=== PATIENT | female | born 1960 | race Caucasian/White ===

== ENCOUNTER 2020-05-01 20:26 | Observation (INO) | payer OTHER ==
[~2020-05-01] VITALS: Ht 142.2 cm; Wt 52.2 kg
[2020-05-01 20:52] VITALS: BP 120/55
--- OUTSIDE RECORDS SUMMARY | 2020-05-01 20:53 | XMS REPORT | Clinical Summary ---
Author Author [facility] ict Organization [facility] ict Address Unknown Phone Unavailable Care Team Providers Care Strategy Intern Name Role Phone PCP Unavailable Allergies No Known Allergies Medications End Date Status Medication Sig Dispensed Refills Start Date Active PRECISION XTRA TEST Check 3x 2 Box 12 STRIPS stripsIndications: daily: before 4 Diabetes mellitus breakfast and at bedtime, and once more before lunch or dinner. Check as needed for signs of low blood sugar. Active blood glucose meter Use as 1 Kit 0 (GLUCOMETER)Indications: directed.. 4 Diabetes mellitus Active aspirin (ASPIRIN) 81 mg Chew and 90 tablet 3 chewable swallow 1 4 tabletIndications: S/P tablet by CABG (coronary artery mouth daily. bypass graft), Diabetes mellitus, Hyperlipidemia, Hypertension Active OMEGA 3 1,000 mg cap Take 1,000 mg 0 by mouth daily . Active metoprolol succinate Take 1 tablet 90 tablet 3 (TOPROL XL) 50 mg by mouth 5 extended release daily For tabletIndications: blood Essential hypertension, pressure. Coronary artery disease due to lipid rich plaque Active famotidine (PEPCID) 20 mg Take 1 tablet 90 tablet 2 tabletIndications: by mouth 6 Epigastric pain, Nausea nightly at and vomiting, unspecified bedtime as intactability, vomiting needed for of unspecified type, Heartburn. Regurgitation of food Active isosorbide mononitrate Take 1 tablet 30 tablet 3 0 (IMDUR) 30 mg extended by mouth 6 release every tabletIndications: morning. Coronary artery vasospasm Active nicotine (NICODERM CQ) 21 Apply 1 Patch 28 Patch 0 mg/24 hr to skin as 6 patchIndications: Tobacco directed abuse daily. Active budesonide-formoterol Inhale 2 10.2 g 1 07/1 3/201 (SYMBICORT) 80-4.5 Puffs by 6 mcg/actuation mouth 2 times inhalerIndications: daily. Chronic obstructive pulmonary disease, unspecified COPD type, Cough Active ferrous sulfate 325 mg Take 1 tablet 90 tablet 1 0 (65 mg iron) by mouth 6 tabletIndications: daily (with Anemia, unspecified breakfast). Active NITROSTAT 0.[address] 1 100 tablet 1 sublingual tablet under 6 tabletIndications: NSTEMI tongue every (non-ST elevated 5 minutes myocardial infarction), With a Coronary artery disease maximum of 3 involving [place] coronary doses within artery of [place] heart 15 minutes. without angina pectoris, If chest pain S/P cardiac persists, she catheterization, ST is to go to elevation myocardial ER. Use new infarction (STEMI), bottle every unspecified artery, 6 months.. Coronary artery vasospasm Active atorvastatin (LIPITOR) 80 Take 1 tablet 90 tablet 1 mg tabletIndications: by mouth at 6 NSTEMI (non-ST elevated bedtime myocardial infarction) nightly For cholesterol. Active methocarbamol Take 1 tablet 60 tablet 2 (ROBAXIN-750) 750 mg by mouth 3 6 tabletIndications: times daily Midline low back pain as needed for without sciatica Pain. Active blood glucose (PRECISION use 2 times 50 Each 0 0 XTRA TEST STRIPS) test weekly. 7 stripsIndications: Type 2 diabetes mellitus without complication Active lancets 28 check blood 50 Each 0 gaugeIndications: Type 2 sugar level 2 7 diabetes mellitus without times a week complication contacted for qtt 06/18/18 Active albuterol (PROVENTIL HFA) Inhale 2 6.7 g 1 90 mcg/actuation Puffs by 7 inhalerIndications: mouth 4 times Chronic obstructive daily as pulmonary disease, needed for unspecified COPD type, Wheezing. Cough Active lancets 28 Check blood 100 Each 1 gaugeIndications: Type 2 glucose 2 7 diabetes mellitus without times weekly. complication, without long-term current use of insulin Active lisinopril (PRINIVIL, TAKE 1 TABLET 30 tablet 0 ZESTRIL) 10 mg BY MOUTH 7 tabletIndications: EVERY DAY Essential hypertension Active metFORMIN (GLUCOPHAGE) Take 1 tablet 60 tablet 0 1 850 mg tabletIndications: by mouth 2 7 Type 2 diabetes mellitus times daily without complication (with meals) Needs appointment before next refill. Active DULoxetine (CYMBALTA) 60 TAKE 2 60 capsule 0 1 mg delayed release CAPSULE BY 7 capsuleIndications: MOUTH EVERY Severe episode of MORNING recurrent major depressive disorder, without psychotic features Active gabapentin (NEURONTIN) TAKE 1 120 capsule 3 300 mg CAPSULE BY 8 capsuleIndications: Pain MOUTH THREE of left lower extremity TIMES DAILY Active traZODone (DESYREL) 50 mg Take 1-2 90 tablet 2 tabletIndications: MDD tablets at 8 (major depressive night for disorder), recurrent, insomnia. Can severe, with psychosis take up to 3 pills at night as needed for insomnia.. Active DULoxetine (CYMBALTA) 60 Take 2 60 capsule 2 0 mg delayed release capsules by 8 capsuleIndications: MDD mouth daily. 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 Active QUEtiapine (SEROQUEL) 300 TAKE 1 TABLET 30 tablet 2 mg tabletIndications: MDD BY MOUTH 8 (major depressive EVERY NIGHT disorder), recurrent, AT BEDTIME severe, with psychosis Active clopidogrel (PLAVIX) 75 TAKE 1 TABLET 30 tablet 0 mg tabletIndications: S/P BY MOUTH 8 coronary artery stent DAILY placement Active Problems Problem Noted Date Tobacco abuse 05/31/2016 Anxiety 05/30/2016 S/P cardiac catheterization 05/30/2016 Coronary artery vasospasm 05/30/2016 Panic disorder 03/20/2016 Chest pain 11/01/2015 Epigastric pain 10/24/2015 Major depressive disorder, recurrent, severe without psychotic features 07/22/2015 Anxiety state, unspecified 07/22/2015 Insomnia, unspecified 07/22/2015 MDD (major depressive disorder) 02/27/2014 Cough 01/25/2014 S/P CABG (coronary artery bypass graft) 12/29/2013 PMB (postmenopausal bleeding) 08/10/2012 Hypertension Hyperlipidemia Hx of colonic polyps Diabetes mellitus Coronary artery disease Stented coronary artery Low back pain Hx of CABG Hx of coronary angiogram SOB (shortness of breath) ST elevation myocardial infarction ([place]) Immunizations Name Administration Dates Next Due Clonidine 0.1mg Tab 11/10/2013 Influenza Vac (Fluarix) 01/05/2014 Influenza Vaccine 08/29/2015, 12/06/2014, , 09/10/2011 Pneumoccoccal 02/02/2014 Tdap Tetanus, diphtheria, 09/10/2011 acellular pertussis Vaccine Family History Medical History Relation Name Comments Cancer Father gastric Cancer Mother Lung cancer Diabetes Mother Hypertension Mother Stroke Mother Relation Name Status Comments Father Mother Social History Date Tobacco Use Types Packs/Day Years Used Current Some Day Smoker Cigarettes 0.5 22 Smokeless Tobacco: Never Used Tobacco Cessation: Ready to Quit: No; Co unseling Given: Yes Comments: e vapor cig Drinks/Week oz/Week Comments Alcohol Use 6 Standard drinks or equivalent 6.0 quit 09/23/2010 No Sex Assigned at Date Recorded Not on file Industry Job Start Date Occupation Not on file Not on file Not on file Travel End Travel History Travel Start No recent travel history available. Last Filed Vital Signs Not on file Plan of Treatment Health Maintenance Due Date Last Done Comments Colorectal Cancer Scrn 11/04/2012 11/04/2011, , 09/25/2010 Annual (FIT/FOBT) Age 50 to 75 DM Retinal Exam (Yearly) 12/12/2016 12/12/2015, 0 04/14/2014, 06/03/2012, Additional history exists Breast Cancer Scrn 02/10/2017 02/11/2016, 016, 04/25/2014, (Yearly) Additional history exists DM Foot Exam (Yearly) 02/10/2017 02/11/2016, 04/11/2014, 05/03/2013 (Previously completed - External), Additional history exists CORONARY ARTERY DISEASE 07/18/2017 07/18/2016, , 02/02/2015, AGE 18 AND UP Additional history exists DM HGBA1C (Yearly) 10/20/2017 10/20/2016, 016, 04/30/2016, Additional history exists Cervical Cancer Scrn (3 01/27/2019 01/28/2016, Yrs) Results Not on fileafter 05/01/2019 Insurance Type Payer Benefit Subscriber ID Effective Phone Address Plan / Dates Group [employer] HMO [employer] xxxxxxxxx 2016- [address] [id number] [place] [address] [employer] H[employer] xxxxxxxxx 2016- [address] Present [id number] [place] [address] (Work) Advance Directives Date Inactivated Comments Code Status Date Activated 05/31/2016 4:04 PM Full Code 05/30/2016 1:17 PM 05/30/2016 1:17 PM Full Code 05/30/2016 12:56 PM 11/02/2015 3:23 PM Full Code 11/01/2015 12:27 PM 01/19/2014 1:07 PM Full Code 01/18/2014 10:17 AM 01/18/2014 10:17 AM Full Code 01/17/2014 2:47 PM
--- OUTSIDE RECORDS SUMMARY | 2020-05-01 20:54 | XMS REPORT | Summary of Care ---
Author Author [facility] Organization [facility] Address Unknown Phone Unavailable Encounter PING Alvarado(CARINA) [phone] Date(s): 02/10/18 - 02/10/18 [facility] [address] [place] [address]- [phone] Encounter Diagnosis Hypoxemia (Final) - 02/17/18 Chronic obstructive pulmonary disease, unspecified (Final) - Underdosing of therapeutic gases, initial encounter (Final) - Patient's intentional underdosing of medication regimen for other reason (Final) - Dependence on supplemental oxygen (Final) - Hypertensive heart disease with heart failure (Final) - Heart failure, unspecified (Final) - Atherosclerotic heart disease of [place] coronary artery without angina pectoris (Final) - Presence of aortocoronary bypass graft (Final) - Type 2 diabetes mellitus without complications (Final) - Nicotine dependence, cigarettes, uncomplicated (Final) - 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 (Final) - 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 (Final) - Discharge Disposition: Left Against Medical Advise Attending Physician: Cory Thornton MD Admitting Physician: Cory Thornton MD Vital Signs 1 2 3 Most recent to oldest [Reference Range]: 160.02 cm (02/10/18 8:21 AM) Height 97.6 DegF (02/10/18 11:48 AM) 98.0 DegF (02/10/18 10:57 AM) 99.3 DegF *HI* (02/10/18 8:21 AM) Temperature Oral [96.4-99.1 DegF] 124/59 mmHg (02/10/18 11:48 AM) 119/55 mmHg (02/10/18 10:57 AM) 109/71 mmHg (02/10/18 8:47 AM) Blood Pressure [90-140/60-90 mmHg] 17 BRMIN (02/10/18 11:48 AM) 18 BRMIN (02/10/18 10:57 AM) 18 BRMIN (02/10/18 9:48 AM) Respiratory Rate [14-20 BRMIN] 79 bpm (02/10/18 11:48 AM) 80 bpm (02/10/18 10:57 AM) 74 bpm (02/10/18 8:21 AM) Peripheral Pulse Rate [60-100 bpm] 54.545 kg (02/10/18 8:21 AM) Weight 21.3 m2 (02/10/18 8:21 AM) Body Mass Index Problem List No data available for this section Allergies, Adverse Reactions, Alerts Substance Reaction Severity Status NKDA Active Medications albuterol-ipratropium 2.5-0.5 mg inhalation solution 3 mL, Route: NEB, Drug Form: SOLN, Dosing Weight 54.545, kg, ONCE, STAT, Start d ate: 02/10/18 9:57:00 CDT, Stop date: 02/10/18 9:57:00 CDT Notes: (Same as: Duoneb) Start Date: 02/10/18 Stop Date: 02/10/18 Status: Completed amitriptyline 25 mg, 1 tab, Route: PO, Drug form: TAB, Bedtime, Dosing Weight 54.545, kg, Star t date: 02/10/18 21:00:00 CDT, Duration: 30 day, Stop date: 03/11/18 21:00:00 CD T Notes: (Same as: Elavil) Start Date: 02/10/18 Stop Date: 02/10/18 Status: Canceled aspirin 81 mg tablet, enteric coated 81 mg, 1 tab, Route: PO, Drug form: ECTAB, Daily, Dosing Weight 54.545, kg, Star t date: 02/10/18 15:00:00 CDT, Duration: 30 day, Stop date: 03/12/18 9:00:00 CDT Notes: Do not crush or chew.(Same As: Ecotrin) Start Date: 02/10/18 Stop Date: 02/10/18 Status: Canceled atorvastatin 80 mg, 2 tab, Route: PO, Drug form: TAB, Bedtime, Dosing Weight 54.545, kg, Star t date: 02/10/18 21:00:00 CDT, Duration: 30 day, Stop date: 03/11/18 21:00:00 CD T Notes: (Same as: Lipitor) Start Date: 02/10/18 Stop Date: 02/10/18 Status: Canceled azithromycin 500 mg oral tablet 500 mg, 2 tab, Route: PO, Drug form: TAB, Daily, Dosing Weight 54.545, kg, Start date: 02/11/18 9:00:00 CDT, Duration: 3 day, Stop date: 02/13/18 9:00:00 CDT, A BX Indication: Non-PNA Respiratory Tract Infection Notes: Take 1 hour before or 2 hours after meals.(Same As: Zithromax) Start Date: 02/11/18 Stop Date: 02/10/18 Status: Canceled Cartia XT 240 mg, 1 cap, Route: PO, Drug form: ERCAP, Daily, Dosing Weight 54.545, kg, Sta rt date: 02/11/18 9:00:00 CDT, Duration: 30 day, Stop date: 03/12/18 9:00:00 CDT Notes: (Same as: Cardizem CD) Before meals. DO NOT CRUSH. Start Date: 02/11/18 Stop Date: 02/10/18 Status: Canceled Dextrose 50% Syringe 12.5 gm, 25 mL, Route: IVP, Drug Form: INJ, Dosing Weight 54.545, kg, PRN, PRN B lood Glucose Results, Start date: 02/10/18 13:16:00 CDT, Duration: 30 day, Stop date: 03/12/18 13:15:00 CDT Start Date: 02/10/18 Stop Date: 02/10/18 Status: Discontinued Dextrose 50% Syringe 25 gm, 50 mL, Route: IVP, Drug Form: INJ, Dosing Weight 54.545, kg, PRN, PRN Blo od Glucose Results, Start date: 02/10/18 13:16:00 CDT, Duration: 30 day, Stop da te: 03/12/18 13:15:00 CDT Start Date: 02/10/18 Stop Date: 02/10/18 Status: Discontinued dicyclomine 10 mg, 1 cap, Route: PO, Drug form: CAP, QID, Dosing Weight 54.545, kg, Start da te: 02/10/18 13:00:00 CDT, Duration: 30 day, Stop date: 03/12/18 9:00:00 CDT Notes: (Same as: Bentyl) Start Date: 02/10/18 Stop Date: 02/10/18 Status: Discontinued DULoxetine 120 mg, 4 cap, Route: PO, Drug form: DRC, QAM, Dosing Weight 54.545, kg, Start d ate: 02/11/18 9:00:00 CDT, Duration: 30 day, Stop date: 03/12/18 9:00:00 CDT Notes: (Same as: Cymbalta) (Do Not Crush) Start Date: 02/11/18 Stop Date: 02/10/18 Status: Canceled DuoNeb inhalation solution 3 ml, Route: NEB, Drug Form: SOLN, Dosing Weight 54.545, kg, PRN, PRN Respirator y Protocol, Start date: 02/10/18 13:14:00 CDT, Duration: 30 day, Stop date: 02/22 13:13:00 CDT Notes: (Same as: Duoneb) Start Date: 02/10/18 Stop Date: 02/10/18 Status: Discontinued glucagon 1 mg, Route: IM, Drug form: PDR/INJ, PRN, Dosing Weight 54.545, kg, PRN Blood Gl ucose Results, Start date: 02/10/18 13:16:00 CDT, Duration: 30 day, Stop date: 0 03/12/18 13:15:00 CDT Start Date: 02/10/18 Stop Date: 02/10/18 Status: Discontinued insulin lispro 4 unit, 0.04 mL, Route: SUB-Q, Drug form: SOLN, TID-Before Meals, Dosing Weight 54.545, kg, PRN Blood Glucose Results, Start date: 02/10/18 13:16:00 CDT, Durati on: 30 day, Stop date: 03/12/18 13:15:00 CDT Notes: (Same as: Humalog ) Roll in palms of hands gently; Do not shake `vigorou sly. "Single Patient Use Only " WASTE: F/P - Black; E - [address]ash [address] able for 28 days at room temperature.Expires in days from Da te Start Date: 02/10/18 Stop Date: 02/10/18 Status: Discontinued insulin lispro 8 unit, 0.08 mL, Route: SUB-Q, Drug form: SOLN, TID-Before Meals, Dosing Weight 54.545, kg, PRN Blood Glucose Results, Start date: 02/10/18 13:16:00 CDT, Durati on: 30 day, Stop date: 03/12/18 13:15:00 CDT Notes: (Same as: Humalog ) Roll in palms of hands gently; Do not shake `vigorou sly. "Single Patient Use Only " WASTE: F/P - Black; E - [address] able for 28 days at room temperature.Expires in days from Da te Start Date: 02/10/18 Stop Date: 02/10/18 Status: Discontinued insulin lispro 6 unit, 0.06 mL, Route: SUB-Q, Drug form: SOLN, TID-Before Meals, Dosing Weight 54.545, kg, PRN Blood Glucose Results, Start date: 02/10/18 13:16:00 CDT, Durati on: 30 day, Stop date: 03/12/18 13:15:00 CDT Notes: (Same as: Humalog ) Roll in palms of hands gently; Do not shake `vigorou sly. "Single Patient Use Only " WASTE: F/P - Black; E - [address] able for 28 days at room temperature.Expires in days from Da te Start Date: 02/10/18 Stop Date: 02/10/18 Status: Discontinued insulin lispro 10 unit, 0.1 mL, Route: SUB-Q, Drug form: SOLN, TID-Before Meals, Dosing Weight 54.545, kg, PRN Blood Glucose Results, Start date: 02/10/18 13:16:00 CDT, Durati on: 30 day, Stop date: 03/12/18 13:15:00 CDT Notes: (Same as: Humalog ) Roll in palms of hands gently; Do not shake `vigorou sly. "Single Patient Use Only " WASTE: F/P - Black; E - [address] able for 28 days at room temperature.Expires in days from Da te Start Date: 02/10/18 Stop Date: 02/10/18 Status: Discontinued insulin lispro 2 unit, 0.02 mL, Route: SUB-Q, Drug form: SOLN, TID-Before Meals, Dosing Weight 54.545, kg, PRN Blood Glucose Results, Start date: 02/10/18 13:16:00 CDT, Durati on: 30 day, Stop date: 03/12/18 13:15:00 CDT Notes: (Same as: Humalog ) Roll in palms of hands gently; Do not shake `vigorou sly. "Single Patient Use Only " WASTE: F/P - Black; E - [address] able for 28 days at room temperature.Expires in days from Da te Start Date: 02/10/18 Stop Date: 02/10/18 Status: Discontinued isosorbide mononitrate 60 mg, 2 tab, Route: PO, Drug form: ERTAB, QAM, Dosing Weight 54.545, kg, Start date: 02/11/18 9:00:00 CDT, Duration: 30 day, Stop date: 03/12/18 9:00:00 CDT Notes: (Same as:Imdur)"Do Not Crush" Take on empty stomach/ full glass of water . Do not crush Start Date: 02/11/18 Stop Date: 02/10/18 Status: Canceled lisinopril 10 mg, 2 tab, Route: PO, Drug form: TAB, Daily, Dosing Weight 54.545, kg, Start date: 02/11/18 9:00:00 CDT, Duration: 30 day, Stop date: 03/12/18 9:00:00 CDT Notes: (Same as: Prinivil Zestril) Start Date: 02/11/18 Stop Date: 02/10/18 Status: Canceled methocarbamol 1,500 mg, 2 tab, Route: PO, Drug form: TAB, BID, Dosing Weight 54.545, kg, Start date: 02/10/18 17:00:00 CDT, Duration: 30 day, Stop date: 03/12/18 9:00:00 CDT Notes: (Same as:Robaxin) Start Date: 02/10/18 Stop Date: 02/10/18 Status: Canceled Neurontin 600 mg, 2 cap, Route: PO, Drug form: CAP, Q8H, Dosing Weight 54.545, kg, Start d ate: 02/10/18 16:00:00 CDT, Duration: 30 day, Stop date: 03/12/18 8:00:00 CDT Notes: (Same as: Neurontin) Start Date: 02/10/18 Stop Date: 02/10/18 Status: Canceled omeprazole 20 mg, Route: PO, Drug form: DRC, Daily, Dosing Weight 54.545, kg, Start date: 0 02/11/18 9:00:00 CDT, Duration: 30 day, Stop date: 03/12/18 9:00:00 CDT Start Date: 02/11/18 Stop Date: 02/10/18 Status: Deleted Plavix 75 mg, 1 tab, Route: PO, Drug form: TAB, Daily, Dosing Weight 54.545, kg, Start date: 02/11/18 9:00:00 CDT, Duration: 30 day, Stop date: 03/12/18 9:00:00 CDT Notes: (Same As: Plavix) Start Date: 02/11/18 Stop Date: 02/10/18 Status: Canceled Protonix 40 mg, 1 tab, Route: PO, Drug form: ECTAB, Daily, Start date: 02/11/18 9:00:00 C DT, Duration: 30 day, Stop date: 03/12/18 9:00:00 CDT Notes: Tablet should not be chewed or crushed.(Same as: Protonix) Start Date: 02/11/18 Stop Date: 02/10/18 Status: Canceled QUEtiapine 300 mg, 3 tab, Route: PO, Drug form: TAB, Bedtime, Dosing Weight 54.545, kg, Sta rt date: 02/10/18 21:00:00 CDT, Duration: 30 day, Stop date: 03/11/18 21:00:00 C DT Notes: (Same as: SEROquel) Start Date: 02/10/18 Stop Date: 02/10/18 Status: Canceled Solu-MEDROL 60 mg, 1.5 mL, Route: IVP, Drug form: INJ, ONCE, Dosing Weight 54.545, kg, Prior ity: STAT, Start date: 02/10/18 9:57:00 CDT, Stop date: 02/10/18 9:57:00 CDT Notes: (Same as:Solu-MEDROL, A-Methapred) Start Date: 02/10/18 Stop Date: 02/10/18 Status: Completed Symbicort 160/4.5 inhalation aerosol with adapter 2 puff, INHALER, BID, # 1 ea, 3 Refill(s) Start Date: 02/10/18 Status: Suspended Symbicort 160/4.5 inhalation aerosol with adapter 2 inhalation, Route: INHALER, Drug Form: AERO/A, Dosing Weight 54.545, kg, BID, Start date: 02/10/18 17:00:00 CDT, Duration: 30 day, Stop date: 03/12/18 9:00:00 CDT Notes: (Same as: Symbicort)WASTE: Aerosol - Return to Pharmacy Start Date: 02/10/18 Stop Date: 02/10/18 Status: Canceled Results ELECTROLYTES Most recent to 1 oldest [Reference Range]: Sodium Lvl [135-145 137 mEq/L mEq/L] (02/10/18 8:33 AM) Potassium Lvl 4.7 mEq/L [3.5-5.1 mEq/L] (02/10/18 8:33 AM) Chloride Lvl [95-109 102 mEq/L mEq/L] (02/10/18 8:33 AM) CO2 [24-32 mEq/L] 27 mEq/L (02/10/18 8:33 AM) AGAP [10.0-20.0 12.7 mEq/L mEq/L] (02/10/18 8:33 AM) CHEM PANEL Most recent to 1 oldest [Reference Range]: Creatinine Lvl 0.62 mg/dL [0.50-1.40 mg/dL] (02/10/18 8:33 AM) eGFR 100 mL/min/1.73m2 1 *NA* (02/10/18 8:33 AM) BUN [7-22 mg/dL] 22 mg/dL (02/10/18 8:33 AM) B/C Ratio [6-25] 35 *HI* (02/10/18 8:33 AM) Glucose Lvl [70-99 367 mg/dL mg/dL] *HI* (02/10/18 8:33 AM) Total Protein 6.5 g/dL [6.4-8.4 g/dL] (02/10/18 8:33 AM) Albumin Lvl [3.5-5.0 2.8 g/dL g/dL] *LOW* (02/10/18 8:33 AM) Globulin [2.7-4.2 3.7 g/dL g/dL] (02/10/18 8:33 AM) A/G Ratio [0.7-1.6] 0.8 (02/10/18 8:33 AM) Calcium Lvl 8.2 mg/dL [8.5-10.5 mg/dL] *LOW* (02/10/18 8:33 AM) ALT [0-65 unit/L] 24 unit/L (02/10/18 8:33 AM) AST [0-37 unit/L] 7 unit/L (02/10/18 8:33 AM) Alk Phos [39-136 131 unit/L unit/L] (02/10/18 8:33 AM) Bili Total [0.2-1.3 0.4 mg/dL mg/dL] (02/10/18 8:33 AM) 1Result Comment: The eGFR is calculated using the CKD-EPI formula. In most young, healthy individuals the eGFR will be >90 mL/min/1.73m2. The eGFR declines with age. An eGFR of 60-89 may be normal in some populations, particularly the elderly, for whom the CKD-EPI formula has not been extensively validated. Use of the eGFR is not recommended in the following populations: Individuals with unstable creatinine concentrations, including patients and those with serious co-morbid conditions. Patients with extremes in muscle mass or diet. The data above are obtained from the National Kidney Disease Education Program ( NKDEP) which additionally recommends that when the eGFR is used in patients with extremes of body mass index for purposes of drug dosing, the eGFR should be mul tiplied by the estimated BMI. CARDIAC ENZYMES Most recent to 1 oldest [Reference Range]: Troponin-I <0.02 ng/mL [0.00-0.40 ng/mL] (02/10/18 8:33 AM) BNP [<=100 pg/mL] 249 pg/mL *HI* (02/10/18 8:33 AM) URINE AND STOOL Most recent to 1 oldest [Reference Range]: UA Turbidity [Clear] Clear (02/10/18 8:33 AM) UA Color [Yellow] Yellow *NA* (02/10/18 8:33 AM) UA pH [5.0-8.0] 6.0 (02/10/18 8:33 AM) UA Spec Grav 1.027 [<=1.030] (02/10/18 8:33 AM) UA Glucose [Negative 500 mg/dL mg/dL] *ABN* (02/10/18 8:33 AM) UA Blood [Negative] Small *ABN* (02/10/18 8:33 AM) UA Ketones [Negative Negative mg/dL mg/dL] *NA* (02/10/18 8:33 AM) UA Protein [Negative Negative mg/dL mg/dL] (02/10/18 8:33 AM) UA Urobilinogen <=1.0 mg/dL [0.1-1.0 mg/dL] *NA* (02/10/18 8:33 AM) UA Bili [Negative] Negative *NA* (02/10/18 8:33 AM) UA Leuk Est Negative [Negative] (02/10/18 8:33 AM) UA Nitrite Negative [Negative] (02/10/18 8:33 AM) UA WBC [0-5 /HPF] 2 /HPF (02/10/18 8:33 AM) UA RBC [0-2 /HPF] 1 /HPF (02/10/18 8:33 AM) UA Sq Epi [Few /LPF] Occasional /LPF *NA* (02/10/18 8:33 AM) HEMATOLOGY Most recent to 1 oldest [Reference Range]: WBC [3.7-10.4 K/CMM] 12.1 K/CMM *HI* (02/10/18 8 AM) RBC [4.20-5.40 3.57 M/CMM M/CMM] *LOW* (02/10/18 8:33 AM) Hgb [12.0-16.0 g/dL] 11.7 g/dL *LOW* (02/10/18 8:33 AM) Hct [36.0-48.0 %] 34.5 % *LOW* (02/10/18 AM) MCV [80.0-98.0 fL] 96.6 fL (02/10/18 AM) MCH [27.0-31.0 pg] 32.8 pg *HI* (02/10/18 8:33 AM) MCHC [32.0-36.0 33.9 g/dL g/dL] (02/10/18 8:33 AM) RDW [11.5-14.5 %] 14.0 % (02/10/18 8:33 AM) MPV [7.4-10.4 fL] 8.2 fL (02/10/18 8 AM) Platelet [133-450 274 K/CMM K/CMM] (02/10/18 8:33 AM) Segs [45.0-75.0 %] 81.9 % *HI* (02/10/18 8:33 AM) Lymphocytes 13.4 % [20.0-40.0 %] *LOW* (02/10/18 833 AM) Monocytes [2.0-12.0 4.3 % %] (02/10/18 8:33 AM) Basophils [0.0-1.0 0.4 % %] (02/10/18 8:33 AM) Segs-Bands # 9.9 K/CMM [1.5-8.1 K/CMM] *HI* (02/10/18 8:33 AM) Lymphocytes # 1.6 K/CMM [1.0-5.5 K/CMM] (02/10/18 8:33 AM) Monocytes # [0.0-0.8 0.5 K/CMM K/CMM] (02/10/18 8:33 AM) Immunizations No data available for this section Procedures No data available for this section Social History Social History Type Response Alcohol Current, Type Beer. Freque ncy: 1-2 times per week. 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 ing No entered on: 02/10/18 Assessment and Plan Extracted from: Title: History and Physical Author: Cory Thornton MD Date : 02/10/18 Hypoxia causing lethargy COPD Mild CHF exacerbation-unknown EF Hypertension Diabetes Mellitus H/O CAD s.p CABG Plan: Will start IV solumedrol, azithromycin and duoneb prn Not in any acute exacerbation, O2 supplementation to keep O2 > 89% ELevated BNP with mild pulmonary edema, will get ECHO given history of CAD and diurese as needed Mild leukocytosis likely in the setting of steroid use, monitor ISS for DM Resume home pain medications Diabetic diet DVT PPX: Per protocol Dispo: Anticipate 1 midnight stay Addendum by Hillary, No evidence of stroke on CT and patient did not have any neurologic deficits, lethargy Cory ARRINGTON likely in the setting of hy poxia. on 02/10/2018 23:36 CDT
--- OUTSIDE RECORDS SUMMARY | 2020-05-01 20:54 | XMS REPORT | Summary of Care ---
Author Author [facility] Organization [facility] Address Unknown Phone Unavailable Encounter HQ Najmantr_tiffanie(FIN) [id number] Date(s): 01/20/18 - 01/21/18 [facility] [address] [facility], [address] [phone] Vital Signs No data available for this section Problem List No data available for this section Allergies, Adverse Reactions, Alerts Substance Reaction Severity Status NKDA Active Medications No data available for this section Results No data available for this section Immunizations No data available for this section Procedures No data available for this section Social History Social History Type Response Alcohol Current, Type Beer. Freque ncy: 1-2 times per week. 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
--- OUTSIDE RECORDS SUMMARY | 2020-05-01 20:54 | XMS REPORT | Summary of Care ---
Author Author [facility] Organization [facility] Address Unknown Phone Unavailable Encounter HQ Najmantr_tiffanie(FIN) [id number] Date(s): 01/29/18 - 01/30/18 [facility] [address] [address] [facility] [phone] Vital Signs No data available for this [...] Last 365 Days Yes; Reg Smoking Cessation Sagger Filler ing No entered on: 02/10/18 Assessment and Plan No data available for this section
--- OUTSIDE RECORDS SUMMARY | 2020-05-01 20:54 | XMS REPORT | Summary of Care ---
Author Author [facility] Organization [facility] Address Unknown Phone Unavailable Encounter HQ Encntr_aliguy(FIN) [id number] Date(s): 03/17/18 - 03/18/18 [facility] [address] [place], [place] [address] [phone] Vital Signs No data available for this [...] Last 365 Days Yes; Reg Smoking Cessation Car Blocker ing No entered on: 02/10/18 Assessment and Plan No data available for this section
--- OUTSIDE RECORDS SUMMARY | 2020-05-01 20:54 | XMS REPORT | Summary of Care ---
Author Author [facility] Organization [facility] Address Unknown Phone Unavailable Encounter HQ Encntr_aliguy(FIN) [id number] Date(s): 10/05/17 - 10/05/17 [facility] [address] [facility], [address] [place] [phone] Attending Physician: Denise Sow MD Referring Physician: Evangelist Purvis III, MD Vital Signs No data available for this section Problem List No data available for this section Allergies, Adverse Reactions, Alerts No data available for this section Medications No data available for this section Results No data available for this section Immunizations No data available for this section Procedures No data available for this section Social History No data available for this section Assessment and Plan No data available for this section
--- OUTSIDE RECORDS SUMMARY | 2020-05-01 20:54 | XMS REPORT | Summary of Care ---
Author Author [facility] Organization [facility] Address Unknown Phone Unavailable Encounter HQ Encntr_tiffanie(FIN) [id number] Date(s): 03/31/18 - 04/01/18 [facility] [address] [facility] [phone] Vital Signs No data available for this [...] Last 365 Days Yes; Reg Smoking Cessation Heating Systems Installer ing No entered on: 02/10/18 Assessment and Plan No data available for this section
--- OUTSIDE RECORDS SUMMARY | 2020-05-01 20:54 | XMS REPORT | Summary of Care ---
Author Author [facility] Organization [facility] Address Unknown Phone Unavailable Encounter HQ Encntr_aliguy(FIN) [id number] Date(s): 11/25/17 - 11/25/17 [facility] [address] [facility], [address] [place], [place] [address] [phone] Attending Physician: Denise Sow MD Referring Physician: [...]
--- OUTSIDE RECORDS SUMMARY | 2020-05-01 20:54 | XMS REPORT | Summary of Care ---
Author Author [facility] Organization [facility] Address Unknown Phone Unavailable Encounter HQ Encntr_tiffanie(FIN) [id number] Date(s): 03/31/18 - 04/01/18 [facility] [address] [facility] [phone] Vital Signs No data available for this [...] Last 365 Days Yes; Reg Smoking Cessation Milk Pickup Driver ing No entered on: 02/10/18 Assessment and Plan No data available for this section
--- OUTSIDE RECORDS SUMMARY | 2020-05-01 20:54 | XMS REPORT | Summary of Care ---
Author Author [facility] Organization [facility] Address Unknown Phone Unavailable Encounter HQ Encntr_tiffanie(FIN) [id number] Date(s): 02/04/18 - 02/05/18 [facility] [address] [facility] [phone] Vital Signs No data available for this [...] Last 365 Days Yes; Reg Smoking Cessation Barrel Inspector Tight ing No entered on: 02/10/18 Assessment and Plan No data available for this section
--- OUTSIDE RECORDS SUMMARY | 2020-05-01 20:54 | XMS REPORT | Summary of Care ---
Author Author [facility] Organization [facility] Address Unknown Phone Unavailable Encounter HQ Najmantr_tiffanie(FIN) [id number] Date(s): 03/03/19 - 03/03/19 [facility] [place] [address] [place] [address] [phone] Discharge Disposition: Home or Self Care Attending Physician: Robert Cormier MD Referring Physician: Robert Cormier MD Vital Signs No data available for this section Problem List No data available for this section Allergies, Adverse Reactions, Alerts Substance Reaction Severity Status NKDA Active Medications No data available for this section Results No data available for this section Immunizations No data available for this section Procedures Procedure Date Related Diagnosis Body Site Status Stent placement Completed Social History Social History Type Response Alcohol Current, Type Beer. Freque ncy: 1-2 times per week. Smoking Status Current every day smoker; T ype: Cigarettes; Previous treatment: None; Ready to change: Yes; Lives with someone who smokes; Cigarette Smoking Last 365 Days Yes; Reg Smoking Cessation Criminal Investigator Customs ing No entered on: 10/22/18 Assessment and Plan No data available for this section
--- OUTSIDE RECORDS SUMMARY | 2020-05-01 20:54 | XMS REPORT | Summary of Care ---
Author Author [facility] Organization [facility] Address Unknown Phone Unavailable Encounter HQ Madyr_tiffanie(FIN) [phone] Date(s): 12/30/17 - 12/31/17 [facility] [address] [facility], [address] [phone] Vital Signs No data available for this [...] Last 365 Days Yes; Reg Smoking Cessation Hide Examiner ing No entered on: 02/10/18 Assessment and Plan No data available for this section
--- OUTSIDE RECORDS SUMMARY | 2020-05-01 20:54 | XMS REPORT | Summary of Care ---
Author Author [facility] Organization [facility] Address Unknown Phone Unavailable Encounter HQ Jenny(FIN) [phone] Date(s): 10/22/18 - 10/22/18 [facility] [address] [place] [address]- Encounter Diagnosis Chest pain (Discharge Diagnosis) - 10/22/18 Epigastric pain (Discharge Diagnosis) - 10/22/18 Chest pain, unspecified (Final) - 10/28/18 Epigastric pain (Final) - Essential (primary) hypertension (Final) - Type 2 diabetes mellitus without complications (Final) - Nicotine dependence, cigarettes, uncomplicated (Final) - Old myocardial infarction (Final) - terminal carman (current) use of 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/antiplatelets (Final) - alf (current) use of aspirin (Final) - Presence of aortocoronary bypass graft (Final) - 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 (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) - Discharge Disposition: Home or Self Care Attending Physician: Malena Kiser MD Vital Signs 1 2 3 Most recent to oldest [Reference Range]: 142.24 cm (10/22/18 9:02 AM) Height 98.4 DegF (10/22/18 11:33 AM) 98.2 DegF (10/22/18 9:02 AM) Temperature Oral [96.4-99.1 DegF] 159/77 mmHg *HI* (10/22/18 11:33 AM) 126/58 mmHg (10/22/18 10:30 AM) 129/70 mmHg (10/22/18 9:24 AM) Blood Pressure [90-140/60-90 mmHg] 18 BRMIN (10/22/18 11:33 AM) 15 BRMIN (10/22/18 10:30 AM) 12 BRMIN *LOW* (10/22/18 9:24 AM) Respiratory Rate [14-20 BRMIN] 87 bpm (10/22/18 9:02 AM) Peripheral Pulse Rate [60-100 bpm] 55.455 kg (10/22/18 9:02 AM) Weight 27.41 m2 (10/22/18 9:02 AM) Body Mass Index Problem List No data available for this section Allergies, Adverse Reactions, Alerts No Known Medication Allergies Medications famotidine 20 mg, Route: PO, ONCE, Dosing Weight 55.455, kg, Start date: 10/22/18 9:27:[address], Stop date: 10/22/18 9:27:00 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 FIELD 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 Start Date: 10/22/18 Stop Date: 10/22/18 Status: Completed GI cocktail (aluminum hydroxide/magnesium hydroxide/lidocaine/simethicone) 30 mL, Route: PO, Dosing Weight 55.455, kg, ONCE, STAT, Start date: 10/22/18 9:2 7:00 RISK CONTROL FIELD 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, Stop date: 10/22/18 9:27:00 RISK CONTROL FIELD 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 Start Date: 10/22/18 Stop Date: 10/22/18 Status: Completed Tylenol 1,000 mg, Route: PO, Drug form: TAB, ONCE, Dosing Weight 55.455, kg, Priority: S TAT, Start date: 10/22/18 10:52:00 RISK CONTROL FIELD 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, Stop date: 10/22/18 10:52:00 RISK CONTROL FIELD 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 Start Date: 10/22/18 Stop Date: 10/22/18 Status: Completed Tylenol Extra Strength 500 mg oral tablet 1,000 mg = 2 tab, PO, Q6H, PRN Pain, X 10 day, # 80 tab, 0 Refill(s) Start Date: 10/22/18 Stop Date: 11/01/18 Status: Completed Results Most recent to 1 oldest [Reference Range]: Neutrophils # 8.4 K/CMM [1.5-8.1 K/CMM] *HI* (10/22/18 9:21 AM) Lymphocytes # 2.1 K/CMM [1.0-5.5 K/CMM] (10/22/18 9:21 AM) Monocytes # [0.0-0.8 0.6 K/CMM K/CMM] (10/22/18 9:21 AM) Eosinophils # 0.3 K/CMM [0.0-0.5 K/CMM] (10/22/18 9:21 AM) BNP [<=100 pg/mL] 167 pg/mL *HI* (10/22/18 AM) Bili Indirect >0.3 mg/dL [0.0-1.0 mg/dL] (10/22/18:52 AM) eGFR 99 mL/min/1.73m2 1 *NA* (10/22/18 AM) A/G Ratio [0.7-1.6] 1.1 (10/22/18:52 AM) Albumin Lvl [3.5-5.0 3.2 g/dL g/dL] *LOW* (10/22/18 AM) Alk Phos [39-136 154 unit/L unit/L] *HI* (10/22/18: AM) ALT [0-65 unit/L] 22 unit/L (10/22/18:52 AM) AGAP [10.0-20.0 11.6 mEq/L mEq/L] (10/22/18: AM) AST [0-37 unit/L] 10 unit/L (10/22/18:52 AM) Basophils [0.0-1.0 0.4 % %] (10/22/18: AM) BUN [7-22 mg/dL] 9 mg/dL (10/22/18: AM) Calcium Lvl 8.3 mg/dL [8.5-10.5 mg/dL] *LOW* (10/22/18: AM) Chloride Lvl [95-109 109 mEq/L mEq/L] (10/22/18: AM) CO2 [24-32 mEq/L] 26 mEq/L (10/22/18: AM) Creatinine Lvl 0.63 mg/dL [0.50-1.40 mg/dL] (10/22/18: AM) Bili Direct [0.0-0.3 <0.1 mg/dL mg/dL] (10/22/18:52 AM) Eosinophils [0.0-4.0 2.5 % %] (10/22/18 AM) Globulin [2.7-4.2 3.0 g/dL g/dL] (10/22/18:52 AM) Glucose Lvl [70-99 147 mg/dL mg/dL] *HI* (10/22/18 AM) Hct [36.0-48.0 %] 37.2 % (10/22/18 AM) Hgb [12.0-16.0 g/dL] 12.5 g/dL (10/22/18 AM) Potassium Lvl 3.6 mEq/L [3.5-5.1 mEq/L] (10/22/18 AM) Lactic Acid Lvl 0.9 mMol/L [0.5-2.2 mMol/L] (10/22/18 AM) Lipase Lvl [73-393 176 unit/L unit/L] (10/22/18 AM) Lymphocytes 18.6 % [20.0-40.0 %] *LOW* (10/22/18 AM) Macrocyte [None 1+ Seen] *ABN* (10/22/18 AM) MCH [27.0-31.0 pg] 33.5 pg *HI* (10/22/18 AM) MCHC [32.0-36.0 33.5 g/dL g/dL] (10/22/18: AM) MCV [80.0-98.0 fL] 99.9 fL *HI* (10/22/18 AM) Monocytes [2.0-12.0 5.2 % %] (10/22/18 AM) MPV [7.4-10.4 fL] 8.0 fL (10/22/18 AM) Sodium Lvl [135-145 143 mEq/L mEq/L] (10/22/18 AM) Platelet [133-450 230 K/CMM K/CMM] (10/22/18 AM) Segs [45.0-75.0 %] 73.3 % (10/22/18 AM) Total Protein 6.2 g/dL [6.4-8.4 g/dL] *LOW* (10/22/18 9:52 AM) RBC [4.20-5.40 3.73 M/CMM M/CMM] *LOW* (10/22/18 9:21 AM) RDW [11.5-14.5 %] 15.1 % *HI* (10/22/18 9:21 AM) Bili Total [0.2-1.3 0.4 mg/dL mg/dL] (10/22/18 9:52 AM) Troponin-I <0.02 ng/mL [0.00-0.40 ng/mL] (10/22/18 9:21 AM) WBC [3.7-10.4 K/CMM] 11.5 K/CMM *HI* (10/22/18 9:21 AM) 1Result Comment: The eGFR is calculated [...] be mul tiplied by the estimated BMI. Immunizations No data available for this section [...] Last 365 Days Yes; Reg Smoking Cessation Protohistorian ing No entered on: 10/22/18 Assessment and Plan No data available for this section
--- OUTSIDE RECORDS SUMMARY | 2020-05-01 20:54 | XMS REPORT | Summary of Care ---
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
--- OUTSIDE RECORDS SUMMARY | 2020-05-01 20:54 | XMS REPORT | Summary of Care ---
Author Author [facility] Organization [facility] Address Unknown Phone Unavailable Encounter HQ Encntr_aliguy(FIN) [phone] Date(s): 10/29/17 - 10/30/17 [facility] [address] [facility], [address] [place], [place] [address] [phone] Vital Signs No data available for this [...]
--- OUTSIDE RECORDS SUMMARY | 2020-05-01 20:54 | XMS REPORT | Summary of Care ---
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
--- OUTSIDE RECORDS SUMMARY | 2020-05-01 20:54 | XMS REPORT | Summary of Care ---
Author Author [facility] Organization [facility] Address Unknown Phone Unavailable Encounter HQ Madyr_tiffanie(FIN) [phone] Date(s): 10/21/17 - 10/21/17 [facility] [address] [facility], [address] [place] [phone] Discharge Disposition: Home or Self Care Attending Physician: Denise Sow MD Referring Physician: Evangelist Purvis III, MD Vital Signs No data available for this section Problem List No data available for this section Allergies, Adverse Reactions, Alerts No data available for this section Medications gabapentin 600 mg oral tablet 600 mg = 1 tab, PO, TID, # 90 tab, 1 Refill(s), Pharmacy: [facility] [id number] Start Date: 10/21/17 Status: Ordered Results No data available for this section Immunizations No data available for this section Procedures No data available for this section Social History No data available for this section Assessment and Plan No data available for this section
--- OUTSIDE RECORDS SUMMARY | 2020-05-01 20:54 | XMS REPORT | Summary of Care ---
Author Author [facility] Organization [facility] Address Unknown Phone Unavailable Encounter HQ Najmantr_tiffanie(FIN) [phone] Date(s): 05/19/19 - 05/19/19 [facility] [place] [address] [place] [phone] Discharge Disposition: Home or Self Care Attending Physician: Elaine Guerrero MD Referring Physician: Elaine Guerrero MD Vital Signs No data available for this section Problem List No data available for this section Allergies, Adverse Reactions, Alerts No Known Medication Allergies Medications No data available for this section [...] Last 365 Days Yes; Reg Smoking 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
--- OUTSIDE RECORDS SUMMARY | 2020-05-01 20:54 | XMS REPORT | Summary of Care ---
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
--- OUTSIDE RECORDS SUMMARY | 2020-05-01 20:54 | XMS REPORT | Continuity of Care Document ---
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 Phone [employer] Information [employer] Unavailable Un available Problems Problem Status Onset Date Classification Date Reported Comments Source Chest pain, unspecified 10/22/2018 05/11/2019 [facility] Epigastric pain 10/22/2018 05/11/2019 [facility] CHEST PAIN Active 10/22/2018 [facility] Hypoxemia 0 02/18/2018 05/19/2018 [facility] HYPOXEMIA/LETHARGY Active 02/10/2018 [facility] LETHARGY Active 02/10/2018 [facility] UNK Active 0 02/08/2018 [facility] Unspecified convulsions 12/25/2017 03/30/2018 [facility] R56.9 - UNSPECIFIED CONVULSIONS Active 12/22/2017 [facility] [place] M48.02 - "SPINAL STENOSIS, CERVICAL GABRIELLA Active 08/27/2017 [facility] [place] M54.5 - LOW BACK PAIN Active 04/23/2017 [facility] [place] [id number] Active 11/23/2000 [facility] Old myocardial infarction 05/11/2019 [facility] Essential (primary) hypertension 05/11/2019 [facility] Type 2 diabetes mellitus without complications 05/11/2019 [facility] Nicotine dependence, cigarettes, uncomplicated 05/11/2019 [facility] 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 05/11/2019 [facility] shelter (current) use of antithromboti cs/antiplatelets 05/11/2019 [facility] Chronic obstructive pulmonary disease, unspecified 05/19/2018 [facility] Underdosing of therapeutic gases, initial encounter 05/19/2018 [facility] Patient's intentional underdosing of med ication regimen for other reason 05/19/2018 [facility] Dependence on supplemental oxygen 05/19/2018 [facility] Hypertensive heart disease with heart failure 05/19/2018 [facility] Heart failure, unspecified 05/19/2018 [facility] Atherosclerotic heart disease of [place] coronary artery without angina pectoris 05/19/2018 [facility] Presence of aortocoronary bypass graft 05/11/2019 [facility] shelter (current) use of systemic steroids 05/19/2018 [facility] Other longterm (current) drug therapy 05/11/2019 [facility] Medications Medication Details Route Status Patient Instructions Ordering Provider Order Date Source Acetaminophen 500 MG Oral Tablet [Tylenol] 1,000 mg = 2 tab, PO, Q6H, PRN Pain, X 10 day, # 80 tab, 0 Refill(s) No Longer Active 10/22/2018 [facility] Tylenol 1,000 mg, Route: PO, D rug form: TAB, ONCE, Dosing Weight 55.455, kg, Priority: STAT, Start date: 10/22/18 10:52:00 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, Stop date: 10/22/18 10:52:00 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 Inactive 10/22/2018 [facility] GI cocktail (aluminum hydroxide/magnesiu m hydroxide/lidocaine/simethicone) 30 mL, Route: PO, Dosing Weight 55.455, kg, ONCE, STAT, Start date: 10/22/18 9:27:00 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 (Same as: Protonix) No Longer Active 02/11/2018 [facility] azithromycin 500 mg oral tablet Notes: Take 1 hour before or 2 hours after meals. (Same As: Zithromax) No Longer Active 02/11/2018 [facility] Omeprazole 20 mg, Route: PO, D rug form: DRC, Daily, Dosing Weight 54.545, kg, Start date: 02/11/18 9:00:00 CDT, Duration: 30 day, Stop date: 03/12/18 9:00:00 CDT No Longer Active 02/11/2018 [facility] Lisinopril Notes: (Same as: Pr inivil, Zestril) No Longer Active 02/11/2018 [facility] Isosorbide Notes: (Same as:Imd ur) "Do Not Crush" Take on empty stomach/ full glass of water. Do not crush No Longer Active 02/11/2018 [facility] duloxetine Notes: (Same as: Cy mbalta) (Do Not Crush) No Longer Active 02/11/2018 [facility] Cartia XT Notes: (Same as: Car dizem CD) Before meals. DO NOT CRUSH. No Longer Active 02/11/2018 [facility] Plavix Notes: (Same As: Plavix) No Longer Active 02/11/2018 [facility] atorvastatin Notes: (Same as: Lipitor) Inactive 02/11/2018 [facility] Amitriptyline Notes: (Same as: Elavil) Inactive 02/11/2018 [facility] quetiapine Notes: (Same as: SE ROquel) Inactive 02/11/2018 [facility] Methocarbamol Notes: (Same as: Robaxin) Inactive 02/10/2018 [facility] Symbicort 160/4.5 inhalation aerosol with adapter Notes: (Same as: Symbicort) WASTE: Aerosol - Return to Pharmacy Inactive 02/10/2018 [facility] gabapentin 600 MG Oral Tablet Notes: (Same as: Neurontin) Inactive 02/10/2018 [facility] Aspirin 81 MG Enteric Coated Tablet Notes: Do not crush or chew. (Same As: Ecotrin) Inactive 02/10/2018 [facility] Dextrose 50% Syringe 12.5 gm, 25 mL, Route: IVP, Drug Form: INJ, Dosing Weight 54.545, kg, PRN, PRN Blood Glucose Results, Start date: 02/10/18 13:16:00 CDT, Duration: 30 day, Stop date: 03/12/18 13:15:00 CDT Inactive 02/10/2018 [facility] Glucagon 1 mg, Route: IM, Drug form: PDR/INJ, PRN, Dosing Weight 54.545, kg, PRN Blood Glucose Results, Start date: 02/10/18 13:16:00 CDT, Duration: 30 day, Stop date: 03/12/18 13:15:00 CDT Inactive 02/10/2018 [facility] Insulin Lispro Notes: (Same as : Humalog ) Roll in palms of hands gently; Do not shake `vigorously. "Single Patient Use Only " WASTE: F/P - Black; E - Municipal Trash Bin Stable for 28 days at room temp erature. Expires in days from Date Inactive 02/10/2018 [facility] Albuterol 0.833 MG/ML / Ipratropium Brom allison 0.167 MG/ML Inhalant Solution [DuoNeb] Notes: (Same as: Duoneb) Inactive 02/10/2018 [facility] Dicyclomine Notes: (Same as: B entyl) Inactive 02/10/2018 [facility] Symbicort 160/4.5 inhalation aerosol with adapter 2 puff, INHALER, BID, # 1 ea, 3 Refill(s) On Hold 02/10/2018 [facility] Solu-Medrol Notes: (Same as:So sharyn-MEDROL, A-Methapred) Inactive 02/10/2018 [facility] Albuterol 0.833 MG/ML / Ipratropium Brom allison 0.167 MG/ML Inhalant Solution Notes: (Same as: Duoneb) Inactive 02/10/2018 [facility] gabapentin 600 MG Oral Tablet 600 mg = 1 tab, PO, TID, # 90 tab, 1 Refill(s), Pharmacy: [email or web address] [id number] Active 10/21/2017 [facility] Allergies, Adverse Reactions, Alerts Substance Category Reaction Severity Reaction type Status Date Reported Comments Source No Known Medication Allergies Assertion Drug aller gy [facility] [place] Immunizations No Data Provided for This Section Results Order Name Results Value Reference Range Date Interpretation Comments Source CHEM PANEL Lactic Acid Lvl 0.9 0.5 - 2.2 10/22/2018 [facility] CHEM PANEL Lipase Lvl 176 73 - 393 10/22/2018 [facility] CHEM PANEL Albumin Lvl 3.2 3.5 - 5.0 10/22/2018 [facility] CHEM PANEL Globulin 3.0 2.7 - 4.2 10/22/2018 [facility] CHEM PANEL Total Protein 6.2 6.4 - 8.4 10/22/2018 [facility] CHEM PANEL A/G Ratio 1.1 0.7 - 1.6 10/22/2018 [facility] CHEM PANEL ALT 22 0 - 65 10/22/2018 [facility] CHEM PANEL AST 10 0 - 37 10/22/2018 [facility] CHEM PANEL Alk Phos 154 39 - 136 10/22/2018 [facility] CHEM PANEL Bili Direct <0.1 0.0 - 0.3 10/22/2018 [facility] CHEM PANEL Bili Total 0.4 0.2 - 1.3 10/22/2018 [facility] CHEM PANEL Bili Indirect >0.3 0.0 - 1.0 10/22/2018 [facility] CARDIAC ENZYMES BNP 167 <=100 pg/mL 10/22/2018 [facility] CARDIAC ENZYMES Troponin-I <0.02 0.00 - 0.40 10/22/2018 [facility] ELECTROLYTES AGAP 11.6 10.0 - 20.0 10/22/2018 [facility] ELECTROLYTES eGFR 99 10/22/2018 Result Comment: The eGFR is calculated using the [...] from the National Kidney Disease Education Program (NKDEP) which additionally recommends that when the eGFR is used in patients with extremes of body mass index for purposes of drug dosing, the eGFR should be multiplied by the estimated BMI. [facility] ELECTROLYTES CO2 26 24 - 32 10/22/2018 [facility] ELECTROLYTES Calcium Lvl 8.3 8.5 - 10.5 10/22/2018 [facility] ELECTROLYTES Potassium Lvl 3.6 3.5 - 5.1 10/22/2018 [facility] ELECTROLYTES Chloride Lvl 109 95 - 109 10/22/2018 [facility] Creatinine Lvl 0.6 3 0.50 - 1.40 10/22/2018 [facility] ELECTROLYTES Sodium Lvl 143 135 - 145 10/22/2018 [facility] ELECTROLYTES BUN 9 7 - 22 10/22/2018 [facility] Glucose Lvl 147 70 - 99 10/22/2018 [facility] HEMATOLOGY WBC 11.5 3.7 - 10.4 10/22/2018 [facility] HEMATOLOGY MPV 8.0 7.4 - 10.4 10/22/2018 [facility] HEMATOLOGY Hct 37.2 36.0 - 48.0 10/22/2018 [facility] Hgb 12.5 12.0 - 16.0 10/22/2018 [facility] RBC 3.73 4.20 - 5.40 10/22/2018 [facility] Platelet 230 133 - 450 10/22/2018 [facility] RDW 15.1 11.5 - 14.5 10/22/2018 [facility] MCHC 33.5 32.0 - 36.0 10/22/2018 [facility] MCH 33.5 27.0 - 31.0 10/22/2018 [facility] MCV 99.9 80.0 - 98.0 10/22/2018 [facility] Neutrophils # 8.4 1.5 - 8.1 10/22/2018 [facility] Basophils 0.4 0.0 - 1.0 10/22/2018 [facility] Eosinophils 2.5 0.0 - 4.0 10/22/2018 [facility] Monocytes 5.2 2.0 - 12.0 10/22/2018 [facility] Eosinophils # 0.3 0.0 - 0.5 10/22/2018 [facility] Monocytes # 0.6 0.0 - 0.8 10/22/2018 [facility] Lymphocytes # 2.1 1.0 - 5.5 10/22/2018 [facility] Macrocyte 1+ *ABN* (10/22/18 9:21 AM) None Seen 10/22/2018 [facility] Segs 73.3 45.0 - 75.0 10/22/2018 [facility] Lymphocytes 18.6 20.0 - 40.0 10/22/2018 [facility] URINE AND STOOL UA Bacteria Occasional /HPF None Seen /HPF 10/21/2018 [facility] URINE AND STOOL UA Sq Epi Occasional /LPF Few /LPF 10/21/2018 [facility] URINE AND STOOL UA Leuk Est Negative (10/21/18 5:26 PM) Negative 10/21/2018 [facility] URINE AND STOOL UA Nitrite Negative (10/21/18 5:26 PM) Negative 10/21/2018 [facility] URINE AND STOOL UA Urobilinogen <=1.0 mg/dL 0.1 - 1.0 10/21/2018 [facility] URINE AND STOOL UA Blood Negative (10/21/18 5:26 PM) Negative 10/21/2018 [facility] URINE AND STOOL UA Bili Negative *NA* (10/21/18 5:26 PM) Negative 10/21/2018 [facility] URINE AND STOOL UA Ketones Negative *NA* (10/21/18 5:26 PM) Negative 10/21/2018 [facility] URINE AND STOOL UA Glucose 50 mg/dL Negative mg/dL 10/21/2018 [facility] URINE AND STOOL UA Spec Grav 1.004 <=1.030 10/21/2018 [facility] URINE AND STOOL UA Protein Negative (10/21/18 5:26 PM) Negative 10/21/2018 [facility] URINE AND STOOL UA pH 7.0 5.0 - 8.0 10/21/2018 [facility] URINE AND STOOL UA Turbidity Clear (10/21/18 5:26 PM) Clear 10/21/2018 [facility] URINE AND STOOL UA Color Ltyellow 10/21/2018 [facility] CARDIAC ENZYMES Troponin-I <0.02 0.00 - 0.40 10/21/2018 [facility] CHEM PANEL Lipase Lvl 150 73 - 393 10/21/2018 [facility] ELECTROLYTES Sodium Lvl 144 135 - 145 10/21/2018 [facility] ELECTROLYTES ALT 30 0 - 65 10/21/2018 [facility] ELECTROLYTES Total Protein 6.8 6.4 - 8.4 10/21/2018 [facility] ELECTROLYTES Albumin Lvl 3.4 3.5 - 5.0 10/21/2018 [facility] ELECTROLYTES Calcium Lvl 8.5 8.5 - 10.5 10/21/2018 [facility] ELECTROLYTES CO2 32 24 - 32 10/21/2018 [facility] ELECTROLYTES Glucose Lvl 192 70 - 99 10/21/2018 [facility] ELECTROLYTES Potassium Lvl 3.9 3.5 - 5.1 10/21/2018 [facility] ELECTROLYTES Chloride Lvl 107 95 - 109 10/21/2018 [facility] ELECTROLYTES Creatinine Lvl 0.7 3 0.50 - 1.40 10/21/2018 [facility] ELECTROLYTES BUN 11 7 - 22 10/21/2018 [facility] ELECTROLYTES eGFR 90 10/21/2018 Result Comment: The eGFR is calculated using the [...] from the National Kidney Disease Education Program (NKDEP) which additionally recommends that when the eGFR is used in patients with extremes of body mass index for purposes of drug dosing, the eGFR should be multiplied by the estimated BMI. [facility] ELECTROLYTES Bili Total 0.2 0.2 - 1.3 10/21/2018 [facility] ELECTROLYTES Alk Phos 156 39 - 136 10/21/2018 [facility] ELECTROLYTES AST 10 0 - 37 10/21/2018 [facility] ELECTROLYTES AGAP 8.9 10.0 - 20.0 10/21/2018 [facility] ELECTROLYTES A/G Ratio 1.0 0.7 - 1.6 10/21/2018 [facility] ELECTROLYTES Globulin 3.4 2.7 - 4.2 10/21/2018 [facility] ELECTROLYTES B/C Ratio 15 6 - 25 10/21/2018 [facility] HEMATOLOGY INR 1.02 0.85 - 1.17 10/21/2018 [facility] HEMATOLOGY PT 13.2 12.0 - 14.7 10/21/2018 [facility] PTT 27.2 22.9 - 35.8 10/21/2018 [facility] MPV 7.8 7.4 - 10.4 10/21/2018 [facility] MCH 33.1 27.0 - 31.0 10/21/2018 [facility] MCV 98.2 80.0 - 98.0 10/21/2018 [facility] RBC 3.85 4.20 - 5.40 10/21/2018 [facility] Hct 37.8 36.0 - 48.0 10/21/2018 [facility] Hgb 12.7 12.0 - 16.0 10/21/2018 [facility] Platelet 248 133 - 450 10/21/2018 [facility] RDW 15.1 11.5 - 14.5 10/21/2018 [facility] MCHC 33.7 32.0 - 36.0 10/21/2018 [facility] WBC 9.5 3.7 - 10.4 10/21/2018 [facility] HEMATOLOGY Eosinophils # 0.3 0.0 - 0.5 10/21/2018 [facility] HEMATOLOGY Monocytes 5.9 2.0 - 12.0 10/21/2018 [facility] HEMATOLOGY Eosinophils 3.2 0.0 - 4.0 10/21/2018 [facility] HEMATOLOGY Basophils 0.4 0.0 - 1.0 10/21/2018 [facility] HEMATOLOGY Neutrophils # 5.6 1.5 - 8.1 10/21/2018 [facility] HEMATOLOGY Lymphocytes # 3.0 1.0 - 5.5 10/21/2018 [facility] HEMATOLOGY Monocytes # 0.6 0.0 - 0.8 10/21/2018 [facility] HEMATOLOGY Lymphocytes 31.8 20.0 - 40.0 10/21/2018 [facility] HEMATOLOGY Segs 58.7 45.0 - 75.0 10/21/2018 [facility] CARDIAC ENZYMES BNP 249 <=100 pg/mL 02/10/2018 [facility] CARDIAC ENZYMES Troponin-I <0.02 0.00 - 0.40 02/10/2018 [facility] CHEM PANEL eGFR 100 02/10/2018 Result Comment: The eGFR is calculated using the [...] from the National Kidney Disease Education Program (NKDEP) which additionally recommends that when the eGFR is used in patients with extremes of body mass index for purposes of drug dosing, the eGFR should be multiplied by the estimated BMI. [facility] CHEM PANEL A/G Ratio 0.8 0.7 - 1.6 02/10/2018 [facility] CHEM PANEL Globulin 3.7 2.7 - 4.2 02/10/2018 [facility] CHEM PANEL B/C Ratio 35 6 - 25 02/10/2018 [facility] CHEM PANEL AGAP 12.7 10.0 - 20.0 02/10/2018 [facility] CHEM PANEL Bili Total 0.4 0.2 - 1.3 02/10/2018 [facility] CHEM PANEL Alk Phos 131 39 - 136 02/10/2018 [facility] CHEM PANEL Total Protein 6.5 6.4 - 8.4 02/10/2018 [facility] CHEM PANEL AST 7 0 - 37 02/10/2018 [facility] CHEM PANEL ALT 24 0 - 65 02/10/2018 [facility] CHEM PANEL Albumin Lvl 2.8 3.5 - 5.0 02/10/2018 [facility] CHEM PANEL Potassium Lvl 4.7 3.5 - 5.1 02/10/2018 [facility] CHEM PANEL Sodium Lvl 137 135 - 145 02/10/2018 [facility] CHEM PANEL Glucose Lvl 367 70 - 99 02/10/2018 [facility] CHEM PANEL Creatinine Lvl 0.62 0.50 - 1.40 02/10/2018 [facility] CHEM PANEL BUN 22 7 - 22 02/10/2018 [facility] CHEM PANEL Calcium Lvl 8.2 8.5 - 10.5 02/10/2018 [facility] CHEM PANEL CO2 27 24 - 32 02/10/2018 [facility] CHEM PANEL Chloride Lvl 102 95 - 109 02/10/2018 [facility] HEMATOLOGY MPV 8.2 7.4 - 10.4 02/10/2018 [facility] HEMATOLOGY Platelet 274 133 - 450 02/10/2018 [facility] HEMATOLOGY WBC 12.1 3.7 - 10.4 02/10/2018 [facility] HEMATOLOGY Hct 34.5 36.0 - 48.0 02/10/2018 [facility] HEMATOLOGY RBC 3.57 4.20 - 5.40 02/10/2018 [facility] HEMATOLOGY Hgb 11.7 12.0 - 16.0 02/10/2018 [facility] HEMATOLOGY RDW 14.0 11.5 - 14.5 02/10/2018 [facility] HEMATOLOGY MCH 32.8 27.0 - 31.0 02/10/2018 [facility] HEMATOLOGY MCHC 33.9 32.0 - 36.0 02/10/2018 [facility] HEMATOLOGY MCV 96.6 80.0 - 98.0 02/10/2018 [facility] HEMATOLOGY Segs-Bands # 9.9 1.5 - 8.1 02/10/2018 [facility] HEMATOLOGY Monocytes # 0.5 0.0 - 0.8 02/10/2018 [facility] HEMATOLOGY Lymphocytes # 1.6 1.0 - 5.5 02/10/2018 [facility] HEMATOLOGY Monocytes 4.3 2.0 - 12.0 02/10/2018 [facility] HEMATOLOGY Basophils 0.4 0.0 - 1.0 02/10/2018 [facility] HEMATOLOGY Segs 81.9 45.0 - 75.0 02/10/2018 [facility] HEMATOLOGY Lymphocytes 13.4 20.0 - 40.0 02/10/2018 [facility] URINE AND STOOL UA Urobilinogen <=1.0 mg/dL 0.1 - 1.0 02/10/2018 [facility] URINE AND STOOL UA Sq Epi Occasional /LPF Few /LPF 02/10/2018 [facility] URINE AND STOOL UA WBC 2 0 - 5 02/10/2018 [facility] URINE AND STOOL UA RBC 1 0 - 2 02/10/2018 [facility] URINE AND STOOL UA Leuk Est Negative (02/10/18 8:33 AM) Negative 02/10/2018 [facility] URINE AND STOOL UA Glucose 500 mg/dL Negative mg/dL 02/10/2018 [facility] URINE AND STOOL UA Protein Negative mg/dL Negative mg/dL 02/10/2018 [facility] URINE AND STOOL UA Ketones Negative mg/dL Negative mg/dL 02/10/2018 [facility] URINE AND STOOL UA Blood Small *ABN* (02/10/18 8:33 AM) Negative 02/10/2018 [facility] URINE AND STOOL UA Nitrite Negative (02/10/18 8:33 AM) Negative 02/10/2018 [facility] URINE AND STOOL UA Bili Negative *NA* (02/10/18 8:33 AM) Negative 02/10/2018 [facility] URINE AND STOOL UA Color Yellow *NA* (02/10/18 8:33 AM) Yellow 02/10/2018 [facility] URINE AND STOOL UA pH 6.0 5.0 - 8.0 02/10/2018 [facility] URINE AND STOOL UA Turbidity Clear (02/10/18 8:33 AM) Clear 02/10/2018 [facility] URINE AND STOOL UA Spec Grav 1.027 <=1.030 02/10/2018 [facility] Pathology Reports No Data Provided for This Section Diagnostic Reports Report Value Date Source Spine cervical w/wo contrast MRI Spine cervical w/wo contrast MRI 04/13/2020 14:06 CDT HISTORY/INDICATIONS:59 years Female - M48.02 Spinal stenosis, cervical region neck pain, bilateral shoulder pain, multiple falls, memory loss TECHNIQUE: Sagittal and axial T1 and T2 weighted, and optional gradient echo, and fat suppressed sequences were obtained postcontrast sagittal and axial T1 with fat suppression. CONTRAST: 12 mL Dotarem given IV COMPARISON: None FINDINGS: Alignment: Normal. Skull base/base of brain: Negative. Fractures: Negative. C1-2: Osteoarthritic changes at the anterior C1-C2 joint. C2-3: Desiccated disc signal, normal disc space height. Minimal posterior central disc bulge. C3-4: Mild desiccated disc signal, normal disc space height. Mild focal posterior central disc bulge, slightly indents the spinal cord due to a congenitally shallow spinal canal. C4-5: Mild desiccated disc signal, normal disc space height. No disc bulge C5-6: Mild desiccated disc signal, normal disc space height. No disc bulge C6-7: Mild desiccated disc signal, normal disc space height. No disc bulge C7-T1: Mild desiccated disc signal, normal disc space height. No disc bulge Large anterior osteophytes are present from C3 through C6 with smaller osteophytes at C2 and C7. These anterior osteophytes abut one another from C3 through C7, limiting the amount of flexion-extension possible Articular processes: Negative. Spinal cord: Negative. Spinal stenosis: Negative. Prevertebral/Posterior soft tissues: Negative. IMPRESSION: 1. Mild focal posterior central disc bu lge at C3-C4, slightly indents the spinal cord as there is a congenitally shallow spinal canal at this level. 2. Large anterior osteophytes from C3 t hrough C7 which abut each other, limiting flexion and extension in the cervical spine. [id number] 04/13/2020 [facility] Brain w/wo contrast MRI Patien t Name: ZACH RADER : 1960; Age: 59 years y/o Female MR: [id number] Study: Brain w/wo contrast MRI 04/13/2020 14:06 CDT Ordering Physician: Robert Cormier MD Clinical Indication: - R41.3 Other amnesia; Comparison: Yesterday's head CT TECHNIQUE : Multiplanar imaging of the brain was obtained both prior to and after uncomplicated IV administration of 12 cc Dotarem FINDINGS: BRAIN PARENCHYMA: There is mild diffuse cerebral atrophy, including hippocampal and midbrain volumes. There are mild punctate T2 hyperintensities involving the cerebral white matter , with more moderate involvement of the kimmie without enhancement, blooming artifact nor diffusion restriction. These are nonspecific but likely represent small vessel ischemic change. No restricted diffusion is identified. There is no mass effect or midline shift. There is no extra-axial fluid collection or intraparenchymal hemorrhage. There is no abnormal enhancement. CEREBELLOPONTINE REGIONS AND SKULL BASE: The cerebellopontine angles appear unremarkable. No skull base abnormality is seen. VENTRICLES/SULCI/CISTERNS: The ventricles are normal in size and configuration. The basal cisterns are patent. VISUALIZED VESSELS: Major intracranial flow voids are preserved. ORBITS, VISUALIZED PARANASAL SINUSES AND MASTOIDS: Paranasal sinuses are clear. There is a small bilateral mastoid fluid without evidence of coalescence, middle ear fluid, or obstructive nasopharyngeal mass. No orbital pathology is seen. Moderate rightward nasal septal bowing contacts and remodels the right middle turbinate, with a potential source of headaches in some patients. IMPRESSION: 1. Mild diffuse atrophy. 2. Probable small vessel ischemic change s involving the kimmie greater than cerebral white matter, also that osmotic demyelination cannot be excluded. 3. Small bilateral mastoid fluid may be incidental, though correlate for mastoiditis. 04/13/2020 [facility] Spine lumbar wo contrast MRI [facility] [place] lumbar wo contrast MRI 05/19/2019 9:01 CDT CLINICAL: M54.16 Radiculopathy, lumbar region - M54.16 Radiculopathy, lumbar region COMPARISON: 03/03/2019 MRI exam. TECHNIQUE: Sagittal T1, sagittal T2 with fat saturation, axial T1 and axial T2 images were obtained. No intravenous gadolinium was given. FINDINGS: Lumbosacral junction transitional vertebra is identified, and is labeled as 'S1'. Please see the sagittal images for the numbering system used. The conus medullaris terminates at the L2-L3 level. T12-L1: Disc desiccation is present. No central canal or foraminal stenosis. L1-L2: There is preservation of the disc signal intensity, height, with no bulging, herniation, spinal stenosis, or neural foraminal stenosis. L2-L3: There is preservation of the disc signal intensity, height, with no bulging, herniation, spinal stenosis, or neural foraminal stenosis. L3-L4: No central canal stenosis. Mild bilateral foraminal stenosis due to bilateral foraminal and extraforaminal disc osteophyte complexes. L4-L5: Mild disc desiccation No central canal or foraminal stenosis. L5-S1: Disc desiccation is present. Stable 3.3 mm broad-based central disc protrusion is present with mild central canal stenosis. Mild bilateral foraminal stenosis due to disc bulge encroachment. IMPRESSION: 1. Lumbosacral junction transitional julissa tebra is identified, and is labeled as 'S1'. Please see the sagittal images for the numbering system used. 2. L3-L4, L5-S1 mild bilateral foraminal stenosis. 3. Stable L5-S1 central disc protrusion with mild central canal stenosis. 05/19/2019 [facility] lumbar w/wo contrast MRI LUMBAR SPINE MRI WITH AND WITHOUT CONTRAST. Indication:58 years Female Z72.0 Tobacco use - Z72.0 Tobacco use. pain in neck, bilateral shoulders, lower back, bilateral hips x2 years. Multiple falls while walking. TECHNIQUE: Sagittal T1, sagittal T2, sagittal STIR and axial T1/T2 images without contrast were obtained. Postcontrast sagittal T1 and axial T1 images were obtained after the administration of 12 cc of Dotarem. Comparison: 04/30/2017 FINDINGS: There is a transitional lumbosacral junction with hypoplastic but fully formed S1-S2 disc. The vertebrae are otherwise normal in shape, signal intensity and alignment. The paravertebral soft tissues are normal. The conus medullaris terminates low normal at the L2-L3 level. There is no intradural mass lesion. No abnormal epidural or nerve root enhancement seen. T12-L1: There is preservation of the disc signal intensity, height, with no bulging, herniation, spinal stenosis, or neural foraminal stenosis. L1-L2: There is preservation of the disc signal intensity, height, with no bulging, herniation, spinal stenosis, or neural foraminal stenosis. L2-L3: There is preservation of the disc signal intensity, height, with no bulging, herniation, spinal stenosis, or neural foraminal stenosis. L3-L4: Disc is desiccated with maintained disc height. Minimal disc bulge and mild facet hypertrophy resulting in mild bilateral neural foraminal narrowing. No disc herniation or significant canal stenosis. L4-L5: Disc is desiccated with maintained disc height. Minimal disc bulge with mild facet hypertrophy and ligamentum flavum thickening. This results in mild bilateral neural foraminal narrowing. No significant canal stenosis or focal disc herniation. L5-S1: Disc is desiccated with maintained disc height. 4 mm disc bulge with mild facet hypertrophy and ligamentum flavum thickening. This results in slight worsening, moderate bilateral neural foraminal narrowing with deformity of bilateral L5 nerve roots. No focal disc herniation or significant canal stenosis. IMPRESSION: Multilevel neural foraminal narrowing including deformity of bilateral L5 nerve roots as detailed above. 03/03/2019 [facility] cervical w/wo contrast MRI Additional clinical history which is not changing pressure findings: pain in neck, bilateral shoulders, lower back, bilateral hips x2 years. Multiple falls while walking. CERVICAL SPINE MRI WITH AND WITHOUT CONTRAST. Indication:58 years Female Z72.0 Tobacco use - Z72.0 Tobacco use TECHNIQUE: Sagittal T1, sagittal T2, and axial T2 precontrast images were obtained. Post-contrast sagittal T1 and axial T1 images were obtained after uncomplicated IV administration of 12 cc Dotarem . Comparison: 09/01/2017 FINDINGS: The cervical cord is normal in size and signal intensity. There is no syrinx. The cerebellar tonsils are normal in position above the level of the foramen magnum. There is congenital narrowing of the canal due to short pedicles, which exaggerates the effects of degenerative change. There are prominent anterior osteophytes C3-C4 through C5-C6 measuring up to 6 mm with encroachment hypopharynx. The vertebrae are otherwise normal in shape, signal intensity and alignment. The intervertebral disks are diffusely desiccated. No abnormal enhancement. C2-C3: Disc height is preserved. Mild facet hypertrophy resulting in mild bilateral neural foraminal narrowing. No significant disc bulge/herniation or canal stenosis. C3-C4: Disc height preserved. 2 mm disc bulge/disc osteophyte complexes and uncovertebral hypertrophy with mild facet hypertrophy and ligamentum flavum thickening. This results in mild to moderate canal stenosis (AP diameter 8 mm) with slight contact to the anterior cord. Mild bilateral neural foraminal narrowing. No focal disc herniation. C4-C5: Disc height maintained. 2 mm disc bulge/disc osteophyte complexes and uncovertebral hypertrophy with mild facet hypertrophy and ligamentum flavum thickening. This results in mild canal stenosis with contact to the anterior cord. [id number] bilateral neural foraminal narrowing slight deformity C5 nerve roots. No focal disc herniation. C5-C6: Disc height maintained. 2 mm disc bulge/disc osteophyte complexes and uncovertebral hypertrophy with mild facet hypertrophy and ligamentum flavum thickening. This results in mild canal and bilateral neural foraminal narrowing. No focal disc herniation. C6-C7: Disc height maintained. 2 mm disc bulge/disc osteophyte complexes and uncovertebral hypertrophy with mild facet hypertrophy. This results in minimal bilateral neural foraminal narrowing. No focal disc herniation or significant canal stenosis. C7-T1: Disc height maintained. 2 mm disc bulge/disc osteophyte complexes and uncovertebral hypertrophy with mild facet hypertrophy. This results in minimal bilateral neural foraminal narrowing. No focal disc herniation or significant canal stenosis. IMPRESSION: 1. Combined congenital and acquired, mul tilevel canal stenosis is up to [id number] at C3-C4 with contact to the anterior cord. 2. Multilevel neural foraminal narrowing as detailed above, including slight deformity of bilateral C5 nerve roots. 03/03/2019 [facility] Chest 2 views DX Study: Chest 2 views DX 10/22/2018 9:06 AM 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 Patient Name: ZACH RADER MR: [id number] : 1960; Age: 58 years y/o Female Ordering Physician: Malena Kiser MD Clinical Indication: Abnormal chest sounds - chest pain Comparison: October 21, 2010 x-ray FINDINGS LUNGS: The lungs are clear of consolidation, pleural effusion, and pneumothorax. HEART AND MEDIASTINUM: Heart size at the upper limits of normal. . Attention CABG. LINES: None. OSSEOUS STRUCTURES: Mild spinal degenerative change without fracture, dislocation, or focal osseous lesion. OTHER: None. IMPRESSION: 1. No acute abnormality as above discus sed. SL: [id number] 10/22/2018 [facility] Chest 1view DX EXAM: XR CHEST 1 VIEW DATE: 10/21/2018 5:08 PM 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 INDICATION: Chest pain. COMPARISON: 02/10/2018. TECHNIQUE: Frontal radiograph of the chest was obtained. FINDINGS: Median sternotomy wires are identified from prior coronary artery bypass grafting. No focal consolidation or pneumothorax is identified. The cardiac silhouette is enlarged. The costophrenic recesses are sharp and without effusion. No acute osseous abnormality is noted. IMPRESSION: No acute cardiopulmonary abnormality. SL: [id number] 10/21/2018 [facility] Brain Stroke wo contrast CT EX AM: CT BRAIN WITHOUT CONTRAST DATE: 02/10/2018 8:35 AM CDT INDICATION: - r/o stroke. Acute CVA. Slurred speech. COMPARISON: None. TECHNIQUE: Routine axial CT images of the brain were obtained. IV contrast: None. DLP: 859.11 mGy-cm FINDINGS: Non-contrast images of the head demonstrate no edema, hemorrhage, mass lesion or other acute intracranial abnormality. The carl-white matter distinction is preserved. The ventricles are normal. The basal cisterns and sulci are normal in size. Mild chronic inflammatory change of the paranasal sinus. Partial opacification of the mastoid air cells. IMPRESSION: 1. No definite acute infarct or intracra nial hemorrhage detected. Critical findings were called to Narciso Bledsoe DO on 02/10/2018 9:08 AM CDT. SL: [id number] 02/10/2018 [facility] Chest 1view DX Clinical Indica tion: - lethargy. Comparison: None. FINDINGS: AP chest radiograph was obtained. MEDIASTINUM: The cardiac silhouette is mildly enlarged. The aorta is unremarkable. Prior coronary artery bypass graft. LUNGS: Central pulmonary vascular prominence and increased interstitial opacity bilaterally. No pleural effusion or pneumothorax. OTHER: No acute osseous abnormalities. IMPRESSION: Cardiomegaly and mild interstitial pulmonary edema. SL: [id number] 02/10/2018 [facility] Brain w/wo contrast MRI PATIEN T NAME: ZACH RADER : 1960; Age: 57 years y/o Female MR: [id number] STUDY: Brain w/wo contrast MRI 12/22/2017 10:19 AM 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 ORDERING PHYSICIAN: Robert Cormier MD CLINICAL INDICATION: R56.9 Unspecified convulsions - R56.9 Unspecified convulsions; COMPARISON: None TECHNIQUE : Multiplanar imaging of the brain was obtained both prior to and after uncomplicated IV administration of 10 cc Dotarem. FINDINGS: BRAIN PARENCHYMA: There is no hemorrhage, mass lesion, extra axial collection, cerebral edema, or mass effect. Diffusion sequences are normal. Brain volume is age-appropriate. There is a single left frontal subcortical white matter T2/Flair signal abnormality. There are nonexpansile, nonenhancing signal abnormality in the kimmie bilaterally. The hippocampal measures are normal and symmetric in size and signal. There are no foci of cortical thickening. Tonsils are above foramen magnum. The pituitary gland is age-appropriate. There is no abnormal enhancement. CEREBELLOPONTINE REGIONS AND SKULL BASE: The cerebellopontine angles appear unremarkable. No skull base abnormality is seen. VENTRICLES/SULCI/CISTERNS: The ventricles are normal in size and configuration. The basal cisterns are patent. VISUALIZED VESSELS: Major intracranial flow voids are preserved. ORBITS, VISUALIZED PARANASAL SINUSES AND MASTOIDS: Paranasal sinuses are clear. The mastoid air cells are clear. No orbital pathology is seen. IMPRESSION: 1. Nonspecific T2/FLAIR signal abnormali ties in the left frontal subcortical white matter and the bilateral kimmie likely reflect chronic small vessel ischemia 2. The brain is otherwise normal. No dis crete seizure focus clearly identified 3. No acute findings. No abnormal enhanc ement. 12/22/2017 [facility] [place] Spine cervical wo contrast MRI EXAM: Spine cervical wo contrast MRI DATE: 09/01/2017 8:54 AM CDT . ORDERING PHYSICIAN: Robert Cormier MD CLINICAL INDICATION: - M48.02 Spinal stenosis, cervical region; TECHNIQUE: Multiplanar, multisequence MRI cervical spine without IV contrast COMPARISON: Unavailable FINDINGS: VISUALIZED INTRACRANIAL CONTENTS: There is increased signal in the kimmie without pontine expansion. CRANIOCERVICAL JUNCTION: Tonsils normal in position CORD: No definite cord signal abnormality. No definite dural based lesion. VERTEBRAE: The vertebrae are normal in height. The lordosis is straightened. No focal suspicious bone marrow signal abnormality. PARASPINAL SOFT TISSUES: No edema or masses DISC LEVELS, SPINAL CANAL, NEURAL FORAMINA: The cervical pedicles are short Craniocervical junction: No stenosis C1-C2: No subluxation, ligamentous pannus formation, or stenosis C2-C3: Intervertebral disc height and signal are maintained. Posterior elements are normal.There is no stenosis. C3-C4: Loss of intervertebral disc height with small disc bulge/osteophyte complex. Facets are unremarkable. Since canal measures 9 mm with no substantial cord mass effect. Neural foramina are patent. C4-C5: Disc height is maintained. There is an anterior osteophyte complex. There is no posterior osteophyte complex or disc bulge/protrusion. Facets are unremarkable. Central canal measures 9 mm. Neural foramina are patent. C5-C6: The disc is dehydrated without height loss. There is an anterior disc osteophyte complex. There is no posterior disc osteophyte complex, protrusion, or bulge. There is mild left facet hypertrophy. Central canal measures 9 mm with no mass effect on spinal cord. Neural foramina are patent. C6-C7: Intervertebral disc height and signal are maintained. Posterior elements are normal. There is no stenosis. C7-T1: Intervertebral disc height and signal are maintained. Posterior elements are normal. There is no stenosis. IMPRESSION: 1. Mild, degenerative C3-C4 spinal steno sis without cord compression or myelopathy 2. Short cervical pedicles with baseline narrowing of the central canal 3. No foraminal nerve root compression 4. Partially visualized, increased ponti ne signal likely reflecting small vessel ischemia 09/01/2017 [facility] lumbar wo contrast MRI E XAM: MRI LUMBAR SPINE WITHOUT CONTRAST DATE: 04/30/2017 3:20 PM CDT . CLINICAL INDICATION: Low back pain and intermittent bilateral leg pain TECHNIQUE: Multiplanar, multisequence MRI lumbar spine without IV contrast COMPARISON: Unavailable FINDINGS: For the purposes of enumeration, the lowest well formed intervertebral disc was counted as L5-S1 on this exam. INTRASPINAL CONTENTS/CONUS: The conus terminates at L1-L2. No definite dural based lesion. VERTEBRAE: The vertebrae are normal in height and alignment. No focal suspicious bone marrow signal abnormality. PARASPINAL SOFT TISSUES: No edema or definite masses. No aortic aneurysm. DISC SPACES, SPINAL CANAL, AND NEURAL FORAMINA: The lumbar pedicles are short. T12-L1. Intervertebral disc height and signal are maintained. Posterior elements are normal. There is no stenosis. L1-L2. Intervertebral disc height and signal are maintained. Posterior elements are normal. There is no stenosis. L2-L3. Intervertebral disc height and signal are maintained. Posterior elements are normal. There is no stenosis. L3-L4. Intervertebral disc height and signal are maintained. Posterior elements are normal. There is no stenosis. L4-L5. Intervertebral disc height and signal are maintained. Posterior elements are normal. There is no stenosis. L5-S1. Intervertebral disc height and signal are maintained. There is a small, physiologic diffuse bulge. There is a central zone annular fissure. Facets are unremarkable. Central canal measures 9 mm. Facets are mildly enlarged. There is moderate narrowing of the right neural foramen with disc and facets minimally contacting the exiting nerve root. There is mild narrowing of the left. IMPRESSION: 1. No lumbar central canal stenosis 2. Moderate right L5-S1 neural foramen n arrowing with disc and facets minimally contacting the exiting L5 nerve root 04/30/2017 [facility] Consultation Notes No Data Provided for This Section Discharge Summaries No Data Provided for This Section History and Physicals No Data Provided for This Section Vital Signs Vital Sign Value Date Comments Source Systolic (mm Hg) 159 10/22/2018 [facility] Diastolic (mm Hg) 77 10/22/2018 [facility] Temperature Oral (F) 98.4 F 10/22/2018 [facility] Respitory Rate 18 10/22/2018 [facility] Systolic (mm Hg) 126 10/22/2018 [facility] Diastolic (mm Hg) 58 10/22/2018 [facility] Respitory Rate 15 10/22/2018 [facility] Systolic (mm Hg) 129 10/22/2018 [facility] Diastolic (mm Hg) 70 10/22/2018 [facility] Respitory Rate 12 10/22/2018 [facility] Height 142.24 cm 10/22/2018 [facility] BMI Calculated 27.41 10/22/2018 [facility] Weight 55.455 10/22/2018 [facility] Temperature Oral (F) 98.2 F 10/22/2018 [facility] Heart Rate 87 10/22/2018 [facility] Height 142.24 cm 10/21/2018 [facility] BMI Calculated 27.41 10/21/2018 [facility] Weight 55.455 10/21/2018 [facility] Systolic (mm Hg) 118 10/21/2018 [facility] Diastolic (mm Hg) 61 10/21/2018 [facility] Temperature Oral (F) 98.1 F 10/21/2018 [facility] Heart Rate 71 10/21/2018 [facility] Respitory Rate 16 10/21/2018 [facility] Respitory Rate 17 02/10/2018 [facility] Temperature Oral (F) 97.6 F 02/10/2018 [facility] Heart Rate 79 02/10/2018 [facility] Systolic (mm Hg) 124 02/10/2018 [facility] Diastolic (mm Hg) 59 02/10/2018 [facility] Heart Rate 80 02/10/2018 [facility] Respitory Rate 18 02/10/2018 [facility] Systolic (mm Hg) 119 02/10/2018 [facility] Diastolic (mm Hg) 55 02/10/2018 [facility] Temperature Oral (F) 98.0 F 02/10/2018 [facility] Respitory Rate 18 02/10/2018 [facility] Systolic (mm Hg) 109 02/10/2018 [facility] Diastolic (mm Hg) 71 02/10/2018 [facility] Weight 54.545 02/10/2018 [facility] BMI Calculated 21.3 02/10/2018 [facility] Height 160.02 cm 02/10/2018 [facility] Temperature Oral (F) 99.3 F 02/10/2018 [facility] Heart Rate 74 02/10/2018 [facility] Encounters Location Location Details Encounter Type Encounter Number Reason For Visit Attending Provider ADM Date DC Date Status Source [facility] [place] [facility] [id number] 00 Arnold Anderson 04/30/2017 05/01/2017 [facility] [place] [facility] [id number] Robert Cormier 09/01/2017 09/02/2017 [facility] [place] [facility] [id number] DENISE SOW 09/28/2017 [facility] [id number] DENISE SOW 10/05/2017 [facility] Phone Message [id number] 10/05/2017 10/07/2017 [facility] Pre-Reg [id number] Evangelist Purvis III 10/05/2017 10/05/2017 [facility] [id number] DENISE SOW 10/21/2017 [facility] Outpatient [id number] Evangelist Purvis III 10/21/2017 10/22/2017 [facility] Phone Message [id number] 10/29/2017 10/31/2017 [facility] Phone Message [id number] 11/10/2017 11/12/2017 [facility] Phone Message [id number] 11/24/2017 11/26/2017 [facility] [id number] DENISE SOW 11/25/2017 [facility] Pre-Reg [id number] Evangelist Purvis III 11/25/2017 11/25/2017 [facility] [id number] DENISE SOW 11/30/2017 [facility] Pre-Reg [id number] Evangelist Purvis III 11/30/2017 11/30/2017 [facility] [id number] DENISE SOW 12/07/2017 [facility] Pre-Reg [id number] Evangelist Purvis III 12/07/2017 12/07/2017 [facility] [place] [facility] [id number] 00 Robert Cormier 12/22/2017 12/23/2017 [facility] [place] Phone Message [id number] 12/30/2017 01/01/2018 [facility] Phone Message [id number] 01/13/2018 01/15/2018 [facility] [id number] DENISE SOW 01/18/2018 [facility] [id number] Evangelist Purvis III 01/18/2018 01/19/2018 [facility] Phone Message [id number] 01/20/2018 01/22/2018 [facility] Phone Message [id number] 01/29/2018 01/31/2018 [facility] Phone Message [id number] 02/02/2018 02/04/2018 [facility] Phone Message [id number] 02/04/2018 02/06/2018 [facility] [place] [id number] [place] Thornton 02/10/2018 02/10/2018 [facility] Phone Message [id number] 03/16/2018 03/18/2018 [facility] Phone Message [id number] 03/17/2018 03/19/2018 [facility] [id number] DENISE SOW 03/22/2018 [facility] Phone Message [id number] 03/31/2018 04/02/2018 [facility] [id number] DENISE SOW 04/01/2018 [facility] Pre-Reg [id number] Denise Sow 04/01/2018 04/01/2018 [facility] [id number] DENISE SOW 04/15/2018 [facility] Ambulatory Pre-Reg [id number] Denise Sow 04/15/2018 04/15/2018 [facility] [id number] DENISE SOW 04/21/2018 Active [facility] Ambulatory Pre-Reg [id number] Denise Sow 04/21/2018 04/21/2018 [facility] Emergency [id number] Melecio Mendoza 10/21/2018 10/22/2018 [facility] Emergency [id number] Malena Beltranu 10/22/2018 10/22/2018 [facility] [place] [facility] [id number] Robert Guillengeorig 03/03/2019 03/04/2019 [facility] [place] [facility] [id number] Elaine Guerrero 05/19/2019 05/20/2019 [facility] [place] [facility] [id number] Robert Guillengeorgi 04/13/2020 04/14/2020 [facility] Procedures Procedure Code Date Perfomer Comments Source Stent placement [id number] [facility] Assessment and Plan Assessment and Plan Date Source Extracted from:Title: History and Physic al Author: Cory Thornton MD Date: 02/10/18 Hypoxia causing lethargy COPD Mild CHF [...] Dispo: Anticipate 1 midnight stay Addendum by Cory Thornton MD on 02/10/2018 23:36 CDT No evidence of stroke on CT and patient did not have any neurologic deficits, lethargy likely in the setting of hypoxia. 02/10/2018 [facility] Plan of Care No Data Provided for This Section Social History Social History Date Source Social History TypeResponse Alcohol Current, Type Beer. Frequency: 1-2 times per week. Smoking Status Current every day smoker; Type: Cigarettes; Previous treatment: None; Ready to change: Yes; Lives with someone who smokes; Cigarette Smoking Last 365 Days Yes; Reg Smoking Cessation Counseling No entered on: 10/22/18 02/10/2018 [facility] Social History TypeResponse Alcohol Current, Type Beer. Frequency: 1-2 times per week. Smoking Status Current every day smoker; Type: Cigarettes; Previous treatment: None; Ready to change: Yes; Lives with someone who smokes; Cigarette Smoking Last 365 Days Yes; Reg Smoking Cessation Counseling No entered on: 02/10/18 02/10/2018 [facility] Social History TypeResponse Alcohol Current, Type Beer. Frequency: 1-2 times per week. Smoking Status Current every day smoker; Type: Cigarettes; Previous treatment: None; Ready to change: Yes; Lives with someone who smokes; Cigarette Smoking Last 365 Days Yes; Reg Smoking Cessation Counseling No entered on: 10/22/18 02/10/2018 [facility] Family History No Data Provided for This Section Advance Directives No Data Provided for This Section Functional Status No Data Provided for This Section
--- OUTSIDE RECORDS SUMMARY | 2020-05-01 20:54 | XMS REPORT | Summary of Care ---
Author Author [facility] Organization [facility] Address Unknown Phone Unavailable Encounter HQ Encntr_aliguy(FIN) [id number] Date(s): 10/05/17 - 10/06/17 [facility] [address] [address], [address] [place] [phone] Vital Signs No data available for this [...]
--- OUTSIDE RECORDS SUMMARY | 2020-05-01 20:54 | XMS REPORT | Summary of Care ---
Author Author [facility] Organization [facility] Address Unknown Phone Unavailable Encounter HQ Dontae_tiffanie(CARINA) [id number] Date(s): 01/18/18 - 01/18/18 [facility] Neurosurgery [facility] [address] [address] [phone] Discharge Disposition: Home or Self Care Attending Physician: Denise Sow MD Referring Physician: Evangelist Purvis III, MD Vital Signs No data available for this section Problem List No data available for this section Allergies, Adverse Reactions, Alerts Substance Reaction Severity Status NKDA Active Medications No Known Medications Results No data available for this section [...] Last 365 Days Yes; Reg Smoking Cessation 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
--- OUTSIDE RECORDS SUMMARY | 2020-05-01 20:54 | XMS REPORT | Summary of Care ---
Author Author [facility] Neurosurgery [facility] Organization [facility] Neurosurgery [facility] Address Unknown Phone Unavailable Encounter HQ Najmantr_tiffanie(FIN) [id number] Date(s): 11/24/17 - 11/25/17 [facility] Neurosurgery [facility] [address] [address], [address] [place], [place] [address] [phone] Vital Signs No data available for this [...]
--- OUTSIDE RECORDS SUMMARY | 2020-05-01 20:54 | XMS REPORT | Summary of Care ---
Author Author [facility] Organization [facility] Address Unknown Phone Unavailable Encounter HQ Dontae_tiffanie(CARINA) [id number] Date(s): 12/07/17 - 12/07/17 [facility] Neurosurgery [facility] [address] [address] [phone] Discharge Disposition: Home or Self Care Attending [...] Last 365 Days Yes; Reg Smoking Cessation Patient Biller ing No entered on: 02/10/18 Assessment and Plan No data available for this section
--- OUTSIDE RECORDS SUMMARY | 2020-05-01 20:54 | XMS REPORT | Summary of Care ---
Author Author [facility] Organization [facility] Neurosurgery [facility] Address Unknown Phone Unavailable Encounter HQ Encntr_aliguy(FIN) [id number] Date(s): 11/30/17 - 11/30/17 [facility] Neurosurgery [facility] [address] [address], [address] [place], [place] [address] [phone] Attending Physician: Denise Sow MD Referring Physician: [...]
--- OUTSIDE RECORDS SUMMARY | 2020-05-01 20:54 | XMS REPORT | Summary of Care ---
Author Author [facility] Organization [facility] Address Unknown Phone Unavailable Encounter HQ Dontae_tiffanie(CARINA) [id number] Date(s): 04/01/18 - 04/01/18 [facility] Neurosurgery 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
--- OUTSIDE RECORDS SUMMARY | 2020-05-01 20:54 | XMS REPORT | Summary of Care ---
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
--- OUTSIDE RECORDS SUMMARY | 2020-05-01 20:54 | XMS REPORT | Summary of Care ---
Author Author [facility] Neurosurgery [facility] Organization [facility] Neurosurgery [facility] Address Unknown Phone Unavailable Encounter HQ Encntr_tiffanie(FIN) [id number] Date(s): 11/10/17 - 11/11/17 [facility] Neurosurgery [facility] [address] [address], [address] [place] [address] [phone] Vital Signs No data available for this [...]
--- OUTSIDE RECORDS SUMMARY | 2020-05-01 20:54 | XMS REPORT | Summary of Care ---
Author Author [facility] Outpatient Imaging - [facility] Organization [facility] Outpatient Imaging - [facility] Address Unknown Phone Unavailable Encounter HQ Encntr_alias(FIN) [id number] Date(s): 04/30/17 - 04/30/17 [facility] Outpatient Imaging - [place] [address] [place] [address] [phone] Discharge Disposition: Home or Self Care Attending Physician: Arnold Anderson MD Vital Signs No data available for [...]
--- OUTSIDE RECORDS SUMMARY | 2020-05-01 20:54 | XMS REPORT | Summary of Care ---
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/antiplatelets (Final) - Discharge Disposition: [facility] Left B4 Treatment Cmplt-MSE Cmplt Attending Physician: Melecio Mendoza MD Vital Signs Most recent to 1 oldest [Reference Range]: Height 142.24 cm (10/21/18 5:05 PM) Temperature Oral 98.1 DegF [96.4-99.1 DegF] (10/21/18 5:05 PM) Blood Pressure 118/61 mmHg [90-140/60-90 mmHg] (10/21/18 5:05 PM) Respiratory Rate 16 BRMIN [14-20 BRMIN] (10/21/18 5:05 PM) Peripheral Pulse 71 bpm Rate [60-100 bpm] (10/21/18 5:05 PM) Weight 55.455 kg (10/21/18 5:05 PM) Body Mass Index 27.41 m2 (10/21/18 5:05 PM) Problem List No data available for this section Allergies, Adverse Reactions, Alerts No Known Medication Allergies Medications No data available for this section Results Most recent to 1 oldest [Reference Range]: Neutrophils # 5.6 K/CMM [1.5-8.1 K/CMM] (10/21/18 5:15 PM) Lymphocytes # 3.0 K/CMM [1.0-5.5 K/CMM] (10/21/18 5:15 PM) Monocytes # [0.0-0.8 0.6 K/CMM K/CMM] (10/21/18 5:15 PM) Eosinophils # 0.3 K/CMM [0.0-0.5 K/CMM] (10/21/18 5:15 PM) eGFR 90 mL/min/1.73m2 1 *NA* (10/21/18 5:15 PM) A/G Ratio [0.7-1.6] 1.0 (10/21/18 5:15 PM) Albumin Lvl [3.5-5.0 3.4 g/dL g/dL] *LOW* (10/21/18 5:15 PM) Alk Phos [39-136 156 unit/L unit/L] *HI* (10/21/18 5:15 PM) ALT [0-65 unit/L] 30 unit/L (10/21/18 5:15 PM) AGAP [10.0-20.0 8.9 mEq/L mEq/L] *LOW* (10/21/18 5:15 PM) AST [0-37 unit/L] 10 unit/L (10/21/18 5:15 PM) B/C Ratio [6-25] 15 (10/21/18 5:15 PM) Basophils [0.0-1.0 0.4 % %] (10/21/18 5:15 PM) BUN [7-22 mg/dL] 11 mg/dL (10/21/18 5:15 PM) Calcium Lvl 8.5 mg/dL [8.5-10.5 mg/dL] (10/21/18 5:15 PM) Chloride Lvl [95-109 107 mEq/L mEq/L] (10/21/18 5:15 PM) CO2 [24-32 mEq/L] 32 mEq/L (10/21/18 5:15 PM) Creatinine Lvl 0.73 mg/dL [0.50-1.40 mg/dL] (10/21/18 5:15 PM) Eosinophils [0.0-4.0 3.2 % %] (10/21/18 5:15 PM) Globulin [2.7-4.2 3.4 g/dL g/dL] (10/21/18 5:15 PM) Glucose Lvl [70-99 192 mg/dL mg/dL] *HI* (10/21/18 5:15 PM) Hct [36.0-48.0 %] 37.8 % (10/21/18 5:15 PM) Hgb [12.0-16.0 g/dL] 12.7 g/dL (10/21/18 5:15 PM) INR [0.85-1.17] 1.02 (10/21/18 5:15 PM) Potassium Lvl 3.9 mEq/L [3.5-5.1 mEq/L] (10/21/18 5:15 PM) Lipase Lvl [73-393 150 unit/L unit/L] (10/21/18:15 PM) Lymphocytes 31.8 % [20.0-40.0 %] (10/21/18 5:15 PM) MCH [27.0-31.0 pg] 33.1 pg *HI* (10/21/18 5:15 PM) MCHC [32.0-36.0 33.7 g/dL g/dL] (10/21/18 5:15 PM) MCV [80.0-98.0 fL] 98.2 fL *HI* (10/21/18 5:15 PM) Monocytes [2.0-12.0 5.9 % %] (10/21/18 5:15 PM) MPV [7.4-10.4 fL] 7.8 fL (10/21/18 5:15 PM) Sodium Lvl [135-145 144 mEq/L mEq/L] (10/21/18 5:15 PM) Platelet [133-450 248 K/CMM K/CMM] (10/21/18 5:15 PM) Segs [45.0-75.0 %] 58.7 % (10/21/18 5:15 PM) Total Protein 6.8 g/dL [6.4-8.4 g/dL] (10/21/18 5:15 PM) PT [12.0-14.7 13.2 seconds seconds] (10/21/18 5:15 PM) PTT [22.9-35.8 27.2 seconds seconds] (10/21/18 5:15 PM) RBC [4.20-5.40 3.85 M/CMM M/CMM] *LOW* (10/21/18 5:15 PM) RDW [11.5-14.5 %] 15.1 % *HI* (10/21/18 5:15 PM) Bili Total [0.2-1.3 0.2 mg/dL mg/dL] (10/21/18 5:15 PM) Troponin-I <0.02 ng/mL [0.00-0.40 ng/mL] (10/21/18 5:15 PM) UA Bacteria [None Occasional /HPF Seen /HPF] *NA* (10/21/18 5:26 PM) UA Bili [Negative] Negative *NA* (10/21/18 5:26 PM) UA Blood [Negative] Negative (10/21/18 5:26 PM) UA Color Ltyellow *NA* (10/21/18 5:26 PM) UA Glucose [Negative 50 mg/dL mg/dL] *ABN* (10/21/18 5:26 PM) UA Ketones Negative [Negative] *NA* (10/21/18 5:26 PM) UA Leuk Est Negative [Negative] (10/21/18 5:26 PM) UA Nitrite Negative [Negative] (10/21/18 5:26 PM) UA pH [5.0-8.0] 7.0 (10/21/18 5:26 PM) UA Protein Negative [Negative] (10/21/18 5:26 PM) UA Spec Grav 1.004 [<=1.030] (10/21/18 5:26 PM) UA Sq Epi [Few /LPF] Occasional /LPF *NA* (10/21/18 5:26 PM) UA Turbidity [Clear] Clear (10/21/18 5:26 PM) UA Urobilinogen <=1.0 mg/dL [0.1-1.0 mg/dL] *NA* (10/21/18 5:26 PM) WBC [3.7-10.4 K/CMM] 9.5 K/CMM (10/21/18 5:15 PM) 1Result Comment: The eGFR is calculated using [...] Last 365 Days Yes; Reg 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
--- OUTSIDE RECORDS SUMMARY | 2020-05-01 20:54 | XMS REPORT | Summary of Care ---
Author Author [facility] Outpatient Imaging - [facility] Organization [facility] Outpatient Imaging - [facility] Address Unknown Phone Unavailable Encounter HQ Dontae_tiffanie(FIN) [id number] Date(s): 12/22/17 - 12/22/17 [facility] Outpatient Imaging - [place] [address] [address] [phone] Encounter Diagnosis Unspecified convulsions (Final) - 12/25/17 Discharge Disposition: Home or Self Care Attending Physician: Robert Cormier MD Vital Signs No [...] Last 365 Days Yes; Reg Smoking Cessation Manager Database ing No entered on: 02/10/18 Assessment and Plan No data available for this section
--- OUTSIDE RECORDS SUMMARY | 2020-05-01 20:54 | XMS REPORT | Summary of Care ---
Author Author [facility] Organization [facility] Address Unknown Phone Unavailable Encounter HQ Dontae_tiffanie(CARINA) [id number] Date(s): 04/01/18 - 04/01/18 [facility] Neurosurgery [facility] [address] [address] [phone] Attending Physician: Denise Sow MD Referring Physician: [...] Last 365 Days Yes; Reg Smoking Cessation Court Advocate ing No entered on: 02/10/18 Assessment and Plan No data available for this section
--- OUTSIDE RECORDS SUMMARY | 2020-05-01 20:54 | XMS REPORT | Summary of Care ---
Author Author [place] [facility] Organization [facility] Address Unknown Phone Unavailable Encounter HQ Dontae_tiffanie(CARINA) [id number] Date(s): 04/15/18 - 04/15/[address] [facility] [address] [address] [phone] Attending Physician: Denise Sow MD Referring Physician: [...] Last 365 Days Yes; Reg Smoking Cessation Clinical Trials Manager ing No entered on: 02/10/18 Assessment and Plan No data available for this section
--- OUTSIDE RECORDS SUMMARY | 2020-05-01 20:54 | XMS REPORT | Summary of Care ---
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
--- OUTSIDE RECORDS SUMMARY | 2020-05-01 20:54 | XMS REPORT | Summary of Care ---
Author Author [facility] Organization [facility] Address Unknown Phone Unavailable Encounter HQ Encntr_tiffanie(FIN) [id number] Date(s): 03/16/18 - 03/17/18 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
--- OUTSIDE RECORDS SUMMARY | 2020-05-01 20:55 | XMS REPORT | Continuity of Care Document ---
Author Author [facility] t Organization [facility] Address [address] [place] [address] Phone Unavailable Care Team Providers Care Rehabilitation Aide/Scheduler Name Role Phone Rubén Cormier Attphys LAVERNE GARCIA M.D. Attphys Unavailable JAQUI CARLIN M.D. Attphys Unavailable Naomi Guerrero Attphys MATTHEW GUERRERO M.D. Attphys Unavailable JODI OLIVEIRA M.D. Attphys Unavailable Brie Kiser Attphys Nba Mendoza Attphys SowViancaCurtislynne Walker Attphys Cory Thornton Attphys Arnol Cormier Attphys ANISHA CHAVEZ M.D. Attphys Unavailable Araceli Chavez Attphys Cory Thornton Admphys Payers Payer Name Policy Type Policy Number Effective Date Expiration Date S ource Problems Condition Name Condition Details Condition Category Status Onset Date Resolution Date Last Treatment Date Treating Clinician Comments Source CHEST PAIN CHES T PAIN Active 10/22/2018 [facility] Active 2018-10-22 00:00:00 2019-02-19 14:18:00 Luis Armstrong HYPOXEMIA/LETHARGY HYPO XEMIA/LETHARGY Active 02/10/2018 [facility] Active 2018-02-10 00:00:00 2018-02-12 14:45:00 [facility] LETHARGY LETH ARGY Active 02/10/2018 [facility] Active 2018-02-10 00:00:00 2018-02-10 10:03:00 [facility] UNK UNK Active 02/08/2018 [facility] Active 2018-02-08 00:00:00 2018-02-11 07:47:00 [facility] R56.9 - UNSPECIFIED CONVULSIONS R56.9 - UNSPECIFIED CONVULSIONS Active 12/22/2017 [facility] [place] [facility] Active 2017-12-22 00:01:00 2017-12-22 09:41:00 [facility] Nathaniel M48.02 - "SPINAL STENOSIS, CERVICAL GABRIELLA M48.02 - "SPINAL STENOSIS, CERVICAL GABRIELLA Active 08/27/2017 [facility] [place] [facility] Active 2017-08-27 00:01:00 2017-09-01 08:22:00 Luis Armstrong M54.5 - LOW BACK PAIN M54. 5 - LOW BACK PAIN Active 04/23/2017 [facility] [place] [facility] Active 2017-04-23 00:01:00 2017-04-30 14:02:00 [facility] Tobacco abuse Tobacco abuse Disease Active 2016-05-31 00:00:00 [facility] Anxiety Anxiety Disease Active 2016-05-30 00:00:00 [facility] S/P cardiac catheterization S/P cardiac catheterization Disease Active 2016-05-30 00:00:00 [facility] Coronary artery vasospasm Coronary artery vasospasm Disease Ac tive 2016-05-30 00:00:00 [facility] Panic disorder Panic disorder Disease Active 2016-03-20 00:00:00 [facility] Chest pain Chest pain Disease Active 2015-11-01 00:00:00 [facility] Epigastric pain Epigastric pain Disease Active 2015-10-24 00:00:00 [facility] Major depressive disorder, recurrent, severe without p sychotic features Major depressive disorder, recurrent, severe without psychotic features Disease Active 2015-07-22 00:00:00 [facility] Anxiety state, unspecified Anxiety state, unspecified Disease Active 2015-07-22 00:00:00 [facility] Insomnia, unspecified Insomnia, unspecified Disease Active 201 03-30-30 00:00:00 [facility] MDD (major depressive disorder) MDD (major depressive disorder) Dis ease Active 2014-02-27 00:00:00 [facility] Cough Cough Disease Active 2014-01-25 00:00:00 [facility] PMB (postmenopausal bleeding) PMB (postmenopausal bleeding) Disease Active 2012-08-10 00:00:00 [facility] [id number] Active 11/23/2000 [facility] Diagnosis Active 2000-11-23 23:59:00 2018-05-16 11:10:00 [facility] Limb pain Limb pain Problem Active [facility] Acute bilateral low back pain, with sciatica presence unspecified Acute bilateral low back pain, with sciatica presence unspecified Problem Active [facility] Heart disease Heart disease Problem Active [facility] Depression Depression [facility] Emphysema, unspecified Emphysema, unspecified Problem Active [facility] Lumbar herniated disc Lumbar herniated disc Problem Active [facility] Lumbar spondylosis Lumbar spondylosis Problem Active [facility] Annular tear of lumbar disc Annular tear of lumbar disc Problem Active [facility] Lumbar radicular pain Lumbar radicular pain Problem Active [facility] Facet arthritis of lumbosacral region Facet arthritis of lum bosacral region Problem Active [facility] Controlled substance agreement signed Controlled substance a greement signed Problem Active [facility] History of coronary atherosclerosis History of coronary atherosc lerosis Problem Resolved [facility] History of renal calculi History of renal calculi Problem Resolved [facility] Myofascial pain syndrome Myofascial pain syndrome Problem Active [facility] Lumbosacral stenosis with neurogenic claudication Lumb osacral stenosis with neurogenic claudication Problem Active [facility] Myofascial pain syndrome, cervical Myofascial pain syndrome, cer vical Problem Active [facility] Sacroiliac joint dysfunction of both sides Sacroiliac joint dysfunction of both sides Problem Active [facility] [place] Problem Active [facility] Incontinence Incontinence Problem Active [facility] Hypertension Hypertension Disease Active [facility] Hyperlipidemia Hyperlipidemia Disease Active [facility] Hx of colonic polyps Hx of colonic polyps Disease Active [facility] Diabetes mellitus Diabetes mellitus Disease Active [facility] Coronary artery disease Coronary artery disease Disease Active [facility] Stented coronary artery Stented coronary artery Disease Active [facility] Low back pain Low back pain Disease Active [facility] Hx of CABG Hx of CABG Disease Active [facility] Hx of coronary angiogram Hx of coronary angiogram Disease Active [facility] SOB (shortness of breath) SOB (shortness of breath) Disease Active [facility] ST elevation myocardial infarction (STEMI) ST elevatio n myocardial infarction (STEMI) Disease Active [facility] Old myocardial infarction Old myocardial infarction 05/11/2019 [facility] Problem 2019-05-11 14:11:59 [facility] Essential (primary) hypertension Essential (primary) hypertension 05/11/2019 [facility] Problem 2019-05-11 14:11:59 [facility] Type 2 diabetes mellitus without complications Type 2 diabetes mellitus without complications 05/11/2019 [facility] Problem 2019-05-11 14:11:59 [facility] Nicotine dependence, cigarettes, uncomplicated Nicotine dependence, cigarettes, uncomplicated 05/11/2019 [facility] Problem 2019-05-11 14:11:59 [facility] intermediate designer (current) use of aspirin intermediate designer (current) use of aspirin 05/11/2019 [facility] Problem 2019-04-23 9 14:11:59 [facility] intermediate designer (current) use of 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/antiplatele ts retirement (current) use of 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/antiplatelets 05/11/2019 [facility] Problem 2019-05-11 14:11:59 Pr micki Armstrong Chronic obstructive pulmonary disease, unspecified Chronic obstructive pulmonary disease, unspecified 05/19/2018 [facility] 2018-05-19 15:40:07 [facility] Underdosing of therapeutic gases, initial encounter Underdosing of therapeutic gases, initial encounter 05/19/2018 [facility] 2018-05-19 15:40:07 Luis Armstrong Patient's intentional underdosing of medication regime n for other reason Patient's intentional underdosing of medication regimen for other reason 05/19/2018 [facility] 2018-05-19 15:40:07 [facility] Dependence on supplemental oxygen Dependence on supplemental oxygen 05/19/2018 [facility] 2018-05-19 15:40:07 [facility] Hypertensive heart disease with heart failure Hypertensive heart disease with heart failure 05/19/2018 [facility] 2018-05-19 15:40:07 [facility] Heart failure, unspecified Hea rt failure, unspecified 05/19/2018 [facility] 2018-05-19 15:40:0 7 [facility] Atherosclerotic heart disease of [place] coronary arter y without angina pectoris Atherosclerotic heart disease of [place] coronary artery without angina pectoris 05/19/2018 [facility] 2018-05-19 15:40:07 [facility] Presence of aortocoronary bypass graft Presence of aortocoronary bypass graft 05/11/2019 [facility] 2019-05-11 14:11:59 [facility] intermediate designer (current) use of systemic steroids intermediate designer (current) use of systemic steroids 05/19/2018 [facility] 2018-05-19 15:40:07 [facility] Other mcc (current) drug therapy Other terminal supervisor (current) drug therapy 05/11/2019 [facility] 2019-05-11 14:11:59 [facility] Chest pain, unspecified [place] t pain, unspecified 10/22/2018 05/11/2019 [facility] 2018-10-22 06:00:00 2018 14:11:59 2019-05-11 14:11:59 [facility] Epigastric pain Epig astric pain 10/22/2018 05/11/2019 [facility] 2018-10-22 06:00:00 2019-05-11 14:11:59 2019-04 14:11:59 [facility] Hypoxemia Hypo xemia 02/18/2018 05/19/2018 [facility] 2018-02-18 03:20:39 2018-05-19 15:40:07 2018-05-19 15:40:07 Luis Armstrong Unspecified convulsions Unsp ecified convulsions 12/25/2017 03/30/2018 [facility] Problem 2017-12-25 06:46:05 03-30 16:41:47 2018-03-30 16:41:47 Luis Armstrong Allergies, Adverse Reactions, Alerts Allergy Name Allergy Type Status Severity Reaction(s) Onset Date Inacti ve Date Treating Clinician Comments Source ibuprofen DA Active MO 2020-01-18 00:00:00 [facility] No Known Allergies DA Active U 2019-11-26 00:00:00 [facility] No Known Allergies DA Active U 2019-11-17 00:00:00 [facility] No Known Allergies DA Active U 2019-11-08 00:00:00 [facility] No Known Allergies DA Active U 2019-03-20 00:00:00 [facility] No Known Allergies DA Active U 2018-12-03 00:00:00 [facility] No Known Allergies DA Active U 2018-10-25 00:00:00 [facility] No Known Allergies DA Active U 2018-08-21 00:00:00 [facility] No Known Allergies DA Active U 2018-04-28 00:00:00 [facility] No Known Medication Allergies No Known Medication Allergies Active Luis Armstrong Family History Family Member Diagnosis Comments Start Date Stop Date Source Natural father Cancer [facility] Natural mother Cancer [facility] Natural mother Diabetes [facility] Natural mother Hypertension [facility] Natural mother Stroke [facility] Social History Social Habit Start Date Stop Date Quantity Comments Source History of tobacco use Cigarette Smoker [facility] Sex [facility] Social History 2018-02-10 16:56:06 2018-02-10 16:56:06 Luis Armstrong Cigarettes smoked current (pack per day) - Reported 00:00:00 2017-12-17 00:00:00 [facility] Cigarette pack-years 2017-12-17 00:00:00 2017-12-17 00:00:00 [facility] Alcohol intake 2017-12-17 00:00:00 2017-12-17 00:00:00 [facility] Tobacco Comment 2015-09-06 00:00:00 2015-09-06 00:00:00 e vapor cig [facility] Alcohol Comment 2010-09-25 00:00:00 2010-09-25 00:00:00 quit 09/23/20 10 [facility] Smoking Status Start Date Stop Date Source Current some day smoker 2017-12-17 00:00:00 [facility] Medications Ordered Medication Name Filled Medication Name Start Date Stop Da te Current Medication? Ordering Clinician Indication Dosage Frequency Signature (SIG) Comments Components Source Diclofenac Sodium 1 % Transdermal Gel Diclofenac Sodium 1 % Transdermal Gel 2019-12-28 00:00:00 Yes LAVERNE GARCIA M.D. APPLY TO LOWER EXTREMITIES, 2 GM OF GEL TO AFFECTED AREA 3 TIMES DAILY. DO NOT APPLY MORE THAN 6 GM DAILY TO ANY ONE AFFECTED JOINT. [facility] Furosemide 20 MG Oral Tablet Furosemide 20 MG Oral Tablet 2019-05-24 3 00:00:00 Yes 1 QD TAKE 1 TABLET DAILY. [facility] clopidogrel (PLAVIX) 75 mg tablet 2018-11-10 00:00:00 Yes S/P coronary artery stent placement TAKE 1 TABLET BY MOUTH DAILY [facility] Acetaminophen 500 MG Oral Tablet [Tylenol] 2018-10-22 17:20:00 No 1,000 mg = 2 tab, PO, Q6H, PRN Pain, X 10 day, # 80 tab, 0 Refill(s) Luis Armstrong Tylenol 2018-10-22 16:52:00 No 1,000 mg, Route: PO, Drug form: TAB, ONCE, Dosing Weight 55.455, kg, Priority: STAT, Start date: 10/22/18 10:52:00 [employer], Stop date: 10/22/18 10:52:00 [employer] Pr micki Armstrong GI cocktail (aluminum hydroxide/magnesium hydroxide/lidocain e/simethicone) 2018-10-22 15:27:00 No 30 mL, Route: PO, Dosing Weight 55.455, kg, ONCE, STAT, Start date: 10/22/18 9:27:00 [employer], Stop date: 10/22/18 9:27:00 [employer] Luis Armstrong Famotidine 2018-10-22 15:27:00 No 20 mg, Route: PO, ONCE, Dosing Weight 55.455, kg, Start date: 10/22/18 9:27:00 [employer], Stop date: 10/22/18 9:27:00 [employer]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 1 Q0.3333D TAKE [address] [facility] DULoxetine HCl - 60 MG Oral Capsule Delayed Release Pa rticles DULoxetine HCl - 60 MG Oral Capsule Delayed Release Particles 2018-09-07 00:00:00 Yes LAVERNE GARCIA M.D. 1 QD TAKE 1 CAPSULE BY MOUTH EVERY DAY [facility] QUEtiapine (SEROQUEL) 300 mg tablet 2018-04-15 00:00:00 Yes MDD (major depressive disorder), recurrent, severe, with psychosis TAKE 1 TABLET BY MOUTH EVERY NIGHT AT BEDTIME [facility] ONETOUCH ULTRA TEST test strips 2018-02-12 00:00:00 Yes Type 2 diabetes mellitus without complication, unspecified mcc insulin use status TEST 2 TIMES WEEKLY [facility] Protonix 2018-02-11 14:00:00 No Notes: Tablet should not be chewed or crushed. (Same as: Protonix) [facility] azithromycin 500 mg oral tablet 2018-02-11 14:00:00 No Notes: Take 1 hour before or 2 hours after meals. (Same As: Zithromax) [facility] Omeprazole 2018-02-11 14:00:00 No 20 mg, Route: PO, Drug form: DRC, Daily, Dosing Weight 54.545, kg, Start date: 02/11/18 9:00:00 CDT, Duration: 30 day, Stop date: 03/12/18 9:00:00 CDT [facility] 2018-02-11 14:00:00 No Notes: (Same as: Prinivil, Zestril) [facility] Isosorbide 2018-02-11 14:00:00 No Notes: (Same as:Imdur) "Do Not Crush" Take on empty stomach/ full glass of water. Do not crush [facility] duloxetine 2018-02-11 14:00:00 No Notes: (Same as: Cymbalta) (Do Not Crush) [facility] Cartia XT 2018-02-11 14:00:00 No Notes: (Same as: Cardizem CD) Before meals. DO NOT CRUSH. [facility] Plavix 2018-02-11 14:00:00 No Notes: (Same As: Plavix) [facility] atorvastatin 2018-02-11 02:00:00 No Notes: (Same as: Lipitor) [facility] Amitriptyline 2018-02-11 02:00:00 No Notes: (Same as: Elavil) [facility] quetiapine 2018-02-11 02:00:00 No Notes: (S jeevan as: SEROquel) [facility] Methocarbamol 2018-02-10 22:00:00 No Notes: (Same as:Robaxin) [facility] Symbicort 160/4.5 inhalation aerosol with adapter 2018-02-10 22:00:00 No Notes: (Same as: Symbicort) WASTE: Aerosol - R eturn to Pharmacy [facility] gabapentin 600 MG Oral Tablet 2018-02-10 21:00:00 No Notes: (Same as: Neurontin) [facility] Aspirin 81 MG Enteric Coated Tablet 2018-02-10 20:00:00 No Notes: Do not crush or chew. (Same As: Ecotrin) [facility] Dextrose 50% Syringe 2018-02-10 18:16:00 No 12.5 gm, 25 mL, Route: IVP, Drug Form: INJ, Dosing Weight 54.545, kg, PRN, PRN Blood Glucose Results, Start date: 02/10/18 13:16:00 CDT, Duration: 30 day, Stop date: 03/12/18 13:15:00 CDT [facility] Glucagon 2018-02-10 18:16:00 No 1 mg, Route: IM, Drug form: PDR/INJ, PRN, Dosing Weight 54.545, kg, PRN Blood Glucose Results, Start date: 02/10/18 13:16:00 CDT, Duration: 30 day, Stop date: 03/12/18 13:15:00 CDT [facility] Insulin Lispro 2018-02-10 18:16:00 No Notes: (Same as: Humalog ) Roll in palms of hands gently; Do not shake `vigorously. "Single Patient Use Only " WASTE: F/P - Black; E - Municipal Trash Bin Stable for 28 days at room temperature. Expires in days from Date [facility] Albuterol 0.833 MG/ML / Ipratropium Brom allison 0.167 MG/ML Inhalant Solution [DuoNeb] 2018-02-10 18:14:00 No Notes: (S jeevan as: Jameel) [facility] Dicyclomine 2018-02-10 18:00:00 No Notes: ( Same as: Karen) [facility] Symbicort 160/4.5 inhalation aerosol with adapter 2018-02-10 16:44:00 Yes 2 puff, INHALER, BID, # 1 ea, 3 Refill(s) [facility] Solu-Medrol 2018-02-10 14:57:00 No Notes: (Same as:Solu-MEDROL, A-Methapred) [facility] Albuterol 0.833 MG/ML / Ipratropium [place] 0.167 MG/ML Inha lant Solution 2018-02-10 14:57:00 No Notes: (Same as: Lidya tapia) [facility] ONETOUCH DELICA LANCETS 30 gauge Misc 2018-01-14 00:00:00 Yes Type 2 diabetes mellitus without complication, unspecified terminal supervisor insulin use status TEST 2 TIMES A WEEK [facility] traZODone (DESYREL) 50 mg tablet 2017-12-17 00:00:00 Yes MDD (major depressive disorder), recurrent, severe, with psychosis Take 1-2 tablets at night for insomnia. Can take up to 3 pills at night as needed for insomnia.. [facility] DULoxetine (CYMBALTA) 60 mg delayed release capsule 12-17 00:00:00 Yes MDD (major depressive disorder), recurrent, severe, with psychos is 120mg QD Take 2 capsules by mouth daily. [facility]alt gabapentin (NEURONTIN) 300 mg capsule 2017-11-27 00:00:00 Yes Pain of left lower extremity TAKE 1 CAPSULE BY MOUTH THREE TIMES DAILY [facility] DULoxetine (CYMBALTA) 60 mg delayed release capsule 2016-11 00:00:00 Yes Severe episode of recurrent major depres sive disorder, without psychotic features TAKE 2 CAPSULE BY MOUTH EVERY MORNING [facility] metFORMIN (GLUCOPHAGE) 850 mg tablet 2017-10-26 00:00:00 Yes Type 2 diabetes mellitus without complication 850mg T berto 1 tablet by mouth 2 times daily (with meals) Needs appointment before next refill. [facility] gabapentin 600 MG Oral Tablet 2017-10-21 17:24:00 Yes 600 mg = 1 tab, PO, TID, # 90 tab, 1 Refill(s), Pharmacy: [facility] [address] [place] [address] lisinopril (PRINIVIL, ZESTRIL) 10 mg tablet 2017-09-28 00:00 :00 Yes Essential hypertension TAKE 1 TABLET BY MOUTH EVERY DAY [facility] blood glucose (PRECISION XTRA TEST STRIPS) test strips 2017-06-18 00:00:00 Yes Type 2 diabetes mellitus without complication us e 2 times weekly. [facility] lancets 28 gauge 2017-06-18 00:00:00 Yes Type 2 diabetes mellitus without complication check blood sugar le yulisa 2 times a week contacted for qtt 06/18/18 [facility] albuterol (PROVENTIL HFA) 90 mcg/actuation inhaler 2017-05 00:00:00 Yes Cough 2{puff} Inhale 2 Puffs by mouth 4 ti mes daily as needed for Wheezing. [facility] lancets 28 gauge 2017-06-18 00:00:00 Yes Type 2 diabetes mellitus without complication, without long-term current use of insulin Check blood glucose 2 times weekly. [facility] atorvastatin (LIPITOR) 80 mg tablet 2016-06-07 00:00:00 Yes NSTEMI (non-ST elevated myocardial infarction) 80mg Take 1 tablet by mouth at bedtime nightly For cholesterol. [facility] methocarbamol (ROBAXIN-750) 750 mg tablet 2016-06-07 00:00:0 0 Yes Midline low back pain without sciatica 750mg Take 1 ta blet by mouth 3 times daily as needed for Pain. [facility] OMEGA 3 1,000 mg cap 2016-06-04 13:41:12 Yes 1000mg QD Take 1,000 mg by mouth daily . [facility] budesonide-formoterol (SYMBICORT) 80-4.5 mcg/actuation inhal er 2016-06-04 00:00:00 Yes Cough 2{puff} Q.5D Inhale 2 Puffs by mouth 2 ti mes daily. [facility] ferrous sulfate 325 mg (65 mg iron) tablet 2016-06-04 00:00: 00 Yes Anemia, unspecified 325mg QD Take 1 tablet by mouth daily (with breakfast) . [facility] NITROSTAT 0.4 mg sublingual tablet 2016-06-04 00:00:00 Yes Coronary artery vasospasm .4mg Place 1 tablet under tongue every 5 minutes With a maximum of 3 doses within 15 minutes. If chest pain persists, she is to go to ER. Use new bottle every 6 months.. [facility] isosorbide mononitrate (IMDUR) 30 mg extended release tablet 2016-05-31 00:00:00 Yes Coronary artery vasospasm 30mg Take 1 tablet by mouth every morning. [facility] nicotine (NICODERM CQ) 21 mg/24 hr patch 2016-05-31 00:00:00 Yes Tobacco abuse 1{patch} QD Apply 1 Patch to skin as directed daily. [facility] famotidine (PEPCID) 20 mg tablet 2016-01-31 00:00:00 Yes Regurgitation of food 20mg Take 1 tablet by mouth nightly a t bedtime as needed for Heartburn. [facility] metoprolol succinate (TOPROL XL) 50 mg extended release tabl et 2015-11-22 00:00:00 Yes Coronary artery disease due to lipid carla h plaque 50mg QD Take 1 tablet by mouth daily For blood pressure. [facility] aspirin (ASPIRIN) 81 mg chewable tablet 2014-01-19 00:00:00 Yes Hypertension 81mg QD Chew and swallow 1 tablet by mouth daily. [facility] PRECISION XTRA TEST STRIPS strips 2014-01-04 00:00:00 Yes Diabetes mellitus Check 3x daily: befo re breakfast and at bedtime, and once more before lunch or dinner. Check as needed for signs of low blood sugar. [facility] blood glucose meter (GLUCOMETER) 2014-01-04 00:00:00 Yes Diabetes mellitus Use as directed.. [facility] Isosorbide Mononitrate ER 60 MG Oral Tablet Extended R elease 24 Hour Isosorbide Mononitrate ER 60 MG Oral Tablet Extended Release 24 Hour Yes [facility] Amitriptyline HCl - 25 MG Oral Tablet Amitriptyline HCl - 25 MG Ora l Tablet Yes 1 TAKE 1 TABLET AT BEDTIME. [facility] Proventil HFA 108 (90 Base) MCG/ACT Inhalation Aerosol Solution Proventil HFA 108 (90 Base) MCG/ACT Inhalation Aerosol Solution Yes [facility] Atorvastatin Calcium 80 MG Oral Tablet Atorvastatin Calcium 80 M G Oral Tablet Yes 1 QD TAKE [address] [facility] Nitroglycerin 0.4 MG Sublingual Tablet Sublingual Nitr oglycerin 0.4 MG Sublingual Tablet Sublingual Yes [facility] Carvedilol 6.25 MG Oral Tablet Carvedilol 6.25 MG Oral Tablet Yes Q0.5D TAKE 1 TABLET TWICE DAILY WITH MEALS. [facility] Immunizations Ordered Immunization Name Filled Immunization Name Date Status Comments Source Influenza Vaccine 2015-08-29 00:00:00 Completed [facility] Influenza Vaccine 2014-12-06 00:00:00 Completed [facility] Pneumoccoccal 2014-02-02 00:00:[address] [facility] Influenza Vac (Fluarix) 2014-01-05 00:00:00 Completed [facility] Clonidine 0.1mg Tab 2013-11-10 00:00:00 Completed [facility] Influenza Vaccine 2012-09-14 00:00:00 Completed [facility] Influenza Vaccine 2011-09-10 00:00:00 Completed [facility] Tdap Tetanus, diphtheria, acellular pertussis Vaccine 2011-09-10 00:00:00 Completed [facility] Vital Signs Vital Name Observation Time Observation Value Comments Source Systolic blood pressure 2019-12-28 14:12:00 118 mm[Hg] Loca tion: [place]; Position: Sitting [facility] Diastolic blood pressure 2019-12-28 14:12:00 67 mm[Hg] Loc ation: [place]; Position: Sitting [facility] Body height 2019-12-28 14:12:00 56 [in_us] [facility] Weight 2019-12-28 14:12:00 123 [lb_av] [facility] Body mass index (BMI) [Ratio] 2019-12-28 14:12:00 27.58 kg/m2 [facility] Heart Rate 2019-12-28 14:12:00 73 /min [facility] BP Systolic 2019-09-01 08:53:00 102 mm[Hg] Location: MART[place] on: Sitting [facility] BP Diastolic 2019-09-01 08:53:00 69 mm[Hg] Location: [place] on: Sitting [facility] Height 2019-09-01 08:53:00 56 [in_us] [facility] Weight 2019-09-01 08:53:00 127 [lb_av] [facility] Body Mass Index Calculated 2019-09-01 08:53:00 28.47 kg/m2 [facility] Heart Rate 2019-09-01 08:53:00 72 /min [facility] BP Systolic 2019-08-04 14:06:00 94 mm[Hg] Location: LUE; Pos[place] on: Sitting [facility] BP Diastolic 2019-08-04 14:06:00 57 mm[Hg] Location: LUE; Positi on: Sitting [facility] Height 2019-08-04 14:06:00 56 [in_us] [facility] Weight 2019-08-04 14:06:00 123 [lb_av] [facility] Body Mass Index Calculated 2019-08-04 14:06:00 27.58 kg/m2 [facility] Heart Rate 2019-08-04 14:06:00 70 /min [facility] BP Systolic 2019-07-13 13:37:00 114 mm[Hg] Location: LUE; Positi on: Sitting [facility] BP Diastolic 2019-07-13 13:37:00 66 mm[Hg] Location: LUE; Pos[place] on: Sitting [facility] Height 2019-07-13 13:37:00 56 [in_us] [facility] Weight 2019-07-13 13:37:00 126 [lb_av] [facility] Body Mass Index Calculated 2019-07-13 13:37:00 28.25 kg/m2 [facility] Heart Rate 2019-07-13 13:37:00 75 /min [facility] BP Systolic 2019-06-14 09:52:00 118 mm[Hg] Location: LUE; Positi on: Sitting [facility] BP Diastolic 2019-06-14 09:52:00 74 mm[Hg] Location: SHARYNE; Positi on: Sitting [facility] Height 2019-06-14 09:52:00 56 [in_us] [facility] Weight 2019-06-14 09:52:00 129.375 [lb_av] [facility] Body Mass Index Calculated 2019-06-14 09:52:00 29.01 kg/m2 [facility] Temperature 2019-06-14 09:52:00 97.6 [degF] Method: Oral [facility] Heart Rate 2019-06-14 09:52:00 75 /min [facility] Respiration Rate 2019-06-14 09:52:00 14 /min [facility] BP Systolic 2019-05-09 15:47:00 116 mm[Hg] Location: LUE; Positi on: Sitting [facility] BP Diastolic 2019-05-09 15:47:00 71 mm[Hg] Location: LUE; Pos[place] on: Sitting [facility] Height 2019-05-09 15:47:00 57 [in_us] [facility] Weight 2019-05-09 15:47:00 124 [lb_av] [facility] Body Mass Index Calculated 2019-05-09 15:47:00 26.83 kg/m2 [facility] Heart Rate 2019-05-09 15:47:00 87 /min [facility] BP Systolic 2019-03-09 15:19:00 108 mm[Hg] Location: LUE; Positi on: Sitting [facility] BP Diastolic 2019-03-09 15:19:00 64 mm[Hg] Location: LUE; Pos[place] on: Sitting [facility] Height 2019-03-09 15:19:00 57 [in_us] [facility] Weight 2019-03-09 15:19:00 123 [lb_av] [facility] Body Mass Index Calculated 2019-03-09 15:19:00 26.62 kg/m2 [facility] Heart Rate 2019-03-09 15:19:00 91 /min [facility] BP Systolic 2019-01-24 15:04:00 121 mm[Hg] Location: LUE; Positi on: Sitting [facility] BP Diastolic 2019-01-24 15:04:00 58 mm[Hg] Location: LUE; [place] on: Sitting [facility] Weight 2019-01-24 15:04:00 128.9 [lb_av] [facility] Body Mass Index Calculated 2019-01-24 15:04:00 27.89 kg/m2 [facility] Heart Rate 2019-01-24 15:04:00 64 /min [facility] O2 SAT 2019-01-24 15:04:00 94 % Source: RA [facility] BP Systolic 2018-12-20 11:05:00 106 mm[Hg] Location: [place]; Positi on: Sitting [facility] BP Diastolic 2018-12-20 11:05:00 69 mm[Hg] Location: [place]; Pos[place] on: Sitting [facility] Height 2018-12-20 11:05:00 57 [in_us] [facility] Weight 2018-12-20 11:05:00 123 [lb_av] [facility] Body Mass Index Calculated 2018-12-20 11:05:00 26.62 kg/m2 [facility] Heart Rate 2018-12-20 11:05:00 74 /min [facility] BP Systolic 2018-12-01 09:02:00 136 mm[Hg] Location: [place]; [place] on: Sitting [facility] BP Diastolic 2018-12-01 09:02:00 50 mm[Hg] Location: [place]; [place] on: Sitting [facility] Height 2018-12-01 09:02:00 57 [in_us] [facility] Weight 2018-12-01 09:02:00 126 [lb_av] [facility] Body Mass Index Calculated 2018-12-01 09:02:00 27.27 kg/m2 [facility] Heart Rate 2018-12-01 09:02:00 79 /min [facility] BP Systolic 2018-11-04 14:19:00 134 mm[Hg] Location: [place]; [place] on: Sitting [facility] BP Diastolic 2018-11-04 14:19:00 71 mm[Hg] Location: [place]; Pos[place] on: Sitting [facility] Height 2018-11-04 14:19:00 57 [in_us] [facility] Weight 2018-11-04 14:19:00 126 [lb_av] [facility] Body Mass Index Calculated 2018-11-04 14:19:00 27.27 kg/m2 [facility] Heart Rate 2018-11-04 14:19:00 67 /min [facility] Systolic (mm Hg) 2018-10-22 17:33:00 Sonido rial [facility] Diastolic (mm Hg) 2018-10-22 17:33:00 [facility] Temperature Oral (F) 2018-10-22 17:33:00 98.4 F [facility] Respitory Rate 2018-10-22 17:33:00 [facility] Systolic (mm Hg) 2018-10-22 16:30:00 Sonido [facility] Diastolic (mm Hg) 2018-10-22 16:30:00 [facility] Respitory Rate 2018-10-22 16:30:00 [facility] Systolic (mm Hg) 2018-10-22 15:24:00 Sonido rial Nathaniel Diastolic (mm Hg) 2018-10-22 15:24:00 [facility] Respitory Rate 2018-10-22 15:24:00 [facility] Height 2018-10-22 15:02:00 142.24 cm [facility] BMI Calculated 2018-10-22 15:02:00 [facility] Weight 2018-10-22 15:02:00 [facility] Temperature Oral (F) 2018-10-22 15:02:00 98.2 F [facility] Heart Rate 2018-10-22 15:02:00 [facility] Height 2018-10-21 23:05:00 142.24 cm [facility] BMI Calculated 2018-10-21 23:05:00 [facility] Weight 2018-10-21 23:05:00 [facility] Systolic (mm Hg) 2018-10-21 23:05:00 Sonido rial [facility]y Diastolic (mm Hg) 2018-10-21 23:05:00 [facility] Temperature Oral (F) 2018-10-21 23:05:00 98.1 F [facility] Heart Rate 2018-10-21 23:05:00 [facility] Respitory Rate 2018-10-21 23:05:00 [facility] BP Systolic 2018-10-19 14:57:00 127 mm[Hg] Location: [place]; Positi on: Sitting [facility] BP Diastolic 2018-10-19 14:57:00 78 mm[Hg] Location: [place]; Pos[place] on: Sitting [facility] Heart Rate 2018-10-19 14:57:00 73 /min [facility] Height 2018-10-19 14:57:00 57 [in_us] [facility] Weight 2018-10-19 14:57:00 122 [lb_av] [facility] Body Mass Index Calculated 2018-10-19 14:57:00 26.4 kg/m2 [facility] BP Systolic 2018-09-30 09:07:00 129 mm[Hg] Location: [place]; [place] on: Sitting [facility] BP Diastolic 2018-09-30 09:07:00 58 mm[Hg] Location: [place]; [place] on: Sitting [facility] Height 2018-09-30 09:07:00 57 [in_us] [facility] Weight 2018-09-30 09:07:00 123 [lb_av] [facility] Body Mass Index Calculated 2018-09-30 09:07:00 26.62 kg/m2 [facility] Heart Rate 2018-09-30 09:07:00 76 /min [facility] BP Systolic 2018-09-07 09:48:00 128 mm[Hg] Location: [place]; [place] on: Sitting [facility] BP Diastolic 2018-09-07 09:48:00 78 mm[Hg] Location: [place]; [place] on: Sitting [facility] Height 2018-09-07 09:48:00 57 [in_us] [facility] Weight 2018-09-07 09:48:00 122 [lb_av] [facility] Body Mass Index Calculated 2018-09-07 09:48:00 26.4 kg/m2 [facility] Heart Rate 2018-09-07 09:48:00 78 /min [facility] Respitory Rate 2018-02-10 16:48:00 Markori al [facility] Temperature Oral (F) 2018-02-10 16:48:00 97.6 F [facility] Heart Rate 2018-02-10 16:48:00 [facility] Systolic (mm Hg) 2018-02-10 16:48:00 Sonido [facility]aylor [facility] Diastolic (mm Hg) 2018-02-10 16:48:00 Mem o[facility] Heart Rate 2018-02-10 15:57:00 [facility] Respitory Rate 2018-02-10 15:57:00 [facility] Systolic (mm Hg) 2018-02-10 15:57:00 Sonido rial [facility]y Diastolic (mm Hg) 2018-02-10 15:57:00 [facility] Temperature Oral (F) 2018-02-10 15:57:00 98.0 F [facility] Respitory Rate 2018-02-10 14:48:00 [facility] Systolic (mm Hg) 2018-02-10 13:47:00 Sonido rial [facility]iel Diastolic (mm Hg) 2018-02-10 13:47:00 [facility] Weight 2018-02-10 13:21:00 [facility] BMI Calculated 2018-02-10 13:21:00 [facility] Height 2018-02-10 13:21:00 160.02 cm [facility] Temperature Oral (F) 2018-02-10 13:21:00 99.3 F [facility] Heart Rate 2018-02-10 13:21:00 [facility] Procedures Procedure Date / Time Performed Performing Clinician Sour e [Q] [facility] PANEL [facility] 2019-06-14 00:00[facility]00 [facility] contrast [id number] 2019-05-09 00:00:00 [facility] [Q] DRUG ABUSE PANEL - 2019-03-09 00:00:00 [facility] [H] Drug Screen Urine (9 Drugs) 2019-01-24 00:00:00 [facility] [Q] DRUG ABUSE PANEL - 2018-12-20 00:00:00 [facility] [Q] DRUG ABUSE PANEL [facility] 2018-11-04 00:00:00 [facility] of CABG [facility] Stent placement [facility] Plan of Care Planned Activity Planned Date Details Comments Source Diagnostic Test Pending 2019-05-09 00:00:00 MRI Spine lumbar wo contrast 57049 [code = 68034-5] [facility] Future Scheduled Test 2019-01-27 00:00:00 Cervical Cancer Sc rn (3 Yrs) [code = Cervical Cancer Scrn (3 Yrs)] [facility] Future Scheduled Test 2017-10-20 00:00:00 DM HGBA1C (Yearly) [code = DM HGBA1C (Yearly)] [facility] Scheduled Test 2017-07-18 00:00:00 CORONARY ARTERY DI SEASE AGE 18 AND UP [code = CORONARY ARTERY DISEASE AGE 18 AND UP] [facility] Scheduled Test 2017-02-10 00:00:00 Breast Cancer Scrn (Yearly) [code = Breast Cancer Scrn (Yearly)] [facility] Scheduled Test 2017-02-10 00:00:00 DM Foot Exam (Year ly) [code = DM Foot Exam (Yearly)] [facility] Scheduled Test 2016-12-12 00:00:00 DM Retinal Exam (Y early) [code = DM Retinal Exam (Yearly)] [facility] Scheduled Test 2012-11-04 00:00:00 Colorectal Cancer Scrn Annual (FIT/FOBT) Age 50 to 75 [code = Colorectal Cancer Scrn Annual (FIT/FOBT) Age 50 to 75] [facility] Appointment 2020-05-07 13:00:[address] [facility] Encounters Start Date/Time End Date/Time Encounter Type Admission Type Attendi [facility] Care Department Encounter ID Source 2020-04-13 14:03:00 2020-04-13 23:59:00 [facility] [id number] 2020-03-12 13:00:00 2020-03-12 13:00:00 Appointment; LAVERNE GARCIA M .D. JAVED, SABA, M.D. [facility] [id number] [facility] 2019-12-28 14:00:00 2019-12-28 14:00:00 Appointment; LAVERNE GARCIA M .D. JAVED, SABA, M.D. [facility] [id number] [facility] 2019-10-26 14:30:00 2019-10-26 14:30:00 Appointment; LAVERNE GARCIA M .D. JAVED, SABA, M.D. [facility] [id number] [facility] 2019-09-01 09:00:00 2019-09-01 09:00:00 Appointment; LAVERNE GARCIA M .D. JAVED, SABA, M.D. [facility] [id number] [facility] 2019-08-04 13:45:00 2019-08-04 13:45:00 Appointment; LAVERNE GARCIA M .D. JAVED, SABA, M.D. [facility] [id number] [facility] 2019-07-13 14:00:00 2019-07-13 14:00:00 Appointment; MONIKA CARLIN M.D. AHMED, MOUSTAFA, M.D. [facility] [id number] [facility] 2019-06-14 09:30:00 2019-06-14 09:30:00 Appointment; MONIKA CARLIN M.D. AHMED, MOUSTAFA, M.D. [facility] [id number] [facility] 2019-05-19 08:36:00 2019-05-19 23:59:00 Out[id number] 2019-05-09 15:30:00 2019-05-09 15:30:00 Appointment; MATTHEW GUERRERO M.D. GE, MICHELLE, M.D. [facility] [id number] [facility] 2019-03-31 14:15:00 2019-03-31 14:15:00 Appointment; MONIKA CARLIN M.D. AHMED, MOUSTAFA, M.D. [facility] [id number] [facility] 2019-03-09 15:00:00 2019-03-09 15:00:00 Appointment; MONIKA CARLIN M.D. AHMED, MOUSTAFA, M.D. [facility] [id number] [facility] 2019-03-03 12:50:00 2019-03-03 23:59:00 Outpatient Robert Cormier HOIP [facility]IP [id number] 2019-01-24 14:45:00 2019-01-24 14:45:00 Appointment; MONIKA CARLIN M.D. AHMED, MOUSTAFA, M.D. [facility] [id number] [facility] 2019-01-10 13:30:00 2019-01-10 13:30:00 Appointment; JODI OLIVEIRA M .D. CHIU, ALICE, M.D. [facility] [id number] [facility] 2018-12-20 10:30:00 2018-12-20 10:30:00 Appointment; MONIKA CARLIN M.D. AHMED, MOUSTAFA, M.D. [facility] [id number] [facility] 2018-12-01 09:00:00 2018-12-01 09:00:00 Appointment; MONIKA CARLIN M.D. AHMED, MOUSTAFA, M.D. [facility] [id number] n[facility] 2018-11-04 14:30:00 2018-11-04 14:30:00 Appointment; MONIKA CARLIN M.D. AHMED, MOUSTAFA, M.D. [facility] [id number] [facility] 2018-10-22 08:51:00 2018-10-22 11:39:00 [facility] [id number] 2018-10-21 17:02:00 2018-10-21 19:56:00 Outpatient Melecio Lara [facility] MH[facility] [id number] 2018-10-19 14:15:00 2018-10-19 14:15:00 Appointment; MONIKA CARLIN M.D. AHMED, MOUSTAFA, M.D. [facility] [id number] [facility] 2018-10-11 09:30:00 2018-10-11 09:30:00 Appointment; MATTHEW GUERRERO M.D. GE, MICHELLE, M.D. [facility] [id number] [facility] 2018-09-30 09:30:00 2018-09-30 09:30:00 Appointment; MONIKA CARLIN M.D. AHMED, MOUSTAFA, M.D. [facility] [id number] [facility] 2018-09-07 09:00:00 2018-09-07 09:00:00 Appointment; MONIKA CARLIN M.D. AHMED, MOUSTAFA, M.D. [facility] [id number] [facility] 2018-04-21 14:30:00 2018-04-21 14:30:00 Outpatient Denise Sow [facility] [id number] 2018-04-15 09:00:00 2018-04-15 09:00:00 Outpatient Denise Sowesh [facility] [id number] 2018-03-31 12:30:00 2018-04-01 23:59:59 Outpatient MHMIS ZHEN [facility] [id number] 2018-03-31 12:30:00 2018-04-01 23:59:59 Outpatient MHMIS ZHEN [facility] [id number] 2018-04-01 09:00:00 2018-04-01 09:00:00 Outpatient Denise Sow [facility] M[facility] [id number] 2018-04-01 09:00:00 2018-04-01 09:00:00 Outpatient Denise Sowesh [facility] [id number] 2018-03-17 10:42:00 2018-03-18 23:59:59 Outpatient MHMIS ZHEN [facility] [id number] 2018-03-16 13:26:00 2018-03-17 23:59:59 Outpatient MHMIS ZHEN [facility] [id number] 2018-03-11 00:00:00 2018-03-11 00:00:00 Outpatient [facility] [id number] [facility] 2018-02-10 08:14:00 2018-02-10 13:18:00 Outpatient Cory Thornton MHSE MHSE [id number] 2018-02-04 14:07:00 2018-02-05 23:59:59 Outpatient MHMIS ZHEN [facility] [id number] 2018-02-02 11:23:00 2018-02-03 23:59:59 Outpatient [facility]EN [facility] [id number] 2018-01-29 11:20:00 2018-01-30 23:59:59 Outpatient MHMIS ZHEN [facility] [id number] 2018-01-20 10:00:00 2018-01-21 23:59:59 Outpatient MHMIS ZHEN [facility] [id number] 2018-01-18 15:00:00 2018-01-18 23:59:59 Outpatient Denise Sowesh [facility] [id number] 2018-01-13 11:30:00 2018-01-14 23:59:59 Outpatient [facility] Z[facility]EN [facility] [id number] 2017-12-30 11:07:00 2017-12-31 23:59:59 Outpatient [facility] [id number] 2017-12-22 09:26:00 2017-12-22 23:59:00 Outpatient Mary Jo Cormier [facility]IP M[facility] [id number] 2017-12-17 11:06:40 2017-12-17 11:06:40 Outpatient [facility] [id number] [facility] 2017-12-07 13:00:00 2017-12-07 13:00:00 Outpatient Denise Sowesh [facility] M[facility] [id number] 2017-11-30 11:30:00 2017-11-30 11:30:00 Outpatient Denise Sow [facility] [id number] 2017-11-30 11:30:00 2017-11-30 11:30:00 Outpatient Denise Sowesh [facility] [id number] 2017-11-24 11:56:00 2017-11-25 23:59:59 Outpatient MHMIS ZHEN [facility] [id number] 2017-11-25 10:00:00 2017-11-25 10:00:00 Outpatient Denise Sowesh [facility] M[facility] [id number] 2017-11-10 14:45:00 2017-11-11 23:59:59 Outpatient MHMIS ZHEN [facility] [id number] 2017-10-29 14:22:00 2017-10-30 23:59:59 Outpatient MHMIS ZHEN [facility] [id number] 2017-10-21 11:00:00 2017-10-21 23:59:59 Outpatient Denise Sow [facility] M[facility] [id number] 2017-10-05 09:16:00 2017-10-06 23:59:59 Outpatient MHMIS ZHEN [facility] [id number] 2017-10-05 10:00:00 2017-10-05 10:00:00 Outpatient Denise Sow [facility] [id number] 2017-09-24 15:36:43 2017-09-24 15:36:43 Outpatient [facility] [id number] [facility] 2017-09-01 08:12:00 2017-09-01 23:59:00 Outpatient GeniaMary Jo Arnol M[facility]OIP M[facility]OIP [id number] 2017-05-20 09:30:00 2017-05-20 09:30:00 Appointment; ANISHA CHAVEZ M.D. HUANG, EDDIE, M.D. [facility] [id number] [facility] 2017-04-30 13:37:00 2017-04-30 23:59:00 Outpatient Haris Chavezu [facility] M[facility] [id number] 2017-04-23 09:32:16 2017-04-23 09:32:16 Outpatient [facility] [id number] [facility] 2017-04-22 09:30:00 2017-04-22 09:30:00 Appointment; ANISHA CHAVEZ M.D. HUANG, EDDIE, M.D. [facility] Orthopedics at [facility] [id number] [facility] Results Test Description Test Time Test Comments Results Result Comments Source - XR CHEST 1 V 2020-05-01 16:54:00 Name: [facility] : 1960 Age/S:59 /F [address] [facility] Unit#:[id number] Loc: [place] x [id number] Phys: Tolu Sparrow MD Dis Date: PHONE #: [phone] Status: REG ER FAX #: [phone] Exam Date: 05/01/2020 Reason: chest pain EXAMS: CPT CODE: [id number] XR CHEST 1 V [id number] REASON FOR EXAM: chest pain EXAM ORDER DATE: 05/01/2020 4:12 PM Ordering: Tolu Sparrow MD Attending:Tolu Sparrow MD Location:[facility] PROCEDURE: - XR CHEST 1 V COMPARISON: 01/18/2020 FINDINGS: Portable AP frontal view of the chest obtained at 4:13 PM shows clear lungs without evidence of consolidation. There is no evidence of effusion. The heart size is minimally enlarged. Pulmonary vasculatures are unremarka ble. IMPRESSION: Minimal cardiomegaly at 9441 Reported and signed by: Benjie Kirby M.D. CC: Tolu Sparrow MD; Evangelist Purvis III, MD Technologist: TAYLOR KELSEY, RT(R),CT Trnscrpt Data: 05/01/2020 (2953) t.INGRIDR.VTL Orig Print D/T: S: 05/01/2020 (2861) PAGE 1 Signed Report BASIC METABOLIC PANEL 2020-05-01 16:49:00 Test Item SODIUM (test code = NA) 139 mmol/L 136-145 N POTASSIUM (test code = K) 3.9 mmol/L 3.5-5.1 N CHLORIDE (test code = CL) 102 mmol/L 101-109 N CARBON DIOXIDE (test code = CO2) 30.7 mmol/L 21-32 N ANION GAP (test code = GAP) 10 mmol/L 10-20 N GLUCOSE (test code = GLU) 169 mg/dL 74-106 H BLOOD UREA NITROGEN (test code = BUN) 16 mg/dL 3-21 N GLOMERULAR FILTRATION RATE (test code = GFR) 51 mL/min >=60 Estimated GFR by using Modified MDRD formula.Chronic kidney disease is defined as either kidney damageor GFR <60 mL/min/1.73 m2 for >3 months. CREATININE (test code = CREAT) 1.09 mg/dL 0.55-1.3 N BUN/CREATININE RATIO (test code = BUN/CREA) 14.7 10-20 N CALCIUM (test code = CA) 8.4 mg/dL 8.4-10.2 N [id number] 16:49:00* Test Item Value Reference Range Interpretation Comments TROPONIN-I (test code = TROPI) <0.015 ng/mL 0.00-0.056 N BASIC METABOLIC [id number] 16:46:00* Test Item Value Reference Range Interpretation Comments SODIUM (test code = NA) 139 mmol/L 136-145 N POTASSIUM (test code = K) 3.9 mmol/L 3.5-5.1 N CHLORIDE (test code = CL) 102 mmol/L 101-109 N CARBON DIOXIDE (test code = CO2) 30.7 mmol/L 21-32 N ANION GAP (test code = GAP) 10 mmol/L 10-20 N GLUCOSE (test code = GLU) 169 mg/dL 74-106 H BLOOD UREA NITROGEN (test code = BUN) 16 mg/dL 3-21 N GLOMERULAR FILTRATION RATE (test code = GFR) 51 mL/min >=60 Estimated GFR by using Modified MDRD formula.Chronic kidney disease is defined as either kidney damageor GFR <60 mL/min/1.73 m2 for >3 months. CREATININE (test code = CREAT) 1.09 mg/dL 0.55-1.3 N BUN/CREATININE RATIO (test code = BUN/CREA) 14.7 10-20 N CALCIUM (test code = CA) 8.4 mg/dL 8.4-10.2 N [id number] 16:46:00* Test Item Value Reference Range Interpretation Comments TROPONIN-I (test code = TROPI) ng/mL 0-0.045 PROTHROMBIN [id number] 16:46:00* Test Item Value Reference Range Interpretation Comments PROTHROMBIN TIME PATIENT (test code = PTP) 10.1 seconds 9.0-13.0 N INTERNATIONAL NORMAL RATIO (test code = INR) 1.0 0.8-1.2 N The therapeutic range for oral anticoagulant therapy formost indications is an international normalized ratio (INR)of between 2.0 and 3.0. The recommended therapeutic INRrange for various clinical situations is listed below: Clinical Situation INR range Pulmonary e mbolism treatment (2.0-3.0)Venous thrombosis treatmentVenous thrombosis prophylaxis (high risk surgery)Prevention of systemic embolism from: Acute myocardial infarction Valvular heart disease Atrial fibrillation Mechanical prosthetic heart valves (2.5-3.5) IS PATIENT ON ANTICOAGULANTS? NTHROMBOPLASTIN TIME [id number] 16:46:00* Test Item Value Reference Range Interpretation Comments THROMBOPLASTIN TIME PARTIAL (test code = PTT) 21.9 seconds 25.5-34. 3 L Therapeutic Range for patients on Heparin Therapy is 2 to2.5 times their baseline PTT level. IS PATIENT ON ANTICOAGULANTS? [id number] 16:41:00* Test Item Value Reference Range Interpretation Comments GLUBED (test code = GLUBED) 159 mg/dL 74-106 H Performed by certified coke crane operator at [facility] CBC W/AUTO [id number] 16:33:00* Test Item Value Reference Range Interpretation Comments WHITE BLOOD CELL (test code = WBC) 8.2 K/mm3 4.5-12.5 N RED BLOOD CELL (test code = RBC) 3.81 mill/mm3 3.7-5.2 N HEMOGLOBIN (test code = HGB) 12.3 gram/dL 11.5-15.5 N HEMATOCRIT (test code = HCT) 36.5 % 36.0-46.0 N MEAN CELL VOLUME (test code = MCV) 95.8 fL 80-98 N MEAN CELL HGB (test code = MCH) 32.3 picogram 27.0-33.0 N MEAN CELL HGB CONCETRATION (test code = MCHC) 33.7 gram/dL 33.0-36. 0 N RED CELL DISTRIBUTION WIDTH (test code = RDW) 13.2 % 11.6-16. 2 N RED CELL DISTRIBUTION WIDTH SD (test code = RDW-SD) 47.5 fL 37 .0-51.0 N PLATELET COUNT (test code = PLT) 195 K/mm3 150-450 N MEAN PLATELET VOLUME (test code = MPV) 8.7 fL 6.7-11.0 N NEUTROPHIL % (test code = NT%) 56.3 % 39.0-69.0 N LYMPHOCYTE % (test code = LY%) 33.0 % 25.0-55.0 N MONOCYTE % (test code = MO%) 6.4 % 0.0-10.0 N EOSINOPHIL % (test code = EO%) 4.0 % 0.0-5.0 N BASOPHIL % (test code = BA%) 0.2 % 0.0-1.0 N NEUTROPHIL # (test code = NT#) 4.60 K/mm3 1.8-7.7 N LYMPHOCYTE # (test code = LY#) 2.70 K/mm3 1.0-5.0 N MONOCYTE # (test code = MO#) 0.52 K/mm3 0-0.8 N EOSINOPHIL # (test code = EO#) 0.33 K/mm3 0.0-0.5 N BASOPHIL # (test code = BA#) 0.02 K/mm3 0.0-0.2 N MANUAL DIFF REQUIRED (test code = MDIFF) NO - CT HEAD/BRAIN W/O [id number] 16:31:00 Name: ZACH RADER [facility] : 1960 Age/S: 59 / F [address] [facility] Unit #: [id number] Loc: [place] [address] Phys: Tolu Sparrow MD Acct: [id number] Dis Date: Status: REG ER PHONE #: [phone] Exam Date: 05/01/2020 6209 FAX #: [phone] Reason: left side weakness EXAMS: CPT CODE: [id number] CT HEAD/BRAIN W/O CONT [id number] REASON FOR EXAM: left side weakness EXAM ORDER DATE: 05/01/2020 4:10 PM Ordering: Tolu Sparrow MD Attending:Tolu Sparrow MD Location:[facility] PROCEDURE: - CT HEAD/BRAIN W/O CONT COMPARISON: 03/22/2020 FINDINGS: CT images of the brain were obtained without IV contrast. Dose modulation, iterative reconstruction, and/or weight based adjustment of the MA/KV was utilized to reduce the radiation dose to as low as reasonably achievable. The brain parenchyma is within normal limits. The pina-white matter delineation is unremarkable. The ventricles, cisterns, and sulci are unremarkable. There is no evidence of hemorrhage, mass, mass effect. There is no evidence of acute or old infarct. The calvarium is intact. IMPRESSION: Unremarkable brain. at 1631 Reported and signed by: Benjie Kirby M.D. CC: Tolu Sparrow MD; Evangelist Purvis III, MD Technologist: TAYLOR KELSEY, RT(R),CT CTDI: DLP: Trnscb Date/Time: 05/01 (1631) t.SDR.VTL Orig Print D/T: S: 05/01/2020 (163 5) PAGE 1 Signed Report - XR TIBIA/FIBULA 2 V [id number] 15:39:00 Name: ZACH RADER [facility] : 1960 Age/S:59 /F [address] [facility] Unit#:[id number] Loc: [place] [address] Phys: Mamie Cedillo MD Dis Date: PHONE #: [phone] Status: REG ER FAX #: [phone] Exam Date: 03/22/2020 Reason: LEG PAIN EXAMS: CPT CODE: [id number] XR TIBIA/FIBUL[place] [id number] REASON FOR EXAM: LEG PAIN EXAM ORDER DATE: 03/22/2020 2:35 PM Ordering: Mamie Cedillo MD Attending:Mamie Cedillo MD Location:[facility] PROCEDURE: - XR TIBIA/FIBULA 2 V RT FINDINGS: 2 views of the right lower extremity were obtained. The osseous structures are unremarkable in size and shape. The joint spaces are maintained. No evidence of fracture. The right knee joint and ankle joint are grossly intact IMPRESSION: Unremarkable right tibia and fibula at 1537 Reported and signed by: Benjie Kirby M.D. CC: Evangelist Purvis III, MD; Mamie Cedillo MD Technologist: Taylor Sow RT(R)(CT) Trnscrpt Data: 03/22/2020 (1539) AdamsVTL Orig Print D/T: S: 03/22/2020 (1542) PAGE 1 Signed Report - XR FEMUR MIN 2 VWS RT 2020-03-22 15:38:00 Name: ZACH RADER [facility] : 1960 Age/S:59 /F [address] [facility] Unit#:[id number] Loc: [place] [address] Phys: Mamie Cedillo MD Dis Date: PHONE #: [phone] Status: REG ER FAX #: [phone] Exam Date: 03/22/2020 Reason: THIGH PAIN EXAMS: CPT CODE: [id number] XR FEMUR MIN [address] [place] [id number] REASON FOR EXAM: THIGH PAIN EXAM ORDER DATE: 03/22/2020 2:35 PM Ordering: Mamie Cedillo MD Attending:Mamie Cedillo MD Location:[facility] PROCEDURE: - XR FEMUR MIN 2 VWS RT FINDINGS: 4 views of the right femur were obtained. The osseous structures are unremarkable in size and shape. The joint spaces are maintained. No evidence of fracture. There is normal alignment of the right hip joint IMPRESSION: Unremarkable right femur at 1538 Reported and signed by: Benjie Kirby M.D. CC: Evangelist Purvis III, MD; Mamie Cedillo MD Technologist: Taylor Sow RT(R)(CT) Trnscrpt Data: 03/22/2020 (1538) AdamsVTL Orig Print D/T: S: 03/22/2020 (9641) PAGE 1 Signed Report - XR T-SPINE 3 [id number] 15:38:00 Name: ZACH RADER [facility] : 1960 Age/S:59 /F [address] [facility] Unit#:[id number] Loc: [place] [address] Phys: Mamie Cedillo MD Dis Date: PHONE #: [phone] Status: REG ER FAX #: [phone] Exam Date: 03/22/2020 Reason: BACK PAIN EXAMS: CPT CODE: [id number] XR T-SPINE 3 VIEWS [id number] REASON FOR EXAM: BACK PAIN EXAM ORDER DATE: 03/22/2020 2:35 PM Ordering: Mamie Cedillo MD Attending:Mamie Cedillo MD Location:[facility] PROCEDURE: - XR T-SPINE 3 VIEWS FINDINGS: 3 views of the thoracic spine were obtained. There is normal alignment of the thoracic spine. The vertebral bodies are unremarkable in size and shape. The disc spaces are maintained. No evidence of fracture. IMPRESSION: Unremarkable thoracic spine at 1538 Reported and signed by: Benjie Kirby M.D. CC: Evangelist Purvis III, MD; Mamie Cedillo MD Technologist: Taylor Sow RT(R)(CT) [facility] Data: 03/22/2020 (1538) t.SDR.VTL Orig Print D/T: S: 03/22/2020 (1331) PAGE 1 Signed Report - CT MAXIFAC W/O [id number] 15:37:00 Name: ZACH RADER [facility] : 1960 Age/S: 59 / F [address] [facility] Unit #: [id number] Loc: [place] [address] Phys: Jose Cedillo MD Acct: [id number] Di s Date: Status: REG ER PHONE #: Exam Date: 03/22/2020 1505 FAX #: Reason: left temporal pain and eye pain EXAMS: CPT CODE: [id number] [place]IF[place] [address] REASON FOR EXAM: left tem poral pain and eye pain EXAM ORDER DATE: 03/22/2020 2:35 PM Ordering: Mamie Cedillo MD Attending:Mamie Cedillo MD L ocation:[facility] PROCEDURE: - CT MAXIFAC W/O CNT FINDING S: CT images of the face were obtained without IV contrast at 2.5 mm thick ness. Dose modulation, iterative reconstruction, and/or weight based adju stment of the MA/KV was utilized to reduce the radiation dose to as low as reasonably achievable. The globes are intact. The orbital tanner are unremarkable without evidence of orbital blowout fracture. The nasal bone is unremarkable. The mandibles are within normal limits. No evidence of facial fracture IMPRESSION: Unremarkable orb it. Minimal chronic sinusitis of the right maxillary sinus E lectronically Signed by Gonsalo Kirby on 03/22/2020 at 1537 Reported and signed by: Benjie Kirby M.D. CC: Evangelist Purvis III, ph, MD; Mamie Cedillo MD Technologist:Taylor Sow RT(R)(CT) CTDI: DLP: Trnscb Date/Time: 03/22/2020 (1537) t.SDR.VTL Orig Print D/T: S: 03/22/2020 (9921) PAGE 1 Signed Report - CT HEAD/BRAIN W/O CONT 2020-03-22 15:36:00 Name: ZACH RADER [facility] : 1960 Age/S: 59 / F [address] [facility] Unit #: [id number] Loc: [place] [address] Phys: Mamie Cedillo MD Acct: [id number] Dis Date: Status: REG ER PHONE #: [phone] Exam Date: 03/22/2020 1505 FAX #: [phone] Reason: HEADACHE EXAMS: CPT CODE: [id number] CT HEAD/BRAIN W/O CONT [id number] REASON FOR EXAM: HEADACHE EXAM ORDER DATE: 03/22/2020 2:35 PM Ordering: Mamie Cedillo MD Attending:Mamie Cedillo MD Location:[facility] PROCEDURE: - CT HEAD/BRAIN W/O CONT COMPARISON: FINDINGS: CT images of the brain were obtained without IV contrast. Dose modulation, iterative reconstruction, and/or weight based adjustment of the MA/KV was utilized to reduce the radiation dose to as low as reasonably achievable. The brain parenchyma is within normal limits. The pina-white matter delineation is unremarkable. The ventricles, cisterns, and sulci are unremarkable. There is no evidence of hemorrhage, mass, mass effect. There is no evidence of acute or old infarct. The calvarium is intact. IMPRESSION: Unremarkable brain. at 1536 Reported and signed by: Benjie Kirby M.D. CC: Evangelist Purvis III, MD; Mamie Cedillo MD Technologist:Taylro Sow RT(R)(CT) CTDI: DLP: Trnscb Date/Time: 03/22/2020 (1536) t.SDR.VTL Orig Print D/T: S: 03/22/2020 (8585) PAGE 1 Signed Report [id number] 08:26:00* Test Item Value Reference Range Interpretation Comments GLUBED (test code = GLUBED) 160 MG/DL 70-110 H Performed by certified coke crane operator at [facility] [id number] 05:57:00* Test Item Value Reference Range Interpretation Comments GLUBED (test code = GLUBED) 236 MG/DL 70-110 H Performed by certified coke crane operator at [facility] [id number] 16:48:00* Test Item Value Reference Range Interpretation Comments GLUBED (test code = GLUBED) 175 MG/DL 70-110 H Performed by certified coke crane operator at [facility] [id number] 12:51:00* Test Item Value Reference Range Interpretation Comments GLUBED (test code = GLUBED) 201 MG/DL 70-110 H Performed by certified coke crane operator at [facility] [id number] 08:54:00* Test Item Value Reference Range Interpretation Comments GLUBED (test code = GLUBED) 216 MG/DL 70-110 H Performed by certified coke crane operator at [facility] - CTA CHEST FOR [id number] 08:49:00 Name: ZACH RADER [facility] : 1960 Age/S: 59 / F [address] [place] [address] Unit #: [id number] Loc: [place] [address] Phys: Puma Min DIRECTOR OF SPEECH PATHOLOGY Acct: [id number] Dis Date: Status: ADM IN PHONE #: [phone] Exam Date: 01/19/2020807 FAX #: [phone] Reason: r/o pe. EXAMS: CPT CODE: [id number] [place] [address] STUDY: - CTA CHEST FOR PE 01/19/2020 11:27 PM Ordering Physician: Puma Min NP Patient Name: ZACH RADER MR: [id number] : 1960; Age: 59 years y/o Female Clinical Indication: Acute coronary syndrome r/o pe. Comparison: None TECHNIQUE: Sequential trans-axial images were obtained with a multi-detector helical CT after iodinated contrast administration. Coronal, sagittal, and 3-D MIP reconstructions were performed. IV CONTRAST: 100cc Omnipaque 300 DOSE: CT imaging performed at this location utilizes radiation dose optimization technique which includes one or more of the followin) Automated exp osure control; 2) Adjustment of the mA and/or kV according to patient's si ze; 3) Use of iterative reconstruction techniques. DLP (mGy-cm): 171 FINDINGS: VASCULAR EVALUATION THORACIC AORTA: Normal caliber without aneurysm or dissection. Com mon origin of the innominate and left common carotid arteries. Mild to moderate narrowing of the proximal brachiocephalic artery and proximal left common carotid artery secondary to noncalcified and calcified plaque. PULMONARY ARTERIES: No evidence of central pulmonary embolus. NONVASCULAR EVALUATION LUNGS: Well inflated lungs without consolidation, pleural effusion, or pneumothorax. Mild bilateral basilar subsegmental atelectasis. Linear atelectasis in the left upper lobe AIRWAY: Clear central tracheobronchial tree. PAGE 1 Signed Report (CONTINUED) Name: RANJAN RADER [facility] : 1960 Age/ S: 59 / F [address] [place] [address] Blvd Unit #: [id number] Loc: [place] [address] Phys: Puma Min NP Acct: [id number] Dis Date: Status: ADM IN PHONE #: [phone] Exam Date: 01/19/2020807 FAX #: [phone] Reason: r/o pe. EXAMS: CPT CODE: [id number] CTA CHEST FOR PE <Continued> HEART: Normal size heart. Median sternotomy wires are noted. MEDIASTINUM AND ROCHELLE: No hilar or mediastinal lymphadenopathy. VISUALIZED UPPER ABDOMEN: No significant abnormality. SOFT TISSUES: No suspicious soft tissue lesion or abnormality. OSSEOUS STRUCTURES: No fracture, dislocation, or suspicious focal osseous lesion. IMPRESSION: 1. No pulmonary embolus. 2. Mild to moderate narrowing of the proximal brachiocephalic artery and proximal left common carotid artery secondary to mostly noncalcified plaque. SL: [id number] at 0849 Reported and signed by: Leo Roque M.D. CC: Puma Min NP; Grzegorz Sarabia MD; Evangelist Purvis III, MD Technologist:Jaja Zacarias RT(R)(CT) CTDI: DLP: Trnscb Date/Time: 01/19/2020 (848) t.INGRIDR.AP24 Orig Print D/T: S: 01/19/2020 (0899) PAGE 2 Signed Report TROPONIN-I 2020-01-19 03:09:00* Test Item Value Reference Range Interpretation Comments TROPONIN-I (test code = TROPI) < 0.015 ng/mL 0.000-0.045 N Negative: <= 0.045 Positive: >= 0.046 Correlation with serial results, other cardiac markers andclinical findings is necessary to determine the clinicalsignificance of this result. Results using different methodologies should not be comparedto one another as quantitative results may vary by method. COMMENTS: 3 troponins total (including troponin done in ED)[id number] 23:17:00* Test Item Value Reference Range Interpretation Comments TROPONIN-I (test code = TROPI) < 0.015 ng/mL 0.000-0.045 N Negative: <= 0.045 Positive: >= 0.046 Correlation with serial results, other cardiac markers andclinical findings is necessary to determine the clinicalsignificance of this result. Results using different methodologies should not be comparedto one another as quantitative results may vary by method. COMMENTS: 3 troponins total (including troponin done in ED)COMPREHENSIVE METABOLIC [id number] 20:21:00* Test Item Value Reference Range Interpretation Comments SODIUM (test code = NA) mEq/L 134-147 POTASSIUM (test code = K) mEq/L 3.4-5.0 CHLORIDE (test code = CL) mEq/L 100-108 CARBON DIOXIDE (test code = CO2) mEq/L 21-33 ANION GAP (test code = GAP) 0-20 GLUCOSE (test code = GLU) mg/dL 70-110 BLOOD UREA NITROGEN (test code = BUN) mg/dL 7-18 GLOMERULAR FILTRATION RATE (test code = GFR) 90-95 CREATININE (test code = CREAT) mg/dL 0.6-1.3 TOTAL PROTEIN (test code = PROT) g/dL 6.4-8.2 ALBUMIN (test code = ALB) g/dL 3.4-5.0 CALCIUM (test code = CA) mg/dL 8.0-10.5 BILIRUBIN TOTAL (test code = BILT) MG/DL <1.5 SGOT/AST (test code = AST) IUnit/L 15-37 SGPT/ALT (test code = ALT) IUnit/L 15-65 ALKALINE PHOSPHATASE TOTAL (test code = ALKP) IUnit/L 20-125 [id number] 20:21:00* Test Item Value Reference Range Interpretation Comments LIPASE (test code = LIP) IUnit/L 73-393 [id number] 20:21:00* Test Item Value Reference Range Interpretation Comments TROPONIN-I (test code = TROPI) < 0.015 ng/mL 0.000-0.045 N Negative: <= 0.045 Positive: >= 0.046 Correlation with serial results, other cardiac markers andclinical findings is necessary to determine the clinicalsignificance of this result. Results using different methodologies should not be comparedto one another as quantitative results may vary by method. COMPREHENSIVE METABOLIC [id number] 20:21:00* Test Item Value Reference Range Interpretation Comments SODIUM (test code = NA) 138 mEq/L 134-147 N POTASSIUM (test code = K) 3.8 mEq/L 3.4-5.0 N CHLORIDE (test code = CL) 103 mEq/L 100-108 N CARBON DIOXIDE (test code = CO2) 31 mEq/L 21-33 N ANION GAP (test code = GAP) 8 0-20 N GLUCOSE (test code = GLU) 171 mg/dL 70-110 H BLOOD UREA NITROGEN (test code = BUN) 12 mg/dL 7-18 N GLOMERULAR FILTRATION RATE (test code = GFR) 85.6 90-95 L Units of measure = ml/min/1.73 m2 CREATININE (test code = CREAT) 0.7 mg/dL 0.6-1.3 N TOTAL PROTEIN (test code = PROT) 7.3 g/dL 6.4-8.2 N ALBUMIN (test code = ALB) 3.60 g/dL 3.4-5.0 N CALCIUM (test code = CA) 9.3 mg/dL 8.0-10.5 N BILIRUBIN TOTAL (test code = BILT) 0.2 MG/DL <1.5 N SGOT/AST (test code = AST) 8 IUnit/L 15-37 L SGPT/ALT (test code = ALT) 24 IUnit/L 15-65 N ALKALINE PHOSPHATASE TOTAL (test code = ALKP) 157 IUnit/L 20-125 H [id number] 20:21:00* Test Item Value Reference Range Interpretation Comments LIPASE (test code = LIP) 77 IUnit/L 73-393 N [id number] 20:21:00* Test Item Value Reference Range Interpretation Comments TROPONIN-I (test code = TROPI) < 0.015 ng/mL 0.000-0.045 N Negative: <= 0.045 Positive: >= 0.046 Correlation with serial results, other cardiac markers andclinical findings is necessary to determine the clinicalsignificance of this result. Results using different methodologies should not be comparedto one another as quantitative results may vary by method. [id number] 20:18:00* Test Item Value Reference Range Interpretation Comments D-DIMER (test code = DDIMER) 754 ng/mlFEU <=500 HH THROMBOSIS AND/OR PULMONARY EMBOLISM AND THE CLINICAL CUT- OFF VALUE FOR EXCLUSION (500 ng/mL FEU) OF THESE CONDITIONSIS VALIDATED BY THE SELF RISING FLOUR MIXER OF THE METHOD. A NEGATIVE D-DIMER RESULT WHEN COMBINED WITH A CLINICALASSESSMENT OF LOW PRETEST PROBABILITY HAS BEEN SHOWN TO HAVEA HIGH NEGATIVE PREDICTIVE VALUE OF DVT OR PE. D-DIMER VALUES >500 ng/mL FEU ARE NOT DIAGNOSTIC FOR DVT, PEor DIC WITHOUT OTHER CONFIRMATORY TESTS AND APPROPRIATECLINICAL EUALUATIONS. CBC W/AUTO [id number] 20:11:00* Test Item Value Reference Range Interpretation Comments WHITE BLOOD CELL (test code = WBC) 7.30 x10 3/uL 4.5-11.0 RED BLOOD CELL (test code = RBC) 3.77 x10 6/uL 3.54-5.02 N HEMOGLOBIN (test code = HGB) 12.1 g/dL 11.0-15.0 N HEMATOCRIT (test code = HCT) 36.6 % 33.0-45.0 N MEAN CELL VOLUME (test code = MCV) 97.1 fL 81.0-99.0 N MEAN CELL HGB (test code = MCH) 32.1 pg 27.0-33.0 N MEAN CELL HGB CONCETRATION (test code = MCHC) 33.1 g/dL 33.0-37. 0 N RED CELL DISTRIBUTION WIDTH CV (test code = RDW) 14.6 % 11.5- 14.5 H RED CELL DISTRIBUTION WIDTH SD (test code = RDW-SD) 51.8 fL 37 .0-54.0 N PLATELET COUNT (test code = PLT) 217 x10 3/uL 150-400 N MEAN PLATELET VOLUME (test code = MPV) 9.9 fL 7.0-9.0 H NEUTROPHIL % (test code = NT%) 46.4 % 56.0-77.0 L IMMATURE GRANULOCYTE % (test code = IG%) 0.4 % 0.0-2.0 N LYMPHOCYTE % (test code = LY%) 42.9 % 14.0-32.0 H MONOCYTE % (test code = MO%) 7.4 % 4.8-9.0 N EOSINOPHIL % (test code = EO%) 2.6 % 0.3-3.7 N BASOPHIL % (test code = BA%) 0.3 % 0.0-2.0 N NUCLEATED RBC % (test code = NRBC%) 0.0 % 0-0 N NEUTROPHIL # (test code = NT#) 3.39 x10 3/uL 2.0-7.6 N IMMATURE GRANULOCYTE # (test code = IG#) 0.03 x10 3/uL 0.00-0.03 N LYMPHOCYTE # (test code = LY#) 3.13 x10 3/uL 1.0-3.8 N MONOCYTE # (test code = MO#) 0.54 x10 3/uL 0.1-0.8 N EOSINOPHIL # (test code = EO#) 0.19 x10 3/uL 0.0-0.2 N BASOPHIL # (test code = BA#) 0.02 x10 3/uL 0.0-0.2 N NUCLEATED RBC # (test code = NRBC#) 0.00 x10 3/uL 0.0-0.1 N MANUAL DIFF REQUIRED (test code = MDIFF) NO URINALYSIS [id number] 17:53:00* Test Item Value Reference Range Interpretation Comments UA COLOR (test code = COLU) LIGHT YELLOW YELLOW UA APPEARANCE (test code = APPU) HAZY CLEAR A UA GLUCOSE DIPSTICK (test code = DGLUU) norm mg/dL NEGATIVE UA BILIRUBIN DIPSTICK (test code = BILU) NEGATIVE mg/dL NEGATIVE UA KETONE DIPSTICK (test code = KETU) neg mg/dL NEGATIVE UA SPECIFIC GRAVITY (test code = SGU) 1.005 1.001-1.035 UA BLOOD DIPSTICK (test code = MANDA) neg Tavon/uL NEGATIVE UA PH DIPSTICK (test code = MARGE) 7.0 5.0-8.0 UA PROTEIN DIPSTICK (test code = PROU) neg mg/dL Neg-15 UA UROBILINIOGEN DIPSTICK (test code = URO) norm mg/dL 0.0-0.2 UA NITRITE DIPSTICK (test code = CLARENCE) NEGATIVE NEGATIVE UA LEUKOCYTE ESTERASE DIPSTICK (test code = LEUU) 25 Otoniel/uL (Tra ce) uL NEGATIVE A UA WBC (test code = WBCU) 0-5 per HPF 0-5 UA RBC (test code = RBCU) NONE SEEN per HPF 0-5 UA EPITHELIAL CELLS (test code = EPIU) Few (2-5/hpf) per HPF Few UA BACTERIA (test code = BACU) TRACE per HPF NONE Urine Source? Clean CatchDRUGS OF ABUSE SCREEN [id number] 17:53:00* Test Item Value Reference Range Interpretation Comments URN COCAINE (test code = COCAURN) NEGATIVE URN CANNABINOIDS (test code = CANNABURN) NEGATIVE URN AMPHETAMINE (test code = AMPHETURN) NEGATIVE URN BARBITURATE (test code = BARBITURN) NEGATIVE URN BENZODIAZEPINE (test code = BENZOURN) NEGATIVE URN OPIATES (test code = OPIATURN) NEGATIVE URN PHENCYCLIDINE (PCP) (test code = PHENCURN) NEGATIV E Urine Source? Clean CatchURINALYSIS [id number] 17:53:00* Test Item Value Reference Range Interpretation Comments UA COLOR (test code = COLU) LIGHT YELLOW YELLOW UA APPEARANCE (test code = APPU) HAZY CLEAR A UA GLUCOSE DIPSTICK (test code = DGLUU) norm mg/dL NEGATIVE UA BILIRUBIN DIPSTICK (test code = BILU) NEGATIVE mg/dL NEGATIVE UA KETONE DIPSTICK (test code = KETU) neg mg/dL NEGATIVE UA SPECIFIC GRAVITY (test code = SGU) 1.005 1.001-1.035 UA BLOOD DIPSTICK (test code = MANDA) neg Tavon/uL NEGATIVE UA PH DIPSTICK (test code = MARGE) 7.0 5.0-8.0 UA PROTEIN DIPSTICK (test code = PROU) neg mg/dL Neg-15 UA UROBILINIOGEN DIPSTICK (test code = URO) norm mg/dL 0.0-0.2 UA NITRITE DIPSTICK (test code = CLARENCE) NEGATIVE NEGATIVE UA LEUKOCYTE ESTERASE DIPSTICK (test code = LEUU) 25 Otoniel/uL (Tra ce) uL NEGATIVE A UA WBC (test code = WBCU) 0-5 per HPF 0-5 UA RBC (test code = RBCU) NONE SEEN per HPF 0-5 UA EPITHELIAL CELLS (test code = EPIU) Few (2-5/hpf) per HPF Few UA BACTERIA (test code = BACU) TRACE per HPF NONE Urine Source? Clean CatchDRUGS OF ABUSE SCREEN [id number] 17:53:00* Test Item Value Reference Range Interpretation Comments URN COCAINE (test code = COCAURN) NEGATIVE NEGATIVE URN CANNABINOIDS (test code = CANNABURN) NEGATIVE NEGATIVE URN AMPHETAMINE (test code = AMPHETURN) NEGATIVE NEGATIVE URN BARBITURATE (test code = BARBITURN) NEGATIVE NEGATIVE URN BENZODIAZEPINE (test code = BENZOURN) NEGATIVE NEGATIVE URN OPIATES (test code = OPIATURN) NEGATIVE NEGATIVE URN PHENCYCLIDINE (PCP) (test code = PHENCURN) NEGATIVE NEGATIV E Urine Source? Clean CatchURINALYSIS [id number] 17:43:00* Test Item Value Reference Range Interpretation Comments UA COLOR (test code = COLU) LIGHT YELLOW YELLOW UA APPEARANCE (test code = APPU) HAZY CLEAR A UA GLUCOSE DIPSTICK (test code = DGLUU) norm mg/dL NEGATIVE UA BILIRUBIN DIPSTICK (test code = BILU) NEGATIVE mg/dL NEGATIVE UA KETONE DIPSTICK (test code = KETU) neg mg/dL NEGATIVE UA SPECIFIC GRAVITY (test code = SGU) 1.005 1.001-1.035 UA BLOOD DIPSTICK (test code = MANDA) neg Tavon/uL NEGATIVE UA PH DIPSTICK (test code = MARGE) 7.0 5.0-8.0 UA PROTEIN DIPSTICK (test code = PROU) neg mg/dL Neg-15 UA UROBILINIOGEN DIPSTICK (test code = URO) norm mg/dL 0.0-0.2 UA NITRITE DIPSTICK (test code = CLARENCE) NEGATIVE NEGATIVE UA LEUKOCYTE ESTERASE DIPSTICK (test code = LEUU) 25 Otoniel/uL (Tra ce) uL NEGATIVE A UA WBC (test code = WBCU) per HPF 0-5 UA RBC (test code = RBCU) per HPF 0-5 UA EPITHELIAL CELLS (test code = EPIU) per HPF Few UA BACTERIA (test code = BACU) per HPF NONE Urine Source? Clean CatchDRUGS OF ABUSE SCREEN [id number] 17:43:00* Test Item Value Reference Range Interpretation Comments URN COCAINE (test code = COCAURN) NEGATIVE URN CANNABINOIDS (test code = CANNABURN) NEGATIVE URN AMPHETAMINE (test code = AMPHETURN) NEGATIVE URN BARBITURATE (test code = BARBITURN) NEGATIVE URN BENZODIAZEPINE (test code = BENZOURN) NEGATIVE URN OPIATES (test code = OPIATURN) NEGATIVE URN PHENCYCLIDINE (PCP) (test code = PHENCURN) NEGATIV E Urine Source? Clean CatchPROTHROMBIN [id number] 17:37:00* Test Item Value Reference Range Interpretation Comments PROTHROMBIN TIME PATIENT (test code = PTP) 9.9 seconds 9.0-13.0 N INTERNATIONAL NORMAL RATIO (test code = INR) 1.0 0.8-1.2 N The therapeutic range for oral anticoagulant therapy formost indications is an international normalized ratio (INR)of between 2.0 and 3.0. The recommended therapeutic INRrange for various clinical situations is listed below: Clinical Situation INR range Pulmonary e mbolism treatment (2.0-3.0)Venous thrombosis treatmentVenous thrombosis prophylaxis (high risk surgery)Prevention of systemic embolism from: Acute myocardial infarction Valvular heart disease Atrial fibrillation Mechanical prosthetic heart valves (2.5-3.5) IS PATIENT ON ANTICOAGULANTS? NTHROMBOPLASTIN TIME [id number] 17:37:00* Test Item Value Reference Range Interpretation Comments THROMBOPLASTIN TIME PARTIAL (test code = PTT) 21.1 seconds 25.5-34. 3 L Therapeutic Range for patients on Heparin Therapy is 2 to2.5 times their baseline PTT level. IS PATIENT ON ANTICOAGULANTS? NBASIC METABOLIC [id number] 17:26:00* Test Item Value Reference Range Interpretation Comments SODIUM (test code = NA) 138 mmol/L 135-148 N POTASSIUM (test code = K) 3.9 mmol/L 3.5-5.1 N CHLORIDE (test code = CL) 99 mmol/L 101-109 L CARBON DIOXIDE (test code = CO2) 29.9 mmol/L 21-32 N ANION GAP (test code = GAP) 13 mmol/L 10-20 N GLUCOSE (test code = GLU) 210 mg/dL 74-106 H BLOOD UREA NITROGEN (test code = BUN) 13 mg/dL 3-21 N GLOMERULAR FILTRATION RATE (test code = GFR) > 60 mL/min >=60 Estimated GFR by using Modified MDRD formula.Chronic kidney disease is defined as either kidney damageor GFR <60 mL/min/1.73 m2 for >3 months. CREATININE (test code = CREAT) 0.81 mg/dL 0.55-1.3 N BUN/CREATININE RATIO (test code = BUN/CREA) 16.0 10-20 N CALCIUM (test code = CA) 9.2 mg/dL 8.4-10.2 N [id number] 17:26:00* Test Item Value Reference Range Interpretation Comments TROPONIN-I (test code = TROPI) <0.015 ng/mL 0.00-0.056 N B-TYPE NATRIURETIC [id number] 17:26:00* Test Item Value Reference Range Interpretation Comments B-TYPE NATRIURETIC PEPTIDE (test code = BNP) 58.2 pg/mL 0-100 N BASIC METABOLIC [id number] 17:18:00* Test Item Value Reference Range Interpretation Comments SODIUM (test code = NA) 138 mmol/L 135-148 N POTASSIUM (test code = K) 3.9 mmol/L 3.5-5.1 N CHLORIDE (test code = CL) 99 mmol/L 101-109 L CARBON DIOXIDE (test code = CO2) 29.9 mmol/L 21-32 N ANION GAP (test code = GAP) 13 mmol/L 10-20 N GLUCOSE (test code = GLU) 210 mg/dL 74-106 H BLOOD UREA NITROGEN (test code = BUN) 13 mg/dL 3-21 N GLOMERULAR FILTRATION RATE (test code = GFR) > 60 mL/min >=60 Estimated GFR by using Modified MDRD formula.Chronic kidney disease is defined as either kidney damageor GFR <60 mL/min/1.73 m2 for >3 months. CREATININE (test code = CREAT) 0.81 mg/dL 0.55-1.3 N BUN/CREATININE RATIO (test code = BUN/CREA) 16.0 10-20 N CALCIUM (test code = CA) 9.2 mg/dL 8.4-10.2 N [id number] 17:18:00* Test Item Value Reference Range Interpretation Comments TROPONIN-I (test code = TROPI) ng/mL 0-0.045 CBC W/O [id number] 17:10:00* Test Item Value Reference Range Interpretation Comments WHITE BLOOD CELL (test code = WBC) 6.9 K/mm3 4.5-12.5 N RED BLOOD CELL (test code = RBC) 3.88 mill/mm3 3.7-5.2 N HEMOGLOBIN (test code = HGB) 12.4 gram/dL 11.5-15.5 N HEMATOCRIT (test code = HCT) 35.7 % 36.0-46.0 L MEAN CELL VOLUME (test code = MCV) 92.0 fL 80-98 N MEAN CELL HGB (test code = MCH) 32.0 picogram 27.0-33.0 N MEAN CELL HGB CONCETRATION (test code = MCHC) 34.7 gram/dL 33.0-36. 0 N RED CELL DISTRIBUTION WIDTH (test code = RDW) 14.6 % 11.6-16. 2 N RED CELL DISTRIBUTION WIDTH SD (test code = RDW-SD) 50.1 fL 37 .0-51.0 N PLATELET COUNT (test code = PLT) 230 K/mm3 150-450 N MEAN PLATELET VOLUME (test code = MPV) 10.0 fL 6.7-11.0 N - XR CHEST 1 [id number] 17:05:00 Name: ZACH RADER [facility] : 1960 Age/S:59 /F [address] [facility] Unit#:[id number] Loc: [place] [address] Phys: Rohit Kim MD Dis Date: PHONE #: [phone] Status: REG ER FAX #: [phone] Exam Date: 01/18/2020 Reason: CHEST PAIN EXAMS: CPT CODE: [id number] XR CHEST 1 V [id number] REASON FOR EXAM: CHEST PAIN Exam Order Date: 01/18/2020 4:31 PM Ordering M.D.: Rohit Kim MD PROCEDURE: - XR CHEST 1 V COMPARISON: Chest x-ray November 26, 2019 FINDINGS: The lungs are clear. There is no pleural effusion or pneumothorax. Pulmonary vascularity is within normal limits. Cardiomediastinal silhouette is mildly prominent but stable in size. Postsurgical changes of CABG and coronary stent appears similar to the previous exam. The visualized upper abdomen is within normal limits. IMPRESSION: No acute cardiopulmonary process. Location: [facility] at 1705 Reported and signed by: Claudio Dean MD CC: Rohit Kim MD; Evangelist Purvis III, MD Technologist: Marquez Christian RT(R) Trnscrpt Data: 01/18/2020 (1705) AndrewR.[email or web address] Orig Print D/T: S: 01/18/2020 (8306) PAGE 1 Signed Report [id number] 08:53:00* Test Item Value Reference Range Interpretation Comments GLUBED (test code = GLUBED) 150 MG/DL 70-110 H Performed by certified coke crane operator at [facility] BASIC METABOLIC [id number] 04:28:00* Test Item Value Reference Range Interpretation Comments SODIUM (test code = NA) 141 mEq/L 134-147 N POTASSIUM (test code = K) 4.0 mEq/L 3.4-5.0 N CHLORIDE (test code = CL) 106 mEq/L 100-108 N CARBON DIOXIDE (test code = CO2) 31 mEq/L 21-33 N ANION GAP (test code = GAP) 8 0-20 N GLUCOSE (test code = GLU) 131 mg/dL 70-110 H BLOOD UREA NITROGEN (test code = BUN) 17 mg/dL 7-18 N GLOMERULAR FILTRATION RATE (test code = GFR) 85.6 90-95 L Units of measure = ml/min/1.73 m2 CREATININE (test code = CREAT) 0.7 mg/dL 0.6-1.3 N CALCIUM (test code = CA) 8.9 mg/dL 8.0-10.5 N CBC W/AUTO [id number] 04:11:00* Test Item Value Reference Range Interpretation Comments WHITE BLOOD CELL (test code = WBC) 5.14 x10 3/uL 4.5-11.0 N RED BLOOD CELL (test code = RBC) 3.71 x10 6/uL 3.54-5.02 N HEMOGLOBIN (test code = HGB) 11.6 g/dL 11.0-15.0 N HEMATOCRIT (test code = HCT) 37.1 % 33.0-45.0 N MEAN CELL VOLUME (test code = MCV) 100.0 fL 81.0-99.0 H MEAN CELL HGB (test code = MCH) 31.3 pg 27.0-33.0 N MEAN CELL HGB CONCETRATION (test code = MCHC) 31.3 g/dL 33.0-37. 0 L RED CELL DISTRIBUTION WIDTH CV (test code = RDW) 16.0 % 11.5- 14.5 H RED CELL DISTRIBUTION WIDTH SD (test code = RDW-SD) 57.1 fL 37 .0-54.0 H PLATELET COUNT (test code = PLT) 203 x10 3/uL 150-400 N MEAN PLATELET VOLUME (test code = MPV) 9.3 fL 7.0-9.0 H NEUTROPHIL % (test code = NT%) 51.3 % 56.0-77.0 L IMMATURE GRANULOCYTE % (test code = IG%) 0.2 % 0.0-2.0 N LYMPHOCYTE % (test code = LY%) 36.4 % 14.0-32.0 H MONOCYTE % (test code = MO%) 8.2 % 4.8-9.0 N EOSINOPHIL % (test code = EO%) 3.3 % 0.3-3.7 N BASOPHIL % (test code = BA%) 0.6 % 0.0-2.0 N NUCLEATED RBC % (test code = NRBC%) 0.0 % 0-0 N NEUTROPHIL # (test code = NT#) 2.64 x10 3/uL 2.0-7.6 N IMMATURE GRANULOCYTE # (test code = IG#) 0.01 x10 3/uL 0.00-0.03 N LYMPHOCYTE # (test code = LY#) 1.87 x10 3/uL 1.0-3.8 N MONOCYTE # (test code = MO#) 0.42 x10 3/uL 0.1-0.8 N EOSINOPHIL # (test code = EO#) 0.17 x10 3/uL 0.0-0.2 N BASOPHIL # (test code = BA#) 0.03 x10 3/uL 0.0-0.2 N NUCLEATED RBC # (test code = NRBC#) 0.00 x10 3/uL 0.0-0.1 N MANUAL DIFF REQUIRED (test code = MDIFF) NO [id number] 20:59:00* Test Item Value Reference Range Interpretation Comments GLUBED (test code = GLUBED) 103 MG/DL 70-110 N Performed by certified coke crane operator at [facility] [id number] 17:13:00* Test Item Value Reference Range Interpretation Comments GLUBED (test code = GLUBED) 189 MG/DL 70-110 H Performed by certified coke crane operator at [facility] - MRI BRAIN W/O [id number] 16:13:00 FAX: Tolu Valdivia MD [phone] [place]: St: ADM FAX: Grzegorz Richardson I [phone] FAX: Evangelist Solis III [phone] Name: ZACH RADER [facility] : 1960 Age/S: 59/F [address] [place] [address] Blvd Unit #: [id number] Loc: G.[address] [place] [address] Phys: Tolu Valdivia MD Acct: [id number] Dis Date: Status: ADM IN ONE #: [phone] Exam Date: 11/27/2019 0945 FAX #: [phone] Reason: headache EXAMS: CPT CODE: [id number] MR I BRAIN W/O CONT 95668 Study: - MRI BRAIN W/O CONT 11/27/2019 6:01 PM Ordering Physician: Tolu Valdivia MD Clinical Indication: 59-year-old with headaches and dizziness. Past medical history significant for diabetes and cardiovascular disease. Comparison: CT brain dated November 26, 2019 TECHNIQUE: Multiplanar, multiecho magnetic resonance imaging of the brain is performed without contrast on a high-field strength magnet. A few tiny T2/flair hyp erintensities are present in the periatrial white matter bilaterally. The se most likely reflect minimal chronic small vessel ischemic disease. The re is moderate chronic small vessel ischemic disease within the kimmie. No cortical based infarct or basal ganglia lacunar infarct is identified. No subacute or chronic blood products are seen. There is no evidence for ac mary's igloo ischemia on diffusion-weighted images. There is no evide nce for intracranial mass, mass effect or extra-axial fluid collection. Ventricles, sulci and basal cisterns are within normal limits for ag e. Normal flow voids are present in the arterial vessels at the sk ull base. Flow voids in the dural venous sinuses are normal. The pituitary, internal auditory canals and visualized cranial nerves at the skull base are unremarkable. Paranasal sinuses are clear. Min imal inferior right mastoid air cell opacification is present. Orbital str uctures are grossly unremarkable. 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 Hypertrophy of the transverse ligament is present. There is central stenosis at the lev el of the ring of C1; AP thecal sac measures 8 mm. Imaging of the cervica l spine may be helpful in further assessment. IMPRESSION: No acute intracranial pathology. Chronic sma ll vessel ischemic disease is present, minimal in the PAGE 1 Signed Report (CONTINUED) FAX: Fabiana Valdivia MD [phone] [place]: St: [facility] FAX: Grzegorz Richardson FAX: Evangelist Solis III [phone] Name: Ethel RADER [facility] : 1960 Age /S: 59/F [address] [place] [address] Unit #: [id number] Loc: G.[facility] [place] [address] Phys: Tolu Valdivia MD Acct: [id number] Dis Date: Status: ADM IN PHONE #: [phone] Exam Date: 11/27/2019 0945 FAX #: [phone] Reason: headache EXAMS: CPT CODE: [id number] MRI BRAIN W/O CONT 10083 <Continued> cerebral white matter bilaterally and moderate in the kimmie. There is minimal right mastoid air cell opacification. 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 Hypertrophy of the transverse ligament is present. There is central stenosis at the level of the ring of C1; AP thecal sac measures 8 mm. Imaging of the cervical spine may be helpful in further assessment. SL: NICOL at 1613 Reported and signed by: Zee Franco M.D. CC: Tolu Valdivia MD; Grzegorz Sarabia MD; Evangelist Purvis III, MD Technologist: Amanda Cuevas RT(MR)(CT) Trnscrd Date/Time/By: 11/27/2019 (9633) : By: Isamar Orig Print D/T: S: 11/27/2019 (4817) PAGE 2 Signed Report [id number] 12:21:00* Test Item Value Reference Range Interpretation Comments GLUBED (test code = GLUBED) 73 MG/DL 70-110 N Performed by certified coke crane operator at [facility] [id number] 08:33:00* Test Item Value Reference Range Interpretation Comments GLUBED (test code = GLUBED) 228 MG/DL 70-110 H Performed by certified coke crane operator at [facility] BASIC METABOLIC [id number] 05:12:00* Test Item Value Reference Range Interpretation Comments SODIUM (test code = NA) 137 mEq/L 134-147 N POTASSIUM (test code = K) 4.1 mEq/L 3.4-5.0 N CHLORIDE (test code = CL) 106 mEq/L 100-108 N CARBON DIOXIDE (test code = CO2) 26 mEq/L 21-33 N ANION GAP (test code = GAP) 9 0-20 N GLUCOSE (test code = GLU) 134 mg/dL 70-110 H BLOOD UREA NITROGEN (test code = BUN) 16 mg/dL 7-18 N GLOMERULAR FILTRATION RATE (test code = GFR) 85.6 90-95 L Units of measure = ml/min/1.73 m2 CREATININE (test code = CREAT) 0.7 mg/dL 0.6-1.3 N CALCIUM (test code = CA) 9.2 mg/dL 8.0-10.5 N COMPREHENSIVE METABOLIC [id number] 05:12:00* Test Item Value Reference Range Interpretation Comments TOTAL PROTEIN (test code = PROT) 7.0 g/dL 6.4-8.2 N ALBUMIN (test code = ALB) 3.40 g/dL 3.4-5.0 N BILIRUBIN TOTAL (test code = BILT) 0.2 MG/DL <1.5 N SGOT/AST (test code = AST) 9 IUnit/L 15-37 L SGPT/ALT (test code = ALT) 15 IUnit/L 15-65 N ALKALINE PHOSPHATASE TOTAL (test code = ALKP) 141 IUnit/L 20-125 H [id number] 05:12:00* Test Item Value Reference Range Interpretation Comments PHOSPHOROUS (test code = PHOS) 3.8 MG/DL 2.5-4.9 N [id number] 05:12:00* Test Item Value Reference Range Interpretation Comments MAGNESIUM (test code = MAG) 1.80 mg/dL 1.8-2.4 N [id number] 04:57:00* Test Item Value Reference Range Interpretation Comments HGBA1C% (test code = HGBA1C%) 6.7 %A1C 4.8-6.0 H CBC W/AUTO [id number] 04:42:00* Test Item Value Reference Range Interpretation Comments WHITE BLOOD CELL (test code = WBC) 7.31 x10 3/uL 4.5-11.0 N RED BLOOD CELL (test code = RBC) 3.61 x10 6/uL 3.54-5.02 N HEMOGLOBIN (test code = HGB) 11.5 g/dL 11.0-15.0 N HEMATOCRIT (test code = HCT) 35.7 % 33.0-45.0 N MEAN CELL VOLUME (test code = MCV) 98.9 fL 81.0-99.0 N MEAN CELL HGB (test code = MCH) 31.9 pg 27.0-33.0 N MEAN CELL HGB CONCETRATION (test code = MCHC) 32.2 g/dL 33.0-37. 0 L RED CELL DISTRIBUTION WIDTH CV (test code = RDW) 15.9 % 11.5- 14.5 H RED CELL DISTRIBUTION WIDTH SD (test code = RDW-SD) 55.8 fL 37 .0-54.0 H PLATELET COUNT (test code = PLT) 208 x10 3/uL 150-400 N MEAN PLATELET VOLUME (test code = MPV) 9.7 fL 7.0-9.0 H NEUTROPHIL % (test code = NT%) 51.6 % 56.0-77.0 L IMMATURE GRANULOCYTE % (test code = IG%) 0.3 % 0.0-2.0 N LYMPHOCYTE % (test code = LY%) 38.4 % 14.0-32.0 H MONOCYTE % (test code = MO%) 7.1 % 4.8-9.0 N EOSINOPHIL % (test code = EO%) 2.3 % 0.3-3.7 N BASOPHIL % (test code = BA%) 0.3 % 0.0-2.0 N NUCLEATED RBC % (test code = NRBC%) 0.0 % 0-0 N NEUTROPHIL # (test code = NT#) 3.77 x10 3/uL 2.0-7.6 N IMMATURE GRANULOCYTE # (test code = IG#) 0.02 x10 3/uL 0.00-0.03 N LYMPHOCYTE # (test code = LY#) 2.81 x10 3/uL 1.0-3.8 N MONOCYTE # (test code = MO#) 0.52 x10 3/uL 0.1-0.8 N EOSINOPHIL # (test code = EO#) 0.17 x10 3/uL 0.0-0.2 N BASOPHIL # (test code = BA#) 0.02 x10 3/uL 0.0-0.2 N NUCLEATED RBC # (test code = NRBC#) 0.00 x10 3/uL 0.0-0.1 N MANUAL DIFF REQUIRED (test code = MDIFF) NO [id number] 20:22:00* Test Item Value Reference Range Interpretation Comments GLUBED (test code = GLUBED) 150 MG/DL 70-110 H Performed by certified coke crane operator at [facility] [id number] 17:19:00* Test Item Value Reference Range Interpretation Comments GLUBED (test code = GLUBED) 123 MG/DL 70-110 H Performed by certified coke crane operator at [facility] PROTHROMBIN [id number] 11:13:00* Test Item Value Reference Range Interpretation Comments PROTHROMBIN TIME PATIENT (test code = PTP) 10.4 seconds 9.0-13.0 N INTERNATIONAL NORMAL RATIO (test code = INR) 1.0 0.8-1.2 N The therapeutic range for oral anticoagulant therapy formost indications is an international normalized ratio (INR)of between 2.0 and 3.0. The recommended therapeutic INRrange for various clinical situations is listed below: Clinical Situation INR range Pulmonary e mbolism treatment (2.0-3.0)Venous thrombosis treatmentVenous thrombosis prophylaxis (high risk surgery)Prevention of systemic embolism from: Acute myocardial infarction Valvular heart disease Atrial fibrillation Mechanical prosthetic heart valves (2.5-3.5) IS PATIENT ON ANTICOAGULANTS? NTHROMBOPLASTIN TIME [id number] 11:13:00* Test Item Value Reference Range Interpretation Comments THROMBOPLASTIN TIME PARTIAL (test code = PTT) 23.1 seconds 25.5-34. 3 L Therapeutic Range for patients on Heparin Therapy is 2 to2.5 times their baseline PTT level. IS PATIENT ON ANTICOAGULANTS? N- CT HEAD/BRAIN W/O [id number] 11:07:00 Name: ZACH RADER [facility] : 1960 Age/S: 59 / F [address] [facility] Unit #: [id number] Loc: [place] [address] Phys: Matthew Sparrow MD Acct: [id number] Di s Date: Status: REG ER PHONE #: Exam Date: 11/26/2019 1049 FAX #: [phone] Reason: dizziness, left side numbness EXAMS: CPT CODE: [id number] CT HEAD/BRAIN W/O CONT 71526 REASON FOR EXAM: dizziness, left side numbness EXAM ORDER DATE: 11/26/2019 10:33 AM Ordering: Tolu Sparrow MD Attending:Tolu Sparrow MD Location: PROCEDURE: - CT HEAD/BRAIN W/O CONT COMPARISON: 04/23/2019 FINDINGS: CT images of the brain were obtained without IV contrast. Dose modulation, iterative reconstruction, and/or weight based adjustment of the MA/KV was utilized to reduce the ra diation dose to as low as reasonably achievable. The brain parenchyma is within normal limits. The pina-white matter delineation is u nremarkable. The ventricles, cisterns, and sulci are unremarkable. There i s no evidence of hemorrhage, mass, mass effect. There is no evidence of a cute or old infarct. The calvarium is intact. IMPRESSION: Unremarkable brain. at 1107 Reported and signed by: Benjie Kirby M.D. CC: Tolu Sparrow MD Anju hnologist:Evangelist Valdovinos RT(R),CT CTDI: DLP: Trnscb Date/T keny: 11/26/2019 (1107) t.SDR.VTL Orig Print D/T: S: 11/26 (1110) PAGE 1 Signed Report - XR CHEST 1 [id number] 11:06:00 Name: ZACH RADER [facility] : 1960 Age/S:59 /F [address] [facility] Unit#:[id number] Loc: [place] [address] Phys: Tolu Sparrow MD Dis Date: PHONE #: [phone] Status: REG ER FAX #: [phone] Exam Date: 11/26/2019 Reason: dizziness EXAMS: CPT CODE: [id number] XR CHEST 1 V 62467 REASON FOR EXAM: dizziness EXAM ORDER DATE: 11/26/2019 10:33 AM Ordering: Tolu Sparrow MD Attending:Tolu Sparrow MD Location: PROCEDURE: - XR CHEST 1 V COMPARISON: 11/17/2019 FINDINGS: Portable AP frontal view of the chest obtained at 10:43 AM shows clear lungs without evidence of consolidation. There is no evidence of effusion. The heart size is minimally enlarged. Pulmonary vasculatures are unremarkable. IMPRESSION: Minimal cardiomegaly at 1106 Reported and signed by: Benjie Kirby M.D. CC: Emilia Sparrow MD Technologist: Evangelist Valdovinos RT(R),CT Trnscrpt Data: 11/26/2019 (110) su.SEBAS Orig Print D/T: S: 11/26/2019 (5615) PAGE 1 Signed Report BASIC METABOLIC [id number] 10:56:00* Test Item Value Reference Range Interpretation Comments SODIUM (test code = NA) 139 mmol/L 136-145 N POTASSIUM (test code = K) 5.0 mmol/L 3.5-5.1 N CHLORIDE (test code = CL) 102 mmol/L 101-109 N CARBON DIOXIDE (test code = CO2) 29.1 mmol/L 21-32 N ANION GAP (test code = GAP) 13 mmol/L 10-20 N GLUCOSE (test code = GLU) 152 mg/dL 74-106 H BLOOD UREA NITROGEN (test code = BUN) 9 mg/dL 3-21 N GLOMERULAR FILTRATION RATE (test code = GFR) > 60 mL/min >=60 Estimated GFR by using Modified MDRD formula.Chronic kidney disease is defined as either kidney damageor GFR <60 mL/min/1.73 m2 for >3 months. CREATININE (test code = CREAT) 0.71 mg/dL 0.55-1.3 N BUN/CREATININE RATIO (test code = BUN/CREA) 12.7 10-20 N CALCIUM (test code = CA) 9.2 mg/dL 8.4-10.2 N [id number] 10:56:00* Test Item Value Reference Range Interpretation Comments TROPONIN-I (test code = TROPI) <0.015 ng/mL 0.00-0.056 N BASIC METABOLIC [id number] 10:48:00* Test Item Value Reference Range Interpretation Comments SODIUM (test code = NA) 139 mmol/L 136-145 N POTASSIUM (test code = K) 5.0 mmol/L 3.5-5.1 N CHLORIDE (test code = CL) 102 mmol/L 101-109 N CARBON DIOXIDE (test code = CO2) 29.1 mmol/L 21-32 N ANION GAP (test code = GAP) 13 mmol/L 10-20 N GLUCOSE (test code = GLU) 152 mg/dL 74-106 H BLOOD UREA NITROGEN (test code = BUN) 9 mg/dL 3-21 N GLOMERULAR FILTRATION RATE (test code = GFR) > 60 mL/min >=60 Estimated GFR by using Modified MDRD formula.Chronic kidney disease is defined as either kidney damageor GFR <60 mL/min/1.73 m2 for >3 months. CREATININE (test code = CREAT) 0.71 mg/dL 0.55-1.3 N BUN/CREATININE RATIO (test code = BUN/CREA) 12.7 10-20 N CALCIUM (test code = CA) 9.2 mg/dL 8.4-10.2 N [id number] 10:48:00* Test Item Value Reference Range Interpretation Comments TROPONIN-I (test code = TROPI) ng/mL 0-0.045 CBC W/AUTO [id number] 10:45:00* Test Item Value Reference Range Interpretation Comments WHITE BLOOD CELL (test code = WBC) 7.6 K/mm3 4.5-12.5 N RED BLOOD CELL (test code = RBC) 3.85 mill/mm3 3.7-5.2 N HEMOGLOBIN (test code = HGB) 12.0 gram/dL 11.5-15.5 N HEMATOCRIT (test code = HCT) 37.2 % 36.0-46.0 N MEAN CELL VOLUME (test code = MCV) 96.6 fL 80-98 N MEAN CELL HGB (test code = MCH) 31.2 picogram 27.0-33.0 N MEAN CELL HGB CONCETRATION (test code = MCHC) 32.3 gram/dL 33.0-36. 0 L RED CELL DISTRIBUTION WIDTH (test code = RDW) 15.6 % 11.6-16. 2 N RED CELL DISTRIBUTION WIDTH SD (test code = RDW-SD) 55.1 fL 37 .0-51.0 H PLATELET COUNT (test code = PLT) 233 K/mm3 150-450 N MEAN PLATELET VOLUME (test code = MPV) 9.6 fL 6.7-11.0 N NEUTROPHIL % (test code = NT%) 64.0 % 39.0-69.0 N LYMPHOCYTE % (test code = LY%) 26.2 % 25.0-55.0 N MONOCYTE % (test code = MO%) 6.5 % 0.0-10.0 N EOSINOPHIL % (test code = EO%) 2.6 % 0.0-5.0 N BASOPHIL % (test code = BA%) 0.4 % 0.0-1.0 N NEUTROPHIL # (test code = NT#) 4.89 K/mm3 1.8-7.7 N LYMPHOCYTE # (test code = LY#) 2.00 K/mm3 1.0-5.0 N MONOCYTE # (test code = MO#) 0.50 K/mm3 0-0.8 N EOSINOPHIL # (test code = EO#) 0.20 K/mm3 0.0-0.5 N BASOPHIL # (test code = BA#) 0.03 K/mm3 0.0-0.2 N BASIC METABOLIC [id number] 18:16:00* Test Item Value Reference Range Interpretation Comments SODIUM (test code = NA) 142 mmol/L 136-145 N POTASSIUM (test code = K) 4.0 mmol/L 3.5-5.1 N CHLORIDE (test code = CL) 111.0 mmol/L 98-107 H CARBON DIOXIDE (test code = CO2) 26.0 mmol/L 21-32 N ANION GAP (test code = GAP) 9.0 10-20 L GLUCOSE (test code = GLU) 108 mg/dL 74-106 H BLOOD UREA NITROGEN (test code = BUN) 9 mg/dL 7-18 N GLOMERULAR FILTRATION RATE (test code = GFR) > 60 mL/min >=60 Estimated GFR by using Modified MDRD formula.Chronic kidney disease is defined as either kidney damageor GFR <60 mL/min/1.73 m2 for >3 months. CREATININE (test code = CREAT) 0.60 mg/dL 0.55-1.02 N Note change in reference range due to change in reagent. BUN/CREATININE RATIO (test code = BUN/CREA) 15.0 10-20 N CALCIUM (test code = CA) 9.1 mg/dL 8.5-10.1 N [id number] 18:16:00* Test Item Value Reference Range Interpretation Comments TROPONIN-I (test code = TROPI) <0.015 ng/mL 0-0.045 N BASIC METABOLIC [id number] 18:05:00* Test Item Value Reference Range Interpretation Comments SODIUM (test code = NA) 142 mmol/L 136-145 N POTASSIUM (test code = K) 4.0 mmol/L 3.5-5.1 N CHLORIDE (test code = CL) 111.0 mmol/L 98-107 H CARBON DIOXIDE (test code = CO2) mmol/L 21-32 ANION GAP (test code = GAP) 10-20 GLUCOSE (test code = GLU) mg/dL 74-106 BLOOD UREA NITROGEN (test code = BUN) mg/dL 7-18 GLOMERULAR FILTRATION RATE (test code = GFR) mL/min >=60 CREATININE (test code = CREAT) mg/dL 0.55-1.02 BUN/CREATININE RATIO (test code = BUN/CREA) 10-20 CALCIUM (test code = CA) mg/dL 8.5-10.1 [id number] 18:05:00* Test Item Value Reference Range Interpretation Comments TROPONIN-I (test code = TROPI) ng/mL 0-0.045 CBC W/O [id number] 17:57:00* Test Item Value Reference Range Interpretation Comments WHITE BLOOD CELL (test code = WBC) 7.6 K/mm3 4.5-12.5 N RED BLOOD CELL (test code = RBC) 3.82 mill/mm3 3.7-5.2 N HEMOGLOBIN (test code = HGB) 11.7 gram/dL 11.5-15.5 N HEMATOCRIT (test code = HCT) 35.8 % 36.0-46.0 L MEAN CELL VOLUME (test code = MCV) 93.7 fL 80-98 N MEAN CELL HGB (test code = MCH) 30.6 picogram 27.0-33.0 N MEAN CELL HGB CONCETRATION (test code = MCHC) 32.7 gram/dL 33.0-36. 0 L RED CELL DISTRIBUTION WIDTH (test code = RDW) 16.2 % 11.6-16. 2 N PLATELET COUNT (test code = PLT) 227 K/mm3 150-450 N MEAN PLATELET VOLUME (test code = MPV) 9.4 fL 6.7-11.0 N CBC W/O [id number] 17:54:00* Test Item Value Reference Range Interpretation Comments WHITE BLOOD CELL (test code = WBC) K/mm3 4.5-12.5 RED BLOOD CELL (test code = RBC) mill/mm3 3.7-5.2 HEMOGLOBIN (test code = HGB) 11.7 gram/dL 11.5-15.5 N HEMATOCRIT (test code = HCT) % 36.0-46.0 MEAN CELL VOLUME (test code = MCV) fL 80-98 MEAN CELL HGB (test code = MCH) picogram 27.0-33.0 MEAN CELL HGB CONCETRATION (test code = MCHC) gram/dL 33.0-36. 0 RED CELL DISTRIBUTION WIDTH (test code = RDW) % 11.6-16. 2 PLATELET COUNT (test code = PLT) K/mm3 150-450 MEAN PLATELET VOLUME (test code = MPV) fL 6.7-11.0 - XR CHEST 1 [id number] 16:10:00 FAX: Mono Samuels DO [place]: St: REG Name: ZACH DOMINGO [facility] : 09/20/19 60 Age/S: 59/F [address] [facility] Unit #: [id number] Loc: [place] [address] Phys: Mono Samuels DO Acct: [id number] Dis Date: Status: REG ER PHONE #: [phone] Exam Date: 11/17/2019 1602 FAX #: [phone] Reason: CHEST PAIN EXAMS: CPT CODE: [id number] XR CHEST 1 V 48104 HISTORY: Chest pain. COMPARISON: September 18, 2019. Location: [facility]. No acu te infiltrates, effusion or congestion is noted. Hyperinflation and scarri ng. Mild cardiomegaly. Osteopenia. IMPRESSION: No acute infiltrates, effusion or congestion. Electronically Sign ed by Gonsalo Ramon on 11/17/2019 at 1610 Reported a nd signed by: Albert Ramon M.D. CC: Mono Samuels DO Technologist: Cornelius OLIVER(R) Trnscrd Date/Time/By: 11/17/2019 (1610) : By: Pranav [email or web address] Orig Print D/T: S: 11/17/2019 (9309) PAGE 1 Signed Report - XR CHEST 2 [id number] 16:46:00 FAX: Nabeel Tovar [phone] [place]: St: DEP Name: ZACH DOMINGO [facility] : 09/20/19 60 Age/S: 59/F [address] [facility] Unit #: [id number] Loc: [place] [address] Phys: Nabeel Tovar DIRECTOR OF SPEECH PATHOLOGY Acct: [id number] Dis Date: Status: DEP ER PHONE #: [phone] Exam Date: 11/08/20191641 FAX #: [phone] Reason: COUGH EXAMS: CPT CODE: [id number] XR CHEST 2 V 88475 EXAM: Chest x-ray, 2 views; INFORMATION: Cough, flu symptoms; FINDINGS: Pleural adhesions near the apex of the heart and along the right lateral chest wal l. Lungs are clear; no infiltrates, no edema; no effusions; no pneum othorax. Heart is borderline in size. Status post median sternotomy. IMPRESSION: No evidence of active cardiopulmonary disea se. Location code: [facility] Electronically Sig donaldo by Gonsalo Guerrero on 11/08/2019 at 8589 Reported and signed by: Dany Guerrero M.D. CC: Nabeel Tovar NP Technologist: Alfredo Barry RT(R Trnscrd D ate/Time/By: 11/08/2019 (4426) : By: AdamsGRW Orig Print D/T: S: 10/23 (656) PAGE 1 Signed Repor t - XR CHEST 2 [id number] 16:46:00 FAX: Nabeel Tovar [phone] [place]: St: REG Name: REBECCA DOMINGO [facility] : 09/20/19 60 Age/S: 59/F [address] [facility] Unit #: [id number] Loc: [place] [address] Phys: Nabeel Tovar NP Acct: [id number] Dis Date: Status: REG ER PHONE #: [phone] Exam Date: 11/08/20191641 FAX #: [phone] Reason: COUGH EXAMS: CPT CODE: [id number] XR CHEST 2 V 85585 EXAM: Chest x-ray, 2 views; INFORMATION: Cough, flu symptoms; FINDINGS: Pleural adhesions near the apex of the heart and along the right lateral chest wal l. Lungs are clear; no infiltrates, no edema; no effusions; no pneum othorax. Heart is borderline in size. Status post median sternotomy. IMPRESSION: No evidence of active cardiopulmonary disea se. Location code: [facility] Electronically Sig donaldo by Gonsalo Guerrero on 11/08/2019 at 5696 Reported and signed by: Dany Guerrero M.D. CC: Nabeel Tovar NP Technologist: CHRISTO Lucia Trnscrd D ate/Time/By: 11/08/2019 (1645) : By: Yaw Orig Print D/T: S: 10/23 (6288) PAGE 1 Signed Repor t [id number] 10:11:00* Test Item Value Reference Range Interpretation Comments GLYCOSYLATED HEMOGLOBIN (HA1C) (test code = GLYHGB) 7.0 % 4. 5-6.2 H ESTIMATED AVERAGE GLUCOSE (test code = EAG) 154 MG/DL [id number] 15:19:00 RUN DATE: 09/27/19 [place] - Lab PAGE 1 RUN TIME: 1519 Specimen Inqui ry RUN USER: INTERFACE PATIENT: ZACH RADER ACCT #: [id number] LOC: [place] U #: [id number] AGE/SX: 59/F ROOM: RE09/23/19REG DR: Milton Arriaga MD : 60 BED: DIS: STATUS: [facility] TLOC: SPEC #: [id number] RECD: 09/26/19 STATUS: DURGA MERCER #: [id number] YONATHAN: 09/23/19- SUBM DR: Milton Arriaga MD ENTERED: 09/26/19 SP TYPE: STOMACH OTHR DR: Evangelist Purvis III, MD ORDERED: GROSS COPIES TO: Milton Arriaga MD [address] [place] [address] Evangelist Purvis III, MD [address] [facility] [address] [place] [address] PROCEDURES: GROSS ( 9-1057) TISSUES: 1. DUODENUM, NOS - BX 2. GASTRIC CORPUS - H-P YLORI CLINICAL HISTORY COLLECTION DATE: 09/23/2019 HISTORY OF G ASTRIC ULCERS POST-OP DIAGNOSIS: PYLORIC CHANNEL ULCER FINAL DIAGNOSI S Duodenum, biopsy: SMALL INTESTINAL MUCOSA, NO PATHOLOGIC ALTERATION Gastric biopsy: MILD CHRONIC INFLAMMATION, GASTRIC MUCOSA NO INTESTINAL METAPLASIA SEEN NEGATIVE FOR HELICOBACTER PYLORI BY GIEMSA STAIN NEGATIVE FOR MALIGNANCY DMW/sm D 290763, 81689 CONTINUED ON NEXT PAGE RUN DATE: 09/27/19 [place] Personal Style Finder [facility] PAGE 2 RUN TIME: 1519 Specimen Inquiry RUN USER: INTERFACE -- SPEC #: [id number] PATIENT: ZACH RADER #[id number] (Continued) MACROSCOPIC The first specimen is received in formalin, labeled with the patient's name, identified as "duode num biopsy", and consists of rosenberg biopsy material measuring 0.5 cm. The second specimen is received in formalin, labeled with the patient's name, allison ntified as "gastric biopsy", and consists of rosenberg biopsy material measuring 0.3 cm. GROSS PERFORMED AT [facility] [address] [place] [address] [phone])[phone] MICROSCOPIC All of the stains, including any controls performed, stain appropriately. MICROSCOPIC PERFORMED AT [facility] [address] [place] [address] (H) PERFORMING SITE Diagnosis performed at: [facility] [place] [address] [place] [address] Signed SIGNATAIYANA E ON FILE Flory Gastelum MD 09/27/19 1519 END OF REPORT BASIC METABOLIC [id number] 15:22:00* Test Item Value Reference Range Interpretation Comments SODIUM (test code = NA) 142 mmol/L 136-145 N POTASSIUM (test code = K) 4.3 mmol/L 3.5-5.1 N CHLORIDE (test code = CL) 109.0 mmol/L 98-107 H CARBON DIOXIDE (test code = CO2) 25.0 mmol/L 21-32 N ANION GAP (test code = GAP) 12.3 10-20 N GLUCOSE (test code = GLU) 127 mg/dL 74-106 H BLOOD UREA NITROGEN (test code = BUN) 7 mg/dL 7-18 N GLOMERULAR FILTRATION RATE (test code = GFR) > 60 mL/min >=60 Estimated GFR by using Modified MDRD formula.Chronic kidney disease is defined as either kidney damageor GFR <60 mL/min/1.73 m2 for >3 months. CREATININE (test code = CREAT) 0.60 mg/dL 0.55-1.02 N Note change in reference range due to change in reagent. BUN/CREATININE RATIO (test code = BUN/CREA) 10.9 10-20 N CALCIUM (test code = CA) 9.1 mg/dL 8.5-10.1 N CBC W/O [id number] 15:17:00* Test Item Value Reference Range Interpretation Comments WHITE BLOOD CELL (test code = WBC) 8.1 K/mm3 4.5-12.5 N RED BLOOD CELL (test code = RBC) 3.30 mill/mm3 3.7-5.2 L HEMOGLOBIN (test code = HGB) 10.0 gram/dL 11.5-15.5 L HEMATOCRIT (test code = HCT) 31.1 % 36.0-46.0 L MEAN CELL VOLUME (test code = MCV) 94.2 fL 80-98 N MEAN CELL HGB (test code = MCH) 30.3 picogram 27.0-33.0 N MEAN CELL HGB CONCETRATION (test code = MCHC) 32.2 gram/dL 33.0-36. 0 L RED CELL DISTRIBUTION WIDTH (test code = RDW) 15.5 % 11.6-16. 2 N PLATELET COUNT (test code = PLT) 272 K/mm3 150-450 N MEAN PLATELET VOLUME (test code = MPV) 9.7 fL 6.7-11.0 N BASIC METABOLIC [id number] 15:11:00* Test Item Value Reference Range Interpretation Comments SODIUM (test code = NA) 142 mmol/L 136-145 N POTASSIUM (test code = K) 4.3 mmol/L 3.5-5.1 N CHLORIDE (test code = CL) 109.0 mmol/L 98-107 H CARBON DIOXIDE (test code = CO2) mmol/L 21-32 ANION GAP (test code = GAP) 10-20 GLUCOSE (test code = GLU) mg/dL 74-106 BLOOD UREA NITROGEN (test code = BUN) mg/dL 7-18 GLOMERULAR FILTRATION RATE (test code = GFR) mL/min >=60 CREATININE (test code = CREAT) mg/dL 0.55-1.02 BUN/CREATININE RATIO (test code = BUN/CREA) 10-20 CALCIUM (test code = CA) 9.1 mg/dL 8.5-10.1 N [id number] 14:46:00* Test Item Value Reference Range Interpretation Comments GLUBED (test code = GLUBED) 126 mg/dL 74-106 H Performed by certified coke crane operator at [facility] B-TYPE NATRIURETIC [id number] 13:47:00* Test Item Value Reference Range Interpretation Comments B-TYPE NATRIURETIC PEPTIDE (test code = BNP) 199.97 pgram/mL 0-100 H BASIC METABOLIC [id number] 13:31:00* Test Item Value Reference Range Interpretation Comments SODIUM (test code = NA) 142 mmol/L 136-145 N POTASSIUM (test code = K) 4.7 mmol/L 3.5-5.1 N CHLORIDE (test code = CL) 104.0 mmol/L 98-107 N CARBON DIOXIDE (test code = CO2) 33.0 mmol/L 21-32 H ANION GAP (test code = GAP) 9.7 10-20 L GLUCOSE (test code = GLU) 137 mg/dL 74-106 H BLOOD UREA NITROGEN (test code = BUN) 17 mg/dL 7-18 N GLOMERULAR FILTRATION RATE (test code = GFR) > 60 mL/min >=60 Estimated GFR by using Modified MDRD formula.Chronic kidney disease is defined as either kidney damageor GFR <60 mL/min/1.73 m2 for >3 months. CREATININE (test code = CREAT) 0.80 mg/dL 0.55-1.02 N Note change in reference range due to change in reagent. BUN/CREATININE RATIO (test code = BUN/CREA) 20.9 10-20 H CALCIUM (test code = CA) 9.3 mg/dL 8.5-10.1 N [id number] 13:31:00* Test Item Value Reference Range Interpretation Comments TROPONIN-I (test code = TROPI) <0.015 ng/mL 0-0.045 N BASIC METABOLIC [id number] 13:28:00* Test Item Value Reference Range Interpretation Comments SODIUM (test code = NA) 142 mmol/L 136-145 N POTASSIUM (test code = K) 4.7 mmol/L 3.5-5.1 N CHLORIDE (test code = CL) 104.0 mmol/L 98-107 N CARBON DIOXIDE (test code = CO2) mmol/L 21-32 ANION GAP (test code = GAP) 10-20 GLUCOSE (test code = GLU) mg/dL 74-106 BLOOD UREA NITROGEN (test code = BUN) mg/dL 7-18 GLOMERULAR FILTRATION RATE (test code = GFR) mL/min >=60 CREATININE (test code = CREAT) mg/dL 0.55-1.02 BUN/CREATININE RATIO (test code = BUN/CREA) 10-20 CALCIUM (test code = CA) 9.3 mg/dL 8.5-10.1 N [id number] 13:28:00* Test Item Value Reference Range Interpretation Comments TROPONIN-I (test code = TROPI) ng/mL 0-0.045 CBC W/O [id number] 13:15:00* Test Item Value Reference Range Interpretation Comments WHITE BLOOD CELL (test code = WBC) 8.8 K/mm3 4.5-12.5 N RED BLOOD CELL (test code = RBC) 3.53 mill/mm3 3.7-5.2 L HEMOGLOBIN (test code = HGB) 10.6 gram/dL 11.5-15.5 L HEMATOCRIT (test code = HCT) 34.2 % 36.0-46.0 L MEAN CELL VOLUME (test code = MCV) 96.9 fL 80-98 N MEAN CELL HGB (test code = MCH) 30.0 picogram 27.0-33.0 N MEAN CELL HGB CONCETRATION (test code = MCHC) 31.0 gram/dL 33.0-36. 0 L RED CELL DISTRIBUTION WIDTH (test code = RDW) 15.6 % 11.6-16. 2 N PLATELET COUNT (test code = PLT) 238 K/mm3 150-450 N MEAN PLATELET VOLUME (test code = MPV) 9.1 fL 6.7-11.0 N - XR NECK SOFT [id number] 11:44:00 FAX: Renee Marques [phone] [place]: St: REG FAX: Evangelist Solis III [phone] Name: ZACH RADER [facility] : 1960 Age/S: 58/F [address] Unit #: [id number] Loc: [place] [address] Phys: Renee Kumar MD Acct: [id number] Dis Date: Status: REG ER PHONE #: [phone] Exam Date: 09/18/2019 1137 FAX #: [phone] Reason: LEFT SIDE NECK PAIN EXAMS: CPT CODE: [id number] XR NECK SOFT TISSUE 42891 HISTORY: LEFT SIDE NECK PAIN EXAM: AP and lateral views of the neck soft tissues. FINDINGS: No thickening of the epi glottis or aryepiglottic folds. No prevertebral soft tissue swelling. No t shanelle narrowing or deviation. Multilevel cervical spondylosis with ante rior longitudinal ligament ossification. IMPRESSION: Nega tive x-ray of the soft tissues of the neck. LOCATION: [facility] at 1144 Reported and signed by: Sylvia Collins D.ODarrian CC: Renee Kumar MD; Evangelist Purvis III, MD Technologist: Aliya Porter Trnscrd Date/Time/By: 09/18/2019 (9823) : By: [email or web address] Orig Print D/T: S: 09/18/2019 (9995) PAGE 1 Signed Report - XR CHEST 1 [id number] 10:35:00 FAX: Renee Marques [phone] [place]: St: PRE FAX: Evangelist Solis III [phone] Name: ZACH RADER [facility] : 1960 Age/S: 58/F [address] [facility] Unit #: [id number] Loc: [place] [address] Phys: Renee Kumar MD Acct: [id number] Dis Date: Status: PRE ER PHONE #: [phone] Exam Date: 09/18/2019 1030 FAX #: [phone] Reason: Shortness of Breath EXAMS: CPT CODE: [id number] XR CHEST 1 V 52869 HISTORY: Shortness of Breath TECHNIQUE: AP chest x-ray COMPARISON: 04/23/19 FINDINGS: No a irspace consolidation or pleural effusion. Pulmonary hyperinflation and sc arring. Cardiomegaly. Sternotomy/CABG. Mediastinal silhouette is unremarka ble. Degenerative changes of the spine and shoulders. Sternotomy wires. IMPRESSION: No acute findings or signifi cant interval change. LOCATION: [facility] at 1035 Reported and signed by: Esther Collins D.O. CC: Renee Kumar MD; Evangelist Purvis III, MD Technologist: Aliya Porter Trnscrd Date/Time/By: 09/18/2019 ( 1031) : By: [email or web address] Orig Print D/T: S: 09/18/2019 (1038) PAGE 1 Signed Report POLYP, [id number] 13:55:00 RUN DATE: 07/15/19 [facility] PAGE 1 RUN TIME: 1355 Specimen Inqui ry RUN USER: INTERFACE PATIENT: ZACH RADER ACCT #: [id number] LOC: [facility]an[facility] U #: [id number] AGE/SX: 58/F ROOM: RE07/14/[facility]: Milton Arriaga MD : 60 BED: DIS: STATUS: [facility] TLOC: SPEC #: [id number] RECD: 07/14/19 STATUS: DURGA MERCER #: [id number] YONATHAN: 07/14/191143 [facility] DR: Milton Arriaga MD ENTERED: 07/14/19 SP TYPE: POLYP, COL OTHR DR: Evangelist Purvis III, MD ORDERED: GROSS COPIES TO: Milton Arriaga MD [address] [place] [address] Evangelist Purvis III, MD [address] [facility] [address] [place], [place] [id number] PROCEDURES: GROSS ( 9-1125) TISSUES: RECTUM, NOS - POLYP BX/CS CLINICAL HISTORY COLLECTION DATE: 07/14/2019 SCREENING POST-OP DIAGNOSIS: COLON POLKYPS, INTERNAL HEMORRHOIDS FINAL DIAGNOSIS Rectal polyp, biopsy: HY PERPLASTIC POLYP(S) NEGATIVE FOR MALIGNANCY RRB/sujey D 28880 MACROSCOPIC The specimen is received in formalin, labeled with the patient's name, identified as "rectal polyp", and consists of pink-rosenberg biopsy tissue measuring 0.35 cm in aggregate. The largest fragment is bisected and the tissue is submitted in a single cassette. GROSS PERFORMED AT [facility] CONTINUED ON NEXT P AGE RUN DATE: 07/15/19 [facility] PAGE 2 RUN TIME: 1355 Specimen Inquiry RUN USER: INTERFACE SPEC #: [id number] PATIENT: ZACH RADER #[id number] (Continued) JAE HENDERSON (Continued) [facility] [address] [facility] [place] [address] [phone] MICROSCOPIC All of th e stains, including any controls performed, stain appropriately. MICROSCOP IC PERFORMED AT [facility] [address] [place] [address] [phone])[phone] PERFORM[address] S[address] D iagnosis performed at: [facility] [place] [address] [place] [address] Signed SIGNATURE ON FILE B Jerel monte MD 07/15/19 1355 END OF REPORT BASIC METABOLIC [id number] 11:31:00* Test Item Value Reference Range Interpretation Comments SODIUM (test code = NA) 138 mmol/L 136-145 N POTASSIUM (test code = K) 4.1 mmol/L 3.5-5.1 N CHLORIDE (test code = CL) 103.0 mmol/L 98-107 N CARBON DIOXIDE (test code = CO2) 26.0 mmol/L 21-32 N ANION GAP (test code = GAP) 13.1 10-20 N GLUCOSE (test code = GLU) 206 mg/dL 74-106 H BLOOD UREA NITROGEN (test code = BUN) 9 mg/dL 7-18 N GLOMERULAR FILTRATION RATE (test code = GFR) > 60 mL/min >=60 Estimated GFR by using Modified MDRD formula.Chronic kidney disease is defined as either kidney damageor GFR <60 mL/min/1.73 m2 for >3 months. CREATININE (test code = CREAT) 0.70 mg/dL 0.55-1.02 N Note change in reference range due to change in reagent. BUN/CREATININE RATIO (test code = BUN/CREA) 12.9 10-20 N CALCIUM (test code = CA) 9.7 mg/dL 8.5-10.1 N BASIC METABOLIC [id number] 11:23:00* Test Item Value Reference Range Interpretation Comments SODIUM (test code = NA) 138 mmol/L 136-145 N POTASSIUM (test code = K) 4.1 mmol/L 3.5-5.1 N CHLORIDE (test code = CL) 103.0 mmol/L 98-107 N CARBON DIOXIDE (test code = CO2) mmol/L 21-32 ANION GAP (test code = GAP) 10-20 GLUCOSE (test code = GLU) mg/dL 74-106 BLOOD UREA NITROGEN (test code = BUN) mg/dL 7-18 GLOMERULAR FILTRATION RATE (test code = GFR) mL/min >=60 CREATININE (test code = CREAT) mg/dL 0.55-1.02 BUN/CREATININE RATIO (test code = BUN/CREA) 10-20 CALCIUM (test code = CA) mg/dL 8.5-10.1 CBC W/AUTO [id number] 10:58:00* Test Item Value Reference Range Interpretation Comments WHITE BLOOD CELL (test code = WBC) 11.4 K/mm3 4.5-12.5 N RED BLOOD CELL (test code = RBC) 3.57 mill/mm3 3.7-5.2 L HEMOGLOBIN (test code = HGB) 11.3 gram/dL 11.5-15.5 L HEMATOCRIT (test code = HCT) 33.9 % 36.0-46.0 L MEAN CELL VOLUME (test code = MCV) 95.0 fL 80-98 N MEAN CELL HGB (test code = MCH) 31.7 picogram 27.0-33.0 N MEAN CELL HGB CONCETRATION (test code = MCHC) 33.3 gram/dL 33.0-36. 0 N RED CELL DISTRIBUTION WIDTH (test code = RDW) 13.0 % 11.6-16. 2 N RED CELL DISTRIBUTION WIDTH SD (test code = RDW-SD) 45.1 fL 37 .0-51.0 N PLATELET COUNT (test code = PLT) 337 K/mm3 150-450 N MEAN PLATELET VOLUME (test code = MPV) 9.9 fL 6.7-11.0 N NEUTROPHIL % (test code = NT%) 75.4 % 39.0-69.0 H IMMATURE GRANULOCYTE % (test code = IG%) 0.7 % 0.0-5.0 N LYMPHOCYTE % (test code = LY%) 17.4 % 25.0-55.0 L MONOCYTE % (test code = MO%) 6.4 % 0.0-10.0 N EOSINOPHIL % (test code = EO%) 0.0 % 0.0-5.0 N BASOPHIL % (test code = BA%) 0.1 % 0.0-1.0 N NUCLEATED RBC % (test code = NRBC%) 0.0 % 0-0 N NEUTROPHIL # (test code = NT#) 8.63 K/mm3 1.8-7.7 H IMMATURE GRANULOCYTE # (test code = IG#) 0.08 x10 3/uL 0-0.03 H LYMPHOCYTE # (test code = LY#) 1.99 K/mm3 1.0-5.0 N MONOCYTE # (test code = MO#) 0.73 K/mm3 0-0.8 N EOSINOPHIL # (test code = EO#) 0.00 K/mm3 0.0-0.5 N BASOPHIL # (test code = BA#) 0.01 K/mm3 0.0-0.2 N NUCLEATED RBC # (test code = NRBC#) 0.00 K/mm3 0.0-0.1 N MANUAL DIFF REQUIRED (test code = MDIFF) NO [id number] 10:48:00* Test Item Value Reference Range Interpretation Comments GLUBED (test code = GLUBED) 191 mg/dL 74-106 H Performed by certified coke crane operator at [facility] (Point of Care In Office)2019-07-13 13:51:00* Test Item Value Reference Range Interpretation Comments Glucose POC [facility] (test code = Glucose POC [facility]) [address] [facility][Q] DRUG ABUSE PANEL [id number] 00:00:00* Test Item Value Reference Range Interpretation Comments PLEASE NOTE: (test code = PLEASE NOTE:) See Below * These results are for medical treatment only. * * Analysis was performed as non-forensic testing. * AMPHETAMINES (1000 ng/mL SCREEN) (test code = AMPHETAM ESPERANZA (1000 ng/mL SCREEN)) NEGATIVE N BARBITUATES (test code = BARBITUATES) NEGATIVE N BENZODIAZEPINES (test code = BENZODIAZEPINES) NEGATIVE N COCAINE METABOLITES (test code = COCAINE METABOLITES) NEGATIVE N MARIJUANA METABOLITES (50 ng/mL SCREEN) (test code = MARIJUANA METABOLITES (50 ng/mL SCREEN)) NEGATIVE N METHADONE (test code = METHADONE) NEGATIVE N OPIATES (test code = OPIATES) POSITIVE A MORPHINE (test code = MORPHINE) POSITIVE A CODEINE (test code = CODEINE) POSITIVE A HYDROMORPHONE (test code = HYDROMORPHONE) NEGATIVE CONFIRMED N HYDROCODONE (test code = HYDROCODONE) NEGATIVE CONFIRMED N PHENCYCLIDINE (test code = PHENCYCLIDINE) NEGATIVE N PROPOXYPHENE (test code = PROPOXYPHENE) NEGATIVE N See Comment (test code = See Comment) See Comment THE SUBMITTED URINE SPECIMEN WAS TESTED AT THE LISTED CUTOFF LEVELS AND CONFIRMED BY A SECOND INDEPENDENT CHEMICAL METHOD. DRUG CLASS INITIAL CUTOFF LEVEL AMPHETAMINES 1000 ng/mL BARBITURATES 300 ng/mL BENZODIAZEPINES 300 ng/mL COCAINE METABOLITES 300 ng/mL MARIJUANA METABOLITES 50 ng/mL METHADONE 300 ng/mL OPIATES 300 ng/mL PHENCYCLIDINE 25 ng/mL PROPOXYPHENE 300 ng/mL [facility] Spine lumbar wo contrast [id number] 09:01:00Spine lumbar wo contrast MRI 05/19/2019 9:01 CDTCLINICAL: M54.16 Radiculopathy, lumbar region - M54.16 Radiculopathy,lumbar regionCOMPARISON: 03/03/2019 MRI exam.TECHNIQUE: Sagittal T1, sagittal T2 with fat saturation, axial T1 and axial [id number] were obtained. No intravenous gadolinium was given.FINDINGS:Lumbosacral junction transitional vertebra is identified, and is labeled as"S1". Please see the sagittal images for the numbering system used.The conus medullaris terminates at the L2-L3 level.T12-L1: Disc desiccation is present. No central canal or foraminal stenosis.L1-L2: There is preservation of the disc signal intensity, height, with nobulging, herniation, spinal stenosis, or neural foraminal stenosis.L2-L3: There is preservation of the disc signal intensity, height, with nobulging, herniation, spinal stenosis, or neural foraminal stenosis.L3-L4: No central canal stenosis. Mild bilateral foraminal stenosis due tobilateral foraminal and extraforaminal disc osteophyte complexes.L4-L5: Mild disc desiccation No central canal or foraminal stenosis.L5-S1: Disc desiccation is present. Stable 3.3 mm broad-based central discprotrusion is present with mild central canal stenosis. Mild bilateralforaminal stenosis due to disc bulge encroachment.IMPRESSION:1. Lum bosacral junction transitional vertebra is identified, and is labeled as"S1". P lease see the sagittal images for the numbering system used.2. L3-L4, L5-S1 mild bilateral foraminal stenosis.3. Stable L5-S1 central disc protrusion with mild central canal stenosis.--Read by: Cl Medina MDDictated Date/time: 04/24 06/10 10:28Electronically Signed by: Cl Medina MD 0 05/19/1910:35[facility] [id number] 08:05:00 * Test Item Value Reference Range Interpretation Comments GLUBED (test code = GLUBED) 157 mg/dL 74-106 H Performed by certified coke crane operator at [facility] [id number] 20:35:00* Test Item Value Reference Range Interpretation Comments GLUBED (test code = GLUBED) 144 mg/dL 74-106 H Performed by certified coke crane operator at [facility] [id number] 15:44:00* Test Item Value Reference Range Interpretation Comments GLUBED (test code = GLUBED) 120 mg/dL 74-106 H Performed by certified coke crane operator at [facility] [id number] 11:01:00* Test Item Value Reference Range Interpretation Comments GLUBED (test code = GLUBED) 166 mg/dL 74-106 H Performed by certified coke crane operator at [facility] [id number] 07:56:00* Test Item Value Reference Range Interpretation Comments GLUBED (test code = GLUBED) 142 mg/dL 74-106 H Performed by certified coke crane operator at [facility] [id number] 20:53:00* Test Item Value Reference Range Interpretation Comments GLUBED (test code = GLUBED) 153 mg/dL 74-106 H Performed by certified coke crane operator at [facility] [id number] 17:21:00* Test Item Value Reference Range Interpretation Comments GLUBED (test code = GLUBED) 243 mg/dL 74-106 H Performed by certified coke crane operator at [facility] [id number] 12:09:00* Test Item Value Reference Range Interpretation Comments GLUBED (test code = GLUBED) 144 mg/dL 74-106 H Performed by certified coke crane operator at [facility] [id number] 07:55:00* Test Item Value Reference Range Interpretation Comments GLUBED (test code = GLUBED) 121 mg/dL 74-106 H Performed by certified coke crane operator at [facility] [id number] 21:22:00* Test Item Value Reference Range Interpretation Comments GLUBED (test code = GLUBED) 130 mg/dL 74-106 H Performed by certified coke crane operator at [facility] [id number] 17:03:00* Test Item Value Reference Range Interpretation Comments GLUBED (test code = GLUBED) 112 mg/dL 74-106 H Performed by certified coke crane operator at [facility] [id number] 16:54:00* Test Item Value Reference Range Interpretation Comments GLUBED (test code = GLUBED) 167 mg/dL 74-106 H Performed by certified coke crane operator at [facility] [id number] 04:25:00* Test Item Value Reference Range Interpretation Comments GLUBED (test code = GLUBED) 126 mg/dL 74-106 H Performed by certified coke crane operator at [facility] [id number] 04:25:00* Test Item Value Reference Range Interpretation Comments GLUBED (test code = GLUBED) 130 mg/dL 74-106 H Performed by certified coke crane operator at [facility] [id number] 15:45:00* Test Item Value Reference Range Interpretation Comments GLUBED (test code = GLUBED) 82 mg/dL 74-106 N Performed by certified coke crane operator at [facility] [id number] 12:04:00* Test Item Value Reference Range Interpretation Comments GLUBED (test code = GLUBED) 230 mg/dL 74-106 H Performed by certified coke crane operator at [facility] [id number] 06:20:00* Test Item Value Reference Range Interpretation Comments GLUBED (test code = GLUBED) 154 mg/dL 74-106 H Performed by certified coke crane operator at [facility] [id number] 17:12:00* Test Item Value Reference Range Interpretation Comments GLUBED (test code = GLUBED) 150 mg/dL 74-106 H Performed by certified coke crane operator at [facility] [id number] 11:46:00* Test Item Value Reference Range Interpretation Comments GLUBED (test code = GLUBED) 171 mg/dL 74-106 H Performed by certified coke crane operator at [facility] BASIC METABOLIC [id number] 09:24:00* Test Item Value Reference Range Interpretation Comments SODIUM (test code = NA) 143 mmol/L 136-145 N POTASSIUM (test code = K) 4.0 mmol/L 3.5-5.1 N CHLORIDE (test code = CL) 110.0 mmol/L 98-107 H CARBON DIOXIDE (test code = CO2) 30.0 mmol/L 21-32 N ANION GAP (test code = GAP) 7.0 10-20 L GLUCOSE (test code = GLU) 148 mg/dL 74-106 H BLOOD UREA NITROGEN (test code = BUN) 4 mg/dL 7-18 L GLOMERULAR FILTRATION RATE (test code = GFR) > 60 mL/min >=60 Estimated GFR by using Modified MDRD formula.Chronic kidney disease is defined as either kidney damageor GFR <60 mL/min/1.73 m2 for >3 months. CREATININE (test code = CREAT) 0.70 mg/dL 0.55-1.02 N Note change in reference range due to change in reagent. BUN/CREATININE RATIO (test code = BUN/CREA) 5.7 10-20 L CALCIUM (test code = CA) 8.5 mg/dL 8.5-10.1 N BASIC METABOLIC [id number] 09:20:00* Test Item Value Reference Range Interpretation Comments SODIUM (test code = NA) 143 mmol/L 136-145 N POTASSIUM (test code = K) 4.0 mmol/L 3.5-5.1 N CHLORIDE (test code = CL) 110.0 mmol/L 98-107 H CARBON DIOXIDE (test code = CO2) mmol/L 21-32 ANION GAP (test code = GAP) 10-20 GLUCOSE (test code = GLU) mg/dL 74-106 BLOOD UREA NITROGEN (test code = BUN) mg/dL 7-18 GLOMERULAR FILTRATION RATE (test code = GFR) mL/min >=60 CREATININE (test code = CREAT) mg/dL 0.55-1.02 BUN/CREATININE RATIO (test code = BUN/CREA) 10-20 CALCIUM (test code = CA) mg/dL 8.5-10.1 CBC W/AUTO [id number] 09:03:00* Test Item Value Reference Range Interpretation Comments WHITE BLOOD CELL (test code = WBC) 10.2 K/mm3 4.5-12.5 N RED BLOOD CELL (test code = RBC) 3.24 mill/mm3 3.7-5.2 L HEMOGLOBIN (test code = HGB) 10.6 gram/dL 11.5-15.5 L HEMATOCRIT (test code = HCT) 33.6 % 36.0-46.0 L MEAN CELL VOLUME (test code = MCV) 103.7 fL 80-98 H MEAN CELL HGB (test code = MCH) 32.7 picogram 27.0-33.0 N MEAN CELL HGB CONCETRATION (test code = MCHC) 31.5 gram/dL 33.0-36. 0 L RED CELL DISTRIBUTION WIDTH (test code = RDW) 13.8 % 11.6-16. 2 N RED CELL DISTRIBUTION WIDTH SD (test code = RDW-SD) 52.2 fL 37 .0-51.0 H PLATELET COUNT (test code = PLT) 245 K/mm3 150-450 N MEAN PLATELET VOLUME (test code = MPV) 9.6 fL 6.7-11.0 N NEUTROPHIL % (test code = NT%) 72.8 % 39.0-69.0 H IMMATURE GRANULOCYTE % (test code = IG%) 0.4 % 0.0-5.0 N LYMPHOCYTE % (test code = LY%) 18.2 % 25.0-55.0 L MONOCYTE % (test code = MO%) 6.6 % 0.0-10.0 N EOSINOPHIL % (test code = EO%) 1.8 % 0.0-5.0 N BASOPHIL % (test code = BA%) 0.2 % 0.0-1.0 N NUCLEATED RBC % (test code = NRBC%) 0.0 % 0-0 N NEUTROPHIL # (test code = NT#) 7.42 K/mm3 1.8-7.7 N IMMATURE GRANULOCYTE # (test code = IG#) 0.04 x10 3/uL 0-0.03 H LYMPHOCYTE # (test code = LY#) 1.85 K/mm3 1.0-5.0 N MONOCYTE # (test code = MO#) 0.67 K/mm3 0-0.8 N EOSINOPHIL # (test code = EO#) 0.18 K/mm3 0.0-0.5 N BASOPHIL # (test code = BA#) 0.02 K/mm3 0.0-0.2 N NUCLEATED RBC # (test code = NRBC#) 0.00 K/mm3 0.0-0.1 N [id number] 06:00:00* Test Item Value Reference Range Interpretation Comments GLUBED (test code = GLUBED) 146 mg/dL 74-106 H Performed by certified coke crane operator at [facility] [id number] 23:44:00* Test Item Value Reference Range Interpretation Comments ACETAMINOPHEN (test code = ACET) < 10 mcg/mL 10-30 L A RANGE OF 10-30 mcg/mL IS A THERAPEUTIC RANGE. TOXIC CONCENTRATIONS: >150 mcg/mL AT 4 HOURS AFTER INGESTION >= 50 mcg/mL AT 12 HOURS AFTER INGESTION BASIC METABOLIC [id number] 20:01:00* Test Item Value Reference Range Interpretation Comments SODIUM (test code = NA) 139 mmol/L 136-145 N POTASSIUM (test code = K) 3.9 mmol/L 3.5-5.1 N CHLORIDE (test code = CL) 102.0 mmol/L 98-107 N CARBON DIOXIDE (test code = CO2) 31.0 mmol/L 21-32 N ANION GAP (test code = GAP) 9.9 10-20 L GLUCOSE (test code = GLU) 151 mg/dL 74-106 H BLOOD UREA NITROGEN (test code = BUN) 6 mg/dL 7-18 L GLOMERULAR FILTRATION RATE (test code = GFR) > 60 mL/min >=60 Estimated GFR by using Modified MDRD formula.Chronic kidney disease is defined as either kidney damageor GFR <60 mL/min/1.73 m2 for >3 months. CREATININE (test code = CREAT) 0.60 mg/dL 0.55-1.02 N Note change in reference range due to change in reagent. BUN/CREATININE RATIO (test code = BUN/CREA) 10.0 10-20 N CALCIUM (test code = CA) 8.6 mg/dL 8.5-10.1 N HEPATIC FUNCTION [id number] 20:01:00* Test Item Value Reference Range Interpretation Comments TOTAL PROTEIN (test code = PROT) 6.6 gram/dL 6.4-8.2 N ALBUMIN (test code = ALB) 3.5 g/dL 3.4-5.0 N GLOBULIN (test code = GLOB) 3.1 gram/dL 2.7-4.2 N ALBUMIN/GLOBULIN RATIO (test code = A/G) 1.1 0.75-1.50 N BILIRUBIN TOTAL (test code = BILT) 0.20 mg/dL 0.0-1.0 N BILIRUBIN DIRECT (test code = BILD) 0.07 mg/dL 0.0-0.20 N SGOT/AST (test code = AST) 16 IUnit/L 15-37 N SGPT/ALT (test code = ALT) 22 IUnit/L 12-78 N ALKALINE PHOSPHATASE TOTAL (test code = ALKP) 151 IUnit/L 45-117 H Note change in reference range due to change in reagent. [id number] 20:01:00* Test Item Value Reference Range Interpretation Comments ACETAMINOPHEN (test code = ACET) < 10 mcg/mL 10-30 L A RANGE OF 10-30 mcg/mL IS A THERAPEUTIC RANGE. TOXIC CONCENTRATIONS: >150 mcg/mL AT 4 HOURS AFTER INGESTION >= 50 mcg/mL AT 12 HOURS AFTER INGESTION [id number] 20:01:00* Test Item Value Reference Range Interpretation Comments SALICYLATE (test code = DANIEL) 5.8 mg/dL 2.8-20.0 N [id number] 20:01:00* Test Item Value Reference Range Interpretation Comments ALCOHOL (test code = ALC) < 3 mg/dL 0.0-3.0 N -- INTERPRETIVE DATA NOTE: POSITIVE SCREENING RESULTS SHOULD BE CONSIDERED PRESUMPTIVE.WHEN COLLECTED FOR MEDICAL PURPOSES ONLY. SPECIMEN WILL NOTBE COLLECTED BY CHAIN OF CUSTODY.IF A CONFIRMATION OF POSITIVE RESULTS IS DESIRED, ACONFIRMATION TEST MUST BE REQUESTED BY THE PHYSICIAN AT ANADDITIONAL CHARGE TO THE PATIENT. BASIC METABOLIC [id number] 19:53:00* Test Item Value Reference Range Interpretation Comments SODIUM (test code = NA) 139 mmol/L 136-145 N POTASSIUM (test code = K) 3.9 mmol/L 3.5-5.1 N CHLORIDE (test code = CL) 102.0 mmol/L 98-107 N CARBON DIOXIDE (test code = CO2) mmol/L 21-32 ANION GAP (test code = GAP) 10-20 GLUCOSE (test code = GLU) mg/dL 74-106 BLOOD UREA NITROGEN (test code = BUN) mg/dL 7-18 GLOMERULAR FILTRATION RATE (test code = GFR) mL/min >=60 CREATININE (test code = CREAT) mg/dL 0.55-1.02 BUN/CREATININE RATIO (test code = BUN/CREA) 10-20 CALCIUM (test code = CA) mg/dL 8.5-10.1 HEPATIC FUNCTION [id number] 19:53:00* Test Item Value Reference Range Interpretation Comments TOTAL PROTEIN (test code = PROT) gram/dL 6.4-8.2 ALBUMIN (test code = ALB) g/dL 3.4-5.0 GLOBULIN (test code = GLOB) gram/dL 2.7-4.2 ALBUMIN/GLOBULIN RATIO (test code = A/G) 0.75-1.50 BILIRUBIN TOTAL (test code = BILT) mg/dL 0.0-1.0 BILIRUBIN DIRECT (test code = BILD) mg/dL 0.0-0.20 SGOT/AST (test code = AST) IUnit/L 15-37 SGPT/ALT (test code = ALT) IUnit/L 12-78 ALKALINE PHOSPHATASE TOTAL (test code = ALKP) IUnit/L 45-117 [id number] 19:53:00* Test Item Value Reference Range Interpretation Comments ACETAMINOPHEN (test code = ACET) mcg/mL 10-30 [id number] 19:53:00* Test Item Value Reference Range Interpretation Comments SALICYLATE (test code = DANIEL) mg/dL 2.8-20.0 [id number] 19:53:00* Test Item Value Reference Range Interpretation Comments ALCOHOL (test code = ALC) mg/dL 0-3 CBC W/O [id number] 19:42:00* Test Item Value Reference Range Interpretation Comments WHITE BLOOD CELL (test code = WBC) 7.8 K/mm3 4.5-12.5 N RED BLOOD CELL (test code = RBC) 3.27 mill/mm3 3.7-5.2 L HEMOGLOBIN (test code = HGB) 10.9 gram/dL 11.5-15.5 L HEMATOCRIT (test code = HCT) 33.6 % 36.0-46.0 L MEAN CELL VOLUME (test code = MCV) 102.8 fL 80-98 H MEAN CELL HGB (test code = MCH) 33.3 picogram 27.0-33.0 H MEAN CELL HGB CONCETRATION (test code = MCHC) 32.4 gram/dL 33.0-36. 0 L RED CELL DISTRIBUTION WIDTH (test code = RDW) 13.7 % 11.6-16. 2 N PLATELET COUNT (test code = PLT) 256 K/mm3 150-450 N MEAN PLATELET VOLUME (test code = MPV) 9.4 fL 6.7-11.0 N URINALYSIS [id number] 19:35:00* Test Item Value Reference Range Interpretation Comments UA COLOR (test code = COLU) COLORLESS YELLOW A UA APPEARANCE (test code = APPU) CLEAR CLEAR UA GLUCOSE DIPSTICK (test code = DGLUU) NEGATIVE mg/dL NEGATIVE UA BILIRUBIN DIPSTICK (test code = BILU) NEGATIVE mg/dL NEGATIVE UA KETONE DIPSTICK (test code = KETU) NEGATIVE mg/dL NEGATIVE UA SPECIFIC GRAVITY (test code = SGU) 1.003 1.001-1.035 UA BLOOD DIPSTICK (test code = MANDA) Negative mg/dL NEGATIVE UA PH DIPSTICK (test code = MARGE) 6.0 5.0-8.0 UA PROTEIN DIPSTICK (test code = PROU) NEGATIVE mg/dL NEGATIVE UA UROBILINIOGEN DIPSTICK (test code = URO) Normal mg/dL NEGATIVE UA NITRITE DIPSTICK (test code = CLARENCE) NEGATIVE NEGATIVE UA LEUKOCYTE ESTERASE W REFLEX (test code = LEUUR) NEGATIVE Otoniel/uL NEGATIVE UA WBC (test code = WBCU) 0-5 per HPF 0-5 UA RBC (test code = RBCU) 0-2 #/HPF 0-5 UA EPITHELIAL CELLS (test code = EPIU) FEW per HPF FEW UA BACTERIA (test code = BACU) FEW #/HPF NONE Urine Source? Clean CatchDRUGS OF ABUSE SCREEN [id number] 19:35:00* Test Item Value Reference Range Interpretation Comments URN COCAINE (test code = COCAURN) NEGATIVE <300 ng/mL URN CANNABINOIDS (test code = CANNABURN) NEGATIVE <50 ng/mL URN AMPHETAMINE (test code = AMPHETURN) NEGATIVE <1000 ng/mL URN BARBITURATE (test code = BARBITURN) NEGATIVE <200 ng/mL URN BENZODIAZEPINE (test code = BENZOURN) NEGATIVE <200 ng/mL URN OPIATES (test code = OPIATURN) POSITIVE <300 ng/mL A This test provides only a preliminary test result. A morespecific alternate chemical method must be used in order toobtain a confirmed analytical result. Gas chromatography/mass spectrometry (GC/MS) is thepreferred confirmatory method. Other chemical confirmationmethods are available. Clinical consideration and professional judgment should be applied to any drug of abusetest result, particularly when preliminary positive resultsare used.Unconfirmed screening results must not be used fornon-medical purposes (e.g., employment testing, legaltesting). URN PHENCYCLIDINE (PCP) (test code = PHENCURN) NEGATIVE <25 ng/ mL URN METHADONE (test code = METHAURN) NEGATIVE <300 ng/mL Urine Source? Clean CatchURINALYSIS [id number] 19:11:00* Test Item Value Reference Range Interpretation Comments UA COLOR (test code = COLU) COLORLESS YELLOW A UA APPEARANCE (test code = APPU) CLEAR CLEAR UA GLUCOSE DIPSTICK (test code = DGLUU) NEGATIVE mg/dL NEGATIVE UA BILIRUBIN DIPSTICK (test code = BILU) NEGATIVE mg/dL NEGATIVE UA KETONE DIPSTICK (test code = KETU) NEGATIVE mg/dL NEGATIVE UA SPECIFIC GRAVITY (test code = SGU) 1.003 1.001-1.035 UA BLOOD DIPSTICK (test code = MANDA) Negative mg/dL NEGATIVE UA PH DIPSTICK (test code = MARGE) 6.0 5.0-8.0 UA PROTEIN DIPSTICK (test code = PROU) NEGATIVE mg/dL NEGATIVE UA UROBILINIOGEN DIPSTICK (test code = URO) Normal mg/dL NEGATIVE UA NITRITE DIPSTICK (test code = CLARENCE) NEGATIVE NEGATIVE UA LEUKOCYTE ESTERASE W REFLEX (test code = LEUUR) NEGATIVE Otoniel/uL NEGATIVE UA WBC (test code = WBCU) 0-5 per HPF 0-5 UA RBC (test code = RBCU) 0-2 #/HPF 0-5 UA EPITHELIAL CELLS (test code = EPIU) FEW per HPF FEW UA BACTERIA (test code = BACU) FEW #/HPF NONE Urine Source? Clean CatchDRUGS OF ABUSE SCREEN [id number] 19:11:00* Test Item Value Reference Range Interpretation Comments URN COCAINE (test code = COCAURN) <300 ng/mL URN CANNABINOIDS (test code = CANNABURN) <50 ng/mL URN AMPHETAMINE (test code = AMPHETURN) <1000 ng/mL URN BARBITURATE (test code = BARBITURN) <200 ng/mL URN BENZODIAZEPINE (test code = BENZOURN) <200 ng/mL URN OPIATES (test code = OPIATURN) <300 ng/mL URN PHENCYCLIDINE (PCP) (test code = PHENCURN) <25 ng/ mL URN METHADONE (test code = METHAURN) <300 ng/mL Urine Source? Clean CatchURINALYSIS [id number] 19:09:00* Test Item Value Reference Range Interpretation Comments UA COLOR (test code = COLU) COLORLESS YELLOW A UA APPEARANCE (test code = APPU) CLEAR CLEAR UA GLUCOSE DIPSTICK (test code = DGLUU) NEGATIVE mg/dL NEGATIVE UA BILIRUBIN DIPSTICK (test code = BILU) NEGATIVE mg/dL NEGATIVE UA KETONE DIPSTICK (test code = KETU) NEGATIVE mg/dL NEGATIVE UA SPECIFIC GRAVITY (test code = SGU) 1.003 1.001-1.035 UA BLOOD DIPSTICK (test code = MANDA) Negative mg/dL NEGATIVE UA PH DIPSTICK (test code = MARGE) 6.0 5.0-8.0 UA PROTEIN DIPSTICK (test code = PROU) NEGATIVE mg/dL NEGATIVE UA UROBILINIOGEN DIPSTICK (test code = URO) Normal mg/dL NEGATIVE UA NITRITE DIPSTICK (test code = CLARENCE) NEGATIVE NEGATIVE UA LEUKOCYTE ESTERASE W REFLEX (test code = LEUUR) NEGATIVE Otoniel/uL NEGATIVE UA WBC (test code = WBCU) per HPF 0-5 UA RBC (test code = RBCU) per HPF 0-5 UA EPITHELIAL CELLS (test code = EPIU) per HPF Few UA BACTERIA (test code = BACU) per HPF NONE Urine Source? Clean CatchDRUGS OF ABUSE SCREEN [id number] 19:09:00* Test Item Value Reference Range Interpretation Comments URN COCAINE (test code = COCAURN) <300 ng/mL URN CANNABINOIDS (test code = CANNABURN) <50 ng/mL URN AMPHETAMINE (test code = AMPHETURN) <1000 ng/mL URN BARBITURATE (test code = BARBITURN) <200 ng/mL URN BENZODIAZEPINE (test code = BENZOURN) <200 ng/mL URN OPIATES (test code = OPIATURN) <300 ng/mL URN PHENCYCLIDINE (PCP) (test code = PHENCURN) <25 ng/ mL URN METHADONE (test code = METHAURN) <300 ng/mL Urine Source? Clean Catch- XR PELVIS / [id number] 11:34:00 FAX: Evangelist Solis III [phone] [place]: B St: REG FAX: Patti Navas [phone] Name: ZACH RADER [facility] : 1960 Age/S: 58/F [address] Unit #: [id number] Loc: [place] [address] Phys: Patti Victoria MD Acct: [id number] Dis Date: Status: REG ER PHONE #: [phone] Exam Date: 04/23/2019 1020 FAX #: [phone] Reason: fall EXAMS: CPT CODE: [id number] XR PELVIS 1/2 VIEWS 84197 HISTORY: Fall and bruising. COMPARISON: Chest x-ra y from March 20, 2019. SINGLE VIEW CHEST: No acute i nfiltrates, effusion or congestion is noted. Lung scarring. No pneumotho rax. Cardiomegaly. IMPRESSION: No acute infiltrates, effusion or congestion. SINGLE VIEW PELVIS: Pelvic ring is intact on a single view. Additio nal views would be of value. Both hip joints are moderately narrowed. No AVN. Trabecular pattern and mineralization are normal. Acetabulum a ppear unremarkable. SI joints appear unremarkable. DJD of the lower sharyn mbar spine. Soft tissues are within normal limits. IM PRESSION: No acute fracture or dislocation. Pelvic ring is in tact. Symphysis is well opposed. Both hip joints are narrowed without AVN. BILATERAL KNEE SERIES, 3 VIEWS EACH: No acute fracture or either knee. Tricompartment joint space narrowing bilaterally. Articular surfaces are well marginated b ilaterally. No osteochondral lesions bilaterally. No joint fluid bilat erally. Mineralization and soft tissues are normal in appearance. IMPRESSION: No acute fracture or dislocation of e ither knee. Bilateral tricompartment joint space narrowing. No joint f luid. PAGE 1 Signed Report (CONTINUED) FAX: Evangelist Solis III [phone] [place]: St : REG FAX: Patti Navas [phone] Name: ZACH RADER [facility] : 1960 Age/S: 58/F [address] [facility] Unit #: [id number] Loc: [place] [address] Phys: Patti Victoria MD Acct: [id number] Dis Date: Stat us: REG ER PHONE #: [phone] Exam Date: 04/23/2019 1020 FAX #: [phone] Reason: fall EXAMS: CPT CODE: [id number] XR PELVIS 1/2 VIEWS 30560 <Continued> BILATERAL FEMUR SERIES, AP AND LATERAL VIEW. No acute fracture or dislocation of either femur. No AVN on either side. Tricompartment joint space narrowing of the knee. Surgical clips along the medial soft tissues of the left thigh. IMPRESSION: No acute fracture or dislocation of either femur. No AVN of either hips. Tricompartment joint space narrowing at the knee bilaterally. at 1134 Reported and signed by: Albert Ramon M.D. CC: Evangelist Purvis III, MD; Patti Victoria MD Technologist: Vida Calle(R) Trnscrd Date/Time/By: 04/23/2019 (8482) : By: [email or web address] Orig Print D/T: S: 04/23/2019 (1528) PAGE 2 Signed Report - XR FEMUR MIN 2 VWS [id number] 11:34:00 FAX: Evangelist Solis III [phone] [place]: B St: REG FAX: Patti Navas [phone] Name: ZACH RADER [facility] : 1960 Age/S: 58/F [address] [facility] Unit #: [id number] Loc: [place] [address] Phys: Patti Victoria MD Acct: [id number] Dis Date: Status: REG ER PHONE #: [phone] Exam Date: 04/23/2019 1020 FAX #: [phone] Reason: fall, bruising to lef t thigh EXAMS: CPT CODE: [id number] XR FEMUR MIN 2 [place] [address] HISTORY: Fall and bruising. COMPARISON: Chest x-ra y from March 20, 2019. SINGLE VIEW CHEST: No acute i nfiltrates, effusion or congestion is noted. Lung scarring. No pneumotho rax. Cardiomegaly. IMPRESSION: No acute infiltrates, effusion or congestion. SINGLE VIEW PELVIS: Pelvic ring is intact on a single view. Additio nal views would be of value. Both hip joints are moderately narrowed. No AVN. Trabecular pattern and mineralization are normal. Acetabulum a ppear unremarkable. SI joints appear unremarkable. DJD of the lower sharyn mbar spine. Soft tissues are within normal limits. IM PRESSION: No acute fracture or dislocation. Pelvic ring is in tact. Symphysis is well opposed. Both hip joints are narrowed without AVN. BILATERAL KNEE SERIES, 3 VIEWS EACH: No acute fracture or either knee. Tricompartment joint space narrowing bilaterally. Articular surfaces are well marginated b ilaterally. No osteochondral lesions bilaterally. No joint fluid bilat erally. Mineralization and soft tissues are normal in appearance. IMPRESSION: No acute fracture or dislocation of e ither knee. Bilateral tricompartment joint space narrowing. No joint f luid. PAGE 1 Signed Report (CONTINUED) FAX: Evangelist Solis III [phone] [place]: St : REG FAX: Patti Navas [phone] Name: ZACH RADER [facility] : 1960 Age/S: 58[facility]F [address] [facility] Unit #: [id number] Loc: [place] [address] Phys: Patti Victoria MD Acct: [id number] Dis Date: Stat us: REG ER PHONE #: [phone] Exam Date: 04/23/2019 1020 FAX #: [phone] Reason: fall, bruising to left thigh EXAMS: CPT CODE: [id number] XR FEMUR MIN [address] [place] [address] <Continued> BILATERAL FEMUR SERIES, AP AND LATERAL VIEW. No acute fracture or dislocation of either femur. No AVN on either side. Tricompartment joint space narrowing of the knee. Surgical clips along the medial soft tissues of the left thigh. IMPRESSION: No acute fracture or dislocation of either femur. No AVN of either hips. Tricompartment joint space narrowing at the knee bilaterally. at 1134 Reported and signed by: Albert Ramon M.D. CC: Evangelist Purvis III, MD; Patti Victoria MD Technologist: Vida Calle(Sophie) Trnscrd Date/Time/By: 04/23/2019 (4404) : By: [email or web address] Orig Print D/T: S: 04/23/2019 (9656) PAGE 2 Signed Report - XR FEMUR MIN 2 VWS [id number] 11:34:00 FAX: Evangelist Solis III [phone] [place]: B St: REG FAX: Patti Navas [phone] Name: ZACH RADER [facility] : 1960 Age/S: 58/F [address] [facility] Unit #: [id number] Loc: [place] [address] Phys: Patti Victoria MD Acct: [id number] Dis Date: Status: REG ER PHONE #: [phone] Exam Date: 04/23/2019 1020 FAX #: [phone] Reason: fall, bruising to b/l knee EXAMS: CPT CODE: [id number] XR FEMUR MIN [address] [place] [id number] HISTORY: Fall and bruising. COMPARISON: Chest x-ra y from March 20, 2019. SINGLE VIEW CHEST: No acute i nfiltrates, effusion or congestion is noted. Lung scarring. No pneumotho rax. Cardiomegaly. IMPRESSION: No acute infiltrates, effusion or congestion. SINGLE VIEW PELVIS: Pelvic ring is intact on a single view. Additio nal views would be of value. Both hip joints are moderately narrowed. No AVN. Trabecular pattern and mineralization are normal. Acetabulum a ppear unremarkable. SI joints appear unremarkable. DJD of the lower sharyn mbar spine. Soft tissues are within normal limits. IM PRESSION: No acute fracture or dislocation. Pelvic ring is in tact. Symphysis is well opposed. Both hip joints are narrowed without AVN. BILATERAL KNEE SERIES, 3 VIEWS EACH: No acute fracture or either knee. Tricompartment joint space narrowing bilaterally. Articular surfaces are well marginated b ilaterally. No osteochondral lesions bilaterally. No joint fluid bilat erally. Mineralization and soft tissues are normal in appearance. IMPRESSION: No acute fracture or dislocation of e ither knee. Bilateral tricompartment joint space narrowing. No joint f luid. PAGE 1 Signed Report (CONTINUED) FAX: Evangelist Solis III [phone] [place]: St : REG FAX: Patti Navas [phone] Name: ZACH RADER [facility] : 1960 Age/S: 58/F [address] [facility] Unit #: [id number] Loc: [place] [address] Phys: Patti Victoria MD Acct: [id number] Dis Date: Stat us: REG ER PHONE #: [phone] Exam Date: 04/23/2019 1020 FAX #: [phone] Reason: fall, bruising to b/l knee EXAMS: CPT CODE: [id number] XR FEMUR MIN 2 [place] [address] <Continued> BILATERAL FEMUR SERIES, AP AND LATERAL VIEW. No acute fracture or dislocation of either femur. No AVN on either side. Tricompartment joint space narrowing of the knee. Surgical clips along the medial soft tissues of the left thigh. IMPRESSION: No acute fracture or dislocation of either femur. No AVN of either hips. Tricompartment joint space narrowing at the knee bilaterally. at 1134 Reported and signed by: Albert Ramon M.D. CC: Evangelist Purvis III, MD; Patti Victoria MD Technologist: Vida Calle(R) Trnscrd Date/Time/By: 04/23/2019 (1028) : By: [email or web address] Orig Print D/T: S: 04/23/2019 (3775) PAGE 2 Signed Report - XR KNEE 3 V [id number] 11:34:00 FAX: Evangelist Solis III [phone] [place]: St: REG FAX: Patti Navas [phone] Name: ZACH RADER [facility] : 1960 Age/S: 58/F [address] [facility] Unit #: [id number] Loc: [place] [address] Phys: Patti Victoria MD Acct: [id number] Dis Date: Status: REG ER PHONE #: [phone] Exam Date: 04/23/2019 1020 FAX #: [phone] Reason: fall, bruising to kne es b/l EXAMS: CPT CODE: [id number] XR KNEE 3 [place] [address] HISTORY: Fall and bruising. COMPARISON: Chest x-ra y from March 20, 2019. SINGLE VIEW CHEST: No acute i nfiltrates, effusion or congestion is noted. Lung scarring. No pneumotho rax. Cardiomegaly. IMPRESSION: No acute infiltrates, effusion or congestion. SINGLE VIEW PELVIS: Pelvic ring is intact on a single view. Additio nal views would be of value. Both hip joints are moderately narrowed. No AVN. Trabecular pattern and mineralization are normal. Acetabulum a ppear unremarkable. SI joints appear unremarkable. DJD of the lower sharyn mbar spine. Soft tissues are within normal limits. IM PRESSION: No acute fracture or dislocation. Pelvic ring is in tact. Symphysis is well opposed. Both hip joints are narrowed without AVN. BILATERAL KNEE SERIES, 3 VIEWS EACH: No acute fracture or either knee. Tricompartment joint space narrowing bilaterally. Articular surfaces are well marginated b ilaterally. No osteochondral lesions bilaterally. No joint fluid bilat erally. Mineralization and soft tissues are normal in appearance. IMPRESSION: No acute fracture or dislocation of e ither knee. Bilateral tricompartment joint space narrowing. No joint f luid. PAGE 1 Signed Report (CONTINUED) FAX: Gualberto Fregosoce YESSIEvangelist Grzegorz [phone] [place]: St : REG FAX: Patti Navas [phone] Name: ZACH RADER [facility] : 1960 Age/S: 58/F [address] [facility] Unit #: [id number] Loc: [place] [address] Phys: Patti Victoria MD Acct: [id number] Dis Date: Stat us: REG ER PHONE #: [phone] Exam Date: 04/23/2019 1020 FAX #: [phone] Reason: fall, bruising to knees b/l EXAMS: CPT CODE: [id number] XR KNEE 3 [place] [address] <Continued> BILATERAL FEMUR SERIES, AP AND LATERAL VIEW. No acute fracture or dislocation of either femur. No AVN on either side. Tricompartment joint space narrowing of the knee. Surgical clips along the medial soft tissues of the left thigh. IMPRESSION: No acute fracture or dislocation of either femur. No AVN of either hips. Tricompartment joint space narrowing at the knee bilaterally. at 1134 Reported and signed by: Albert Ramon M.D. CC: Evangelist Purvis III, MD; Patti Victoria MD Technologist: Vida Calle(Sophie) Trnscrd Date/Time/By: 04/23/2019 (1136) : By: [email or web address] Orig Print D/T: S: 04/23/2019 (4452) PAGE 2 Signed Report - XR CHEST 1 [id number] 11:34:00 FAX: Evangelist Solis III [phone] [place]: St: REG FAX: Patti Navas [phone] Name: ZACH RADER [facility] : 1960 Age/S: 58/F [address] [facility] Unit #: [id number] Loc: [place] [address] Phys: Patti Victoria MD Acct: [id number] Dis Date: Status: REG ER PHONE #: [phone] Exam Date: 04/23/2019 1020 FAX #: [phone] Reason: fall EXAMS: CPT CODE: [id number] XR CHEST 1 V 42854 HISTORY: Fall and bruising. COMPARISON: Chest x-ra y from March 20, 2019. SINGLE VIEW CHEST: No acute i nfiltrates, effusion or congestion is noted. Lung scarring. No pneumotho rax. Cardiomegaly. IMPRESSION: No acute infiltrates, effusion or congestion. SINGLE VIEW PELVIS: Pelvic ring is intact on a single view. Additio nal views would be of value. Both hip joints are moderately narrowed. No AVN. Trabecular pattern and mineralization are normal. Acetabulum a ppear unremarkable. SI joints appear unremarkable. DJD of the lower sharyn mbar spine. Soft tissues are within normal limits. IM PRESSION: No acute fracture or dislocation. Pelvic ring is in tact. Symphysis is well opposed. Both hip joints are narrowed without AVN. BILATERAL KNEE SERIES, 3 VIEWS EACH: No acute fracture or either knee. Tricompartment joint space narrowing bilaterally. Articular surfaces are well marginated b ilaterally. No osteochondral lesions bilaterally. No joint fluid bilat erally. Mineralization and soft tissues are normal in appearance. IMPRESSION: No acute fracture or dislocation of e ither knee. Bilateral tricompartment joint space narrowing. No joint f luid. PAGE 1 Signed Report (CONTINUED) FAX: Gualberto Fregosoce YESSIEvangelist Grzegorz [phone] [place]: St : REG FAX: Patti Navas [phone] Name: ZACH RADER [facility] : 1960 Age/S: 58/F [address] [facility] Unit #: [id number] Loc: [place] [address] Phys: Patti Victoria MD Acct: [id number] Dis Date: Stat us: REG ER PHONE #: [phone] Exam Date: 04/23/2019 1020 FAX #: [phone] Reason: fall EXAMS: CPT CODE: [id number] XR CHEST 1 V 73062 <Continued> BILATERAL FEMUR SERIES, AP AND LATERAL VIEW. No acute fracture or dislocation of either femur. No AVN on either side. Tricompartment joint space narrowing of the knee. Surgical clips along the medial soft tissues of the left thigh. IMPRESSION: No acute fracture or dislocation of either femur. No AVN of either hips. Tricompartment joint space narrowing at the knee bilaterally. at 1134 Reported and signed by: Albert Ramon M.D. CC: Evangelist Purvis III, MD; Patti Victoria MD Technologist: Vida Calle(R) Trnscrd Date/Time/By: 04/23/2019 (1133) : By: [email or web address] Orig Print D/T: S: 04/23/2019 (5775) PAGE 2 Signed Report - CT C-SPINE W/O [id number] 10:08:00 Name: ZACH RADER [facility] : 1960 Age/S: 58 / F [address] [facility] Unit #: [id number] Loc: [place] [address] Phys: Jose Combs DIRECTOR OF SPEECH PATHOLOGY Acct: [id number] Di s Date: Status: REG ER PHONE #: [phone] Exam Date: 04/23/2019 0945 FAX #: Reason: fall, on blood thinners EXAMS: CPT CODE: [id number] CT C-SPINE W/ O CONTRAST 47227 HISTORY: Fall and on bloo d thinners. COMPARISON: CT scan from April 03, 2018. C T cervical spine without contrast: Automated exposure control. No acute fracture of the cervical spine. DJD. No prevertebral soft tissue s welling. Scattered posterior marginal disc osteophytes resulting in mild canal stenosis. Facet hypertrophy resulting in mild foraminal stenosis. Calcification of the anterior longitudinal ligament. Thyroid glands are unremarkable. Superior mediastinum is unremarkable. Lung api yasmeen are clear. Anatomic alignment. Vertebral body heights are maintained . Uncovertebral joints are preserved. IMPRESSION: No acute fracture. Anatomic alignment. DJD. Electronically Si gned by Gonsalo Ramon on 04/23/2019 at 1008 Reported and signed by: Albert Ramon M.D. CC: Evangelist Purvis III, MD; Raegan Combs NP Technologist:Sulma Can RT(R),CT C TDI: DLP: Trnscb Date/Time: 04/23/2019 (1008) [email or web address] Orig Print D/T: S: 04/23/2019 (1012) PAGE 1 Signed Report - CT HEAD/BRAIN W/O CONT 2019-04-23 10:05:00 Name: ZACH RADER [facility] : 1960 Age/S: 58 / F [address] [facility] Unit #: [id number] Loc: [place] [address] Phys: Raegan Combs NP Acct: [id number] Dis Date: Status: REG ER PHONE #: [phone] Exam Date: 04/23/2019 0945 FAX #: [phone] Reason: fall, on blood thinners EXAMS: CPT CODE: [id number] CT HEAD/BRAIN W/O CONT 82954 HISTORY: Fall and on blood thinners. COMPARISON: April 05, 2018. CT brain without contrast: Automated exposure control. No acute intracranial bleeds or extra-axial collections are noted. No acute territorial vascular infarction is noted. The sulci, gyri, ventricles and subarachnoid spaces and the basilar cisterns are normal for patient's age. No herniation or hydrocephalus or midline shift is noted. Mild periventricular ischemic gliosis is noted. Age-appropriate atrophy is noted as well. Portions of the visualized paranasal sinuses are normal. No obvious bony calvarial defect is noted. Sclerosis of the right mastoid air cells noted again. IMPRESSION: No acute intracranial bleeds or extra-axial collections. No acute territorial vascular infarction. No herniation or hydrocephalus or midline shift. Chronic white matter ischemic disease and atrophy . at 1005 Reported and signed by: Albert Ramon M.D. CC: Evangelist Purvis III, MD; Raegan Combs NP Technologist:Sulma Can RT(R),CT CTDI: DLP: Trnscb Date/Time: 04/23/2019 (1001) [email or web address] Orig Print D/T: S: 04/23/2019 (1009) PAGE 1 Signed Report [id number] 13:37:00* Test Item Value Reference Range Interpretation Comments GLUBED (test code = GLUBED) 105 mg/dL 74-106 N Performed by certified coke crane operator at [facility] [id number] 11:50:00* Test Item Value Reference Range Interpretation Comments GLUBED (test code = GLUBED) 82 mg/dL 74-106 N Performed by certified coke crane operator at [facility] BASIC METABOLIC [id number] 02:05:00* Test Item Value Reference Range Interpretation Comments SODIUM (test code = NA) 143 mmol/L 136-145 N POTASSIUM (test code = K) 4.6 mmol/L 3.5-5.1 N CHLORIDE (test code = CL) 109.0 mmol/L 98-107 H CARBON DIOXIDE (test code = CO2) 31.0 mmol/L 21-32 N ANION GAP (test code = GAP) 7.6 10-20 L GLUCOSE (test code = GLU) 144 mg/dL 74-106 H BLOOD UREA NITROGEN (test code = BUN) 11 mg/dL 7-18 N GLOMERULAR FILTRATION RATE (test code = GFR) > 60 mL/min >=60 Estimated GFR by using Modified MDRD formula.Chronic kidney disease is defined as either kidney damageor GFR <60 mL/min/1.73 m2 for >3 months. CREATININE (test code = CREAT) 0.70 mg/dL 0.55-1.02 N Note change in reference range due to change in reagent. BUN/CREATININE RATIO (test code = BUN/CREA) 15.7 10-20 N CALCIUM (test code = CA) 8.9 mg/dL 8.5-10.1 N THYROID PROFILE [id number] 02:05:00* Test Item Value Reference Range Interpretation Comments T3 UPTAKE (test code = T3UP) 37.0 % 30.0-40.0 N T4 (THYROXINE) (test code = T4) 6.0 ug/dL 4.5-13.9 N T7 (FREE THYROXINE INDEX) (test code = T7) 2.22 FTI 1.3-5.1 N THYROID STIMULATING HORMONE (test code = TSH) 0.854 uIU/mL 0.36-3.7 4 N TSH REFERENCE RANGES: EUTHYROID: 0.35 - 4.3 mIU/mL HYPO : > 5.5 mIU/mL HYPER : < 0.35 mIU/mL [id number] 02:00:00* Test Item Value Reference Range Interpretation Comments TROPONIN-I (test code = TROPI) <0.015 ng/mL 0-0.045 N BASIC METABOLIC [id number] 02:00:00* Test Item Value Reference Range Interpretation Comments SODIUM (test code = NA) 143 mmol/L 136-145 N POTASSIUM (test code = K) 4.6 mmol/L 3.5-5.1 N CHLORIDE (test code = CL) 109.0 mmol/L 98-107 H CARBON DIOXIDE (test code = CO2) mmol/L 21-32 ANION GAP (test code = GAP) 10-20 GLUCOSE (test code = GLU) mg/dL 74-106 BLOOD UREA NITROGEN (test code = BUN) mg/dL 7-18 GLOMERULAR FILTRATION RATE (test code = GFR) mL/min >=60 CREATININE (test code = CREAT) mg/dL 0.55-1.02 BUN/CREATININE RATIO (test code = BUN/CREA) 10-20 CALCIUM (test code = CA) 8.9 mg/dL 8.5-10.1 N CBC W/AUTO [id number] 01:58:00* Test Item Value Reference Range Interpretation Comments WHITE BLOOD CELL (test code = WBC) 6.9 K/mm3 4.5-12.5 N RED BLOOD CELL (test code = RBC) 3.55 mill/mm3 3.7-5.2 L HEMOGLOBIN (test code = HGB) 11.5 gram/dL 11.5-15.5 N HEMATOCRIT (test code = HCT) 37.8 % 36.0-46.0 N MEAN CELL VOLUME (test code = MCV) 106.5 fL 80-98 H MEAN CELL HGB (test code = MCH) 32.4 picogram 27.0-33.0 N MEAN CELL HGB CONCETRATION (test code = MCHC) 30.4 gram/dL 33.0-36. 0 L RED CELL DISTRIBUTION WIDTH (test code = RDW) 13.2 % 11.6-16. 2 N RED CELL DISTRIBUTION WIDTH SD (test code = RDW-SD) 52.1 fL 37 .0-51.0 H PLATELET COUNT (test code = PLT) 207 K/mm3 150-450 N MEAN PLATELET VOLUME (test code = MPV) 9.5 fL 6.7-11.0 N NEUTROPHIL % (test code = NT%) 47.2 % 39.0-69.0 N IMMATURE GRANULOCYTE % (test code = IG%) 0.4 % 0.0-5.0 N LYMPHOCYTE % (test code = LY%) 42.2 % 25.0-55.0 N MONOCYTE % (test code = MO%) 7.9 % 0.0-10.0 N EOSINOPHIL % (test code = EO%) 1.9 % 0.0-5.0 N BASOPHIL % (test code = BA%) 0.4 % 0.0-1.0 N NUCLEATED RBC % (test code = NRBC%) 0.0 % 0-0 N NEUTROPHIL # (test code = NT#) 3.24 K/mm3 1.8-7.7 N IMMATURE GRANULOCYTE # (test code = IG#) 0.03 x10 3/uL 0-0.03 N LYMPHOCYTE # (test code = LY#) 2.90 K/mm3 1.0-5.0 N MONOCYTE # (test code = MO#) 0.54 K/mm3 0-0.8 N EOSINOPHIL # (test code = EO#) 0.13 K/mm3 0.0-0.5 N BASOPHIL # (test code = BA#) 0.03 K/mm3 0.0-0.2 N NUCLEATED RBC # (test code = NRBC#) 0.00 K/mm3 0.0-0.1 N CBC W/AUTO [id number] 01:55:00* Test Item Value Reference Range Interpretation Comments WHITE BLOOD CELL (test code = WBC) K/mm3 4.5-12.5 RED BLOOD CELL (test code = RBC) mill/mm3 3.7-5.2 HEMOGLOBIN (test code = HGB) 11.5 gram/dL 11.5-15.5 N HEMATOCRIT (test code = HCT) 37.8 % 36.0-46.0 N MEAN CELL VOLUME (test code = MCV) fL 80-98 MEAN CELL HGB (test code = MCH) picogram 27.0-33.0 MEAN CELL HGB CONCETRATION (test code = MCHC) gram/dL 33.0-36. 0 RED CELL DISTRIBUTION WIDTH (test code = RDW) % 11.6-16. 2 RED CELL DISTRIBUTION WIDTH SD (test code = RDW-SD) fL 37 .0-51.0 PLATELET COUNT (test code = PLT) K/mm3 150-450 MEAN PLATELET VOLUME (test code = MPV) fL 6.7-11.0 NEUTROPHIL % (test code = NT%) % 39.0-69.0 IMMATURE GRANULOCYTE % (test code = IG%) % 0.0-5.0 LYMPHOCYTE % (test code = LY%) % 25.0-55.0 MONOCYTE % (test code = MO%) % 0.0-10.0 EOSINOPHIL % (test code = EO%) % 0.0-5.0 BASOPHIL % (test code = BA%) % 0.0-1.0 NEUTROPHIL # (test code = NT#) K/mm3 1.8-7.7 LYMPHOCYTE # (test code = LY#) K/mm3 1.0-5.0 MONOCYTE # (test code = MO#) K/mm3 0-0.8 EOSINOPHIL # (test code = EO#) K/mm3 0.0-0.5 BASOPHIL # (test code = BA#) K/mm3 0.0-0.2 [id number] 20:02:00* Test Item Value Reference Range Interpretation Comments GLUBED (test code = GLUBED) 117 mg/dL 74-106 H Performed by certified coke crane operator at [facility] [id number] 19:41:00* Test Item Value Reference Range Interpretation Comments TROPONIN-I (test code = TROPI) <0.015 ng/mL 0-0.045 N [id number] 17:07:00* Test Item Value Reference Range Interpretation Comments GLUBED (test code = GLUBED) 215 mg/dL 74-106 H Performed by certified coke crane operator at [facility] LIPID PROFILE (CORONARY RISK)2019-03-20 15:19:00* Test Item Value Reference Range Interpretation Comments TRIGLYCERIDES (test code = TRIG) 107 mg/dL 20-150 N CHOLESTEROL (test code = CHOL) 112 mg/dL 0-200 N CHOLESTEROL/HDL RATIO (test code = CHOLHDL) 2.0 RATIO 0-4.9 N RISK ASSOCIATED WITH CHOL/HDL RATIOS: Risk Male Female1/2 AVERAGE 3.43 3.27AVERAGE 4.97 4.442X AVERAGE 9.55 7.053X AVERAGE 23.39 11.04 REFERENCE VALUE IS RELATED TO RISK LEVELS ASRECOMMENDED BY THE WILL. HEART, LUNG, AND BLOOD INST. HDL CHOLESTEROL (test code = HDL) 50 mg/dL 40-60 N LIPOPROTEIN LDL (test code = LDL) 49 mg/dL 100-129 L Reference Interval: mg/dL mmol/L Optimal <100 <2.6Near/above optimal 100-129 2.6- 3.3Borderline High 130-159 3.4-4.1High 160-189 4.1-4.9Very High >=190 >=4.9========= This LDL result is a direct measurement.========= [id number] 15:19:00* Test Item Value Reference Range Interpretation Comments TROPONIN-I (test code = TROPI) <0.015 ng/mL 0-0.045 N [id number] 14:53:00* Test Item Value Reference Range Interpretation Comments GLYCOSYLATED HEMOGLOBIN (HA1C) (test code = GLYHGB) 8.0 % HbA1 4. 8-6.0 H ESTIMATED AVERAGE GLUCOSE (test code = EAG) 183 MG/DL [id number] 13:10:00* Test Item Value Reference Range Interpretation Comments GLUBED (test code = GLUBED) 83 mg/dL 74-106 N Performed by certified coke crane operator at [facility] DRUGS OF ABUSE SCREEN [id number] 11:25:00* Test Item Value Reference Range Interpretation Comments URN COCAINE (test code = COCAURN) NEGATIVE NEGATIVE URN CANNABINOIDS (test code = CANNABURN) NEGATIVE NEGATIVE URN AMPHETAMINE (test code = AMPHETURN) NEGATIVE NEGATIVE URN BARBITURATE (test code = BARBITURN) NEGATIVE NEGATIVE URN BENZODIAZEPINE (test code = BENZOURN) NEGATIVE NEGATIVE URN OPIATES (test code = OPIATURN) POSITIVE NEGATIVE URN PHENCYCLIDINE (PCP) (test code = PHENCURN) NEGATIVE NEGATIV E URINALYSIS [id number] 11:05:00* Test Item Value Reference Range Interpretation Comments UA COLOR (test code = COLU) YELLOW YELLOW UA APPEARANCE (test code = APPU) CLEAR CLEAR UA GLUCOSE DIPSTICK (test code = DGLUU) norm mg/dL NEGATIVE UA BILIRUBIN DIPSTICK (test code = BILU) NEGATIVE mg/dL NEGATIVE UA KETONE DIPSTICK (test code = KETU) neg mg/dL NEGATIVE UA SPECIFIC GRAVITY (test code = SGU) 1.005 1.001-1.035 UA BLOOD DIPSTICK (test code = MANDA) neg Tavon/uL NEGATIVE UA PH DIPSTICK (test code = MARGE) 7.0 5.0-8.0 UA PROTEIN DIPSTICK (test code = PROU) neg mg/dL Neg-15 UA UROBILINIOGEN DIPSTICK (test code = URO) norm mg/dL 0.0-0.2 UA NITRITE DIPSTICK (test code = CLARENCE) NEGATIVE NEGATIVE UA LEUKOCYTE ESTERASE DIPSTICK (test code = LEUU) neg uL NEGA TIVE UA WBC (test code = WBCU) NONE SEEN per HPF 0-5 UA RBC (test code = RBCU) NONE SEEN per HPF 0-5 UA EPITHELIAL CELLS (test code = EPIU) FEW per HPF Few UA BACTERIA (test code = BACU) TRACE per HPF NONE Urine Source? Clean CatchUR HCG [id number] 11:05:00* Test Item Value Reference Range Interpretation Comments UR HCG QUAL (test code = HCGQLU) NEGATIVE This HCGQL test is NOT applicable for MALE patients.Check with nurse about probable order error.If Tumor Marker Test needed, nurse should order test "HCGTU"(Test #550.55428) Urine Source? Clean Catch- XR CHEST 2 [id number] 11:01:00 Name: ZACH RADER [facility] : 1960 Age/S:58 /F [address] [facility] Unit#:[id number] Loc: [place] [address] Phys: Cristophre Tineo MD Dis Date: PHONE #: [phone] Status: REG ER FAX #: [phone] Exam Date: 03/20/2019 Reason: chest pain EXAMS: CPT CODE: [id number] XR CHEST 2 V 45958 HISTORY: chest pain TE CHNIQUE: PA and lateral chest x-ray COMPARISON: 10/29/18 FINDINGS: No airspace consolidation or pleural effusion. Pulmo nary hyperinflation and emphysema. Normal heart size. Mediastinal si lhouette is unremarkable. Mild thoracic spondylosis. Sternotomy wires. IMPRESSION: No acute findings or significant inte rval change. a t 1101 Reported and signed by: Esther Collins D.O. CC: Cristopher Tineo MD; Evangelist Purvis III, MD Technol ogist: Aliya Porter Trnscrpt Data: (1101) [id number] Orig Print D/T: S: 03/20/2019 (1993) PAGE 1 Signed Report URINALYSIS [id number] 10:58:00* Test Item Value Reference Range Interpretation Comments UA COLOR (test code = COLU) YELLOW YELLOW UA APPEARANCE (test code = APPU) CLEAR UA GLUCOSE DIPSTICK (test code = DGLUU) norm mg/dL NEGATIVE UA BILIRUBIN DIPSTICK (test code = BILU) NEGATIVE mg/dL NEGATIVE UA KETONE DIPSTICK (test code = KETU) neg mg/dL NEGATIVE UA SPECIFIC GRAVITY (test code = SGU) 1.005 1.001-1.035 UA BLOOD DIPSTICK (test code = MANDA) neg Tavon/uL NEGATIVE UA PH DIPSTICK (test code = MARGE) 7.0 5.0-8.0 UA PROTEIN DIPSTICK (test code = PROU) neg mg/dL Neg-15 UA UROBILINIOGEN DIPSTICK (test code = URO) norm mg/dL 0.0-0.2 UA NITRITE DIPSTICK (test code = CLARENCE) NEGATIVE NEGATIVE UA LEUKOCYTE ESTERASE DIPSTICK (test code = LEUU) neg uL NEGA TIVE UA WBC (test code = WBCU) per HPF 0-5 UA RBC (test code = RBCU) per HPF 0-5 UA EPITHELIAL CELLS (test code = EPIU) per HPF Few UA BACTERIA (test code = BACU) per HPF NONE Urine Source? Clean CatchUR HCG [id number] 10:58:00* Test Item Value Reference Range Interpretation Comments UR HCG QUAL (test code = HCGQLU) NEGATIVE This HCGQL test is NOT applicable for MALE patients.Check with nurse about probable order error.If Tumor Marker Test needed, nurse should order test "HCGTU"(Test #550.57796) Urine Source? Clean CatchURINALYSIS [id number] 10:53:00* Test Item Value Reference Range Interpretation Comments UA COLOR (test code = COLU) YELLOW YELLOW UA APPEARANCE (test code = APPU) CLEAR UA GLUCOSE DIPSTICK (test code = DGLUU) norm mg/dL NEGATIVE UA BILIRUBIN DIPSTICK (test code = BILU) NEGATIVE mg/dL NEGATIVE UA KETONE DIPSTICK (test code = KETU) neg mg/dL NEGATIVE UA SPECIFIC GRAVITY (test code = SGU) 1.005 1.001-1.035 UA BLOOD DIPSTICK (test code = MANDA) neg Tavon/uL NEGATIVE UA PH DIPSTICK (test code = MARGE) 7.0 5.0-8.0 UA PROTEIN DIPSTICK (test code = PROU) neg mg/dL Neg-15 UA UROBILINIOGEN DIPSTICK (test code = URO) norm mg/dL 0.0-0.2 UA NITRITE DIPSTICK (test code = CLARENCE) NEGATIVE NEGATIVE UA LEUKOCYTE ESTERASE DIPSTICK (test code = LEUU) neg uL NEGA TIVE UA WBC (test code = WBCU) per HPF 0-5 UA RBC (test code = RBCU) per HPF 0-5 UA EPITHELIAL CELLS (test code = EPIU) per HPF Few UA BACTERIA (test code = BACU) per HPF NONE Urine Source? Clean CatchUR HCG [id number] 10:53:00* Test Item Value Reference Range Interpretation Comments UR HCG QUAL (test code = HCGQLU) Urine Source? Clean CatchCBC W/AUTO [id number] 10:24:00* Test Item Value Reference Range Interpretation Comments WHITE BLOOD CELL (test code = WBC) 7.6 K/mm3 4.5-12.5 N RED BLOOD CELL (test code = RBC) 3.76 mill/mm3 3.7-5.2 N HEMOGLOBIN (test code = HGB) 12.6 gram/dL 11.5-15.5 N HEMATOCRIT (test code = HCT) 38.8 % 36.0-46.0 N MEAN CELL VOLUME (test code = MCV) 103.2 fL 80-98 H MEAN CELL HGB (test code = MCH) 33.5 picogram 27.0-33.0 H MEAN CELL HGB CONCETRATION (test code = MCHC) 32.5 gram/dL 33.0-36. 0 L RED CELL DISTRIBUTION WIDTH (test code = RDW) 13.6 % 11.6-16. 2 N RED CELL DISTRIBUTION WIDTH SD (test code = RDW-SD) 49.3 fL 39 .1-52.0 N PLATELET COUNT (test code = PLT) 221 K/mm3 150-450 N MEAN PLATELET VOLUME (test code = MPV) 9.2 fL 6.7-11.0 N NEUTROPHIL % (test code = NT%) 50.7 % 39.0-69.0 N LYMPHOCYTE % (test code = LY%) 40.3 % 25.0-55.0 N MONOCYTE % (test code = MO%) 7.2 % 0.0-10.0 N EOSINOPHIL % (test code = EO%) 1.7 % 0.0-5.0 N BASOPHIL % (test code = BA%) 0.1 % 0.0-1.0 N NEUTROPHIL # (test code = NT#) 3.83 K/mm3 1.8-7.7 N LYMPHOCYTE # (test code = LY#) 3.04 K/mm3 1.0-5.0 N MONOCYTE # (test code = MO#) 0.54 K/mm3 0-0.8 N EOSINOPHIL # (test code = EO#) 0.13 K/mm3 0.0-0.5 N BASOPHIL # (test code = BA#) 0.01 K/mm3 0.0-0.2 N MANUAL DIFF REQUIRED (test code = MDIFF) NO, ONLY SCAN NEEDED DIFFERENTIAL [id number] 10:24:00* Test Item Value Reference Range Interpretation Comments STAIN ACCEPTABILITY (test code = STN ACCEPTABLE) STAIN ACCEPTABLE ANISOCYTOSIS (test code = ANISO) 1+ MACROCYTOSIS (test code = MACR) 1+ PLATELET ESTIMATE (test code = PLTEST) ADEQUATE PLATELET MORPHOLOGY (test code = PLTMORPH) NORMAL COMPREHENSIVE METABOLIC [id number] 10:18:00* Test Item Value Reference Range Interpretation Comments SODIUM (test code = NA) 140 mmol/L 135-148 N POTASSIUM (test code = K) 4.3 mmol/L 3.5-5.1 N CHLORIDE (test code = CL) 104 mmol/L 101-109 N CARBON DIOXIDE (test code = CO2) 29.4 mmol/L 21-32 N ANION GAP (test code = GAP) 11 mmol/L 10-20 N GLUCOSE (test code = GLU) 112 mg/dL 74-106 H BLOOD UREA NITROGEN (test code = BUN) 9 mg/dL 3-21 N CREATININE (test code = CREAT) 0.56 mg/dL 0.55-1.3 N BUN/CREATININE RATIO (test code = BUN/CREA) 16.1 10-20 N TOTAL PROTEIN (test code = PROT) 6.8 g/dL 6.5-8.4 N ALBUMIN (test code = ALB) 3.5 g/dL 3.4-4.8 N GLOBULIN (test code = GLOB) 3.3 G/DL 1-10 N ALBUMIN/GLOBULIN RATIO (test code = A/G) 1.1 RATIO 0.75-1.50 N CALCIUM (test code = CA) 9.0 mg/dL 8.4-10.2 N BILIRUBIN TOTAL (test code = BILT) 0.40 mg/dL 0.0-1.0 N SGOT/AST (test code = AST) 10 U/L 6-32 N SGPT/ALT (test code = ALT) 23 U/L 12-78 N N ote: Change in REFERENCE RANGE due to new reagent method. ALKALINE PHOSPHATASE TOTAL (test code = ALKP) 147 U/L 38-126 H CREATINE KINASE (CK)2019-03-20 10:18:00* Test Item Value Reference Range Interpretation Comments CREATINE KINASE (CK) (test code = CK) 56 U/L 26-192 N [id number] 10:18:00* Test Item Value Reference Range Interpretation Comments CKMB (test code = CKMBT) 0.8 ng/mL 0.0-5.0 N [id number] 10:18:00* Test Item Value Reference Range Interpretation Comments TROPONIN-I (test code = TROPI) <0.015 ng/mL 0.00-0.056 N B-TYPE NATRIURETIC [id number] 10:04:00* Test Item Value Reference Range Interpretation Comments B-TYPE NATRIURETIC PEPTIDE (test code = BNP) 39.8 pg/mL 0-100 N COMPREHENSIVE METABOLIC [id number] 10:00:00* Test Item Value Reference Range Interpretation Comments SODIUM (test code = NA) 140 mmol/L 135-148 N POTASSIUM (test code = K) 4.3 mmol/L 3.5-5.1 N CHLORIDE (test code = CL) 104 mmol/L 101-109 N CARBON DIOXIDE (test code = CO2) 29.4 mmol/L 21-32 N ANION GAP (test code = GAP) 11 mmol/L 10-20 N GLUCOSE (test code = GLU) 112 mg/dL 74-106 H BLOOD UREA NITROGEN (test code = BUN) 9 mg/dL 3-21 N CREATININE (test code = CREAT) 0.56 mg/dL 0.55-1.3 N BUN/CREATININE RATIO (test code = BUN/CREA) 16.1 10-20 N TOTAL PROTEIN (test code = PROT) gram/dL 6.4-8.2 ALBUMIN (test code = ALB) g/dL 3.4-5.0 GLOBULIN (test code = GLOB) g/dL 2.7-4.2 ALBUMIN/GLOBULIN RATIO (test code = A/G) 0.75-1.50 CALCIUM (test code = CA) 9.0 mg/dL 8.4-10.2 N BILIRUBIN TOTAL (test code = BILT) mg/dL 0.2-1.2 SGOT/AST (test code = AST) IUnit/L 15-37 SGPT/ALT (test code = ALT) U/L 10-69 ALKALINE PHOSPHATASE TOTAL (test code = ALKP) IUnit/L 45-117 CREATINE KINASE (CK)2019-03-20 10:00:00* Test Item Value Reference Range Interpretation Comments CREATINE KINASE (CK) (test code = CK) IUnit/L 26-208 [id number] 10:00:00* Test Item Value Reference Range Interpretation Comments CKMB (test code = CKMBT) ng/mL 0-6.0 [id number] 10:00:00* Test Item Value Reference Range Interpretation Comments TROPONIN-I (test code = TROPI) ng/mL 0-0.045 CBC W/AUTO [id number] 09:53:00* Test Item Value Reference Range Interpretation Comments WHITE BLOOD CELL (test code = WBC) 7.6 K/mm3 4.5-12.5 N RED BLOOD CELL (test code = RBC) 3.76 mill/mm3 3.7-5.2 N HEMOGLOBIN (test code = HGB) 12.6 gram/dL 11.5-15.5 N HEMATOCRIT (test code = HCT) 38.8 % 36.0-46.0 N MEAN CELL VOLUME (test code = MCV) 103.2 fL 80-98 H MEAN CELL HGB (test code = MCH) 33.5 picogram 27.0-33.0 H MEAN CELL HGB CONCETRATION (test code = MCHC) 32.5 gram/dL 33.0-36. 0 L RED CELL DISTRIBUTION WIDTH (test code = RDW) 13.6 % 11.6-16. 2 N RED CELL DISTRIBUTION WIDTH SD (test code = RDW-SD) 49.3 fL 39 .1-52.0 N PLATELET COUNT (test code = PLT) 221 K/mm3 150-450 N MEAN PLATELET VOLUME (test code = MPV) 9.2 fL 6.7-11.0 N NEUTROPHIL % (test code = NT%) 50.7 % 39.0-69.0 N LYMPHOCYTE % (test code = LY%) 40.3 % 25.0-55.0 N MONOCYTE % (test code = MO%) 7.2 % 0.0-10.0 N EOSINOPHIL % (test code = EO%) 1.7 % 0.0-5.0 N BASOPHIL % (test code = BA%) 0.1 % 0.0-1.0 N NEUTROPHIL # (test code = NT#) 3.83 K/mm3 1.8-7.7 N LYMPHOCYTE # (test code = LY#) 3.04 K/mm3 1.0-5.0 N MONOCYTE # (test code = MO#) 0.54 K/mm3 0-0.8 N EOSINOPHIL # (test code = EO#) 0.13 K/mm3 0.0-0.5 N BASOPHIL # (test code = BA#) 0.01 K/mm3 0.0-0.2 N MANUAL DIFF REQUIRED (test code = MDIFF) NO, ONLY SCAN NEEDED DIFFERENTIAL [id number] 09:53:00* Test Item Value Reference Range Interpretation Comments STAIN ACCEPTABILITY (test code = STN ACCEPTABLE) CABOT RINGS (test code = CAB) MORPHOLOGY COMMENT (test code = MOC) PLATELET ESTIMATE (test code = PLTEST) PLATELET MORPHOLOGY (test code = PLTMORPH) CBC W/AUTO [id number] 09:53:00* Test Item Value Reference Range Interpretation Comments WHITE BLOOD CELL (test code = WBC) 7.6 K/mm3 4.5-12.5 N RED BLOOD CELL (test code = RBC) 3.76 mill/mm3 3.7-5.2 N HEMOGLOBIN (test code = HGB) 12.6 gram/dL 11.5-15.5 N HEMATOCRIT (test code = HCT) 38.8 % 36.0-46.0 N MEAN CELL VOLUME (test code = MCV) 103.2 fL 80-98 H MEAN CELL HGB (test code = MCH) 33.5 picogram 27.0-33.0 H MEAN CELL HGB CONCETRATION (test code = MCHC) 32.5 gram/dL 33.0-36. 0 L RED CELL DISTRIBUTION WIDTH (test code = RDW) 13.6 % 11.6-16. 2 N RED CELL DISTRIBUTION WIDTH SD (test code = RDW-SD) 49.3 fL 39 .1-52.0 N PLATELET COUNT (test code = PLT) 221 K/mm3 150-450 N MEAN PLATELET VOLUME (test code = MPV) 9.2 fL 6.7-11.0 N NEUTROPHIL % (test code = NT%) 50.7 % 39.0-69.0 N LYMPHOCYTE % (test code = LY%) 40.3 % 25.0-55.0 N MONOCYTE % (test code = MO%) 7.2 % 0.0-10.0 N EOSINOPHIL % (test code = EO%) 1.7 % 0.0-5.0 N BASOPHIL % (test code = BA%) 0.1 % 0.0-1.0 N NEUTROPHIL # (test code = NT#) 3.83 K/mm3 1.8-7.7 N LYMPHOCYTE # (test code = LY#) 3.04 K/mm3 1.0-5.0 N MONOCYTE # (test code = MO#) 0.54 K/mm3 0-0.8 N EOSINOPHIL # (test code = EO#) 0.13 K/mm3 0.0-0.5 N BASOPHIL # (test code = BA#) 0.01 K/mm3 0.0-0.2 N MANUAL DIFF REQUIRED (test code = MDIFF) NO, ONLY SCAN NEEDED DIFFERENTIAL [id number] 09:53:00* Test Item Value Reference Range Interpretation Comments STAIN ACCEPTABILITY (test code = STN ACCEPTABLE) CABOT RINGS (test code = CAB) MORPHOLOGY COMMENT (test code = MOC) PLATELET ESTIMATE (test code = PLTEST) PLATELET MORPHOLOGY (test code = PLTMORPH) CBC W/AUTO [id number] 09:53:00* Test Item Value Reference Range Interpretation Comments WHITE BLOOD CELL (test code = WBC) 7.6 K/mm3 4.5-12.5 N RED BLOOD CELL (test code = RBC) 3.76 mill/mm3 3.7-5.2 N HEMOGLOBIN (test code = HGB) 12.6 gram/dL 11.5-15.5 N HEMATOCRIT (test code = HCT) 38.8 % 36.0-46.0 N MEAN CELL VOLUME (test code = MCV) 103.2 fL 80-98 H MEAN CELL HGB (test code = MCH) 33.5 picogram 27.0-33.0 H MEAN CELL HGB CONCETRATION (test code = MCHC) 32.5 gram/dL 33.0-36. 0 L RED CELL DISTRIBUTION WIDTH (test code = RDW) 13.6 % 11.6-16. 2 N RED CELL DISTRIBUTION WIDTH SD (test code = RDW-SD) 49.3 fL 39 .1-52.0 N PLATELET COUNT (test code = PLT) 221 K/mm3 150-450 N MEAN PLATELET VOLUME (test code = MPV) 9.2 fL 6.7-11.0 N NEUTROPHIL % (test code = NT%) 50.7 % 39.0-69.0 N LYMPHOCYTE % (test code = LY%) 40.3 % 25.0-55.0 N MONOCYTE % (test code = MO%) 7.2 % 0.0-10.0 N EOSINOPHIL % (test code = EO%) 1.7 % 0.0-5.0 N BASOPHIL % (test code = BA%) 0.1 % 0.0-1.0 N NEUTROPHIL # (test code = NT#) 3.83 K/mm3 1.8-7.7 N LYMPHOCYTE # (test code = LY#) 3.04 K/mm3 1.0-5.0 N MONOCYTE # (test code = MO#) 0.54 K/mm3 0-0.8 N EOSINOPHIL # (test code = EO#) 0.13 K/mm3 0.0-0.5 N BASOPHIL # (test code = BA#) 0.01 K/mm3 0.0-0.2 N MANUAL DIFF REQUIRED (test code = MDIFF) NO, ONLY SCAN NEEDED DIFFERENTIAL [id number] 09:53:00* Test Item Value Reference Range Interpretation Comments STAIN ACCEPTABILITY (test code = STN ACCEPTABLE) MORPHOLOGY COMMENT (test code = MOC) PLATELET ESTIMATE (test code = PLTEST) PLATELET MORPHOLOGY (test code = PLTMORPH) CBC W/AUTO [id number] 09:53:00* Test Item Value Reference Range Interpretation Comments WHITE BLOOD CELL (test code = WBC) 7.6 K/mm3 4.5-12.5 N RED BLOOD CELL (test code = RBC) 3.76 mill/mm3 3.7-5.2 N HEMOGLOBIN (test code = HGB) 12.6 gram/dL 11.5-15.5 N HEMATOCRIT (test code = HCT) 38.8 % 36.0-46.0 N MEAN CELL VOLUME (test code = MCV) 103.2 fL 80-98 H MEAN CELL HGB (test code = MCH) 33.5 picogram 27.0-33.0 H MEAN CELL HGB CONCETRATION (test code = MCHC) 32.5 gram/dL 33.0-36. 0 L RED CELL DISTRIBUTION WIDTH (test code = RDW) 13.6 % 11.6-16. 2 N RED CELL DISTRIBUTION WIDTH SD (test code = RDW-SD) 49.3 fL 39 .1-52.0 N PLATELET COUNT (test code = PLT) 221 K/mm3 150-450 N MEAN PLATELET VOLUME (test code = MPV) 9.2 fL 6.7-11.0 N NEUTROPHIL % (test code = NT%) 50.7 % 39.0-69.0 N LYMPHOCYTE % (test code = LY%) 40.3 % 25.0-55.0 N MONOCYTE % (test code = MO%) 7.2 % 0.0-10.0 N EOSINOPHIL % (test code = EO%) 1.7 % 0.0-5.0 N BASOPHIL % (test code = BA%) 0.1 % 0.0-1.0 N NEUTROPHIL # (test code = NT#) 3.83 K/mm3 1.8-7.7 N LYMPHOCYTE # (test code = LY#) 3.04 K/mm3 1.0-5.0 N MONOCYTE # (test code = MO#) 0.54 K/mm3 0-0.8 N EOSINOPHIL # (test code = EO#) 0.13 K/mm3 0.0-0.5 N BASOPHIL # (test code = BA#) 0.01 K/mm3 0.0-0.2 N MANUAL DIFF REQUIRED (test code = MDIFF) NO, ONLY SCAN NEEDED DIFFERENTIAL [id number] 09:53:00* Test Item Value Reference Range Interpretation Comments STAIN ACCEPTABILITY (test code = STN ACCEPTABLE) CABOT RINGS (test code = CAB) MORPHOLOGY COMMENT (test code = MOC) PLATELET ESTIMATE (test code = PLTEST) PLATELET MORPHOLOGY (test code = PLTMORPH) [O] Drug Screen Urine (in Office)2019-03-09 16:34:00* Test Item Value Reference Range Interpretation Comments Marijuana (THC) (test code = Marijuana (THC)) negative N Cocaine (VIRIDIANA) (test code = Cocaine (VIRIDIANA)) negative N Amphetamine (AMP) (test code = Amphetamine (AMP)) negative N Methamphetamine (MET) (test code = Methamphetamine (MET)) negative N Morphine (MOP/ORS1501) (test code = Morphine (MOP/KKO0940)) negativ e N Morphine 2000 (OPI) (test code = Morphine 2000 (OPI)) negative N Methylenedioxymethamphetamine (MDMA) (te st code = Methylenedioxymethamphetamine (MDMA)) negative N Barbiturates (BAR) (test code = Barbiturates (BAR)) negative N Benzodiazepines (BZO) (test code = Benzodiazepines (BZO)) negative N Methadone (MTD) (test code = Methadone (MTD)) negative N Oxycodone (OXY) (test code = Oxycodone (OXY)) negative N Phencyclidine (PCP) (test code = Phencyclidine (PCP)) negative N Tri-cyclic Antidepressant (TCA) (test code = Tri-cycli c Antidepressant (TCA)) negative N [facility][Q] DRUG ABUSE PANEL [id number] 00:00:00* Test Item Value Reference Range Interpretation Comments Fluoroquin Resist 1 (test code = Fluoroquin Resist 1) See Below * These results are for medical treatment only. * * Analysis was performed as non- forensic testing. * AMPHETAMINES (1000 ng/mL SCREEN) (test code = AMPHETAM ESPERANZA (1000 ng/mL SCREEN)) NEGATIVE N BARBITUATES (test code = BARBITUATES) NEGATIVE N BENZODIAZEPINES (test code = BENZODIAZEPINES) NEGATIVE N COCAINE METABOLITES (test code = COCAINE METABOLITES) NEGATIVE N MARIJUANA METABOLITES (50 ng/mL SCREEN) (test code = MARIJUANA METABOLITES (50 ng/mL SCREEN)) NEGATIVE N METHADONE (test code = METHADONE) NEGATIVE N OPIATES (test code = OPIATES) NEGATIVE N PHENCYCLIDINE (test code = PHENCYCLIDINE) NEGATIVE N PROPOXYPHENE (test code = PROPOXYPHENE) NEGATIVE N See Comment (test code = See Comment) See Comment THE SUBMITTED URINE SPECIMEN WAS TESTED AT THE LISTED CUTOFF LEVELS AND CONFIRMED BY A SECOND INDEPENDENT CHEMICAL METHOD. DRUG CLASS INITIAL CUTOFF LEVEL AMPHETAMINES 1000 ng/mL BARBITURATES 300 ng/mL BENZODIAZEPINES 300 ng/mL COCAINE METABOLITES 300 ng/mL MARIJUANA METABOLITES 50 ng/mL METHADONE 300 ng/mL OPIATES 300 ng/mL PHENCYCLIDINE 25 ng/mL PROPOXYPHENE 300 ng/mL [facility][Q] TEST AUTHORIZATION [id number] 08:00:00* Test Item Value Reference Range Interpretation Comments TEST NAME: (test code = TEST NAME:) DRUG ABUSE PANEL 9-50 TEST CODE: (test code = TEST CODE:) [id number] CLIENT CONTACT: (test code = CLIENT CONTACT:) ERASTO MONTOYA Comments: (test code = Comments:) See Comment Please fax this signed form to [phone]. Please donot attempt to return this document by other methods.Documents will not be viewed by a automobile sales representative. Please do not use this fax number for other service requests. [facility][Q] TEST IN QUESTION- AMBIGUOUS [id number] 06:00:00* Test Item Value Reference Range Interpretation Comments Comments: (test code = Comments:) See Comment WE ARE UNABLE TO ASCERTAIN THE TEST(S) YOU DESIREFROM THE FOLLOWING WRITTEN ORDER. UNCLEAR ORDER: (test code = UNCLEAR ORDER:) URINE DRUG SCREEN [address] [facility][O] Drug Screen Urine (in Office)2018-12-20 11:56:00* Test Item Value Reference Range Interpretation Comments Marijuana (THC) (test code = Marijuana (THC)) negative N Cocaine (VIRIDIANA) (test code = Cocaine (VIRIDIANA)) negative N Amphetamine (AMP) (test code = Amphetamine (AMP)) negative N Methamphetamine (MET) (test code = Methamphetamine (MET)) negative N Morphine (MOP/CGM3037) (test code = Morphine (MOP/SLS1333)) negativ e N Morphine 2000 (OPI) (test code = Morphine 2000 (OPI)) negative N Methylenedioxymethamphetamine (MDMA) (te st code = Methylenedioxymethamphetamine (MDMA)) negartive N Barbiturates (BAR) (test code = Barbiturates (BAR)) negative N Benzodiazepines (BZO) (test code = Benzodiazepines (BZO)) negative N Methadone (MTD) (test code = Methadone (MTD)) negative N Oxycodone (OXY) (test code = Oxycodone (OXY)) negative N Phencyclidine (PCP) (test code = Phencyclidine (PCP)) negative N Tri-cyclic Antidepressant (TCA) (test code = Tri-cycli c Antidepressant (TCA)) negative N [facility][Q] DRUG ABUSE PANEL [id number] 00:00:00* Test Item Value Reference Range Interpretation Comments Fluoroquin Resist 1 (test code = Fluoroquin Resist 1) See Below * These results are for medical treatment only. * * Analysis was performed as non- forensic testing. * AMPHETAMINES (1000 ng/mL SCREEN) (test code = AMPHETAM ESPERANZA (1000 ng/mL SCREEN)) NEGATIVE N BARBITUATES (test code = BARBITUATES) NEGATIVE N BENZODIAZEPINES (test code = BENZODIAZEPINES) NEGATIVE N COCAINE METABOLITES (test code = COCAINE METABOLITES) NEGATIVE N MARIJUANA METABOLITES (50 ng/mL SCREEN) (test code = MARIJUANA METABOLITES (50 ng/mL SCREEN)) NEGATIVE N METHADONE (test code = METHADONE) NEGATIVE N OPIATES (test code = OPIATES) NEGATIVE N PHENCYCLIDINE (test code = PHENCYCLIDINE) NEGATIVE N PROPOXYPHENE (test code = PROPOXYPHENE) NEGATIVE N See Comment (test code = See Comment) See Comment THE SUBMITTED URINE SPECIMEN WAS TESTED AT THE LISTED CUTOFF LEVELS AND CONFIRMED BY A SECOND INDEPENDENT CHEMICAL METHOD. DRUG CLASS INITIAL CUTOFF LEVEL AMPHETAMINES 1000 ng/mL BARBITURATES 300 ng/mL BENZODIAZEPINES 300 ng/mL COCAINE METABOLITES 300 ng/mL MARIJUANA METABOLITES 50 ng/mL METHADONE 300 ng/mL OPIATES 300 ng/mL PHENCYCLIDINE 25 ng/mL PROPOXYPHENE 300 ng/mL [facility]2018-12-01 00:00:00* Test Item Value Reference Range Interpretation Comments Glucose POC [facility] (test code = Glucose POC [facility]) [address] [facility][Q] DRUG ABUSE PANEL [id number] 00:00:00* Test Item Value Reference Range Interpretation Comments Fluoroquin Resist 1 (test code = Fluoroquin Resist 1) See Below * These results are for medical treatment only. * * Analysis was performed as non- forensic testing. * AMPHETAMINES (1000 ng/mL SCREEN) (test code = AMPHETAM ESPERANZA (1000 ng/mL SCREEN)) NEGATIVE N BARBITUATES (test code = BARBITUATES) NEGATIVE N BENZODIAZEPINES (test code = BENZODIAZEPINES) NEGATIVE N COCAINE METABOLITES (test code = COCAINE METABOLITES) NEGATIVE N MARIJUANA METABOLITES (50 ng/mL SCREEN) (test code = MARIJUANA METABOLITES (50 ng/mL SCREEN)) NEGATIVE N METHADONE (test code = METHADONE) NEGATIVE N OPIATES (test code = OPIATES) POSITIVE A MORPHINE (test code = MORPHINE) POSITIVE A CODEINE (test code = CODEINE) POSITIVE A HYDROMORPHONE (test code = HYDROMORPHONE) NEGATIVE CONFIRMED N HYDROCODONE (test code = HYDROCODONE) NEGATIVE CONFIRMED N PHENCYCLIDINE (test code = PHENCYCLIDINE) NEGATIVE N PROPOXYPHENE (test code = PROPOXYPHENE) NEGATIVE N See Comment (test code = See Comment) See Comment THE SUBMITTED URINE SPECIMEN WAS TESTED AT THE LISTED CUTOFF LEVELS AND CONFIRMED BY A SECOND INDEPENDENT CHEMICAL METHOD. DRUG CLASS INITIAL CUTOFF LEVEL AMPHETAMINES 1000 ng/mL BARBITURATES 300 ng/mL BENZODIAZEPINES 300 ng/mL COCAINE METABOLITES 300 ng/mL MARIJUANA METABOLITES 50 ng/mL METHADONE 300 ng/mL OPIATES 300 ng/mL PHENCYCLIDINE 25 ng/mL PROPOXYPHENE 300 ng/mL [facility] 16[facility]15:00 RUN DATE: 10/28/18 [facility] PAGE 1 RUN TIME: 1615 Specimen Inqui ry RUN USER: INTERFACE PATIENT: ZACH RADER LAINEY ACCT #: [id number] LOC: MARIA FERNANDA U #: [id number] AGE/SX: 58/F ROOM: [facility] RE10/25/18REG DR: Andie New : 60 BED: B DIS: 10/27/18 STATUS: DIS Melissa TLOC: SPEC #: [id number] RECD: 10/27/18 STATUS: ROSALVASu SYLVIE #: [id number] YONATHAN: 10/27/18- DR: Milton Arriaga MD ENTERED: 10/27/18 SP TYPE: STOMACH OTHR DR: Ugo Vasques i, MD, Gerardo MD Ponce III,Evangelist Stuart MDORDERED: GROSS COPIES TO: Milton Arriaga MD [address] [place] [address] Ugo Hernandez MD [address] [place] [address] Kelby Jiménez MD [address] [place] [address] Evangelist Purvis III, MD [address] [place], [place] [id number] PROCEDURES: VIDYA SS (10/28/18-1307) TISSUES: 1. DUODENUM, NOS - BX 2. GASTRIC U LCER - BX 3. PYLORIC ANTRUM - ULCER BX CLINICAL HISTORY COLLE CTION DATE: 10/27/18 ABDOMINAL PAIN FINAL DIAGNOSIS Duodenum, bi opsy: DUODENAL MUCOSA WITH UNREMARKABLE VILLOUS ARCHITECTURE AND MILDLY INCREASED CHRONIC INFLAMMATION NO ACUTE INFLAMMATORY INFILTRATE PRESENT CONTINUED ON NEXT PAGE RUN DATE: 10/28/18 [facility] PAGE 2 RUN TIME: 1615 Specimen Inquiry RUN USER: INTERFACE SPEC #: [id number] PATIENT: ZACH RADER #[id number] (Continued) FINAL DIAGNOSIS ( Continued) NO INTRAEPITHELIAL INFLAMMATION PRESENT NEGATIVE FOR M ALIGNANCY Gastric tissue, biopsy: COMPATIBLE WITH MILD REACTIVE GAS TROPATHY NO AREAS OF MUCOSAL EROSION/ULCERATION NO ACUTE INFLAMMA TORY INFILTRATE PRESENT PATCHY MILD CHRONIC GASTRITIS NEGATIVE FOR INTESTINAL METAPLASIA NEGATIVE FOR HELICOBACTER ORGANISMS NEGATIV E FOR MALIGNANCY Pyloric channel ulcer, biopsy: GASTRIC MUCOSA WITH ACUTE INFLAMMATION AND FOCAL REACTIVE/REGENERATIVE EPITHELIAL CHANGE NEGATIVE FOR MALIGNANCY RRB/sm D 3)12701, 17083 MACROSCOPIC The first specimen is received in formalin, labeled with the patient's name, identified as "duodenal", and consists of multiple rosenberg biopsy tissue measuring 0.4 cm, submitted as (1). The second specimen is receiv ed in formalin, labeled with the patient's name, identified as "gastric", and consists of multiple rosenberg biopsy tissue measuring 0.35 cm in aggregate, submitt ed as (2) for H E and Giemsa stains. The third specimen is received in for josué, labeled with the patient's name, identified as "pyloric channel ulcer", and consists of pink biopsy tissue measuring 0.3 cm, submitted as (3). GROSS PERFORMED AT [facility] [address] [facility] [address] (p)[phone] MICROSCOPIC MICROSCOP IC PERFORMED AT [facility] All of the stains, including any contro ls performed, stain appropriately. CONTINU ED ON NEXT PAGE RUN DATE: 10/28/18 [facility] - Lab PAGE 3 RUN TIME: 1615 Specimen Inquiry RUN USER: INTERFACE SPEC #: [id number] QUANG IENT: ZACH RADER #[id number] (Continued) MICROSCOPIC (Continued) [facility] [address] [place] [address] (p)[phone] PERFORMING SITE Diagno sis performed at: [facility], [address] [place] [address] Signed SIGNATU RE ON FILE Jerel Rodriguez 10/28/18 1615 - END OF RE PORT CHEM [id number] 15:52[facility] [id number] 15:52:95979Iwtywopo HermannCHEM [id number] 15:52:003.2[facility] [id number] 15:52:003.0[facility] [id number] 15:52:006.2 [facility] HermannCHEM [id number] 15:52:00* Test Item Value Reference Range Interpretation Comments A/G Ratio (test code = A/G Ratio) 1.1 1 0.7-1.6 [facility] HermannCHEM [id number] 15:52:0022[facility]ann[facility]M PANEL 2018-10-22 15:52:0010[facility]ann[facility] [id number] 15:52:13527Cxjizfkv HermannCHEM [id number] 15:52:00<0.1[facility]ann[facility] [id number] 15:52:000.4[facility]ann[facility] [id number] 15:52:00>0.3[facility] CARDIAC [id number] 15:21:23949Xwljamxu HermannCARDIAC [id number] 15:21:00<0.02[facility] LthkbkyBXTZQCXUAQTI8900-89-96 15:21:0011.6[facility] HLYLHJMYPOSA4448-14-38 15:21:0099[facility] QnivfmbMTPRYYFAIOJH1989-90-54 15:21:00 26[facility] XmnawfxKDYEULKKEYDP0471-18-82 15:21:008.3[facility] HermannELECTROLYTES 2018-10-22 15:21:003.6[facility] NyuznmoLNYZXHZSZUZR3745-08-41 15:21:77465Fvsdfuny McvzsojEKNPMXCRIZFC2455-15-13 15:21:000.63[facility] HermannELECTROLYTES 2018-10-22 15:21:28737Otwxlvgv KxnvbnpAZUHECWQFZGI2804-06-42 15:21:009[facility] LnrshxtRKUCMCFTWZTA8424-02-31 15:21:61831Jdqdpkmg GizaqdlFMRDIDUAPE5743-19-45 15:21:0011.5[facility] RvqashtEITGXNXOQN0733-04-48 15:21:008.0[facility] SHSAJTDYMX7188-73-94 15:21:0037.2[facility] YnuxpibBLBKUJXUTA6250-10-08 15:21:00 12.5[facility] IylslvqHTSXZXAKNK2346-06-47 15:21:003.73[facility]annHEMATOLOGY 2018-10-22 15:21:90487Vwzlctha GxnfkbpQDPUAHWSVT2402-41-73 15:21:0015.1[facility] DbekpwfIOWBVRXXCE6793-09-43 15:21:0033.5[facility] AtcwtokTSOGPXZLXV7754-02-51 15:21:00* Test Item Value Reference Range Interpretation Comments MCH (test code = MCH) 33.5 pg 27.0-31.0 [facility] InwlmkdOPMOXQHDRY8963-49-65 15:21:0099.9[facility] HermannHEMATOLOGY 2018-10-22 15:21:008.4[facility] SbimrhmTRDMWJUMQI3010-59-29 15:21:000.4[facility] ThkcgzvBYNLEFTXOZ6126-28-50 15:21:002.5[facility] DhsksdgWUDDHBALYT9524-03-33 15:21:005.2[facility] HfdjujiENKYZBQUEV2420-95-10 15:21:000.3[facility] HCJLQZEFMU4589-01-89 15:21:000.6[facility] XnjncpdJAZWZOZMSM6909-83-73 15:21:002.1 [facility] XcamzehRWWIGNYLGW2838-40-28 15:21:001+ *ABN*(10/22/18 9:21 AM)[facility] JygmekvCMHXCDQXIJ0113-54-95 15:21:0073.3[facility] WhbqzxqQBLVUMLGVJ5347-83-28 15:21:0018.6[facility]annURINE AND LRBJW7774-46-71 23:26:00Negative (10/21/18 5:26 PM)[facility] YXDQY1777-57-65 23:26:00Negative (10/21/18 5:26 PM)[facility] RKLRQ5021-54-63 23:26:00Negative (10/21/18 5:26 PM)[facility] BDDBJ1067-72-83 23:26:00Negative *NA*(10/21/18 5:26 PM)[facility] WQSVY0666-45-03 23:26:00Negative *NA*(10/21/18 5:26 PM)[facility] RGAXY9030-43-22 23:26:00* Test Item Value Reference Range Interpretation Comments UA Spec Grav (test code = UA Spec Grav) 1.004 1 [facility] VQKHP0664-11-99 23:26:00Negative (10/21/18 5:26 PM) [facility] RPBPQ4428-94-45 23:26:00* Test Item Value Reference Range Interpretation Comments UA pH (test code = UA pH) 7.0 1 5.0-8.0 [facility] PWPBV2226-16-11 23:26:00Clear (10/21/18 5:26 PM) [facility]annCARDIAC MRNMNVY9648-45-61 23:15:00<0.02[facility] HermannCHEM XVFOE3900-34-92 23:15:79095Ofskbqpe ArccxtpNMINJFEJPVFP3651-68-21 23:15:90073 [facility] JindtanZEGAKDDYXBKH3975-63-28 23:15:0030[facility]annELECTROLYTES 2018-10-21 23:15:006.8[facility] AcxahvyEMRJIOMCCEAX4673-91-39 23:15:003.4[facility] ZseowybQWBXJEQQAIDI8147-16-55 23:15:008.5[facility] BwvlkgiMYZSYGXFUAWS2886-38-92 23:15:0032[facility] XsshovmCBZGIGMHQRRY8772-02-80 23:15:46923Ofiwziro Woody LGRWWKKRATZX2469-02-83 23:15:003.9[facility] ImzizfrGNFJJTZKRCEC5604-12-05 23:15:20984Bgdqiwgz KwmmlvmRMDWVIXIOEEE1653-42-12 23:15:000.73[facility] SAXDPKLRPYLQ1629-26-46 23:15:0011[facility] KcooxxsUVXDSFEGLSLI7374-36-67 23:15:00 90[facility] PdbbnblJGXQSDTTGJMK3810-47-40 23:15:000.2[facility] HermannELECTROLYTES 2018-10-21 23:15:83028Qvddsvog MthuzbxMKOOYBBCBBFM7598-87-77 23:15:0010[facility] FkwtxkaXAAFQRRAOWRS3576-18-96 23:15:008.9[facility] WketkyaJSAKIMOCSDKW3012-73-91 23:15:00* Test Item Value Reference Range Interpretation Comments A/G Ratio (test code = A/G Ratio) 1.0 1 0.7-1.6 [facility] QelhhwuRMNEEWIGOAJL2974-89-89 23:15:003.4[facility] HermannELECTROLYTES 2018-10-21 23:15:00* Test Item Value Reference Range Interpretation Comments B/C Ratio (test code = B/C Ratio) 15 1 6-25 [facility] DistrictEccqbmmMAJKHLJDRH6566-23-30 23:15:00* Test Item Value Reference Range Interpretation Comments INR (test code = INR) 1.02 1 0.85-1.17 [facility] DistrictJnzogylJNDAETIHBE2349-87-18 23:15:00* Test Item Value Reference Range Interpretation Comments PT (test code = PT) 13.2 s 12.0-14.7 [facility] QhabkktSEZOSGPVQO8888-03-63 23:15:00* Test Item Value Reference Range Interpretation Comments PTT (test code = PTT) 27.2 s 22.9-35.8 [facility] TjkvymcTCARSCDTVR7337-18-51 23:15:007.8[facility]annHEMATOLOGY 2018-10-21 23:15:00* Test Item Value Reference Range Interpretation Comments MCH (test code = MCH) 33.1 pg 27.0-31.0 [facility] LbqjpenIAEIZTVVHW0162-40-66 23:15:0098.2[facility] HermannHEMATOLOGY 2018-10-21 23:15:003.85[facility] AqdplcvLDSFRPRARY7626-76-04 23:15:0037.8[facility] FpocdiwBKNIFHPFMZ8027-52-47 23:15:0012.7[facility] ZxblraqEPAPKZGOYS0678-86-49 23:15:93348Stqxufhp OulpusrNCDCUMQMOZ3505-83-36 23:15:0015.1[facility] LBXRNFRBMG9277-87-56 23:15:0033.7[facility] RhpuyiuFAXZKJTEEF9011-84-49 23:15:00 9.5[facility] EpxkhkaXWSICYMURH1163-25-56 23:15:000.3[facility] HermannHEMATOLOGY 2018-10-21 23:15:005.9[facility] TqdkalpQZKVGRRKKC9672-91-69 23:15:003.2[facility] HzcsrijYVYBILDXFN1880-36-20 23:15:000.4[facility] WuwpeofDCIWXVFPTO6992-88-98 23:15:005.6[facility] BbvzqlgZUCYDWMZGD8043-96-42 23:15:003.0[facility] MUACWSXONU8607-27-00 23:15:000.6[facility] KkbhpxzXHIQPRXJZY9907-23-73 23:15:00 31.8[facility] OdxzdlzFTXHGQTOFP2499-93-92 23:15:0058.7[facility] HermannGlucose (Point of Care In Office)2018-09-30 00:00:00* Test Item Value Reference Range Interpretation Comments Glucose POC Lifescan (test code = Glucose POC Lifescan) [address] PhysiciansCARDIAC YNEDUWR0035-18-10 13:33:75691Ujuidten HermannCARDIAC FFNRQWC3799-45-18 13:33:00<0.02[facility] HermannCHEM PANEL 2018-02-10 13:33:40960Thepubix HermannCHEM POPFO6676-56-85 13:33:00* Test Item Value Reference Range Interpretation Comments A/G Ratio (test code = A/G Ratio) 0.8 1 0.7-1.6 [facility]annCHEM GNTMZ0365-50-02 13:33:003.7[facility] HermannCHEM PANEL 2018-02-10 13:33:00* Test Item Value Reference Range Interpretation Comments B/C Ratio (test code = B/C Ratio) 35 1 6-25 [facility]annCHEM VPNFN1237-80-90 13:33:0012.7[facility] HermannCHEM PANEL 2018-02-10 13:33:000.4[facility] HermannCHEM GIRHP8424-15-76 13:33:74589Cvkrryir HermannCHEM GMZSL9243-33-17 13:33:006.5[facility] HermannCHEM HSMDW9932-23-34 13:33:007[facility] HermannCHEM XUEJA3748-31-23 13:33:0024[facility] HermannCHEM JCFYM5267-93-40 13:33:002.8[facility] HermannCHEM AKXQP1102-34-03 13:33:004.7 [facility]annCHEM EOQXC3248-65-27 13:33:89598Bdyecetq HermannCHEM PANEL 2018-02-10 13:33:85291Vpxxabty HermannCHEM PYVVJ7405-28-17 13:33:000.62[facility] HermannCHEM WJGVL3802-34-78 13:33:0022[facility] HermannCHEM WPBVL7556-70-87 13:33:008.2[facility] HermannCHEM VQUKO1768-02-97 13:33:0027[facility] HermannCHEM WUQRO6495-66-33 13:33:24038Ywpfjvyo WlbczwkQVACUIDHDY0912-57-39 13:33:008.2 [facility] RebymegEQCVLOFZPF6223-30-26 13:33:24643Sanoafgt HermannHEMATOLOGY 2018-02-10 13:33:0012.1[facility] MjdjjruSDNFOZZTTU4423-03-40 13:33:0034.5[facility] SyjdsrcPGNKLSQCFH5723-87-16 13:33:003.57[facility] VwtfqkmHCLASPTAYM8494-14-65 13:33:0011.7[facility] QundjepUKHMXOBGNS6618-96-99 13:33:0014.0[facility] SBZGHOONRV0477-47-43 13:33:00* Test Item Value Reference Range Interpretation Comments MCH (test code = MCH) 32.8 pg 27.0-31.0 [facility] OwvukaiCDNSSGVBAX1522-08-00 13:33:0033.9[facility] HermannHEMATOLOGY 2018-02-10 13:33:0096.6[facility] NvjtrzvSIOPLHNLUO6872-05-52 13:33:009.9[facility] IdimkefOWMYWEJUBF6558-29-61 13:33:000.5[facility] TtxtzryGTHMWOBMMZ5428-40-23 13:33:001.6[facility] EitonbvYCMLPDUROO0644-75-51 13:33:004.3[facility] VADUFSPTED4003-02-05 13:33:000.4[facility] ZdkzimnOURKIPTKHJ5414-00-48 13:33:00 81.9[facility] TltkrstSVEVYNVANF7051-82-28 13:33:0013.4[facility] HermannURINE AND JPVHA1150-30-27 13:33:002[facility]annURINE AND JFVAN1956-87-94 13:33:001 [facility] AND QDECP0980-19-74 13:33:00Negative (02/10/18 8:33 AM) [facility] JVIPZ0947-94-99 13:33:00Small *ABN*(02/10/18 8:33 AM) [facility] YFYYM6649-28-08 13:33:00Negative (02/10/18 8:33 AM) [facility] HVQSY8391-72-13 13:33:00Negative *NA*(02/10/18 8:33 AM) [facility] AHRCQ5074-67-25 13:33:00Yellow *NA*(02/10/18 8:33 AM) [facility] VDFKV4184-74-08 13:33:00* Test Item Value Reference Range Interpretation Comments UA pH (test code = UA pH) 6.0 1 5.0-8.0 [facility] AND ENQYG3967-15-55 13:33:00Clear (02/10/18 8:33 AM) [facility] IEAYL9518-05-25 13:33:00* Test Item Value Reference Range Interpretation Comments UA Spec Grav (test code = UA Spec Grav) 1.027 1 [facility]
--- OUTSIDE RECORDS SUMMARY | 2020-05-01 20:55 | XMS REPORT ---
Author Author Admin, Ruchi Tang Organization Unknown Address Unknown Phone Unavailable PROBLEMS Condition Status Date Provider Notes Stimulant abuse active David Graff DEPRESSIVE DISORDER, MAJOR, RECURRENT EPISODE, MODERATE active David Graff ENCOUNTERS Date Type Provider Location Encounter Diagn osis - Ambulatory Encounter Pearl Iverson [facility] UNK - Ambulatory Encounter David landonamy Dajuan [facility] UNK - Ambulatory Encounter David landonamy Dajuan [facility] UNK - Ambulatory Encounter David brown [facility] UNK - Ambulatory Encounter David Quanuno [facility] UNK - Ambulatory Encounter David rGaff [facility] UNK - Ambulatory Encounter David Coleman [facility] UNK - Ambulatory Encounter David Graff [facility] UNK - Ambulatory Encounter David Desai [facility] UNK - Ambulatory Encounter Viridiana Iverson [facility] UNK - Ambulatory Encounter David Graff [facility] UNK - Ambulatory Encounter David Marrero [facility] UNK - Ambulatory Encounter Viridiana Iverson [facility] UNK - Ambulatory Encounter Viridiana Rodriguez [facility] UNK - Ambulatory Encounter Viridiana Iverson [facility] UNK - Ambulatory Encounter David Graff [facility] UNK - Ambulatory Encounter David Costa [facility] DEPRESSIVE DISORDER, MAJOR, RECURRENT EP ISODE, MODERATEStimulant abuse - Ambulatory Encounter Sylvia Iverson [facility] UN VITAL SIGNS No Information Available Allergies No Known Allergy Information REASON FOR REFERRAL No Information Available RESULTS No Information Available HISTORY OF IMMUNIZATIONS No Information Available HISTORY OF MEDICATION USE Medication Instructions Dates Provider Comments ABILIFY 5 MG ORAL TABLET Take 1 tab By Mouth take at bedtime 201 06/30/14 David Graff SOCIAL HISTORY Date Observation Value Provider smoking, advice to quit Yes David Graff " smoking status current some day smoker David Graff smoking, advice to quit Yes David Graff " smoking status current some day smoker David Graff " social history E&M Grew up in [address] oldest of 14 kids - Dad not very involved Lives with of 24 years and with daughter and one grandchildren Graduated from [employer] - 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 Graff " social history reviewed E&M reviewed today Chris Graff smoking, advice to quit Yes David Graff " smoking status current some day smoker David Graff " social history E&M Grew up in [place] - 3rd oldest of 14 kids - Dad not very involved Lives with of 24 years and with daughter and one grandchildren Graduated from [employer] - 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 Graff " social history reviewed E&M reviewed today Chris Graff drug use, illicit, frequency few times per month David Graff" drug use, illicit, drug of choice cocaine David Graff" drug use, illicit Currently David Graff" alcohol use, frequency few times per week Joaquina Graff " alcohol use Currently David Graff" smoking, advice to quit Yes David Graff" smoking status current some day smoker David Graff" social history reviewed E&M reviewed today Chris Graff" social history E&M Grew up in [place] - [facility] oldest of 14 kids - Dad not very involved Lives with of 24 years and with daughter and one grandchildren Graduated from [employer] [place] [employer] - disabled since 2015 - 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 David Graff" family support Grew up in [place] - 3rd oldest of 14 kids - Dad not very involved David Graff" home/family situation, assessment Lives with of 24 years and with daughter and one grandchildren David Graff FUNCTIONAL STATUS No Information Available MENTAL STATUS Date Observation Value Provider mental status assessment, judgment fair David Graff" insight (mental status exam) fair Cody haamy Graff " Mental Status Exam: intelligence oriente d to person, oriented to place, oriented to time, oriented to reality David Graff " hallucinations none David Graff " thought content (mental status exam) (E&M) lucid David Graff " mental status assessment, process goal-directed, logical David Graff " mental status assessment, sensorium alert, clear David Graff " affect (mental status exam) congruent, normal in tensity, normal range David Graff " mental status assessment, speech activit y normal flow, normal pace, normal pressure, normal rate, normal tone, spontaneous, soft-spoken David Graff " mental status assessment, motor activity normal posture David Graff" behavior (mental status exam) appropriat e, cooperative, good eye contact, responsive David Graff" mental appearance (mental status exam) adequate hygiene, appropriate dress David Graff mental status assessment, judgment fair David Graff " insight (mental status exam) fair Cody haamy Graff " Mental Status Exam: intelligence oriente d to person, oriented to place, oriented to time, oriented to reality David Graff " hallucinations none David Graff " thought content (mental status exam) (E&M) lucid David Graff " mental status assessment, process goal-directed, logical David Graff " mental status assessment, sensorium alert, clear David Graff " affect (mental status exam) congruent, normal in tensity, normal range David Berno " mental status assessment, speech activit y normal flow, normal pace, normal pressure, normal rate, normal tone, spontaneous, soft-spoken David Berno " mental status assessment, motor activity normal posture David Berno " behavior (mental status exam) appropriat e, cooperative, good eye contact, responsive David Campuzanoo " mental appearance (mental status exam) adequate hygiene, appropriate dress David Graff mental status assessment, judgment fair David Campuzanoo " insight (mental status exam) fair Cody haamy Berno " Mental Status Exam: intelligence oriente d to person, oriented to place, oriented to time, oriented to reality David Berno " hallucinations none David Berno " thought content (mental status exam) (E&M) lucid David Graff " mental status assessment, process goal-directed, tangential David Berno " mental status assessment, sensorium alert, clear David Berno " affect (mental status exam) congruent, normal in tensity, normal range David Berno " mental status assessment, speech activit y normal flow, normal pace, normal pressure, normal rate, normal tone, spontaneous, soft-spoken David Berno " mental status assessment, motor activity normal posture David Berno " behavior (mental status exam) appropriat e, cooperative, good eye contact, responsive David Campuzanoo " mental appearance (mental status exam) adequate hygiene, appropriate dress David Graff mental status assessment, judgment fair David Campuzanoo " insight (mental status exam) fair [facility] stephanie Graff " Mental Status Exam: intelligence adequat e fund of information, oriented to person, oriented to place, oriented to time, oriented to reality David Berno " hallucinations none David Berno " thought content (mental status exam) (E&M) lucid David Graff " mental status assessment, process goal-directed, tangential David Berno " mental status assessment, sensorium alert, clear David Berno " affect (mental status exam) congruent, constrict ed David Berno " mental status assessment, speech activit y normal flow, normal pace, normal pressure, normal rate, spontaneous, monotone, soft-spoken David Berno " mental status assessment, motor activity normal posture David Berno " behavior (mental status exam) appropriat e, cooperative, good eye contact, responsive David Berno " mental appearance (mental status exam) adequate hygiene, appropriate dress David Graff MEDICAL EQUIPMENT No Information Available FAMILY HISTORY No Information Available INSURANCE PROVIDERS No Information Available ADVANCE DIRECTIVES No Information Available TREATMENT PLAN Date Name Est Patient Exp Problem - 99 213 Est Patient Exp Problem - 99 213 Est Patient Detailed - 06411 Behavioral Health - Therapy Addiction Service Case Manag ement Diagnostic evaluation with vj morrow - 38666 HISTORY OF PROCEDURES Procedure Date Procedure Name Provider Procedure Notes Status Diagnostic evaluation with fely - [id number] Krishnamurthy no completed GOALS No Information Available HEALTH CONCERNS No Information Available
--- OUTSIDE RECORDS SUMMARY | 2020-05-01 20:55 | XMS REPORT | Summary of Care ---
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 Unavailable Unavailable OKSANA SIMON III, MD Unavailable Unavailable JAQUI CARLIN MD Unavailable Unavailable ELOY CARLIN DO Unavailable Unavailable LAVERNE GARCIA MD Unavailable Unavailable Unavailable Unavailable Functional Status Name Dates Details Functional status health issues are not documented Status: Name Dates Details Cognitive status health issues are not d ocumented Status: Problems Name Dates Details Limb pain (729.5, M79.609) Status: Active Hypertension (401.9, I10) Status: Active Depression (311, F32.9) Status: Active Anxiety (300.00, F41.9) Status: Active Emphysema, unspecified (492.8, J43.9) Status: Active Acute bilateral low back pain, with scia tania presence unspecified (724.2, M54.5) Status: Active Diabetes (250.00, E11.9) Status: Active Controlled substance agreement signed (V 58.69, Z79.899) Status: Active Myofascial pain syndrome, cervical (729. 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 (724.6, M53.3) Status: Active Lumbar spondylosis (721.3, M47.816) Status: Active Annular tear of lumbar disc (722.52, M51 .36) Status: Active Facet arthritis of lumbosacral region (7 21.3, M47.817) Status: Active Lumbar herniated disc (722.10, M51.26) Status: Active Lumbar radicular pain (724.4, M54.16) Status: Active Lumbosacral stenosis with neurogenic cla udication (724.03, M48.07) Status: Active Myofascial pain syndrome (729.1, M79.18) Status: Active Medications Name Dates Details Isosorbide Mononitrate ER 60 MG Oral Tab let Extended Release 24 Hour Active Amitriptyline HCl - 25 MG Oral Tablet TAKE 1 TABLET AT BEDTIME. * Refills: 0 Active Proventil HFA 108 (90 Base) MCG/ACT Inhalation Aerosol Solution * Refills: 0 Active Atorvastatin Calcium 80 MG Oral Tablet TAKE 1 TABLET DAILY. * Refills: 0 Active Nitroglycerin 0.4 MG Sublingual Tablet Sublingual * Refills: 0 Active Carvedilol 6.25 MG Oral Tablet TAKE 1 TABLET TWICE DAILY WITH MEALS. * Refills: 0 Active Gabapentin 300 MG Oral Capsule TAKE 1 CAPSULE BY MOUTH THREE TIMES DAILY * Quantity: 90 Refills: 0 LAVERNE GARCIA M.D. * Start : 07-Sep-2018 Active DULoxetine HCl - 60 MG Oral Capsule Delayed Release Particles TAKE 1 CAPSULE BY MOUTH EVERY DAY * Quantity: 30 Refills: 2 LAVERNE GARCIA M.D. * Start : 07-Sep-2018 Active Furosemide 20 MG Oral Tablet TAKE 1 TABLET DAILY. * Refills: 0 * Start : 14-Jun-2019 Active Acetaminophen-Codeine #4 300-60 MG Oral Tablet TAKE 1 TABLET EVERY 8 HOURS PRN * Quantity: 90 Refills: 0 LAVERNE GARCIA M.D. * Start : 04-Aug-2019 Active Allergies and Adverse Reactions Name Dates Details No Known Drug Allergies (Allergy) Status : Active Past Medical History Name Dates Details History of coronary atherosclerosis (V12 .59, Z86.79) Status: Resolved History of renal calculi (V13.01, Z87.44 2) Status: Resolved Procedures Procedure Dates Details History of CABG Completed Immunization Name Dates Details Immunizations not documented Social History Name Dates Details Unknown if ever smoked Vital Signs Date Test Result Details No Known Vitals to report Results Date Description Value Details Results not documented Plan of Care Name Dates Details Planned Observations Planned Goals not documented Planned Encounters Appointment; LAVERNE GARCIA M.D. On: 28-Dec-2019 14:00 Interventions Provided Medication Changes* Gabapentin 300 MG Oral Capsule - Renew Instructions Name Dates Details Instructions not documented Encounters Appointment; JAQUI CARLIN M.D. Encounter Diagnosis: Problem not documented On: 07-Sep-2018 9:00 Appointment; JAQUI CARLIN M.D. Encounter Diagnosis: Problem not documented On: 30-Sep-2018 9:30 Appointment; MATTHEW NICE M.D. Encounter Diagnosis: Problem not documented On: 11-Oct-2018 9:30 Appointment; JAQUI CARLIN M.D. Encounter Diagnosis: Problem not documented On: 19-Oct-2018 14:15 Appointment; JAQUI CARLIN M.D. Encounter Diagnosis: Problem not documented On: 04-Nov-2018 14:30 Appointment; JAQUI CARLIN M.D. Encounter Diagnosis: Problem not documented On: 01-Dec-2018 9:00 Appointment; JAQUI CARLIN M.D. Encounter Diagnosis: Problem not documented On: 20-Dec-2018 10:30 Appointment; JODI OLIVEIRA M.D. Encounter Diagnosis: Problem not documented On: 10-Jan-2019 13:30 Appointment; JAQUI CARLIN M.D. Encounter Diagnosis: Problem not documented On: 24-Jan-2019 14:45 Appointment; JAQUI CARLIN M.D. Encounter Diagnosis: Problem not documented On: 09-Mar-2019 15:00 Appointment; JAQUI CARLIN M.D. Encounter Diagnosis: Problem not documented On: 31-Mar-2019 14:15 Appointment; MATTHEW NICE M.D. Encounter Diagnosis: Problem not documented On: 09-May-2019 15:30 Appointment; JAQUI CARLIN M.D. Encounter Diagnosis: Problem not documented On: 14-Jun-2019 9:30 Appointment; JAQUI CARLIN M.D. Encounter Diagnosis: Problem not documented On: 13-Jul-2019 14:00 Appointment; LAVERNE GARCIA M.D. Encounter Diagnosis: Problem not documented On: 04-Aug-2019 13:45 Appointment; LAVERNE GARCIA M.D. Encounter Diagnosis: Problem not documented On: 01-Sep-2019 9:00 Appointment; LAVERNE GARCIA M.D. Encounter Diagnosis: Problem not documented On: 26-Oct-2019 14:30
--- OUTSIDE RECORDS SUMMARY | 2020-05-01 20:55 | XMS REPORT | Summary of Care ---
Author ZACH Pike M.A. 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 Unavailable [...] TIMES DAILY * Quantity: 90 Refills: 0 RADHA M.D., LAVERNE * Start : 07-Sep-2018 Active DULoxetine HCl - 60 MG Oral Capsule Delayed Release Particles TAKE 1 CAPSULE BY MOUTH EVERY DAY * Quantity: 30 Refills: 2 RADHA M.D., LAVERNE * Start : 07-Sep-2018 Active Furosemide 20 MG Oral Tablet TAKE 1 TABLET DAILY. * Refills: 0 * Start : 14-Jun-2019 Active Acetaminophen-Codeine #4 300-60 MG Oral Tablet TAKE 1 TABLET EVERY 8 HOURS PRN * Quantity: 90 Refills: 0 RADHA M.D., LAVERNE * Start : 04-Aug-2019 Active Allergies and [...] smoked Vital Signs Date Test Result Details [id number]:12 BP Systolic 118 mm[Hg] Status: Comments: Lo cation: LUE; Position: Sitting BP Diastolic 67 mm[Hg] Status: Comments: Lo cation: LUE; Position: Sitting Height 56 in Status: Weight 123 lb Status: Body Mass Index Calculated 27.58 kg/m2 Status: Body Surface Area Calculated 1.44 m2 Status: Heart Rate 73 /min Status: Results Date Description Value Details Results not documented Plan of Care Name Dates Details Planned Observations Planned Goals not documented Instructions Name Dates Details Instructions not documented [...] Diagnosis: Problem not documented On: 26-Oct-2019 14:30 Appointment; LAVERNE GARCIA M.D. Encounter Diagnosis: Problem not documented On: 28-Dec-2019 14:00
--- NOTE | 2020-05-01 20:56 | NUR ---
RECEIVED PATIENT FROM THE EMERGENCY ROOM PER STRETCHER, POSITIONED IN BED, ASSESSMENT DONE, TELEMETRY ORDERED. CALL LIGHT IN REACH, WILL CONTINUE TO MONITOR.
--- OUTSIDE RECORDS SUMMARY | 2020-05-01 20:56 | XMS REPORT | Summary of Care ---
Author ZACH Pike M.A. Organization Unknown Address Unknown Phone Unavailable Care Team Providers Care Poleyard Supervisor Name Role Phone LAVERNE GARCIA M.D. [...] Active Lumbar spondylosis (721.3, M47.816) Status: Active Falls (E888.9, W19.XXXA) Status: Active Incontinence (788.30, R32) Status: Active Annular tear of lumbar disc [...] 300 MG Oral Capsule TAKE 1 CAPSULE Bedtime * Quantity: 30 Refills: 1 LAVERNE GARCIA M.D. * Start : 07-Sep-2018 Active DULoxetine HCl - 60 MG Oral Capsule Delayed Release Particles TAKE 1 CAPSULE BY MOUTH EVERY DAY * Quantity: 30 Refills: 2 LAVERNE GARCIA M.D. * Start : 07-Sep-2018 Active Furosemide 20 MG Oral Tablet TAKE 1 TABLET DAILY. * Refills: 0 * Start : 14-Jun-2019 Active Diclofenac Sodium 1 % Transdermal Gel APPLY TO LOWER EXTREMITIES, 2 GM OF GEL TO AFFECTED AREA 3 TIMES DAILY. DO NOT APPLY MORE THAN 6 GM DAILY TO ANY ONE AFFECTED JOINT. * Quantity: 1 Refills: 2 LAVERNE GARCIA M.D. * Start : 28-Dec-2019 Active 100 GM Tube Allergies and Adverse Reactions Name Dates Details No Known Drug Allergies (Allergy) Status : Active Past Medical History Name Dates Details History of coronary atherosclerosis (V12 .59, Z86.79) Status: Resolved History of renal calculi (V13.01, Z87.44 2) Status: Resolved Procedures Procedure Dates Details History of CABG Completed Immunization Name Dates Details Immunizations not documented Social History Name Dates Details Tobacco smoking consumption unknown (finding) Vital Signs Date Test Result Details No Known Vitals to report Results Date Description Value Details Results not documented Plan of Care Name Dates Details Planned Observations Planned Goals not documented Planned Encounters Appointment; LAVERNE GARCIA M.D. On: 12-Mar-2020 13:00 Instructions Name Dates Details Instructions not documented [...] Diagnosis: Problem not documented On: 28-Dec-2019 14:00 Appointment; LAVERNE GARCIA M.D. Encounter Diagnosis: Problem not documented On: 12-Mar-2020 13:00
--- OUTSIDE RECORDS SUMMARY | 2020-05-01 20:56 | XMS REPORT | Summary of Care ---
Author ZACH Thomason M.D. 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 Unavailable [...] both jaime es (724.6, M53.3) Status: Active Falls (E888.9, W19.XXXA) Status: Active Incontinence (788.30, R32) Status: Active Lumbar herniated disc (722.10, M51.26) Status: Active Annular tear of lumbar disc (722.52, M51 .36) Status: Active Facet arthritis of lumbosacral region (7 21.3, M47.817) Status: Active Lumbar radicular pain (724.4, M54.16) Status: Active Lumbar spondylosis (721.3, M47.816) Status: Active Myofascial pain syndrome (729.1, M79.18) Status: Active Lumbosacral stenosis with neurogenic cla udication (724.03, M48.07) Status: Active Medications Name Dates Details Isosorbide [...] 1 CAPSULE Bedtime * Quantity: 30 Refills: 2 RADHA M.D., [...] AFFECTED JOINT. * Quantity: 1 Refills: 2 RADHA M.D., LAVERNE * Start : 28-Dec-2019 Active 100 GM [...] Details Planned Observations Planned Goals not documented Interventions Provided Medication Changes* Diclofenac Sodium 1 % Transdermal Gel - Renew * DULoxetine HCl - 60 MG Oral Capsule Delayed Release Particles - Renew * Gabapentin 300 MG Oral Capsule - Renew Plan* Medication Changes: documented in orders. Please continue to take all your medicines as prescribed. * Intervention Therapy: deferred * Physical Therapy: Encouraged patient to continue HEP. * Psychologic Therapy: Deferred * Radiology Orders: deferred * Patient Education: Performed. * Please return for your follow up visit in: * Two Months Discussion/Summary* Impression: Pt is 59 year old female patient who is following up via telephonic visit for chronic lower back pain. JALEEL was 12/28/2019. She says her pain is about the same as last time. She complains that her pain is mostly localized in her lower back. She also reports of weakness in her LEs and previous history of falling, which was never address. At the last visit, patient's dose of gabapentin was decreased from 300mg TID to qhs only, and neurology referral was made. Patient says she has a consult with neurology in March. * Clinic examination - not performed * MRI Lumbar Spine 05/19/2019: * 1. Lumbosacral junction transitional vertebra is identified, and is labeled as "S1". Please see the sagittal images for the numbering system used. * 2. L3-L4, L5-S1 mild bilateral foraminal stenosis. * 3. Stable L5-S1 central disc protrusion 3.3 mm broad-based central disc protrusion is present with mild central canal stenosis, mild bilateral foraminal stenosis due to disc bulging encroachment. * Differential diagnosis, patient suffering from lumbar spondylosis * Plan: * - Due to patient hx of "weakness and fall", continue the dose of gabapentin at 300mg QHS; continue Diclofenac gel 1% TID PRN; continue Duloxetine 60mg qday - all refilled * - Encouraged patient to continue HEP * - Referral to Neurology for LE weakness, falls made last appt - patient has an appt in March * - Follow up in Two Months * Telemedicine start time: 1:00pm * Telemedicine end time: 1:30pm * Total time spent on medical discussion and plan assessment: 30 min * Time spent in counseling and/or coordination of care for this patient. Counseled: patient and patient's family. * Counseling Topic(s): Decrease caloric intake, no meals within 2 hours of bedtime, sleep hygiene, risk of respiratory depression and sedation were discussed, in detail. The patient understands that using benzodiazepine or alcohol greatly increases risk of respiratory depression, sedation, and possible . Instructions Name Dates Details Instructions not documented [...]
--- OUTSIDE RECORDS SUMMARY | 2020-05-01 20:56 | XMS REPORT | Summary of Care ---
Author ZACH Thomason M.D. Organization Unknown Address Unknown Phone Unavailable Care Team Providers Care Manager Proposal Name Role Phone LAVERNE GARCIA M.D. Unavailable [...] M.D., LAVERNE * Start : 04-Aug-2019 Active Diclofenac Sodium 1 % Transdermal Gel [...] smoked Vital Signs Date Test Result Details [id number]:12 BP Systolic 118 mm[Hg] Status: Comments: Lo [...] Planned Encounters Appointment; LAVERNE GARCIA M.D. On: 27-Feb-2020 9:30 Interventions Provided Medication Changes* Diclofenac Sodium 1 % Transdermal Gel - Start * DULoxetine HCl - 60 MG Oral Capsule Delayed Release Particles - Renew Plan* Medication Changes: * Take Gabapentin 300mg QHS until Neurology visit, start Diclofenac gel 1% * Intervention Therapy: deferred * Physical Therapy: Encouraged patient to continue HEP. * Psychologic Therapy: Deferred * Radiology Orders: deferred * Patient Education: Performed. * Please return for your follow up visit in: * Two Months * Additional Instructions: Referral to Neurology for LE weakness, falling, bowl and urinary incontinence Discussion/Summary* Impression: Pt is 59 year old female patient who presents with chronic lower back pain. She complains that her pain is mostly localized in her lower back. Patient endorses that her pain has worsened significantly since her last visit. She also reports of weakness in her LEs and falling. She states that she is falling because she is "unbalanced". The patient's daughter also reports for her that she is experiencing urinary and bowel incontinence. * Clinic examination remarkable for antalgic gait with a single-point cane, lumbar paraspinal tenderness, bilateral facets ttp, bilateral lumbar facet loading positive, left SIJ ttp, bilateral GTB ttp * MRI Lumbar Spine 05/19/2019: * 1. [...] to patient hx of "weakness and fall", will decrease Gabapentin from 300mg TID to 300mg QHS; start Diclofenac gel 1% TID PRN; continue Duloxetine 60mg qday * - Encouraged patient to restart HEP * - Referral to Neurology for LE weakness, falling, bowl and urinary incontinence * - Follow up in Two Months * Time spent in counseling and/or coordination [...]
--- OUTSIDE RECORDS SUMMARY | 2020-05-01 20:56 | XMS REPORT | Summary of Care ---
Author Author ZACH Tapia R.N. Organization Unknown Address Unknown Phone Unavailable Care Team Providers Care Rotary Envelope Machine Operator Name Role Phone RADHA Brush, LAVERNE Unavailable Unavailable Anna Tapia R.N. Unavailable Unavailable OKSANA SIMON III, MD Unavailable Unavailable JAQUI CARLIN MD Unavailable Unavailable ELOY CARLIN DO Unavailable Unavailable RADHA ARRINGTON, LAVERNE Unavailable Unavailable Unavailable Unavailable Functional Status Name Dates Details Functional status health issues are not documented Status: Name Dates Details Cognitive status health issues are not d ocumented Status: Problems Name Dates Details Heart disease (429.9, I51.9) Status: Active Incontinence (788.30, R32) Status: Active Anxiety (300.00, F41.9) Status: Active Depression (311, F32.9) Status: Active Emphysema, unspecified (492.8, J43.9) Status: Active Controlled substance agreement signed (V 58.69, Z79.899) Status: Active Hypertension (401.9, I10) Status: Active Falls (E888.9, W19.XXXA) Status: Active Limb pain (729.5, M79.609) Status: Active Diabetes mellitus (250.00, E11.9) Status: Active Annular tear of lumbar disc (722.52, M51 .36) Status: Active Facet arthritis of lumbosacral region (7 21.3, M47.817) Status: Active Myofascial pain syndrome (729.1, M79.18) Status: Active Lumbar radicular pain (724.4, M54.16) Status: Active Lumbar herniated disc (722.10, M51.26) Status: Active Lumbosacral stenosis with neurogenic cla udication (724.03, M48.07) Status: Active Lumbar spondylosis (721.3, M47.816) Status: Active Acute bilateral low back pain, with scia tania presence unspecified (724.2, M54.5) Status: Active 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 1, M79.18) Status: Active Medications Name Dates Details [...] CAPSULE Bedtime * Quantity: 30 Refills: 2 LAVERNE GARCIA [...] Planned Encounters Appointment; LAVERNE GARCIA M.D. On: 07-May-2020 13:00 Interventions Provided Discussion/Summary* Guideline Used: * Other: speak with clinic staff * Intended Caller Action: * Other: receive recommendation Instructions Name Dates Details Instructions not documented [...]
--- OUTSIDE RECORDS SUMMARY | 2020-05-01 20:56 | XMS REPORT | Summary of Care ---
Author Author Av Colunga, ZACH Iverson Organization Unknown Address Unknown Phone Unavailable Care Team Providers Care Inspector Electromechanical Name Role Phone RADHA Brush, LAVERNE Unavailable Unavailable Gudelia Ley R.N. Unavailable Unavailable OKSANA SIMON III, MD [...] smoked Vital Signs Date Test Result Details [id number]:12 BP Systolic 118 mm[Hg] Status: Comments: Lo [...] Appointment; LAVERNE GARCIA M.D. On: 27-Feb-2020 9:30 Instructions Name Dates Details Instructions not documented [...]
--- OUTSIDE RECORDS SUMMARY | 2020-05-01 20:56 | XMS REPORT | Summary of Care ---
Author ZACH Thomason M.D. Organization Unknown Address Unknown Phone Unavailable Care Team Providers Care Wire Cutter Name Role Phone LAVERNE GARCIA M.D. Unavailable [...] Myofascial pain syndrome (729.1, M79.18) Status: Active Falls (E888.9, W19.XXXA) Status: Active Incontinence (788.30, R32) Status: Active Medications Name Dates Details Isosorbide [...] smoked Vital Signs Date Test Result Details [id number]:12 BP Systolic 118 mm[Hg] Status: Comments: Lo [...] Observations Planned Goals not documented Planned Encounters Neurology Referral Appointment; LAVERNE GARCIA M.D. On: 27-Feb-2020 9:30 [...] her that she is experiencing urinary and bowl incontinence. * Clinic examination remarkable for antalgic [...] from lumbar spondylosis * Plan: * - Take Gabapentin 300mg QHS until Neurology visit, start Diclofenac gel 1% * - Encouraged patient to restart PT exercises * - Referral to Neurology for LE [...]
--- OUTSIDE RECORDS SUMMARY | 2020-05-01 20:56 | XMS REPORT | Summary of Care ---
Author ZACH Garnica R.N. Organization Unknown Address Unknown Phone Unavailable Care Team Providers Care Well Digger Name Role Phone RADHA Brush, LAVERNE Unavailable Unavailable TEX Brush, MATTHEW Unavailable Unavailable OKSANA SIMON III, MD Unavailable Unavailable JAQUI CARLIN MD Unavailable Unavailable RAEGAN ARMSTRONG, ELOY FERNÁNDEZ Unavailable Unavailable RADHA ARRINGTON, LAVERNE Unavailable Unavailable [...] CAPSULE Bedtime * Quantity: 30 Refills: 1 RADHA M.D., LAVERNE * Start : 07-Sep-2018 [...] Planned Encounters Appointment; LAVERNE GARCIA M.D. On: 29-Feb-2020 14:30 Interventions Provided Medication Changes* Gabapentin 300 MG Oral Capsule - Renew Instructions Name Dates Details Instructions not documented Encounters Appointment; JAQUI CARLIN M.D. Encounter Diagnosis: Problem not documented On: 07-Sep-2018 9:00 Appointment; JQAUI CARLIN M.D. Encounter Diagnosis: Problem not documented [...]
--- OUTSIDE RECORDS SUMMARY | 2020-05-01 20:56 | XMS REPORT | Summary of Care ---
Author Author ZACH Martinez Zayra Organization Unknown Address Unknown Phone Unavailable Care Team Providers Care Minister Of Religion Name Role Phone Ivone Martinez Unavailable Unavailable RADHA Brush, LAVERNE Unavailable Unavailable OKSANA SIMON III, MD Unavailable [...] (finding) Vital Signs Date Test Result Details [id number] Systolic blood pressure 118 mm[Hg] Status: Comments : Location: LUE; Position: Sitting Diastolic blood pressure 67 mm[Hg] Status: Comment s: Location: LUE; Position: Sitting Body height 56 in Status: Weight 123 lb Status: Body mass index (BMI) [Ratio] 27.58 kg/m2 Status: Body surface area Derived from formula 1.44 m2 S tatus: Heart Rate 73 /min Status: Results Date [...]
--- OUTSIDE RECORDS SUMMARY | 2020-05-01 20:56 | XMS REPORT | Summary of Care ---
Author Author ZACH Chavez Organization Unknown Address Unknown Phone Unavailable Care Team Providers Care Ammonia Box Tender Name Role Phone ScottMary Unavailable Unavailable RADHA Brush, LAVERNE Unavailable Unavailable [...] smoked Vital Signs Date Test Result Details [id number] BP Systolic 118 mm[Hg] Status: Comments: Lo [...]
--- OUTSIDE RECORDS SUMMARY | 2020-05-01 20:56 | XMS REPORT | Summary of Care ---
Author Author ZACH Galindo Organization Unknown Address Unknown Phone Unavailable Care Team Providers Care Job Coach/Job Developer Name Role Phone RADHA Brush, LAVERNE Unavailable Unavailable Jenny Galindo Unavailable Unavailable OKSANA SIMON III, MD Unavailable [...] smoked Vital Signs Date Test Result Details [id number]:12 BP Systolic 118 mm[Hg] Status: Comments: Lo [...]
--- OUTSIDE RECORDS SUMMARY | 2020-05-01 20:56 | XMS REPORT | Summary of Care ---
Author ZACH Garnica R.N. Organization Unknown Address Unknown Phone Unavailable Care Team Providers Care Information Security Analyst Name Role Phone LAVERNE GARCIA M.D. Unavailable [...]
[2020-05-01] MEDS: MORPHINE SULFATE 2 MG/ML SYR 1ML IV PRN (23:36)
[2020-05-02] VITALS (8 sets, daily range): BP systolic 93–123; BP diastolic 51–69
[2020-05-02] MEDS ORDERED: AMITRIPTYLINE HCL 25 MG TAB PO ONE (00:30)
[2020-05-02] MEDS ORDERED: ATORVASTATIN 20 MG TAB PO ONE (00:45)
[2020-05-02] MEDS ORDERED: GABAPENTIN 300 MG CAP PO ONE ×2 (00:45→21:00)
[2020-05-02] MEDS ORDERED: QUETIAPINE FUMARATE 100 MG TAB PO ONE (00:45)
[2020-05-02 02:56] LABS: CREATINE KINASE MB 1.2 ng/mL (0-5.0)
--- NOTE | 2020-05-02 04:00 | NUR ---
PATIENT CONTINUE RESTING, NO COMPLAINTS VOICED. TELEMETRY REMAIN INTACT. CALL LIGHT IN REACH.
[2020-05-02 06:26] LABS: CREATINE KINASE MB 0.6 ng/mL (0-5.0)
--- NOTE | 2020-05-02 07:14 | NUR ---
REPORT GIVEN TO AM NURSE.
[2020-05-02] MEDS: DULOXETINE HCL 20 MG DELAYED RELEASE PO SCH (08:24)
[2020-05-02] MEDS: ASPIRIN 81 MG CHEW TAB PO SCH (08:24)
[2020-05-02] MEDS: ISOSORBIDE MONONITRATE 30 MG TAB CR PO SCH (08:24)
[2020-05-02] MEDS ORDERED: ISOSORBIDE MONO30 MG PO (10:34)
[2020-05-02] MEDS ORDERED: LEVEMIR FL100 UNIT/1 SC (10:34)
[2020-05-02] MEDS ORDERED: SYMBICORT 16010.2 GM INH (10:34)
[2020-05-02] MEDS ORDERED: GABAPENTIN300 MG PO (10:34)
[2020-05-02] MEDS ORDERED: SERTRALINE HCL100 MG PO (10:34)
[2020-05-02] MEDS ORDERED: DICYCLOMINE HCL10 MG PO (10:34)
[2020-05-02] MEDS ORDERED: CARVEDILOL3.125 MG PO (10:34)
[2020-05-02] MEDS ORDERED: AMITRIPTYLINE H25 MG PO (10:34)
[2020-05-02] MEDS ORDERED: CYMBALTA30 MG PO (10:34)
[2020-05-02] MEDS ORDERED: LIPITOR20 MG PO (10:34)
[2020-05-02] MEDS ORDERED: FUROSEMIDE40 MG PO (10:34)
[2020-05-02] MEDS ORDERED: SEROQUEL100 MG PO (10:42)
[2020-05-02] MEDS ORDERED: PANTOPRAZOLE SO40 MG PO (10:42)
[2020-05-02 11:36] LABS: CHOL/HDL RATIO 3.6 (3.0-3.6)
[2020-05-02] MEDS: MORPHINE SULFATE 2 MG/ML SYR 1ML IV PRN ×3 (11:41→21:02)
[2020-05-02] MEDS ORDERED: DEXTROSE 50% SYRINGE 50 ML IV PRN (11:45)
[2020-05-02 11:56] LABS: THYROID STIMULATING HORMONE 1.603 uIU/mL (0.350-4.940)
[2020-05-02] MEDS: INSULIN REGULAR, HUMAN 100 UNIT/1 ML 3ML VIAL SQ SCH ×3 (12:59→21:00)
--- NOTE | 2020-05-02 14:25 | Diagnostic Imaging Report ---
History: Left eye drooping and left-sided numbness Comparison studies: None Technique: Sagittal T2; axial DWI, FLAIR, MPGR, T1, Coronal FLAIR. Intravenous contrast: None Findings: Limited examination by motion artifact Scalp: Normal in signal . No masses . Bone marrow: Normal in signal intensity. Extra-axial: No masses, no fluid collections. Brain sulci: Appropriate for age. Ventricles: Normal in size . No hydrocephalus . Parenchyma: Few T-2/flair hyperintensities of the periventricular and deep white matter, similar changes are noted at the central kimmie. No masses, hemorrhage, acute or chronic vascular insults. Suprasellar region: No abnormalities. Craniocervical junction: No abnormalities. Patent foramen magnum. No Chiari one malformation. Vessels: Normal flow-voids in the arteries and sinuses. Trace of fluid at the right mastoid air cells. Partially visualized at least moderate stenosis at the upper cervical spine. IMPRESSION: 1. No acute abnormalities. 2. Mild chronic microvascular ischemic changes of the white matter. 3. Partially visualized at least moderate canal stenosis at the upper cervical spine, if indicated dedicated examination recommended. Signed by: DR Oli Gonzáles M.D. on 05/02/2020 2:22 PM
--- NOTE | 2020-05-02 14:35 | Consultation ---
DATE OF CONSULTATION: 05/02/2020 REASON FOR CONSULTATION: Chest pain. HISTORY OF PRESENT ILLNESS: This is a 59-year-old female with history of CAD, status post CABG 2013, hypertension, hyperlipidemia, diabetes, TIAs, neuropathy, anxiety, and panic disorder. The patient presents to outlying ER with complaints of left- sided weakness and chest discomfort. Had a CT of the head, which was apparently reported as negative, was subsequently transferred to [facility] for further management. Cardiology was consulted. The patient is seen in room. Reports since yesterday has had left-sided arm numbness and tingling, radiating down to her left leg. Denies any shortness of breath or chest pains at this time. Cardiac enzymes noted 0.02, next 0.001. EKG noted without any acute changes suggestive of acute event. PAST MEDICAL HISTORY: CAD, status post CABG 2013, hypertension, diabetes, hyperlipidemia, TIA, neuropathy, anxiety, and depression. PAST SURGICAL HISTORY: CABG 2013 and . FAMILY HISTORY: Positive for CAD, cancer, and strokes. SOCIAL HISTORY: She reported a single. Denies any alcohol use. Positive for tobacco use, half-pack per day. HOME MEDICATIONS: Include Topamax 25 mg daily, Ranexa 500 mg b.i.d., metoprolol 12.5 mg b.i.d., gabapentin 300 mg t.i.d., Elavil 25 mg at bedtime, isosorbide mononitrate 60 mg daily, atorvastatin 80 mg daily, Cymbalta 60 mg daily, and Seroquel 200 mg daily. ALLERGIES: TO IBUPROFEN. REVIEW OF SYSTEMS: GENERAL: Denies any weight changes, fatigue, weakness, fevers, chills, or night sweats. SKIN: No rash or sores. HEENT: Denies any nausea, vomiting, vision changes, blurred vision, double vision, epistaxis, sore throat, or swollen neck. HEART: Denies any chest pain. Positive for dyspnea on exertion. Denies any orthopnea, PND, or lower extremity edema. RESPIRATORY: Denies any shortness of breath, any wheezing or coughing, any hemoptysis. GI: Reports good appetite. Denies any nausea, vomiting, diarrhea, constipation, melena, tarry or bloody stools. URINARY: Denies any frequency, urgency, dysuria, or hematuria. VASCULAR: Denies any lower extremity edema or claudication. MUSCULOSKELETAL: Positive for joint pains and back pains. Reports left-sided weakness, tingling. NEUROLOGIC: Positive for numbness and tingling on left side. Denies any blackout or seizures. HEMATOLOGY: Denies any bleeding or bruising. ENDOCRINE: Denies heat or cold intolerance, polyuria, polydipsia, or polyphagia. PHYSICAL EXAMINATION: CURRENT VITAL SIGNS: Height 56 inches, weight 115 pounds. Temperature 97.8, pulse 78, blood pressure 120/55, pulse ox 93% on room air. GENERAL: Appears stated age, reliable informant, no acute distress. SKIN: No rashes or bruises noted. HEENT: Normocephalic. Pupils are equal and reactive. Extraocular movements intact. Trachea midline. No JVD. No carotid bruit noted. Oral mucosa pink. HEART: Regular rate and rhythm. Soft systolic murmur heard in the right upper sternal border. Positive sternotomy scar. LUNGS: Bilateral breath sounds clear to auscultation. No wheezing or rales noted. Good airway entry and exit. ABDOMEN: Soft, nontender, and nondistended. No organomegaly noted. MUSCULOSKELETAL: 4/5 left-sided muscle weakness. No lower extremity edema noted. VASCULAR: +2 radial pulses, +1 DP/PT pulses noted. NEUROLOGIC: Cranial nerves 2 through 12 seem intact. LABORATORY DATA: On 05/01/2020 done at [facility]; sodium 139, potassium 3.9, chloride 102, BUN 10, and creatinine 1.0. Troponin less than 0.015. INR 1, PTT 29, and PT 10. White count 8, hemoglobin 12, hematocrit 36, and platelets of 195. CT scan reports unremarkable brain. Troponin 0.02, next 0.015. EKG showing normal sinus rhythm, nonspecific ST changes. ASSESSMENT AND PLAN: 1. Left-sided weakness consistent with cerebrovascular accident. 2. Coronary artery disease, status post coronary artery bypass grafting, 2013. 3. Hypertension. 4. Hyperlipidemia. PLAN: The patient presents to [facility] ER with complaints of left-sided weakness, numbness, and tingling, had initial CT scan of the head, which was reported as unremarkable. However, the patient continues with notable left-sided weakness, numbness, and tingling. We will order MRI of the brain stat. Continue the patient on aspirin/statin/beta-brad therapy. Continue telemonitoring. Echo to evaluate heart function and structure. Carotid Doppler to evaluate carotid anatomy. We will continue to monitor and adjust cardiac therapy as clinical course dictates. Thank you very much for this consult. SEEN AND EXAMINED AGREE WITH NOTE Dictated by Damien Brooks NP Zurdo Dsouza MD DC/HI /[id number] MTDD
[2020-05-02 14:55] LABS: CREATINE KINASE MB 0.6 ng/mL (0-5.0)
[2020-05-02] MEDS: GABAPENTIN 100 MG CAP PO SCH ×2 (15:47→20:36)
--- NOTE | 2020-05-02 19:34 | Consultation ---
DATE OF CONSULTATION: Neurology Consult. HISTORY OF PRESENT ILLNESS: A 59-year-old female with history of recent cardiovascular surgery, comes in complaining of head paresthesias of sudden onset, recent cardiovascular surgery. Denies previous history of similar symptoms. PAST MEDICAL HISTORY: 1. Hyperlipidemia. 2. Sleep disturbance. 3. Peripheral neuropathy. MEDICATIONS: At home, she takes: 1. Daily aspirin. 2. Duloxetine. 3. Gabapentin. 4. Quetiapine. 5. Atorvastatin. 6. Amitriptyline. She states that she has only got the sensation of paresthesias affecting her head bilaterally behind her hairline towards the back of her neck. She is not sure if it is position related. SOCIAL HISTORY: She denies tobacco, alcohol, or drugs. PHYSICAL EXAMINATION: VITAL SIGNS: Temperature 98.3, heart rate of 77 and regular, blood pressure 123/69. HEENT: Extraocular muscles intact. Face symmetric. Tongue is midline. Speech is clear. No nuchal rigidity. NEURO: Strength in upper extremities 5/5 and reflexes 1/4. There is no ataxia. CARDIOVASCULAR: Regular rate and rhythm. PULMONARY: Clear to auscultation. ABDOMEN: Soft and nontender. EXTREMITIES: No edema in lower extremities. Overall, neurological exam is nonfocal at this time. ASSESSMENT AND PLAN: The patient comes in with chest pain, disorder is a possibility. She is on gabapentin and amitriptyline at home. Gabapentin might be beneficial for this syndrome. injection to the occipital nerve block are reasonable options in this case. If this does not work, carbamazepine can be helpful in this scenario, however, given the side effect profile of carbamazepine, I think that I will leave that to later. Right now, I would just increase her gabapentin and see if she tolerates a higher dose and see if that helps her symptomatically. CASEY GREENFIELD MD RR/MODL /[id number]
[2020-05-02] MEDS: METOPROLOL TARTRATE 25 MG TAB PO SCH (20:35)
[2020-05-02] MEDS ORDERED: AMITRIPTYLINE HCL 25 MG TAB PO SCH (21:00)
[2020-05-02] MEDS ORDERED: ATORVASTATIN 20 MG TAB PO SCH (21:00)
[2020-05-02] MEDS ORDERED: INSULIN GLARGINE 100 UNITS/ML VIAL SQ SCH (21:00)
[2020-05-02] MEDS ORDERED: QUETIAPINE FUMARATE 100 MG TAB PO SCH (21:00)
[2020-05-02] MEDS: BUDESONIDE/FORMOTEROL FUMARATE 80/4.5MCG 6.9 GM INH AEROSOL IH SCH (21:10)
[2020-05-03] VITALS: BP 94/55
[2020-05-03 04:00] VITALS: BP 101/54
[2020-05-03] MEDS: MORPHINE SULFATE 2 MG/ML SYR 1ML IV PRN ×2 (05:29→11:29)
[2020-05-03 05:50] LABS: BASOPHILS % 0.4 % (0.0-1.0); EOSINOPHILS # (AUTO) 0.3 (0.0-0.4); EOSINOPHILS % 4.6 % (0.0-6.0); HEMATOCRIT 36.8 % (34.2-44.1); HEMOGLOBIN 11.7 g/dL (12.0-16.0); LYMPHOCYTES % 36.3 % (18.0-39.1); MEAN CORPUSCULAR HEMOGLOBIN 31.2 pg (28-32); MEAN CORPUSCULAR HGB CONC 31.8 g/dL (31-35); MEAN CORPUSCULAR VOLUME 98.1 fL (81-99); MONOCYTES # (AUTO) 0.4 (0.2-0.8); MONOCYTES % 6.3 % (4.4-11.3); NEUTROPHILS # (AUTO) 2.9 (2.1-6.9); NEUTROPHILS % 52.2 % (38.7-80.0); PLATELET COUNT 173 x10e3/uL (140-360); RED BLOOD COUNT 3.75 x10e6/uL (3.6-5.1); RED CELL DISTRIBUTION WIDTH 13.4 % (11.7-14.4)
[2020-05-03 06:37] LABS: ALANINE AMINOTRANSFERASE 11 IU/L (0-55); ALBUMIN 3.3 g/dL (3.5-5.0); ALBUMIN/GLOBULIN RATIO 1.1 (0.8-2.0); ALKALINE PHOSPHATASE 101 IU/L (40-150); ANION GAP 16.4 mmol/L (8-16); BLOOD UREA NITROGEN 12 mg/dL (7-26); BUN/CREATININE RATIO 15 (6-25); CALCIUM 9.3 mg/dL (8.4-10.2); CARBON DIOXIDE 25 mmol/L (22-29); CHLORIDE 103 mmol/L (98-107); CREATININE, SERUM 0.78 mg/dL (0.57-1.11); EST GLOMERULAR FILTRATION RATE > 60 ML/MIN (60-); GLUCOSE 226 mg/dL (74-118); POTASSIUM 4.4 mmol/L (3.5-5.1); SODIUM 140 mmol/L (136-145)
[2020-05-03 06:45] LABS: THYROID STIMULATING HORMONE 1.046 uIU/mL (0.350-4.940)
[2020-05-03] MEDS: BUDESONIDE/FORMOTEROL FUMARATE 80/4.5MCG 6.9 GM INH AEROSOL IH SCH (06:52)
[2020-05-03 07:37] VITALS: BP 126/54
[2020-05-03 07:42] VITALS: BP 128/81
[2020-05-03] MEDS: DULOXETINE HCL 20 MG DELAYED RELEASE PO SCH (08:48)
[2020-05-03] MEDS: ASPIRIN 81 MG CHEW TAB PO SCH (08:48)
[2020-05-03] MEDS: ISOSORBIDE MONONITRATE 30 MG TAB CR PO SCH (08:49)
[2020-05-03] MEDS: GABAPENTIN 100 MG CAP PO SCH ×2 (08:49→17:16)
[2020-05-03] MEDS: METOPROLOL TARTRATE 25 MG TAB PO SCH ×2 (08:49→09:00)
[2020-05-03] MEDS: INSULIN REGULAR, HUMAN 100 UNIT/1 ML 3ML VIAL SQ SCH ×3 (08:51→17:17)
[2020-05-03 11:38] VITALS: BP 107/65
[2020-05-03] MEDS ORDERED: REGADENOSON 0.4 MG/5 ML SYR IV ONE (15:13)
[2020-05-03 16:38] VITALS: BP 122/73
--- NOTE | 2020-05-03 17:48 | NUR ---
patient stable headache / parestheais improved 97.7 126/54 79 PHYSICAL EXAMINATION: VITAL SIGNS: Temperature 98.3, heart rate of 77 and regular, blood pressure 123/69. HEENT: Extraocular muscles intact. Face symmetric. Tongue is midline. Speech is clear. No nuchal rigidity. NEURO: Strength in upper extremities 5/5 and reflexes 1/4. There is no ataxia. CARDIOVASCULAR: Regular rate and rhythm. PULMONARY: Clear to auscultation. ABDOMEN: Soft and nontender. EXTREMITIES: No edema in lower extremities. Overall, neurological exam is nonfocal at this time. ASSESSMENT AND PLAN: outpt occipital nerve block If this does not work, carbamazepine can be helpful in this scenario, however, given the side effect profile of carbamazepine, I think that I will leave that to later. Right now, I would just increase her gabapentin and see if she tolerates a higher dose and see if that helps her symptomatically. no storke on mri
--- NOTE | 2020-05-03 18:00 | NUR ---
Noe Dsouza here to see patient and states patient can be discharged from his standpoint. He would like for her to follow up at with her cardiologists i one week.
--- NOTE | 2020-05-03 18:35 | NUR ---
Pt discharged home at this time. Pt verbalized understanding of all discharge instructions and follow up appointments. Pt denies any pain at time of discharge.
--- NOTE | 2020-05-03 22:00 | Operative Report ---
DATE OF PROCEDURE: SURGEON: Zurdo Dsouza MD DICTATION NUMBER: [id number], [id number]. TECHNICAL DETAILS: The protocol is Lexiscan nuclear cardiac stress test with resting picture done with 11 millicurie. Proper SPECT imaging and processing were done [id number] after injection for the stress part. The patient given Lexiscan 0.4 mg intravenously followed by Myoview 33 millicurie given intravenously, [id number] after that, proper SPECT imaging and processing were done. RESULTS: A. Hemodynamics: 1. Heart rate remain stable from 73 per minute to 87 per minute. 2. Blood pressure 90/70 to 104/65. 3. No EKG changes. 4. The patient tolerated the stress test without any complication. a. Nuclear imaging. 5. Myocardial perfusion. a. Resting images showed smooth distribution of isotope in all segments with decreased uptake in the inferolateral segment. b. Stress images: Showed again decreased uptake in the inferolateral segment, but also a new abnormality and decreased uptake noted in the apical and lateral segment. 6. Segmental wall motion. There were no segmental wall motion abnormality. All segments were teddy normally. 7. Heart volume. End-diastolic volume 40 mm and systolic volume of 7 mm. Left ventricular ejection fraction of 83%. IMPRESSION: 1. Abnormal nuclear cardiac stress test showing mixed scar and ischemia with prominence of scar. Of note, there was quite a lot of gastrointestinal artifact. 2. Normal left ventricular contractility with normal left ventricular size and wall motion. 3. Clinical correlation is recommended. MD KEI Saldana/MODL /[id number]
== END 2020-05-03 18:35 | disposition home or self-care (01) ==
LOC: MED/SURG 20:50 → INTOOBSV 20:50
DX: I25.10 Atherosclerotic heart disease of native coronary artery without angina pectoris (principal); M54.12 Radiculopathy, cervical region; Z95.1 Presence of aortocoronary bypass graft; F17.210 Nicotine dependence, cigarettes, uncomplicated; E89.6 Postprocedural adrenocortical (-medullary) hypofunction; Z86.73 Personal history of transient ischemic attack (TIA), and cerebral infarction without residual deficits; E11.40 Type 2 diabetes mellitus with diabetic neuropathy, unspecified; F41.9 Anxiety disorder, unspecified; F41.0 Panic disorder [episodic paroxysmal anxiety]; F32.9 Major depressive disorder, single episode, unspecified
CPT/HCPCS: 36415 ×2; 70551; 78452; 80053; 80061; 82550; 82553; 82948 ×2; 84443 ×2; 84484; 85025; 87635; 93005; 93017; 93306; 93880; 94664 ×2; A9502; G0378 ×3; J1815; J1817; J2270 ×3; J2785

== ENCOUNTER 2021-03-08 13:20 | Emergency (ER) | payer OTHER ==
[~2021-03-08] VITALS: Ht 142.2 cm; Wt 52.2 kg
[~2021-03-08 13:20] MED LIST: AMITRIPTYLINE H25 MG PO; CARVEDILOL3.125 MG PO; CYMBALTA30 MG PO; DICYCLOMINE HCL10 MG PO; FUROSEMIDE40 MG PO; GABAPENTIN300 MG PO; ISOSORBIDE MONO30 MG PO; LEVEMIR FL100 UNIT/1 SC; LIPITOR20 MG PO; PANTOPRAZOLE SO40 MG PO; SEROQUEL100 MG PO; SERTRALINE HCL100 MG PO; SYMBICORT 16010.2 GM INH
[2021-03-08] MEDS ORDERED: ASPIRIN 81 MG CHEW TAB PO ONE (13:45)
[2021-03-08 14:06] LABS: BASOPHILS % 0.5 % (0.0-1.0); EOSINOPHILS # (AUTO) 0.2 (0.0-0.4); EOSINOPHILS % 3.6 % (0.0-6.0); HEMATOCRIT 35.6 % (34.2-44.1); HEMOGLOBIN 11.9 g/dL (12.0-16.0); LYMPHOCYTES # (AUTO) 2.3 (1.0-3.2); LYMPHOCYTES % 39.6 % (18.0-39.1); MEAN CORPUSCULAR HEMOGLOBIN 31.7 pg (28-32); MEAN CORPUSCULAR HGB CONC 33.4 g/dL (31-35); MEAN CORPUSCULAR VOLUME 94.9 fL (81-99); MONOCYTES # (AUTO) 0.4 (0.2-0.8); NEUTROPHILS # (AUTO) 2.9 (2.1-6.9); NEUTROPHILS % 49.8 % (38.7-80.0); PLATELET COUNT 226 x10e3/uL (140-360); RED BLOOD COUNT 3.75 x10e6/uL (3.6-5.1); RED CELL DISTRIBUTION WIDTH 14.7 % (11.7-14.4)
[2021-03-08 14:14] LABS: CLARITY,URINE CLEAR (CLEAR); COLOR,URINE YELLOW (YELLOW); LEUKOCYTE ESTERASE ,URINE SMALL (NEGATIVE); NITRITE,URINE NEGATIVE (NEGATIVE)
[2021-03-08 14:15] LABS: KETONES,URINE NEGATIVE (NEGATIVE); PROTEIN,URINE DIPSTICK NEGATIVE (NEGATIVE); URINE UROBILINOGEN 0.2 mg/dL (0.2 - 1)
[2021-03-08 14:20] LABS: RBC,URINE 0-5 /HPF (0-5)
[2021-03-08 14:21] LABS: BACTERIA,URINE RARE /HPF; EPITHELIAL CELLS,URINE MODERATE /LPF
[2021-03-08 14:24] LABS: ALANINE AMINOTRANSFERASE 10 IU/L (0-55); ALBUMIN 3.6 g/dL (3.5-5.0); ALBUMIN/GLOBULIN RATIO 0.9 (0.8-2.0); ALKALINE PHOSPHATASE 154 IU/L (40-150); ANION GAP 13.3 mmol/L (8-16); BLOOD UREA NITROGEN 12 mg/dL (7-26); BUN/CREATININE RATIO 15 (6-25); CALCIUM 9.2 mg/dL (8.4-10.2); CARBON DIOXIDE 29 mmol/L (22-29); CHLORIDE 102 mmol/L (98-107); CREATINE KINASE 76 IU/L (29-168); CREATININE, SERUM 0.78 mg/dL (0.57-1.11); EST GLOMERULAR FILTRATION RATE > 60 ML/MIN (60-); GLUCOSE 189 mg/dL (74-118); POTASSIUM 4.3 mmol/L (3.5-5.1); SODIUM 140 mmol/L (136-145)
[2021-03-08] MEDS ORDERED: TYLENOL # 31 EA PO (15:08)
[2021-03-08] MEDS ORDERED: ACETAMINOPHEN 325 MG TAB PO STA (15:10)
[2021-03-08 15:23] VITALS: BP 135/81
== END 2021-03-08 15:27 | disposition home or self-care (01) ==
LOC: ER 13:26
DX: R07.89 Other chest pain (principal); G62.9 Polyneuropathy, unspecified; M54.2 Cervicalgia; M79.605 Pain in left leg; M79.604 Pain in right leg; E11.65 Type 2 diabetes mellitus with hyperglycemia; E11.40 Type 2 diabetes mellitus with diabetic neuropathy, unspecified; I10 Essential (primary) hypertension; E78.5 Hyperlipidemia, unspecified; F41.9 Anxiety disorder, unspecified; I25.2 Old myocardial infarction; Z95.1 Presence of aortocoronary bypass graft; Z98.0 Intestinal bypass and anastomosis status; I25.10 Atherosclerotic heart disease of native coronary artery without angina pectoris; F17.210 Nicotine dependence, cigarettes, uncomplicated
CPT/HCPCS: 36415; 70450; 71045; 72125; 80053; 81001; 82550; 82553; 83880; 84484; 85025; 99284

== ENCOUNTER 2021-04-09 14:29 | Emergency (ER) | payer OTHER ==
[~2021-04-09] VITALS: Ht 142.2 cm; Wt 54.9 kg
[~2021-04-09 14:29] MED LIST changes: +TYLENOL # 31 EA PO
[2021-04-09 15:02] LABS: BASOPHILS % 0.6 % (0.0-1.0); EOSINOPHILS # (AUTO) 0.2 (0.0-0.4); EOSINOPHILS % 3.1 % (0.0-6.0); HEMATOCRIT 37.6 % (34.2-44.1); HEMOGLOBIN 12.5 g/dL (12.0-16.0); LYMPHOCYTES # (AUTO) 2.8 (1.0-3.2); LYMPHOCYTES % 45.3 % (18.0-39.1); MEAN CORPUSCULAR HEMOGLOBIN 32.1 pg (28-32); MEAN CORPUSCULAR HGB CONC 33.2 g/dL (31-35); MEAN CORPUSCULAR VOLUME 96.7 fL (81-99); MONOCYTES # (AUTO) 0.4 (0.2-0.8); MONOCYTES % 6.3 % (4.4-11.3); NEUTROPHILS # (AUTO) 2.7 (2.1-6.9); NEUTROPHILS % 44.4 % (38.7-80.0); PLATELET COUNT 226 x10e3/uL (140-360); RED BLOOD COUNT 3.89 x10e6/uL (3.6-5.1)
[2021-04-09 15:22] LABS: ALANINE AMINOTRANSFERASE 10 IU/L (0-55); ALBUMIN 3.6 g/dL (3.5-5.0); ALBUMIN/GLOBULIN RATIO 0.9 (0.8-2.0); ALKALINE PHOSPHATASE 123 IU/L (40-150); ANION GAP 14.7 mmol/L (8-16); BLOOD UREA NITROGEN 10 mg/dL (7-26); BUN/CREATININE RATIO 13 (6-25); CALCIUM 9.2 mg/dL (8.4-10.2); CARBON DIOXIDE 26 mmol/L (22-29); CHLORIDE 104 mmol/L (98-107); CREATININE, SERUM 0.76 mg/dL (0.57-1.11); EST GLOMERULAR FILTRATION RATE > 60 ML/MIN (60-); GLUCOSE 227 mg/dL (74-118); POTASSIUM 3.7 mmol/L (3.5-5.1); SODIUM 141 mmol/L (136-145)
[2021-04-09] MEDS ORDERED: IOPAMIDOL 370 MG/ML 200 ML INFUS..BTL INJ ONE (16:03)
[2021-04-09] MEDS ORDERED: SODIUM CHLORIDE 0.9% 100 ML ONE (16:03)
[2021-04-09] MEDS ORDERED: KETOROLAC TROMETHAMINE 30 MG/ML VIAL IV NR (16:30)
[2021-04-09 17:01] VITALS: BP 104/51
== END 2021-04-09 17:06 | disposition home or self-care (01) ==
LOC: ER 14:31
DX: R20.0 Anesthesia of skin (principal); R51.9 Headache, unspecified; I10 Essential (primary) hypertension; E11.65 Type 2 diabetes mellitus with hyperglycemia; E78.5 Hyperlipidemia, unspecified; J44.9 Chronic obstructive pulmonary disease, unspecified; J45.909 Unspecified asthma, uncomplicated; I25.2 Old myocardial infarction
CPT/HCPCS: 36415; 70496; 70498; 80053; 84484; 85025; 93005; 99284; J1885; J7050; Q9967

== ENCOUNTER 2021-07-22 09:31 | Emergency (ER) | payer OTHER ==
[~2021-07-22] VITALS: Ht 142.2 cm; Wt 54.9 kg
[2021-07-22] MEDS ORDERED: KETOROLAC TROMETHAMINE 60 MG/2 ML VIAL ONE (12:23)
== END 2021-07-22 11:30 | disposition home or self-care (01) ==
LOC: ER 10:00
DX: R51.9 Headache, unspecified (principal); M54.2 Cervicalgia; M79.674 Pain in right toe(s); M25.561 Pain in right knee; E11.9 Type 2 diabetes mellitus without complications; J44.9 Chronic obstructive pulmonary disease, unspecified; I25.2 Old myocardial infarction; I11.0 Hypertensive heart disease with heart failure; I50.9 Heart failure, unspecified; E78.5 Hyperlipidemia, unspecified; F41.9 Anxiety disorder, unspecified; F32.9 Major depressive disorder, single episode, unspecified; W19.XXXA Unspecified fall, initial encounter; Z88.8 Allergy status to other drugs, medicaments and biological substances; Z79.4 Long term (current) use of insulin
CPT/HCPCS: 70450; 72125; 73560; 73620; 99282; J1885

== ENCOUNTER 2021-09-25 12:21 | Inpatient (IN) | payer OTHER ==
[~2021-09-25] VITALS: Ht 152.4 cm; Wt 56.7 kg
[2021-09-25] MEDS ORDERED: SODIUM CHLORIDE 0.9% 1000ML 1,000 ML IV STA (13:14)
[2021-09-25 13:35] LABS: BASOPHILS % 0.2 % (0.0-1.0); EOSINOPHILS # (AUTO) 0.2 (0.0-0.4); EOSINOPHILS % 2.1 % (0.0-6.0); HEMATOCRIT 32.7 % (34.2-44.1); HEMOGLOBIN 10.4 g/dL (12.0-16.0); LYMPHOCYTES # (AUTO) 1.2 (1.0-3.2); LYMPHOCYTES % 13.2 % (18.0-39.1); MEAN CORPUSCULAR HEMOGLOBIN 30.9 pg (28-32); MEAN CORPUSCULAR HGB CONC 31.8 g/dL (31-35); MONOCYTES # (AUTO) 0.6 (0.2-0.8); MONOCYTES % 6.4 % (4.4-11.3); NEUTROPHILS # (AUTO) 6.9 (2.1-6.9); NEUTROPHILS % 77.5 % (38.7-80.0); PLATELET COUNT 224 x10e3/uL (140-360); RED BLOOD COUNT 3.37 x10e6/uL (3.6-5.1)
[2021-09-25 13:44] LABS: CLARITY,URINE SL CLOUDY (CLEAR); COLOR,URINE YELLOW (YELLOW); KETONES,URINE NEGATIVE (NEGATIVE); LEUKOCYTE ESTERASE ,URINE TRACE (NEGATIVE); NITRITE,URINE NEGATIVE (NEGATIVE); PROTEIN,URINE DIPSTICK 1+ (NEGATIVE)
[2021-09-25 13:45] LABS: AMPHETAMINES SCREEN,URINE NEGATIVE (NEGATIVE); BENZODIAZEPINES SCREEN,URINE NEGATIVE (NEGATIVE); PHENCYCLIDINE SCREEN,URINE NEGATIVE (NEGATIVE); URINE UROBILINOGEN 0.2 mg/dL (0.2 - 1)
[2021-09-25 13:45] LABS: INR 1.06; PROTHROMBIN TIME 14.7 seconds (11.9-14.5)
[2021-09-25 13:46] LABS: PARTIAL THROMBOPLASTIN TIME 34.5 seconds (23.8-35.5)
[2021-09-25 13:50] LABS: BACTERIA,URINE FEW /HPF; EPITHELIAL CELLS,URINE MANY /LPF
[2021-09-25 13:56] LABS: ALBUMIN 2.6 g/dL (3.5-5.0); ALBUMIN/GLOBULIN RATIO 0.6 (0.8-2.0); CALCIUM 8.3 mg/dL (8.4-10.2); CREATININE, SERUM 0.84 mg/dL (0.57-1.11)
[2021-09-25 13:57] LABS: MAGNESIUM 1.2 MG/DL (1.3-2.1)
[2021-09-25 14:10] LABS: ABG HCO3 20 mmol/L (22-26); ABG PCO2 33 mmHg (35-45); ABG PO2 54 mmHg (80-105); ABG TCO2 21
[2021-09-25 15:07] LABS: SALICYLATE < 5.0 mg/dL (0-30)
[2021-09-25] MEDS ORDERED: SODIUM CHLORIDE 0.9% 1000ML 1,000 ML IV ONE ×2 (15:15→18:45)
[2021-09-25] MEDS ORDERED: SODIUM CHLORIDE 0.9% 50ML 50 ML ONE (15:32)
[2021-09-25] MEDS ORDERED: IOPAMIDOL 370 MG/ML 200 ML INFUS..BTL INJ ONE (15:32)
[2021-09-25] MEDS: PIPERACILLIN/TAZOBACTAM 3.375 GM in SODIUM CHLORIDE 0.9% 50ML 50 ML IV SCH (16:36)
[2021-09-25] MEDS: SODIUM CHLORIDE 0.9% 1000ML 1,000 ML IV SCH (17:58)
[2021-09-25] MEDS: ALBUTEROL SULF 0.083% NEB SOLN 3 ML NEB NEB SCH ×2 (18:00→22:15)
[2021-09-25] MEDS: IPRATROPIUM BROMIDE 0.02% 2.5 ML NEB NEB SCH ×2 (18:00→22:15)
[2021-09-25] MEDS: GABAPENTIN 300 MG CAP PO SCH (20:23)
[2021-09-25] MEDS: ATORVASTATIN 40 MG TAB PO SCH (20:24)
[2021-09-25 20:34] LABS: CREATINE KINASE MB 5.1 ng/mL (0-5.0)
[2021-09-25] MEDS ORDERED: AMITRIPTYLINE HCL 25 MG TAB PO SCH (21:00)
[2021-09-25] MEDS ORDERED: ONDANSETRON HCL INJ 2MG/ML 2ML 2 MG/ML VIAL IV PRN (22:00)
[2021-09-25] MEDS ORDERED: ACETAMINOPHEN 325 MG TAB PO PRN (22:00)
[2021-09-25] MEDS ORDERED: NALOXONE HCL INJ 0.4 MG/ML AMP IV ONE (22:45)
[2021-09-25] MEDS ORDERED: DEXTROSE 50% SYRINGE 50 ML IV PRN (23:15)
[2021-09-26] VITALS (11 sets, daily range): BP systolic 74–113; BP diastolic 46–62
[2021-09-26] MEDS: PIPERACILLIN/TAZOBACTAM 3.375 GM in SODIUM CHLORIDE 0.9% 50ML 50 ML IV SCH ×4 (00:24→16:57)
[2021-09-26] MEDS: QUETIAPINE FUMARATE 100 MG TAB PO SCH ×2 (02:00→21:40)
[2021-09-26] MEDS: BUDESONIDE/FORMOTEROL 160/4.5MCG INHALER INH SCH ×3 (02:50→19:50)
[2021-09-26 02:52] LABS: CREATINE KINASE MB 3.9 ng/mL (0-5.0)
[2021-09-26] MEDS: ALBUTEROL SULF 0.083% NEB SOLN 3 ML NEB NEB SCH ×2 (03:40→06:55)
[2021-09-26] MEDS: IPRATROPIUM BROMIDE 0.02% 2.5 ML NEB NEB SCH ×2 (03:50→06:55)
[2021-09-26] MEDS: SODIUM CHLORIDE 0.9% 1000ML 1,000 ML IV SCH (04:17)
[2021-09-26] MEDS: PANTOPRAZOLE SOD 40 MG TABEC PO SCH (05:39)
[2021-09-26 06:43] LABS: ALBUMIN 1.9 g/dL (3.5-5.0); ALBUMIN/GLOBULIN RATIO 0.6 (0.8-2.0); ANION GAP 10.2 mmol/L (8-16); CALCIUM 7.5 mg/dL (8.4-10.2); CREATININE, SERUM 0.55 mg/dL (0.57-1.11); POTASSIUM 3.2 mmol/L (3.5-5.1)
[2021-09-26 06:50] LABS: CREATINE KINASE MB 2.9 ng/mL (0-5.0)
[2021-09-26 07:18] LABS: CHOL/HDL RATIO 2.5 (3.0-3.6); MAGNESIUM 1.2 MG/DL (1.3-2.1)
[2021-09-26 07:21] LABS: BASOPHILS % 0.2 % (0.0-1.0); EOSINOPHILS # (AUTO) 0.2 (0.0-0.4); HEMATOCRIT 24.8 % (34.2-44.1); LYMPHOCYTES # (AUTO) 1.1 (1.0-3.2); LYMPHOCYTES % 18.1 % (18.0-39.1); MEAN CORPUSCULAR HEMOGLOBIN 30.8 pg (28-32); MEAN CORPUSCULAR HGB CONC 31.5 g/dL (31-35); MONOCYTES # (AUTO) 0.4 (0.2-0.8); MONOCYTES % 7.4 % (4.4-11.3); NEUTROPHILS # (AUTO) 4.2 (2.1-6.9); RED BLOOD COUNT 2.53 x10e6/uL (3.6-5.1); RED CELL DISTRIBUTION WIDTH 13.9 % (11.7-14.4)
[2021-09-26 07:24] LABS: HEMOGLOBIN 7.8 g/dL (12.0-16.0); PLATELET COUNT 151 x10e3/uL (140-360)
[2021-09-26] MEDS: DULOXETINE HCL 30 MG DELAYED RELEASE PO SCH (08:23)
[2021-09-26] MEDS: ENOXAPARIN 30 MG/0.3 ML SYR SC SCH (08:23)
[2021-09-26] MEDS: ASPIRIN 325 MG TAB PO SCH (08:23)
[2021-09-26] MEDS: INSULIN LISPRO 100 UNIT/1 ML 3ML VIAL SQ SCH ×4 (08:23→21:00)
[2021-09-26] MEDS: SERTRALINE HCL 100 MG TAB PO SCH (08:23)
[2021-09-26] MEDS: NICOTINE 14 MG/EA PATCH TOP SCH (08:23)
[2021-09-26] MEDS ORDERED: FUROSEMIDE 20 MG TAB PO SCH (09:00)
[2021-09-26] MEDS ORDERED: CARVEDILOL 3.125 MG TAB PO SCH (09:00)
[2021-09-26] MEDS ORDERED: IPRATROPIUM BROMIDE 0.02% 2.5 ML NEB NEB PRN (09:15)
[2021-09-26] MEDS ORDERED: LACTATED RINGER'S 500 ML INJ ONE (09:15)
[2021-09-26] MEDS ORDERED: ALBUTEROL SULF 0.083% NEB SOLN 3 ML NEB NEB PRN (09:15)
[2021-09-26] MEDS ORDERED: MAGNESIUM SULFATE 2GM/50ML 50 ML IV ONE (10:00)
[2021-09-26] MEDS ORDERED: ALBUTEROL/IPRATROPIUM 3 ML NEB NEB PRN (11:15)
[2021-09-26] MEDS: FUROSEMIDE 20 MG TAB PO SCH (11:55)
[2021-09-26] MEDS: CARVEDILOL 3.125 MG TAB PO SCH ×2 (11:55→16:53)
[2021-09-26] MEDS ORDERED: POTASSIUM CHLORIDE 20 MEQ TAB CR PO ONE (16:30)
[2021-09-26] MEDS: MIDODRINE HCL 5 MG TABLET PO SCH (16:52)
[2021-09-26] MEDS: HYDROCODONE/APAP 7.5MG-325MG 1 EA TAB PO PRN ×2 (17:11→21:41)
[2021-09-26 17:28] LABS: HEMATOCRIT 26.2 % (34.2-44.1); HEMOGLOBIN 8.4 g/dL (12.0-16.0)
[2021-09-26 17:44] LABS: % IRON SATURATION 5 % (15-50); IRON 10 ug/dL (50-170); TOTAL IRON BINDING CAPACITY 200 ug/dL (261-478); TRANSFERRIN 143 mg/dL (180-382)
[2021-09-26] MEDS ORDERED: INSULIN GLARGINE 100 UNITS/ML VIAL SQ SCH (21:00)
[2021-09-26] MEDS: GABAPENTIN 300 MG CAP PO SCH (21:40)
[2021-09-26] MEDS: ATORVASTATIN 40 MG TAB PO SCH (21:40)
[2021-09-27] VITALS (7 sets, daily range): BP systolic 88–123; BP diastolic 53–75
[2021-09-27] MEDS: PIPERACILLIN/TAZOBACTAM 3.375 GM in SODIUM CHLORIDE 0.9% 50ML 50 ML IV SCH ×3 (00:19→12:29)
[2021-09-27 04:57] LABS: BASOPHILS % 0.1 % (0.0-1.0); EOSINOPHILS # (AUTO) 0.2 (0.0-0.4); EOSINOPHILS % 3.4 % (0.0-6.0); HEMATOCRIT 25.4 % (34.2-44.1); HEMOGLOBIN 8.2 g/dL (12.0-16.0); LYMPHOCYTES # (AUTO) 1.4 (1.0-3.2); LYMPHOCYTES % 20.2 % (18.0-39.1); MEAN CORPUSCULAR HEMOGLOBIN 31.3 pg (28-32); MEAN CORPUSCULAR HGB CONC 32.3 g/dL (31-35); MEAN CORPUSCULAR VOLUME 96.9 fL (81-99); MONOCYTES # (AUTO) 0.5 (0.2-0.8); MONOCYTES % 6.8 % (4.4-11.3); NEUTROPHILS # (AUTO) 4.8 (2.1-6.9); NEUTROPHILS % 68.9 % (38.7-80.0); PLATELET COUNT 167 x10e3/uL (140-360); RED BLOOD COUNT 2.62 x10e6/uL (3.6-5.1); RED CELL DISTRIBUTION WIDTH 13.7 % (11.7-14.4)
[2021-09-27 05:19] LABS: ALBUMIN 1.9 g/dL (3.5-5.0); ALBUMIN/GLOBULIN RATIO 0.5 (0.8-2.0); ANION GAP 11.2 mmol/L (8-16); CALCIUM 8.2 mg/dL (8.4-10.2); CREATININE, SERUM 0.59 mg/dL (0.57-1.11); POTASSIUM 3.2 mmol/L (3.5-5.1)
[2021-09-27] MEDS: PANTOPRAZOLE SOD 40 MG TABEC PO SCH (06:00)
[2021-09-27] MEDS: BUDESONIDE/FORMOTEROL 160/4.5MCG INHALER INH SCH (07:00)
[2021-09-27] MEDS: INSULIN LISPRO 100 UNIT/1 ML 3ML VIAL SQ SCH ×3 (07:30→16:05)
[2021-09-27] MEDS: HYDROCODONE/APAP 7.5MG-325MG 1 EA TAB PO PRN ×2 (08:22→16:12)
[2021-09-27] MEDS: MIDODRINE HCL 5 MG TABLET PO SCH ×3 (08:25→16:05)
[2021-09-27] MEDS: FUROSEMIDE 20 MG TAB PO SCH (08:25)
[2021-09-27] MEDS: ASPIRIN 325 MG TAB PO SCH (08:25)
[2021-09-27] MEDS: SERTRALINE HCL 100 MG TAB PO SCH (08:25)
[2021-09-27] MEDS: DULOXETINE HCL 30 MG DELAYED RELEASE PO SCH (08:25)
[2021-09-27] MEDS: CARVEDILOL 3.125 MG TAB PO SCH ×2 (09:00→16:06)
[2021-09-27] MEDS: ENOXAPARIN 30 MG/0.3 ML SYR SC SCH (09:17)
[2021-09-27] MEDS: NICOTINE 14 MG/EA PATCH TOP SCH (09:17)
[2021-09-27] MEDS ORDERED: POTASSIUM CHLORIDE 20 MEQ TAB CR PO ONE (12:00)
== END 2021-09-27 17:23 | disposition home or self-care (01) | DRG 194 ==
LOC: ER 13:14 → ERHOLD 17:00 → IMCU 09-26 00:53 → MED/SURG3 09-27 12:20
PROVIDERS: ADMIT Internal Medicine; ATTEND Internal Medicine
DX: J18.9 Pneumonia, unspecified organism (principal); N39.0 Urinary tract infection, site not specified; J44.0 Chronic obstructive pulmonary disease with (acute) lower respiratory infection; J44.1 Chronic obstructive pulmonary disease with (acute) exacerbation; T40.2X1A Poisoning by other opioids, accidental (unintentional), initial encounter; I11.0 Hypertensive heart disease with heart failure; I50.9 Heart failure, unspecified; E11.42 Type 2 diabetes mellitus with diabetic polyneuropathy; Z95.1 Presence of aortocoronary bypass graft; F17.210 Nicotine dependence, cigarettes, uncomplicated; Z91.81 History of falling; I95.9 Hypotension, unspecified; F14.10 Cocaine abuse, uncomplicated; Z20.822 Contact with and (suspected) exposure to COVID-19; E11.65 Type 2 diabetes mellitus with hyperglycemia; F41.9 Anxiety disorder, unspecified; F32.A Depression, unspecified; E78.5 Hyperlipidemia, unspecified; Z72.0 Tobacco use; Z83.3 Family history of diabetes mellitus; Z82.49 Family history of ischemic heart disease and other diseases of the circulatory system; I25.2 Old myocardial infarction; I25.10 Atherosclerotic heart disease of native coronary artery without angina pectoris; D64.9 Anemia, unspecified
CPT/HCPCS: 36415; 36600; 70450; 71045; 71260; 72125; 74177; 80053; 80061; 80307; 80320; 80329; 81001; 82140; 82550; 82553; 82607; 82805; 82948; 83036; 83540; 83605; 83690; 83735; 83880; 84466; 84484; 85014; 85018; 85025; 85610; 85730; 87040; 87086; 93005; 93306; 94640; 94799; 99251; 99284; J0456; J1650; J2310; J2543; J3475; J7030; J7050; J7121; Q9967; U0002

== ENCOUNTER 2021-10-08 09:13 | Inpatient (IN) | payer OTHER ==
[~2021-10-08] VITALS: Ht 172.7 cm; Wt 56.7 kg
[2021-10-08 09:54] LABS: BASOPHILS % 0.3 % (0.0-1.0); EOSINOPHILS # (AUTO) 0.1 (0.0-0.4); HEMATOCRIT 29.1 % (34.2-44.1); HEMOGLOBIN 8.8 g/dL (12.0-16.0); LYMPHOCYTES # (AUTO) 1.6 (1.0-3.2); LYMPHOCYTES % 15.8 % (18.0-39.1); MEAN CORPUSCULAR HEMOGLOBIN 30.8 pg (28-32); MEAN CORPUSCULAR HGB CONC 30.2 g/dL (31-35); MEAN CORPUSCULAR VOLUME 101.7 fL (81-99); MONOCYTES # (AUTO) 0.6 (0.2-0.8); MONOCYTES % 5.6 % (4.4-11.3); NEUTROPHILS # (AUTO) 7.5 (2.1-6.9); NEUTROPHILS % 76.9 % (38.7-80.0); PLATELET COUNT 324 x10e3/uL (140-360); RED BLOOD COUNT 2.86 x10e6/uL (3.6-5.1); RED CELL DISTRIBUTION WIDTH 16.9 % (11.7-14.4)
[2021-10-08 10:18] LABS: ALBUMIN 2.3 g/dL (3.5-5.0); ALBUMIN/GLOBULIN RATIO 0.5 (0.8-2.0); ANION GAP 13.1 mmol/L (8-16); CALCIUM 8.4 mg/dL (8.4-10.2); CREATININE, SERUM 0.74 mg/dL (0.57-1.11); MAGNESIUM 1.7 MG/DL (1.3-2.1); POTASSIUM 4.1 mmol/L (3.5-5.1)
[2021-10-08 10:20] LABS: CLARITY,URINE CLEAR (CLEAR); COLOR,URINE YELLOW (YELLOW)
[2021-10-08 10:21] LABS: KETONES,URINE NEGATIVE (NEGATIVE); LEUKOCYTE ESTERASE ,URINE TRACE (NEGATIVE); NITRITE,URINE NEGATIVE (NEGATIVE); PROTEIN,URINE DIPSTICK NEGATIVE (NEGATIVE); URINE UROBILINOGEN 0.2 mg/dL (0.2 - 1)
[2021-10-08 10:26] LABS: CREATINE KINASE MB 2.5 ng/mL (0-5.0)
[2021-10-08 10:27] LABS: INR 1.17; PROTHROMBIN TIME 15.9 seconds (11.9-14.5)
[2021-10-08 10:28] LABS: PARTIAL THROMBOPLASTIN TIME 33.7 seconds (23.8-35.5)
[2021-10-08] MEDS ORDERED: SODIUM CHLORIDE 0.9% 500ML 500 ML IV ONE (10:30)
[2021-10-08 10:36] LABS: BACTERIA,URINE FEW /HPF; EPITHELIAL CELLS,URINE FEW /LPF; RBC,URINE 0-5 /HPF (0-5)
[2021-10-08] MEDS ORDERED: HYDROCODONE/APAP 5MG-325MG TAB PO ONE (11:00)
[2021-10-08 11:03] LABS: PHENCYCLIDINE SCREEN,URINE NEGATIVE (NEGATIVE)
[2021-10-08 11:04] LABS: AMPHETAMINES SCREEN,URINE NEGATIVE (NEGATIVE); BENZODIAZEPINES SCREEN,URINE NEGATIVE (NEGATIVE)
[2021-10-08] MEDS ORDERED: IOPAMIDOL 370 MG/ML 200 ML INFUS..BTL INJ ONE (11:14)
[2021-10-08] MEDS ORDERED: SODIUM CHLORIDE 0.9% 50ML 50 ML ONE (11:14)
[2021-10-08] MEDS ORDERED: ENOXAPARIN SODIUM INJ 100 MG/ML SYR SC NR (11:15)
[2021-10-08] MEDS ORDERED: ALBUTEROL SULF 0.083% NEB SOLN 3 ML NEB NEB SCH (12:00)
[2021-10-08] MEDS: PIPERACILLIN/TAZOBACTAM 3.375 GM in SODIUM CHLORIDE 0.9% 50ML 50 ML IV SCH ×3 (12:21→23:43)
[2021-10-08] MEDS ORDERED: IPRATROPIUM BROMIDE 0.02% 2.5 ML NEB NEB SCH (12:30)
[2021-10-08] MEDS ORDERED: IPRATROPIUM BROMIDE 0.02% 2.5 ML NEB NEB PRN (12:30)
[2021-10-08 13:38] VITALS: BP 143/73
[2021-10-08 16:17] LABS: BODY FLUID APPEARANCE CLOUDY; BODY FLUID COLOR STRAW; BODY FLUID TYPE PLEURAL
[2021-10-08 16:40] LABS: RBC,BODY FLUID 8000 cells/uL; WBC,BODY FLUID 864 cells/uL
[2021-10-08 17:07] VITALS: BP 134/61
[2021-10-08] MEDS: NICOTINE 14 MG/EA PATCH TOP SCH (17:17)
[2021-10-08] MEDS: CARVEDILOL 3.125 MG TAB PO SCH (17:17)
[2021-10-08] MEDS: ACETAMINOPHEN/CODEINE 300MG - 30MG TAB PO PRN ×2 (17:18→21:25)
[2021-10-08 17:53] LABS: EOSINOPHILS,BODY FLUID 2 %; NEUTROPHILS,BODY FLUID 10 %; OTHER CELLS,BODY FLUID 8 %
[2021-10-08 17:54] LABS: LYMPHOCYTES,BODY FLUID 75 %; MONO/MACROPHG,BODY FLUID 5 %
[2021-10-08 18:15] VITALS: BP 143/73
[2021-10-08 18:33] LABS: CREATINE KINASE MB 2.2 ng/mL (0-5.0)
[2021-10-08] MEDS ORDERED: BUDESONIDE/FORMOTEROL 160/4.5MCG INHALER INH SCH (19:00)
[2021-10-08] MEDS: ALBUTEROL SULF 0.083% NEB SOLN 3 ML NEB NEB PRN (19:39)
[2021-10-08 19:40] VITALS: BP 104/54
[2021-10-08] MEDS ORDERED: QUETIAPINE FUMARATE 100 MG TAB PO SCH (21:00)
[2021-10-08] MEDS ORDERED: INSULIN GLARGINE 100 UNITS/ML VIAL SC SCH (21:00)
[2021-10-08] MEDS ORDERED: GABAPENTIN 300 MG CAP PO SCH (21:00)
[2021-10-08] MEDS ORDERED: ATORVASTATIN 20 MG TAB PO SCH (21:00)
[2021-10-08] MEDS ORDERED: ZOLPIDEM TARTRATE 5 MG TAB PO PRN (21:00)
[2021-10-08 23:49] VITALS: BP 104/54
[2021-10-09] VITALS: BP 103/63
[2021-10-09 04:53] VITALS: BP 113/93
[2021-10-09 05:01] LABS: BASOPHILS % 0.7 % (0.0-1.0); EOSINOPHILS # (AUTO) 0.2 (0.0-0.4); EOSINOPHILS % 3.1 % (0.0-6.0); HEMATOCRIT 31.6 % (34.2-44.1); HEMOGLOBIN 9.6 g/dL (12.0-16.0); LYMPHOCYTES # (AUTO) 2.3 (1.0-3.2); LYMPHOCYTES % 37.8 % (18.0-39.1); MEAN CORPUSCULAR HEMOGLOBIN 30.6 pg (28-32); MEAN CORPUSCULAR HGB CONC 30.4 g/dL (31-35); MEAN CORPUSCULAR VOLUME 100.6 fL (81-99); MONOCYTES # (AUTO) 0.6 (0.2-0.8); NEUTROPHILS # (AUTO) 2.9 (2.1-6.9); NEUTROPHILS % 48.1 % (38.7-80.0); PLATELET COUNT 306 x10e3/uL (140-360); RED BLOOD COUNT 3.14 x10e6/uL (3.6-5.1); RED CELL DISTRIBUTION WIDTH 16.8 % (11.7-14.4)
[2021-10-09] MEDS ORDERED: SODIUM CHLORIDE 0.9% 250ML 250 ML ONE (05:20)
[2021-10-09 05:32] LABS: ALBUMIN 2.2 g/dL (3.5-5.0); ALBUMIN/GLOBULIN RATIO 0.5 (0.8-2.0); ANION GAP 10.9 mmol/L (8-16); CALCIUM 8.8 mg/dL (8.4-10.2); CREATININE, SERUM 0.75 mg/dL (0.57-1.11); POTASSIUM 3.9 mmol/L (3.5-5.1)
[2021-10-09] MEDS: PIPERACILLIN/TAZOBACTAM 3.375 GM in SODIUM CHLORIDE 0.9% 50ML 50 ML IV SCH ×2 (05:39→11:00)
[2021-10-09] MEDS: ACETAMINOPHEN/CODEINE 300MG - 30MG TAB PO PRN ×2 (05:39→14:18)
[2021-10-09] MEDS ORDERED: PANTOPRAZOLE SOD 40 MG TABEC PO SCH ×2 (06:00→07:30)
[2021-10-09 06:39] LABS: CREATINE KINASE MB 1.5 ng/mL (0-5.0)
[2021-10-09 07:27] VITALS: BP 112/54
[2021-10-09 07:56] VITALS: BP 112/54
[2021-10-09] MEDS: CARVEDILOL 3.125 MG TAB PO SCH ×2 (08:47→16:31)
[2021-10-09] MEDS: NICOTINE 14 MG/EA PATCH TOP SCH (08:47)
[2021-10-09] MEDS ORDERED: SERTRALINE HCL 100 MG TAB PO SCH (09:00)
[2021-10-09] MEDS ORDERED: FERROUS SULFATE 325 MG TAB PO SCH (09:00)
[2021-10-09] MEDS ORDERED: FUROSEMIDE 40 MG TAB PO SCH (09:00)
[2021-10-09 11:03] VITALS: BP 116/44
[2021-10-09] MEDS ORDERED: DEXTROSE 50% SYRINGE 50 ML IV PRN (13:45)
[2021-10-09] MEDS: ALBUTEROL SULF 0.083% NEB SOLN 3 ML NEB NEB PRN (14:33)
[2021-10-09] MEDS ORDERED: NICODERM CQ1 EAC1 TOP (15:08)
[2021-10-09] MEDS ORDERED: ZITHROMAX500 MG PO (15:12)
[2021-10-09 15:53] VITALS: BP 111/90
[2021-10-09] MEDS ORDERED: INSULIN LISPRO 100 UNIT/1 ML 3ML VIAL SQ SCH (16:30)
[2021-10-09] MEDS ORDERED: ATORVASTATIN 40 MG TAB PO SCH (21:00)
[2021-10-10] MEDS ORDERED: AZITHROMYCIN 250 MG TAB PO SCH (09:00)
== END 2021-10-09 17:53 | disposition home or self-care (01) | DRG 190 ==
LOC: ER 09:17 → ERHOLD 11:59 → MED/SURG2 13:00
PROVIDERS: ADMIT Internal Medicine; ATTEND Internal Medicine
PROC: 0W9B3ZZ Drainage of Left Pleural Cavity, Percutaneous Approach (ICD-10-PCS; principal; 2021-10-08)
DX: J44.0 Chronic obstructive pulmonary disease with (acute) lower respiratory infection (principal); J18.1 Lobar pneumonia, unspecified organism; J90 Pleural effusion, not elsewhere classified; F17.210 Nicotine dependence, cigarettes, uncomplicated; E11.65 Type 2 diabetes mellitus with hyperglycemia; D50.9 Iron deficiency anemia, unspecified; F41.9 Anxiety disorder, unspecified; F32.A Depression, unspecified; I25.10 Atherosclerotic heart disease of native coronary artery without angina pectoris; Z95.1 Presence of aortocoronary bypass graft; G62.9 Polyneuropathy, unspecified; M51.26 Other intervertebral disc displacement, lumbar region; Z20.822 Contact with and (suspected) exposure to COVID-19
CPT/HCPCS: 32555; 36415; 71045; 71046; 71260; 74470; 80053; 80307; 81001; 82550; 82553; 82948; 83615; 83735; 83880; 84157; 84484; 85025; 85379; 85610; 85730; 87040; 87070; 87086; 87205; 89051; 93005; 94640; 94664; 94799; 99284; J0456; J1650; J2543; J7040; J7050; Q9967; U0002

== ENCOUNTER 2022-10-15 15:24 | Emergency (ER) | payer OTHER ==
[~2022-10-15] VITALS: Ht 172.7 cm; Wt 56.7 kg
[~2022-10-15 15:24] MED LIST changes: +NICODERM CQ1 EAC1 TOP; +ZITHROMAX500 MG PO
[2022-10-15] MEDS ORDERED: ONDANSETRON HCL INJ 2MG/ML 2ML 2 MG/ML VIAL IV ONE (15:33)
[2022-10-15] MEDS ORDERED: KETOROLAC TROMETHAMINE 30 MG/ML VIAL IV ONE (15:33)
[2022-10-15] MEDS ORDERED: SODIUM CHLORIDE 0.9% 1000ML 1,000 ML IV STA (15:33)
[2022-10-15 15:53] LABS: BASOPHILS % 0.2 % (0.0-1.0); EOSINOPHILS # (AUTO) 0.1 (0.0-0.4); EOSINOPHILS % 0.5 % (0.0-6.0); HEMATOCRIT 32.3 % (34.2-44.1); HEMOGLOBIN 10.4 g/dL (12.0-16.0); LYMPHOCYTES # (AUTO) 1.3 (1.0-3.2); LYMPHOCYTES % 10.5 % (18.0-39.1); MEAN CORPUSCULAR HEMOGLOBIN 31.2 pg (28-32); MEAN CORPUSCULAR HGB CONC 32.2 g/dL (31-35); MONOCYTES # (AUTO) 0.8 (0.2-0.8); MONOCYTES % 6.6 % (4.4-11.3); NEUTROPHILS # (AUTO) 10.4 (2.1-6.9); NEUTROPHILS % 81.3 % (38.7-80.0); PLATELET COUNT 345 x10e3/uL (140-360); RED BLOOD COUNT 3.33 x10e6/uL (3.6-5.1); RED CELL DISTRIBUTION WIDTH 13.5 % (11.7-14.4)
[2022-10-15 16:00] LABS: CLARITY,URINE SL CLOUDY (CLEAR); COLOR,URINE AMBER (YELLOW); LEUKOCYTE ESTERASE ,URINE NEGATIVE (NEGATIVE); NITRITE,URINE NEGATIVE (NEGATIVE); PROTEIN,URINE DIPSTICK 2+ (NEGATIVE)
[2022-10-15 16:01] LABS: INR 1.14; PROTHROMBIN TIME 15.6 seconds (11.9-14.5)
[2022-10-15 16:01] LABS: KETONES,URINE NEGATIVE (NEGATIVE); URINE UROBILINOGEN 1 mg/dL (0.2 - 1)
[2022-10-15 16:03] LABS: AMPHETAMINES SCREEN,URINE NEGATIVE (NEGATIVE); BENZODIAZEPINES SCREEN,URINE NEGATIVE (NEGATIVE); PHENCYCLIDINE SCREEN,URINE NEGATIVE (NEGATIVE)
[2022-10-15 16:09] LABS: ALBUMIN 3.4 g/dL (3.5-5.0); ALBUMIN/GLOBULIN RATIO 0.9 (0.8-2.0); ANION GAP 17.1 mmol/L (8-16); CALCIUM 9.4 mg/dL (8.4-10.2); CREATININE, SERUM 1.13 mg/dL (0.57-1.11); POTASSIUM 4.1 mmol/L (3.5-5.1)
[2022-10-15 16:10] LABS: AMORPHOUS SEDIMENT,URINE MODERATE (FEW); BACTERIA,URINE MODERATE /HPF; EPITHELIAL CELLS,URINE FEW /LPF; RENAL EPITHELIAL CELLS,URINE FEW
[2022-10-15] MEDS: TETANUS/DIPHTHERIA TOX ADULT 0.5 ML SYR IM ONE (16:22)
[2022-10-15] MEDS: LACTATED RINGER'S 1,000 ML INJ ONE (16:22)
[2022-10-15 16:32] LABS: SALICYLATE < 5.0 mg/dL (0-30)
[2022-10-15] MEDS: NALOXONE HCL 2MG/2 ML SYRINGE IV ONE (18:00)
[2022-10-15] MEDS ORDERED: NALOXONE HCL INJ 0.4 MG/ML AMP ONE (18:09)
[2022-10-15] MEDS: ACETAMINOPHEN 325 MG TAB PO ONE (18:15)
[2022-10-15] MEDS ORDERED: ACETAMINOPHEN 325 MG TAB ONE (18:17)
== END 2022-10-15 19:22 | disposition home or self-care (01) ==
LOC: ER 15:29
DX: S01.01XA Laceration without foreign body of scalp, initial encounter (principal); F11.90 Opioid use, unspecified, uncomplicated; F14.10 Cocaine abuse, uncomplicated; I11.0 Hypertensive heart disease with heart failure; I50.9 Heart failure, unspecified; I25.810 Atherosclerosis of coronary artery bypass graft(s) without angina pectoris; I25.2 Old myocardial infarction; J45.909 Unspecified asthma, uncomplicated; R09.02 Hypoxemia; F41.9 Anxiety disorder, unspecified; F32.A Depression, unspecified; W18.39XA Other fall on same level, initial encounter; Z88.8 Allergy status to other drugs, medicaments and biological substances; Z79.4 Long term (current) use of insulin; Z79.899 Other long term (current) drug therapy; Z95.1 Presence of aortocoronary bypass graft
CPT/HCPCS: 12001; 36415; 70450; 71045; 72125; 73502; 73562; 73610; 80053; 80307; 80320; 80329 ×2; 81001; 83880; 84484; 85025; 85610; 90714; 99284; J2310; J7121; 93005

== ENCOUNTER 2023-02-03 10:53 | Emergency (ER) | payer OTHER ==
[~2023-02-03] VITALS: Ht 157.5 cm; Wt 56.7 kg
[2023-02-03 11:46] LABS: BASOPHILS % 0.2 % (0.0-1.0); EOSINOPHILS # (AUTO) 0.1 (0.0-0.4); EOSINOPHILS % 0.5 % (0.0-6.0); HEMATOCRIT 33.4 % (34.2-44.1); HEMOGLOBIN 10.9 g/dL (12.0-16.0); LYMPHOCYTES % 16.8 % (18.0-39.1); MEAN CORPUSCULAR HEMOGLOBIN 30.7 pg (28-32); MEAN CORPUSCULAR HGB CONC 32.6 g/dL (31-35); MEAN CORPUSCULAR VOLUME 94.1 fL (81-99); MONOCYTES # (AUTO) 0.8 (0.2-0.8); NEUTROPHILS # (AUTO) 8.7 (2.1-6.9); NEUTROPHILS % 74.9 % (38.7-80.0); PLATELET COUNT 417 x10e3/uL (140-360); RED BLOOD COUNT 3.55 x10e6/uL (3.6-5.1); RED CELL DISTRIBUTION WIDTH 13.9 % (11.7-14.4)
[2023-02-03 11:56] LABS: INR 1.08; PROTHROMBIN TIME 14.5 seconds (11.9-14.5)
[2023-02-03 11:57] LABS: PARTIAL THROMBOPLASTIN TIME 37.1 seconds (23.8-35.5)
[2023-02-03 12:00] LABS: AMPHETAMINES SCREEN,URINE NEGATIVE (NEGATIVE); BENZODIAZEPINES SCREEN,URINE NEGATIVE (NEGATIVE); PHENCYCLIDINE SCREEN,URINE NEGATIVE (NEGATIVE)
[2023-02-03 12:03] LABS: CLARITY,URINE CLEAR (CLEAR); COLOR,URINE YELLOW (YELLOW)
[2023-02-03 12:04] LABS: KETONES,URINE NEGATIVE (NEGATIVE); LEUKOCYTE ESTERASE ,URINE NEGATIVE (NEGATIVE); NITRITE,URINE NEGATIVE (NEGATIVE); PROTEIN,URINE DIPSTICK NEGATIVE (NEGATIVE); RBC,URINE 0-5 /HPF (0-5); URINE UROBILINOGEN 0.2 mg/dL (0.2 - 1); WBC,URINE (MAN) 0-5 /HPF (0-5)
[2023-02-03 12:05] LABS: ALANINE AMINOTRANSFERASE 32 IU/L (0-55); ALBUMIN 2.4 g/dL (3.5-5.0); ALBUMIN/GLOBULIN RATIO 0.4 (0.8-2.0); ALKALINE PHOSPHATASE 243 IU/L (40-150); ANION GAP 15.9 mmol/L (8-16); BACTERIA,URINE RARE /HPF; BLOOD UREA NITROGEN < 5 mg/dL (7-26); CALCIUM 9.6 mg/dL (8.4-10.2); CARBON DIOXIDE 24 mmol/L (22-29); CHLORIDE 99 mmol/L (98-107); CREATINE KINASE 53 IU/L (29-168); CREATININE, SERUM 0.72 mg/dL (0.57-1.11); EPITHELIAL CELLS,URINE FEW /LPF; GLUCOSE 169 mg/dL (74-118); MAGNESIUM 1.9 MG/DL (1.3-2.1); POTASSIUM 3.9 mmol/L (3.5-5.1); SODIUM 135 mmol/L (136-145)
[2023-02-03 12:07] LABS: BUN/CREATININE RATIO 7 (6-25)
[2023-02-03] MEDS ORDERED: BENZONATATE100 MG PO (13:09)
[2023-02-03] MEDS ORDERED: AZITHROMYCIN250 MG PO (13:09)
[2023-02-03] MEDS ORDERED: ONDANSETRON ODT4 MG PO (13:14)
== END 2023-02-03 13:42 | disposition home or self-care (01) ==
LOC: ER 10:58
DX: R05.9 Cough, unspecified (principal); J18.8 Other pneumonia, unspecified organism; J90 Pleural effusion, not elsewhere classified; Z20.822 Contact with and (suspected) exposure to COVID-19
CPT/HCPCS: 36415; 71045; 80053; 80307; 81001; 82550; 82553; 83735; 83880; 84484; 85025; 85610; 85730; 87040; 87086; 99283; U0002

== ENCOUNTER 2023-02-18 17:30 | Inpatient (IN) | payer OTHER ==
[~2023-02-18] VITALS: Ht 142.2 cm; Wt 45.4 kg
[~2023-02-18 17:30] MED LIST changes: +AZITHROMYCIN250 MG PO; +BENZONATATE100 MG PO; +ONDANSETRON ODT4 MG PO
[2023-02-18] MEDS ORDERED: ONDANSETRON HCL INJ 2MG/ML 2ML 2 MG/ML VIAL IV STA (17:44)
[2023-02-18] MEDS ORDERED: SODIUM CHLORIDE 0.9% 1000ML 1,000 ML IV STA (17:44)
[2023-02-18 18:07] LABS: BASOPHILS # (AUTO) 0.1 (0.0-0.1); BASOPHILS % 0.4 % (0.0-1.0); EOSINOPHILS # (AUTO) 0.1 (0.0-0.4); EOSINOPHILS % 0.4 % (0.0-6.0); HEMATOCRIT 27.2 % (34.2-44.1); HEMOGLOBIN 8.8 g/dL (12.0-16.0); LYMPHOCYTES % 13.1 % (18.0-39.1); MEAN CORPUSCULAR HEMOGLOBIN 29.8 pg (28-32); MEAN CORPUSCULAR HGB CONC 32.4 g/dL (31-35); MEAN CORPUSCULAR VOLUME 92.2 fL (81-99); MONOCYTES # (AUTO) 1.1 (0.2-0.8); MONOCYTES % 7.4 % (4.4-11.3); NEUTROPHILS % 77.9 % (38.7-80.0); PLATELET COUNT 426 x10e3/uL (140-360); RED BLOOD COUNT 2.95 x10e6/uL (3.6-5.1); RED CELL DISTRIBUTION WIDTH 14.4 % (11.7-14.4)
[2023-02-18 18:19] LABS: INR 1.15; PROTHROMBIN TIME 15.2 seconds (11.9-14.5)
[2023-02-18 18:20] LABS: PARTIAL THROMBOPLASTIN TIME 38.7 seconds (23.8-35.5)
[2023-02-18 18:31] LABS: ALANINE AMINOTRANSFERASE 21 IU/L (0-55); ALBUMIN 2.1 g/dL (3.5-5.0); ALBUMIN/GLOBULIN RATIO 0.4 (0.8-2.0); ALKALINE PHOSPHATASE 192 IU/L (40-150); ANION GAP 17.5 mmol/L (8-16); BLOOD UREA NITROGEN 12 mg/dL (7-26); BUN/CREATININE RATIO 14 (6-25); CALCIUM 9.2 mg/dL (8.4-10.2); CARBON DIOXIDE 26 mmol/L (22-29); CHLORIDE 92 mmol/L (98-107); CREATINE KINASE 467 IU/L (29-168); CREATININE, SERUM 0.84 mg/dL (0.57-1.11); GLUCOSE 234 mg/dL (74-118); POTASSIUM 3.5 mmol/L (3.5-5.1); SODIUM 132 mmol/L (136-145)
[2023-02-18] MEDS ORDERED: IOPAMIDOL 370 MG/ML 100 ML INFUS..BTL INJ ONE (18:52)
[2023-02-18] MEDS ORDERED: SODIUM CHLORIDE 0.9% 100 ML ONE (18:52)
[2023-02-18] MEDS ORDERED: CEFTRIAXONE 1 GM VIAL IM ONE (19:00)
[2023-02-18] MEDS: Morphine 2mg Syringe 2 MG/ML SYR IV PRN (19:48)
[2023-02-18] MEDS: ONDANSETRON HCL INJ 2MG/ML 2ML 2 MG/ML VIAL IV PRN (19:48)
[2023-02-18 20:30] VITALS: BP 107/58
[2023-02-18] MEDS: SODIUM CHLORIDE 0.9% 1000ML 1,000 ML IV SCH (21:08)
[2023-02-18 22:08] VITALS: BP 107/58
[2023-02-18 22:12] VITALS: BP 107/58
[2023-02-18] MEDS ORDERED: ACETAMINOPHEN 325 MG TAB PO PRN (23:00)
[2023-02-18] MEDS: BENZONATATE 100 MG CAP PO PRN (23:48)
[2023-02-19] VITALS (8 sets, daily range): BP systolic 100–130; BP diastolic 51–87
[2023-02-19] MEDS ORDERED: POLYETHYLENE GLYCOL 3350 17 GM PACK PO PRN (02:00)
[2023-02-19] MEDS: SODIUM CHLORIDE 0.9% 1000ML 1,000 ML IV SCH ×3 (03:15→20:43)
[2023-02-19 06:17] LABS: CLARITY,URINE CLEAR (CLEAR); COLOR,URINE YELLOW (YELLOW); KETONES,URINE NEGATIVE (NEGATIVE); LEUKOCYTE ESTERASE ,URINE NEGATIVE (NEGATIVE); NITRITE,URINE NEGATIVE (NEGATIVE); PROTEIN,URINE DIPSTICK NEGATIVE (NEGATIVE); URINE UROBILINOGEN 1 mg/dL (0.2 - 1)
[2023-02-19 06:21] LABS: BASOPHILS # (AUTO) 0.1 (0.0-0.1); BASOPHILS % 0.4 % (0.0-1.0); EOSINOPHILS # (AUTO) 0.1 (0.0-0.4); EOSINOPHILS % 0.6 % (0.0-6.0); HEMATOCRIT 26.6 % (34.2-44.1); HEMOGLOBIN 8.3 g/dL (12.0-16.0); LYMPHOCYTES % 8.2 % (18.0-39.1); MEAN CORPUSCULAR HEMOGLOBIN 29.7 pg (28-32); MEAN CORPUSCULAR HGB CONC 31.2 g/dL (31-35); MEAN CORPUSCULAR VOLUME 95.3 fL (81-99); MONOCYTES % 8.1 % (4.4-11.3); NEUTROPHILS % 81.6 % (38.7-80.0); PLATELET COUNT 309 x10e3/uL (140-360); RED BLOOD COUNT 2.79 x10e6/uL (3.6-5.1); RED CELL DISTRIBUTION WIDTH 14.5 % (11.7-14.4)
[2023-02-19 06:25] LABS: AMPHETAMINES SCREEN,URINE NEGATIVE (NEGATIVE); BENZODIAZEPINES SCREEN,URINE NEGATIVE (NEGATIVE); PHENCYCLIDINE SCREEN,URINE NEGATIVE (NEGATIVE)
[2023-02-19] MEDS ORDERED: BUPROPION XL150 MG PO (06:40)
[2023-02-19] MEDS ORDERED: LISINOPRIL10 MG PO (06:40)
[2023-02-19] MEDS ORDERED: QUETIAPINE FUM400 MG PO (06:43)
[2023-02-19 06:47] LABS: BACTERIA,URINE RARE /HPF; EPITHELIAL CELLS,URINE FEW /LPF; RBC,URINE 0-5 /HPF (0-5); WBC,URINE (MAN) 0-5 /HPF (0-5)
[2023-02-19 06:54] LABS: ALBUMIN 1.7 g/dL (3.5-5.0); ALBUMIN/GLOBULIN RATIO 0.4 (0.8-2.0); ANION GAP 14.6 mmol/L (8-16); CALCIUM 8.6 mg/dL (8.4-10.2); CREATININE, SERUM 0.73 mg/dL (0.57-1.11); POTASSIUM 3.6 mmol/L (3.5-5.1)
[2023-02-19 06:56] LABS: CHOL/HDL RATIO 3.4 (3.0-3.6); MAGNESIUM 1.8 MG/DL (1.3-2.1); PHOSPHORUS 3.2 MG/DL (2.3-4.7)
[2023-02-19 07:05] LABS: THYROID STIMULATING HORMONE 1.034 uIU/mL (0.350-4.940)
[2023-02-19 08:23] LABS: CREATINE KINASE MB 5.4 ng/mL (0-5.0)
[2023-02-19] MEDS: FAMOTIDINE 20 MG TAB PO SCH ×2 (10:08→18:15)
[2023-02-19] MEDS: DOCUSATE SODIUM 100 MG CAP PO SCH ×2 (10:08→18:14)
[2023-02-19 15:49] LABS: CREATINE KINASE MB 8.5 ng/mL (0-5.0)
[2023-02-19] MEDS ORDERED: METHYLPREDNISOLONE SOD SUCC 125 MG/2ML VIAL IV ONE (17:00)
[2023-02-19] MEDS: CARVEDILOL 3.125 MG TAB PO SCH (18:19)
[2023-02-19] MEDS ORDERED: DEXTROSE 50% SYRINGE 50 ML IV PRN (19:00)
[2023-02-19] MEDS: Morphine 2mg Syringe 2 MG/ML SYR IV PRN (20:41)
[2023-02-19] MEDS: GUAIFENESIN/CODEINE 5 ML LIQD PO PRN (20:41)
[2023-02-19] MEDS: ATORVASTATIN 20 MG TAB PO SCH (20:42)
[2023-02-19] MEDS: GABAPENTIN 300 MG CAP PO SCH (20:42)
[2023-02-19] MEDS: INSULIN LISPRO 100 UNIT/1 ML 3ML VIAL SQ SCH (22:00)
[2023-02-20] VITALS (8 sets, daily range): BP systolic 118–137; BP diastolic 46–64
[2023-02-20] MEDS: SODIUM CHLORIDE 0.9% 1000ML 1,000 ML IV SCH (05:35)
[2023-02-20] MEDS: LISINOPRIL 10 MG TAB PO SCH (09:42)
[2023-02-20] MEDS: FAMOTIDINE 20 MG TAB PO SCH ×2 (09:42→16:30)
[2023-02-20] MEDS: DOCUSATE SODIUM 100 MG CAP PO SCH ×2 (09:42→17:00)
[2023-02-20] MEDS: CARVEDILOL 3.125 MG TAB PO SCH ×2 (09:43→17:00)
[2023-02-20] MEDS: INSULIN LISPRO 100 UNIT/1 ML 3ML VIAL SQ SCH ×4 (09:49→21:00)
[2023-02-20] MEDS: BENZONATATE 100 MG CAP PO PRN (10:39)
[2023-02-20] MEDS: GUAIFENESIN/CODEINE 5 ML LIQD PO PRN (10:40)
[2023-02-20] MEDS ORDERED: ALBUTEROL SULF 0.083% NEB SOLN 3 ML NEB NEB PRN (12:15)
[2023-02-20] MEDS: ATORVASTATIN 20 MG TAB PO SCH (21:00)
[2023-02-20] MEDS: GABAPENTIN 300 MG CAP PO SCH (21:00)
[2023-02-20] MEDS: NICOTINE 14 MG/EA PATCH TOP SCH (21:26)
[2023-02-20] MEDS: Morphine 2mg Syringe 2 MG/ML SYR IV PRN (21:27)
[2023-02-21] VITALS: BP 145/50
[2023-02-21] MEDS: Morphine 2mg Syringe 2 MG/ML SYR IV PRN ×4 (02:44→22:50)
[2023-02-21 04:00] VITALS: BP 103/61
[2023-02-21] MEDS: INSULIN LISPRO 100 UNIT/1 ML 3ML VIAL SQ SCH ×4 (07:30→20:52)
[2023-02-21] MEDS: FAMOTIDINE 20 MG TAB PO SCH ×2 (07:30→16:30)
[2023-02-21 07:38] LABS: BASOPHILS % 0.4 % (0.0-1.0); EOSINOPHILS % 0.3 % (0.0-6.0); HEMATOCRIT 26.4 % (34.2-44.1); HEMOGLOBIN 8.4 g/dL (12.0-16.0); LYMPHOCYTES # (AUTO) 1.5 (1.0-3.2); LYMPHOCYTES % 14.8 % (18.0-39.1); MEAN CORPUSCULAR HGB CONC 31.8 g/dL (31-35); MEAN CORPUSCULAR VOLUME 97.4 fL (81-99); MONOCYTES # (AUTO) 0.7 (0.2-0.8); MONOCYTES % 7.4 % (4.4-11.3); NEUTROPHILS # (AUTO) 7.6 (2.1-6.9); NEUTROPHILS % 76.4 % (38.7-80.0); PLATELET COUNT 352 x10e3/uL (140-360); RED BLOOD COUNT 2.71 x10e6/uL (3.6-5.1); RED CELL DISTRIBUTION WIDTH 14.3 % (11.7-14.4)
[2023-02-21 08:13] LABS: ALBUMIN 1.7 g/dL (3.5-5.0); ALBUMIN/GLOBULIN RATIO 0.4 (0.8-2.0); ANION GAP 14.8 mmol/L (8-16); CALCIUM 8.5 mg/dL (8.4-10.2); CREATININE, SERUM 0.64 mg/dL (0.57-1.11); POTASSIUM 3.8 mmol/L (3.5-5.1)
[2023-02-21 08:22] VITALS: BP 122/68
[2023-02-21 08:34] VITALS: BP 122/68
[2023-02-21] MEDS: DOCUSATE SODIUM 100 MG CAP PO SCH ×2 (09:00→17:00)
[2023-02-21] MEDS: CARVEDILOL 3.125 MG TAB PO SCH ×2 (09:00→17:00)
[2023-02-21] MEDS ORDERED: AZITHROMYCIN 250 MG TAB PO SCH (09:00)
[2023-02-21] MEDS: LISINOPRIL 10 MG TAB PO SCH (09:00)
[2023-02-21] MEDS: NICOTINE 14 MG/EA PATCH TOP SCH (09:50)
[2023-02-21] MEDS ORDERED: FENTANYL CITRATE/PF 100MCG/2 ML INJ ONE (12:09)
[2023-02-21] MEDS ORDERED: MIDAZOLAM HCL 2 MG/2 ML VIAL ONE (12:09)
[2023-02-21 12:16] VITALS: BP 106/50
[2023-02-21] MEDS ORDERED: POVIDONE IODINE 0.05% 0.05 % ML PO ONE (13:57)
[2023-02-21] MEDS ORDERED: METOCLOPRAMIDE HCL 10 MG/2ML VIAL ONE (13:57)
[2023-02-21] MEDS ORDERED: GLYCOPYRROLATE INJ 0.2 MG/ML VIAL ONE (13:57)
[2023-02-21] MEDS ORDERED: LIDOCAINE HCL 2% LOCAL INJ 5 ML SDV VIAL INJ ONE (13:57)
[2023-02-21] MEDS ORDERED: PROPOFOL IV EMULSION 10 MG/ML 20 ML VIAL ONE (13:57)
[2023-02-21] MEDS ORDERED: BENZOCAINE/TETRACAINE/BUTAMBEN AERO SPRAY 56 GM CAN ONE (14:12)
[2023-02-21] MEDS ORDERED: ALBUTEROL/IPRATROPIUM 3 ML NEB ONE (14:15)
[2023-02-21] MEDS ORDERED: DEXTROSE 5%/0.45% SOD CHL 1,000 ML IV ONE (17:30)
[2023-02-21 20:00] VITALS: BP 127/70
[2023-02-21] MEDS: ATORVASTATIN 20 MG TAB PO SCH ×2 (20:49→20:52)
[2023-02-21] MEDS: GABAPENTIN 300 MG CAP PO SCH ×2 (20:50→20:52)
[2023-02-21] MEDS: ONDANSETRON HCL INJ 2MG/ML 2ML 2 MG/ML VIAL IV PRN (22:50)
[2023-02-22] VITALS (8 sets, daily range): BP systolic 102–133; BP diastolic 56–82
[2023-02-22] MEDS: INSULIN LISPRO 100 UNIT/1 ML 3ML VIAL SQ SCH ×5 (07:30→21:36)
[2023-02-22] MEDS: FAMOTIDINE 20 MG TAB PO SCH (07:30)
[2023-02-22] MEDS ORDERED: LORAZEPAM INJ 2 MG/ML VIAL IV ONE (07:45)
[2023-02-22] MEDS: CARVEDILOL 3.125 MG TAB PO SCH ×2 (09:00→17:00)
[2023-02-22] MEDS: LISINOPRIL 10 MG TAB PO SCH (09:00)
[2023-02-22] MEDS: BUPROPION HCL 150 MG TABCR PO SCH (09:00)
[2023-02-22] MEDS: DOCUSATE SODIUM 100 MG CAP PO SCH ×2 (09:00→17:00)
[2023-02-22] MEDS: NICOTINE 14 MG/EA PATCH TOP SCH (10:44)
[2023-02-22] MEDS: ONDANSETRON HCL INJ 2MG/ML 2ML 2 MG/ML VIAL IV PRN ×2 (14:28→21:26)
[2023-02-22] MEDS: Morphine 2mg Syringe 2 MG/ML SYR IV PRN ×2 (14:28→21:26)
[2023-02-22] MEDS: ATORVASTATIN 20 MG TAB PO SCH ×2 (20:47→20:50)
[2023-02-22] MEDS: GABAPENTIN 300 MG CAP PO SCH ×2 (20:47→20:50)
[2023-02-23] VITALS (7 sets, daily range): BP systolic 104–132; BP diastolic 44–59
[2023-02-23] MEDS: Morphine 2mg Syringe 2 MG/ML SYR IV PRN ×4 (05:13→18:25)
[2023-02-23] MEDS: ONDANSETRON HCL INJ 2MG/ML 2ML 2 MG/ML VIAL IV PRN (05:14)
[2023-02-23 06:17] LABS: BASOPHILS % 0.3 % (0.0-1.0); EOSINOPHILS # (AUTO) 0.1 (0.0-0.4); EOSINOPHILS % 1.6 % (0.0-6.0); HEMATOCRIT 25.6 % (34.2-44.1); HEMOGLOBIN 8.2 g/dL (12.0-16.0); LYMPHOCYTES # (AUTO) 1.1 (1.0-3.2); LYMPHOCYTES % 12.4 % (18.0-39.1); MEAN CORPUSCULAR HEMOGLOBIN 31.3 pg (28-32); MEAN CORPUSCULAR VOLUME 97.7 fL (81-99); MONOCYTES # (AUTO) 0.6 (0.2-0.8); NEUTROPHILS # (AUTO) 6.8 (2.1-6.9); NEUTROPHILS % 78.1 % (38.7-80.0); PLATELET COUNT 281 x10e3/uL (140-360); RED BLOOD COUNT 2.62 x10e6/uL (3.6-5.1); RED CELL DISTRIBUTION WIDTH 14.2 % (11.7-14.4)
[2023-02-23 06:40] LABS: ANION GAP 12.2 mmol/L (8-16); BLOOD UREA NITROGEN < 5 mg/dL (7-26); CALCIUM 8.6 mg/dL (8.4-10.2); CARBON DIOXIDE 28 mmol/L (22-29); CHLORIDE 99 mmol/L (98-107); CREATININE, SERUM 0.59 mg/dL (0.57-1.11); GLUCOSE 175 mg/dL (74-118); POTASSIUM 3.2 mmol/L (3.5-5.1); SODIUM 136 mmol/L (136-145)
[2023-02-23 06:42] LABS: BUN/CREATININE RATIO 8 (6-25)
[2023-02-23] MEDS: DOCUSATE SODIUM 100 MG CAP PO SCH ×2 (09:00→16:07)
[2023-02-23] MEDS: BUPROPION HCL 150 MG TABCR PO SCH (09:00)
[2023-02-23] MEDS: CARVEDILOL 3.125 MG TAB PO SCH ×2 (09:00→16:07)
[2023-02-23] MEDS: LISINOPRIL 10 MG TAB PO SCH (09:00)
[2023-02-23] MEDS: NICOTINE 14 MG/EA PATCH TOP SCH (09:17)
[2023-02-23] MEDS ORDERED: POTASSIUM CHLORIDE 20 MEQ TAB CR PO ONE ×2 (10:45→15:30)
[2023-02-23] MEDS ORDERED: MAGNESIUM SULF 1GRAM/DEXTROSE 100 ML IV ONE ×2 (11:00→15:30)
[2023-02-23] MEDS: INSULIN LISPRO 100 UNIT/1 ML 3ML VIAL SQ SCH ×3 (11:30→21:00)
[2023-02-23] MEDS: GABAPENTIN 300 MG CAP PO SCH (20:43)
[2023-02-23] MEDS: ATORVASTATIN 20 MG TAB PO SCH (20:43)
[2023-02-24] VITALS (7 sets, daily range): BP systolic 100–124; BP diastolic 33–96
[2023-02-24] MEDS: Morphine 2mg Syringe 2 MG/ML SYR IV PRN ×2 (01:12→09:30)
[2023-02-24 06:25] LABS: BLOOD UREA NITROGEN < 5 mg/dL (7-26); CALCIUM 8.5 mg/dL (8.4-10.2); CARBON DIOXIDE 28 mmol/L (22-29); CHLORIDE 100 mmol/L (98-107); CREATININE, SERUM 0.62 mg/dL (0.57-1.11); GLUCOSE 197 mg/dL (74-118); MAGNESIUM 1.9 MG/DL (1.3-2.1); PHOSPHORUS 2.6 MG/DL (2.3-4.7); SODIUM 136 mmol/L (136-145)
[2023-02-24 06:29] LABS: BUN/CREATININE RATIO 8 (6-25)
[2023-02-24] MEDS: DOCUSATE SODIUM 100 MG CAP PO SCH (09:21)
[2023-02-24] MEDS: BUPROPION HCL 150 MG TABCR PO SCH (09:21)
[2023-02-24] MEDS: NICOTINE 14 MG/EA PATCH TOP SCH (09:21)
[2023-02-24] MEDS: LISINOPRIL 10 MG TAB PO SCH (09:22)
[2023-02-24] MEDS: CARVEDILOL 3.125 MG TAB PO SCH (09:22)
[2023-02-24] MEDS: INSULIN LISPRO 100 UNIT/1 ML 3ML VIAL SQ SCH ×2 (09:38→12:57)
[2023-02-24] MEDS ORDERED: ALBUTEROL2.5 MG/3 M NEB (15:31)
[2023-02-24] MEDS ORDERED: AZITHROMYCIN250 MG PO (15:31)
[2023-02-24] MEDS ORDERED: Benzonatate PO (15:31)
[2023-02-24] MEDS ORDERED: GUAIFEN-CODEINE5 ML PO (15:31)
[2023-02-24] MEDS ORDERED: NICODERM CQ1 EAC1 TOP (15:31)
[2023-02-24] MEDS ORDERED: ACETAMINOPHEN325 M1 PO (15:31)
[2023-02-24] MEDS ORDERED: CEFUROXIME250 MG PO (15:31)
[2023-02-24] MEDS ORDERED: MIRALAX17 GM PO (15:31)
[2023-02-24] MEDS ORDERED: Docusate Sodium PO (15:32)
[2023-02-25] MEDS ORDERED: AZITHROMYCIN 250 MG TAB PO SCH (09:00)
== END 2023-02-24 17:00 | disposition home or self-care (01) | DRG 194 ==
LOC: ER 17:42 → ERHOLD 19:08 → INTOOBSV 19:08 → MED/SURG3 20:11 → OBSVTOIN 02-20 13:27
PROVIDERS: ADMIT Internal Medicine; ATTEND Internal Medicine
PROC: 0DB78ZX Excision of Stomach, Pylorus, Via Natural or Artificial Opening Endoscopic, Diagnostic (ICD-10-PCS; principal; 2023-02-21 16:00)
DX: J18.9 Pneumonia, unspecified organism (principal); J44.1 Chronic obstructive pulmonary disease with (acute) exacerbation; M62.82 Rhabdomyolysis; Z99.81 Dependence on supplemental oxygen; I11.0 Hypertensive heart disease with heart failure; I50.9 Heart failure, unspecified; I25.2 Old myocardial infarction; I25.10 Atherosclerotic heart disease of native coronary artery without angina pectoris; F41.9 Anxiety disorder, unspecified; F32.A Depression, unspecified; E78.5 Hyperlipidemia, unspecified; M19.90 Unspecified osteoarthritis, unspecified site; E11.40 Type 2 diabetes mellitus with diabetic neuropathy, unspecified; M54.9 Dorsalgia, unspecified; G89.29 Other chronic pain; F17.200 Nicotine dependence, unspecified, uncomplicated; R51.9 Headache, unspecified; W19.XXXA Unspecified fall, initial encounter; E11.65 Type 2 diabetes mellitus with hyperglycemia; R13.12 Dysphagia, oropharyngeal phase; E83.42 Hypomagnesemia; E87.6 Hypokalemia; D64.9 Anemia, unspecified; K29.70 Gastritis, unspecified, without bleeding; Z20.822 Contact with and (suspected) exposure to COVID-19; Z95.1 Presence of aortocoronary bypass graft; Z79.4 Long term (current) use of insulin
CPT/HCPCS: 0223U; 36415; 43450; 70496; 70498; 71045; 74230; 80048; 80053; 80061; 80307; 81001; 82550; 82553; 82948; 83036; 83735; 83880; 84100; 84443; 84484; 85025; 85610; 85730; 88304; 88305; 88312; 88342; 93005; 94799; 99285; G0378; J0696; J2001; J2060; J2250; J2270; J2405; J2765; J2930; J3475; J7030; J7050; Q9967

== ENCOUNTER 2023-03-10 14:37 | Emergency (ER) | payer OTHER ==
[~2023-03-10] VITALS: Ht 137.2 cm; Wt 45.4 kg
[~2023-03-10 14:37] MED LIST changes: +ACETAMINOPHEN325 M1 PO; +ALBUTEROL2.5 MG/3 M NEB; +BUPROPION XL150 MG PO; +Benzonatate PO; +CEFUROXIME250 MG PO; +Docusate Sodium PO; +GUAIFEN-CODEINE5 ML PO; +LISINOPRIL10 MG PO; +MIRALAX17 GM PO; +QUETIAPINE FUM400 MG PO
[2023-03-10] MEDS ORDERED: CLINDAMYCIN HC150 MG PO (16:39)
== END 2023-03-10 16:41 | disposition home or self-care (01) ==
LOC: ER 14:44
DX: L02.212 Cutaneous abscess of back [any part, except buttock and flank] (principal); I10 Essential (primary) hypertension; E11.9 Type 2 diabetes mellitus without complications; E78.5 Hyperlipidemia, unspecified; F31.9 Bipolar disorder, unspecified
CPT/HCPCS: 71046; 99284

== ENCOUNTER 2023-09-09 13:50 | Emergency (ER) | payer OTHER ==
[~2023-09-09] VITALS: Ht 142.2 cm; Wt 45.4 kg
[2023-09-09 13:50] VITALS: O2SAT 100
[~2023-09-09 13:50] MED LIST changes: +CEFDINIR300 MG PO; +CLINDAMYCIN HC150 MG PO; +KETOCONAZOLE15 GM TOP; +LOPRESSOR25 MG PO
[2023-09-09] MEDS ORDERED: LIDOCAINE JELLY 2% 10ML URO-JET TOP ONE (15:15)
== END 2023-09-09 16:00 | disposition left against medical advice (07) ==
LOC: ER 13:56
DX: Z43.1 Encounter for attention to gastrostomy (principal)

== ENCOUNTER 2023-09-16 16:24 | Inpatient (IN) | payer OTHER ==
[~2023-09-16] VITALS: Ht 142.2 cm; Wt 45.4 kg
[~2023-09-16 16:24] MED LIST changes: -IOPAMIDOL 370 MG/ML 100 ML INFUS..BTL INJ ONE
[2023-09-16 16:53] LABS: BASOPHILS % 0.1 % (0.0-1.0); EOSINOPHILS % 0.1 % (0.0-6.0); HEMATOCRIT 30.5 % (34.2-44.1); HEMOGLOBIN 10.3 g/dL (12.0-16.0); LYMPHOCYTES # (AUTO) 1.3 (1.0-3.2); LYMPHOCYTES % 8.9 % (18.0-39.1); MEAN CORPUSCULAR HEMOGLOBIN 29.6 pg (28-32); MEAN CORPUSCULAR HGB CONC 33.8 g/dL (31-35); MEAN CORPUSCULAR VOLUME 87.6 fL (81-99); MONOCYTES # (AUTO) 0.7 (0.2-0.8); MONOCYTES % 4.6 % (4.4-11.3); NEUTROPHILS # (AUTO) 12.3 (2.1-6.9); PLATELET COUNT 499 x10e3/uL (140-360); RED BLOOD COUNT 3.48 x10e6/uL (3.6-5.1); RED CELL DISTRIBUTION WIDTH 14.6 % (11.7-14.4); WHITE BLOOD COUNT 14.25 x10e3/uL (4.8-10.8)
[2023-09-16 17:06] LABS: INR 1.09; PROTHROMBIN TIME 14.8 seconds (11.9-14.5)
[2023-09-16 17:07] LABS: PARTIAL THROMBOPLASTIN TIME 30.8 seconds (23.8-35.5)
[2023-09-16 17:10] LABS: ALBUMIN 2.4 g/dL (3.5-5.0); ALBUMIN/GLOBULIN RATIO 0.4 (0.8-2.0); ANION GAP 18.1 mmol/L (8-16); CALCIUM 9.5 mg/dL (8.4-10.2); CREATININE, SERUM 0.76 mg/dL (0.57-1.11); POTASSIUM 3.1 mmol/L (3.5-5.1)
[2023-09-16] MEDS ORDERED: LIDOCAINE HCL 4% 50 ML BTL TOP ONE (17:15)
[2023-09-16] MEDS ORDERED: SODIUM CHLORIDE 0.9% 1000ML 1,000 ML IV STA (17:40)
[2023-09-16] MEDS ORDERED: POTASSIUM CHLORIDE 20MEQ/15ML UDC PEG ONE (17:45)
[2023-09-16 20:00] VITALS: BP 118/60; PULSE 86; RESP 20; TEMP 98; O2SAT 98
[2023-09-16 20:01] VITALS: BP_SYST 109; BP_SYST 118; BP_DIAS 40; BP_DIAS 60; PULSE 86; RESP 20; TEMP 98; O2SAT 98
[2023-09-16 21:00] VITALS: BP 118/60; PULSE 86; RESP 20; TEMP 98; O2SAT 98
[2023-09-16] MEDS: Morphine 4mg INJECTION 4 MG/ML INJ IV PRN (23:39)
[2023-09-16] MEDS: ONDANSETRON HCL INJ 2MG/ML 2ML 2 MG/ML VIAL IV PRN (23:40)
[2023-09-17] VITALS (9 sets, daily range): BP systolic 108–138; BP diastolic 53–69; PULSE 76–82; RESP 15–20; TEMP 97.3–98.3; O2SAT 96–100
[2023-09-17] MEDS: Morphine 4mg INJECTION 4 MG/ML INJ IV PRN ×3 (03:45→16:25)
[2023-09-17] MEDS: ONDANSETRON HCL INJ 2MG/ML 2ML 2 MG/ML VIAL IV PRN ×3 (03:45→16:25)
[2023-09-17 06:07] LABS: BASOPHILS % 0.3 % (0.0-1.0); EOSINOPHILS % 0.3 % (0.0-6.0); HEMOGLOBIN 8.2 g/dL (12.0-16.0); LYMPHOCYTES # (AUTO) 1.6 (1.0-3.2); LYMPHOCYTES % 10.8 % (18.0-39.1); MEAN CORPUSCULAR HEMOGLOBIN 29.5 pg (28-32); MEAN CORPUSCULAR HGB CONC 32.8 g/dL (31-35); MEAN CORPUSCULAR VOLUME 89.9 fL (81-99); MONOCYTES % 6.7 % (4.4-11.3); NEUTROPHILS # (AUTO) 12.4 (2.1-6.9); NEUTROPHILS % 81.4 % (38.7-80.0); PLATELET COUNT 412 x10e3/uL (140-360); RED BLOOD COUNT 2.78 x10e6/uL (3.6-5.1); RED CELL DISTRIBUTION WIDTH 14.4 % (11.7-14.4); WHITE BLOOD COUNT 15.25 x10e3/uL (4.8-10.8)
[2023-09-17 07:14] LABS: ANION GAP 12.6 mmol/L (8-16); CALCIUM 8.5 mg/dL (8.4-10.2); CREATININE, SERUM 0.61 mg/dL (0.57-1.11); MAGNESIUM 1.6 MG/DL (1.3-2.1); PHOSPHORUS 2.7 MG/DL (2.3-4.7)
[2023-09-17 07:18] LABS: POTASSIUM 2.6 mmol/L (3.5-5.1)
[2023-09-17] MEDS ORDERED: POTASSIUM CHLORIDE 20MEQ/100ML 100 ML IV ONE ×2 (09:30→11:30)
[2023-09-17] MEDS ORDERED: MAGNESIUM SULF 1GRAM/DEXTROSE 100 ML IV ONE (09:30)
[2023-09-17] MEDS ORDERED: SODIUM CHLORIDE 0.9% 250ML 250 ML ONE (15:52)
[2023-09-17] MEDS: ATORVASTATIN 40 MG TAB PO SCH (21:00)
[2023-09-17] MEDS ORDERED: DEXTROSE 5%/0.45% SOD CHL 1,000 ML IV ONE (22:45)
[2023-09-18] VITALS (10 sets, daily range): BP systolic 101–148; BP diastolic 49–69; PULSE 67–88; RESP 16–18; TEMP 97.6–98.3; O2SAT 94–100
[2023-09-18 06:10] LABS: BASOPHILS % 0.2 % (0.0-1.0); EOSINOPHILS # (AUTO) 0.1 (0.0-0.4); EOSINOPHILS % 0.6 % (0.0-6.0); HEMATOCRIT 25.9 % (34.2-44.1); HEMOGLOBIN 8.4 g/dL (12.0-16.0); LYMPHOCYTES # (AUTO) 1.4 (1.0-3.2); LYMPHOCYTES % 7.7 % (18.0-39.1); MEAN CORPUSCULAR HEMOGLOBIN 29.9 pg (28-32); MEAN CORPUSCULAR HGB CONC 32.4 g/dL (31-35); MEAN CORPUSCULAR VOLUME 92.2 fL (81-99); MONOCYTES # (AUTO) 0.5 (0.2-0.8); MONOCYTES % 2.9 % (4.4-11.3); NEUTROPHILS # (AUTO) 15.3 (2.1-6.9); PLATELET COUNT 440 x10e3/uL (140-360); RED BLOOD COUNT 2.81 x10e6/uL (3.6-5.1); RED CELL DISTRIBUTION WIDTH 14.4 % (11.7-14.4); WHITE BLOOD COUNT 17.42 x10e3/uL (4.8-10.8)
[2023-09-18 06:31] LABS: ANION GAP 18.5 mmol/L (8-16); CALCIUM 8.6 mg/dL (8.4-10.2); CREATININE, SERUM 0.61 mg/dL (0.57-1.11); MAGNESIUM 1.7 MG/DL (1.3-2.1); PHOSPHORUS 2.1 MG/DL (2.3-4.7); POTASSIUM 3.5 mmol/L (3.5-5.1)
[2023-09-18] MEDS ORDERED: IOPAMIDOL 370 MG/ML 100 ML INFUS..BTL INJ ONE (16:28)
[2023-09-18] MEDS: CENTRAL TPN FORMULA 1 BAG IV SCH (20:20)
[2023-09-18] MEDS: ATORVASTATIN 40 MG TAB PO SCH (21:00)
[2023-09-19] VITALS (13 sets, daily range): BP systolic 113–149; BP diastolic 50–80; PULSE 62–89; RESP 16–18; TEMP 97.7–98.2; O2SAT 94–100
[2023-09-19 05:58] LABS: BASOPHILS % 0.3 % (0.0-1.0); EOSINOPHILS # (AUTO) 0.1 (0.0-0.4); EOSINOPHILS % 0.7 % (0.0-6.0); HEMATOCRIT 26.5 % (34.2-44.1); HEMOGLOBIN 8.6 g/dL (12.0-16.0); LYMPHOCYTES # (AUTO) 1.3 (1.0-3.2); LYMPHOCYTES % 12.3 % (18.0-39.1); MEAN CORPUSCULAR HEMOGLOBIN 29.7 pg (28-32); MEAN CORPUSCULAR HGB CONC 32.5 g/dL (31-35); MEAN CORPUSCULAR VOLUME 91.4 fL (81-99); MONOCYTES # (AUTO) 0.6 (0.2-0.8); MONOCYTES % 5.6 % (4.4-11.3); NEUTROPHILS # (AUTO) 8.7 (2.1-6.9); NEUTROPHILS % 80.6 % (38.7-80.0); PLATELET COUNT 418 x10e3/uL (140-360); RED CELL DISTRIBUTION WIDTH 14.1 % (11.7-14.4); WHITE BLOOD COUNT 10.75 x10e3/uL (4.8-10.8)
[2023-09-19 06:16] LABS: MAGNESIUM 1.8 MG/DL (1.3-2.1); PHOSPHORUS 1.8 MG/DL (2.3-4.7)
[2023-09-19 06:19] LABS: ALBUMIN 1.9 g/dL (3.5-5.0); ALBUMIN/GLOBULIN RATIO 0.4 (0.8-2.0); ANION GAP 12.1 mmol/L (8-16); CALCIUM 8.4 mg/dL (8.4-10.2); CREATININE, SERUM 0.74 mg/dL (0.57-1.11); POTASSIUM 3.1 mmol/L (3.5-5.1)
[2023-09-19] MEDS ORDERED: DEXTROSE 50% SYRINGE 50 ML IV PRN (09:30)
[2023-09-19] MEDS ORDERED: POTASSIUM PHOSPHATE 15 MM in SODIUM CHLORIDE 0.9% 250ML 250 ML IV ONE (10:00)
[2023-09-19] MEDS ORDERED: INSULIN REGULAR, HUMAN 100 UNIT/1 ML SQ ONE (10:00)
[2023-09-19] MEDS: ALBUTEROL SULF 0.083% NEB SOLN 3 ML NEB NEB PRN ×3 (10:42→19:30)
[2023-09-19] MEDS ORDERED: ALTEPLASE RECOMBINANT 2 MG/2 ML VIAL IV ONE (10:45)
[2023-09-19] MEDS: Morphine 4mg INJECTION 4 MG/ML INJ IV PRN ×3 (11:04→22:19)
[2023-09-19] MEDS: INSULIN REGULAR, HUMAN 100 UNIT/1 ML SQ SCH ×3 (11:57→20:43)
[2023-09-19] MEDS: ATORVASTATIN 40 MG TAB PO SCH (20:38)
[2023-09-19] MEDS: CENTRAL TPN FORMULA 1 BAG IV SCH (20:45)
[2023-09-20] VITALS (9 sets, daily range): BP systolic 109–186; BP diastolic 51–79; PULSE 63–88; RESP 16–21; TEMP 97.7–98.4; O2SAT 91–100
[2023-09-20] MEDS: Morphine 4mg INJECTION 4 MG/ML INJ IV PRN (04:19)
[2023-09-20 07:27] LABS: ALBUMIN 1.9 g/dL (3.5-5.0); ALBUMIN/GLOBULIN RATIO 0.5 (0.8-2.0); ANION GAP 10.2 mmol/L (8-16); CALCIUM 8.4 mg/dL (8.4-10.2); CREATININE, SERUM 0.54 mg/dL (0.57-1.11); PHOSPHORUS 2.2 MG/DL (2.3-4.7); POTASSIUM 3.2 mmol/L (3.5-5.1)
[2023-09-20] MEDS: ALBUTEROL SULF 0.083% NEB SOLN 3 ML NEB NEB PRN (07:28)
[2023-09-20] MEDS ORDERED: HYDRALAZINE HCL 20 MG/ML VIAL IV PRN (09:00)
[2023-09-20] MEDS: INSULIN REGULAR, HUMAN 100 UNIT/1 ML SQ SCH ×4 (09:11→22:15)
[2023-09-20] MEDS ORDERED: POTASSIUM PHOSPHATE 15 MM in SODIUM CHLORIDE 0.9% 250ML 250 ML IV ONE (10:00)
[2023-09-20] MEDS: HYDROMORPHONE 1MG/1ML INJ IV PRN ×2 (12:00→17:31)
[2023-09-20 15:18] LABS: HIV 1&2 AB SCREEN NON-REACTIVE (NONREACTIVE)
[2023-09-20] MEDS: ATORVASTATIN 40 MG TAB PO SCH (21:36)
[2023-09-20] MEDS: CENTRAL TPN FORMULA 1 BAG IV SCH (22:31)
[2023-09-21] VITALS (10 sets, daily range): BP systolic 120–156; BP diastolic 50–77; PULSE 52–82; RESP 17–20; TEMP 97.6–98.8; O2SAT 94–100
[2023-09-21] MEDS: HYDROMORPHONE 1MG/1ML INJ IV PRN (00:39)
[2023-09-21] MEDS ORDERED: SODIUM CHLORIDE 0.9% 250ML 250 ML ONE (01:55)
[2023-09-21] MEDS: DIPHENHYDRAMINE HCL INJ 50 MG/ML VIAL IV PRN (02:16)
[2023-09-21] MEDS: INSULIN REGULAR, HUMAN 100 UNIT/1 ML SQ SCH ×4 (03:16→19:06)
[2023-09-21 05:36] LABS: BASOPHILS % 0.3 % (0.0-1.0); EOSINOPHILS # (AUTO) 0.3 (0.0-0.4); EOSINOPHILS % 3.9 % (0.0-6.0); HEMATOCRIT 25.5 % (34.2-44.1); HEMOGLOBIN 8.2 g/dL (12.0-16.0); LYMPHOCYTES # (AUTO) 2.2 (1.0-3.2); LYMPHOCYTES % 29.3 % (18.0-39.1); MEAN CORPUSCULAR HEMOGLOBIN 29.6 pg (28-32); MEAN CORPUSCULAR HGB CONC 32.2 g/dL (31-35); MEAN CORPUSCULAR VOLUME 92.1 fL (81-99); MONOCYTES # (AUTO) 0.6 (0.2-0.8); MONOCYTES % 7.8 % (4.4-11.3); NEUTROPHILS # (AUTO) 4.3 (2.1-6.9); NEUTROPHILS % 58.3 % (38.7-80.0); PLATELET COUNT 358 x10e3/uL (140-360); RED BLOOD COUNT 2.77 x10e6/uL (3.6-5.1); RED CELL DISTRIBUTION WIDTH 14.2 % (11.7-14.4); WHITE BLOOD COUNT 7.43 x10e3/uL (4.8-10.8)
[2023-09-21 06:03] LABS: ALBUMIN 1.8 g/dL (3.5-5.0); ALBUMIN/GLOBULIN RATIO 0.5 (0.8-2.0); ANION GAP 9.8 mmol/L (8-16); CALCIUM 8.3 mg/dL (8.4-10.2); CREATININE, SERUM 0.5 mg/dL (0.57-1.11); MAGNESIUM 1.9 MG/DL (1.3-2.1); PHOSPHORUS 2.5 MG/DL (2.3-4.7); POTASSIUM 3.8 mmol/L (3.5-5.1)
[2023-09-21] MEDS: ATORVASTATIN 40 MG TAB PO SCH (20:29)
[2023-09-21] MEDS: CENTRAL TPN FORMULA 1 BAG IV SCH (20:33)
[2023-09-22] VITALS (10 sets, daily range): BP systolic 135–154; BP diastolic 57–70; PULSE 61–85; RESP 16–21; TEMP 97.2–98.6; O2SAT 96–100
[2023-09-22] MEDS: INSULIN REGULAR, HUMAN 100 UNIT/1 ML SQ SCH ×4 (01:11→17:14)
[2023-09-22] MEDS ORDERED: SODIUM CHLORIDE 0.9% 250ML 250 ML ONE (04:53)
[2023-09-22 07:13] LABS: ALBUMIN/GLOBULIN RATIO 0.4 (0.8-2.0); ANION GAP 9.8 mmol/L (8-16); CALCIUM 8.3 mg/dL (8.4-10.2); CREATININE, SERUM 0.49 mg/dL (0.57-1.11); MAGNESIUM 1.9 MG/DL (1.3-2.1); PHOSPHORUS 2.6 MG/DL (2.3-4.7); POTASSIUM 3.8 mmol/L (3.5-5.1)
[2023-09-22] MEDS: MUPIROCIN 2% OINT 22 GM TUBE TOP SCH ×2 (08:53→17:13)
[2023-09-22] MEDS: HYDROMORPHONE 1MG/1ML INJ IV PRN ×3 (11:43→18:38)
[2023-09-22] MEDS: CENTRAL TPN FORMULA 1 BAG IV SCH (20:09)
[2023-09-22] MEDS: ATORVASTATIN 40 MG TAB PO SCH (20:14)
[2023-09-23] VITALS (9 sets, daily range): BP systolic 115–154; BP diastolic 51–70; PULSE 60–79; RESP 16–20; TEMP 97.1–98.9; O2SAT 95–100
[2023-09-23] MEDS: HYDROMORPHONE 1MG/1ML INJ IV PRN ×5 (00:15→22:55)
[2023-09-23] MEDS: INSULIN REGULAR, HUMAN 100 UNIT/1 ML SQ SCH ×4 (00:58→18:00)
[2023-09-23 06:16] LABS: POTASSIUM 4.4 mmol/L (3.5-5.1)
[2023-09-23 06:35] LABS: ALBUMIN 2.2 g/dL (3.5-5.0); ALBUMIN/GLOBULIN RATIO 0.5 (0.8-2.0); ANION GAP 12.3 mmol/L (8-16); CREATININE, SERUM 0.53 mg/dL (0.57-1.11); PHOSPHORUS 3.3 MG/DL (2.3-4.7)
[2023-09-23] MEDS: MUPIROCIN 2% OINT 22 GM TUBE TOP SCH ×2 (08:57→17:40)
[2023-09-23] MEDS ORDERED: PROPOFOL IV EMULSION 10 MG/ML 20 ML VIAL ONE (11:39)
[2023-09-23] MEDS ORDERED: LIDOCAINE HCL 2% LOCAL INJ 5 ML SDV VIAL INJ ONE (11:39)
[2023-09-23] MEDS ORDERED: FENTANYL CITRATE/PF 100MCG/2 ML INJ IV ONE (16:20)
[2023-09-23] MEDS ORDERED: FENTANYL CITRATE/PF 100MCG/2 ML INJ ONE (16:21)
[2023-09-23] MEDS: ATORVASTATIN 40 MG TAB PO SCH (20:11)
[2023-09-23] MEDS: CENTRAL TPN FORMULA 1 BAG IV SCH (20:12)
[2023-09-24] VITALS (9 sets, daily range): BP systolic 115–152; BP diastolic 58–71; PULSE 64–71; RESP 15–18; TEMP 97.4–98.8; O2SAT 94–100
[2023-09-24] MEDS: INSULIN REGULAR, HUMAN 100 UNIT/1 ML SQ SCH ×4 (00:31→18:00)
[2023-09-24] MEDS: HYDROMORPHONE 1MG/1ML INJ IV PRN ×4 (05:18→20:38)
[2023-09-24 06:06] LABS: BASOPHILS % 0.5 % (0.0-1.0); EOSINOPHILS # (AUTO) 0.3 (0.0-0.4); HEMATOCRIT 29.1 % (34.2-44.1); HEMOGLOBIN 9.2 g/dL (12.0-16.0); LYMPHOCYTES # (AUTO) 1.9 (1.0-3.2); LYMPHOCYTES % 24.9 % (18.0-39.1); MEAN CORPUSCULAR HEMOGLOBIN 29.9 pg (28-32); MEAN CORPUSCULAR HGB CONC 31.6 g/dL (31-35); MEAN CORPUSCULAR VOLUME 94.5 fL (81-99); MONOCYTES # (AUTO) 0.7 (0.2-0.8); MONOCYTES % 8.9 % (4.4-11.3); NEUTROPHILS # (AUTO) 4.7 (2.1-6.9); NEUTROPHILS % 61.2 % (38.7-80.0); PLATELET COUNT 374 x10e3/uL (140-360); RED BLOOD COUNT 3.08 x10e6/uL (3.6-5.1); WHITE BLOOD COUNT 7.66 x10e3/uL (4.8-10.8)
[2023-09-24 06:54] LABS: ALBUMIN 2.4 g/dL (3.5-5.0); ALBUMIN/GLOBULIN RATIO 0.5 (0.8-2.0); ANION GAP 13.2 mmol/L (8-16); CALCIUM 9.2 mg/dL (8.4-10.2); CREATININE, SERUM 0.58 mg/dL (0.57-1.11); PHOSPHORUS 3.5 MG/DL (2.3-4.7); POTASSIUM 4.2 mmol/L (3.5-5.1)
[2023-09-24] MEDS: MUPIROCIN 2% OINT 22 GM TUBE TOP SCH ×2 (09:47→17:00)
[2023-09-24] MEDS: DIPHENHYDRAMINE HCL INJ 50 MG/ML VIAL IV PRN (10:14)
[2023-09-24] MEDS: ATORVASTATIN 40 MG TAB PO SCH (20:36)
[2023-09-24] MEDS: ONDANSETRON HCL INJ 2MG/ML 2ML 2 MG/ML VIAL IV PRN (20:37)
[2023-09-24] MEDS: CENTRAL TPN FORMULA 1 BAG IV SCH (20:38)
[2023-09-25] VITALS (10 sets, daily range): BP systolic 104–133; BP diastolic 28–64; PULSE 65–85; RESP 16–18; TEMP 97.8–98.6; O2SAT 96–100
[2023-09-25] MEDS: INSULIN REGULAR, HUMAN 100 UNIT/1 ML SQ SCH ×5 (00:31→22:11)
[2023-09-25 06:46] LABS: ALBUMIN 2.4 g/dL (3.5-5.0); ALBUMIN/GLOBULIN RATIO 0.5 (0.8-2.0); CALCIUM 9.1 mg/dL (8.4-10.2); CREATININE, SERUM 0.58 mg/dL (0.57-1.11); MAGNESIUM 1.8 MG/DL (1.3-2.1); PHOSPHORUS 3.3 MG/DL (2.3-4.7)
[2023-09-25] MEDS: HYDROMORPHONE 1MG/1ML INJ IV PRN ×4 (08:30→22:15)
[2023-09-25] MEDS: MUPIROCIN 2% OINT 22 GM TUBE TOP SCH ×2 (14:38→16:54)
[2023-09-25] MEDS: ATORVASTATIN 40 MG TAB PO SCH (21:00)
[2023-09-25] MEDS: DIPHENHYDRAMINE HCL INJ 50 MG/ML VIAL IV PRN (22:58)
[2023-09-26 00:40] VITALS: BP 124/61; PULSE 84; RESP 17; TEMP 98.5; O2SAT 97
[2023-09-26 04:49] VITALS: BP 132/57; PULSE 77; RESP 16; TEMP 98; O2SAT 100
[2023-09-26] MEDS: INSULIN REGULAR, HUMAN 100 UNIT/1 ML SQ SCH (05:46)
[2023-09-26 07:23] VITALS: PULSE 78; RESP 20; O2SAT 95
[2023-09-26 08:34] VITALS: BP 135/82; PULSE 86; RESP 16; TEMP 98.2; O2SAT 99
[2023-09-26 08:59] VITALS: BP 135/82; PULSE 86; RESP 16; TEMP 98.2; O2SAT 99
[2023-09-26] MEDS: MUPIROCIN 2% OINT 22 GM TUBE TOP SCH (10:09)
[2023-09-26 13:09] VITALS: BP 127/67; PULSE 73; RESP 16; TEMP 99.2; O2SAT 96
[2023-09-26] MEDS ORDERED: augmentin PO (13:28)
== END 2023-09-26 13:53 | disposition home health service (06) | DRG 178 ==
LOC: ER 17:00 → ERHOLD 17:53 → MED/SURG3 19:41
PROVIDERS: ADMIT Internal Medicine; ATTEND Internal Medicine
PROC: 02HV33Z Insertion of Infusion Device into Superior Vena Cava, Percutaneous Approach (ICD-10-PCS; principal; 2023-09-17)
PROC: B548ZZA Ultrasonography of Superior Vena Cava, Guidance (ICD-10-PCS; principal; 2023-09-17)
PROC: 0DP6XUZ Removal of Feeding Device from Stomach, External Approach (ICD-10-PCS; 2023-09-20)
PROC: 0DJ08ZZ Inspection of Upper Intestinal Tract, Via Natural or Artificial Opening Endoscopic (ICD-10-PCS; 2023-09-23)
PROC: 0D20XUZ Change Feeding Device in Upper Intestinal Tract, External Approach (ICD-10-PCS; 2023-09-23)
DX: J69.0 Pneumonitis due to inhalation of food and vomit (principal); E44.0 Moderate protein-calorie malnutrition; T85.598A Other mechanical complication of other gastrointestinal prosthetic devices, implants and grafts, initial encounter; I50.32 Chronic diastolic (congestive) heart failure; K94.29 Other complications of gastrostomy; K20.90 Esophagitis, unspecified without bleeding; K29.70 Gastritis, unspecified, without bleeding; Y73.8 Miscellaneous gastroenterology and urology devices associated with adverse incidents, not elsewhere classified; Y92.89 Other specified places as the place of occurrence of the external cause; J44.9 Chronic obstructive pulmonary disease, unspecified; D72.829 Elevated white blood cell count, unspecified; I25.10 Atherosclerotic heart disease of native coronary artery without angina pectoris; R13.12 Dysphagia, oropharyngeal phase; F17.200 Nicotine dependence, unspecified, uncomplicated; I48.0 Paroxysmal atrial fibrillation; I11.0 Hypertensive heart disease with heart failure; R19.7 Diarrhea, unspecified; E78.5 Hyperlipidemia, unspecified; F14.11 Cocaine abuse, in remission; D63.8 Anemia in other chronic diseases classified elsewhere; R91.1 Solitary pulmonary nodule; E11.65 Type 2 diabetes mellitus with hyperglycemia; F31.9 Bipolar disorder, unspecified; Z79.899 Other long term (current) drug therapy; Z95.1 Presence of aortocoronary bypass graft; Z83.3 Family history of diabetes mellitus; Z82.49 Family history of ischemic heart disease and other diseases of the circulatory system; Z20.822 Contact with and (suspected) exposure to COVID-19; Z68.22 Body mass index [BMI] 22.0-22.9, adult
CPT/HCPCS: 36415; 36569; 43246; 71045; 71260; 74176; 80048; 80053; 82550; 82948; 83605; 83735; 84100; 84484; 85025; 85610; 85730; 87040; 87390; 93005; 94640; 94799; 96365; 96372; 99252; G0433; G0435; J1170; J1200; J2001; J2270; J2405; J2543; J2997; J3475; J3480; J7030; J7050; Q9967; U0002

== ENCOUNTER → 2023-09-16 | Outpatient (REF) | payer OTHER ==
[~2023-09-16] MED LIST changes: +IOPAMIDOL 370 MG/ML 100 ML INFUS..BTL INJ ONE
[2023-09-16 15:48] LABS: CREATININE, SERUM 0.75 mg/dL (0.57-1.11)
== END ==
LOC: CT 14:47
PROVIDERS: ATTEND Internal Medicine Gastroenterology
DX: R10.9 Unspecified abdominal pain (principal); G89.29 Other chronic pain
CPT/HCPCS: 36415; 74177; 82565; 84520; Q9967

== ENCOUNTER → 2024-07-01 | Day surgery (SDC) | payer OTHER ==
[2024-06-27 10:28] LABS: BASOPHILS % 0.5 % (0.0-1.0); EOSINOPHILS # (AUTO) 0.1 (0.0-0.4); EOSINOPHILS % 1.9 % (0.0-6.0); HEMATOCRIT 41.5 % (34.2-44.1); HEMOGLOBIN 13.7 g/dL (12.0-16.0); LYMPHOCYTES # (AUTO) 2.5 (1.0-3.2); LYMPHOCYTES % 33.7 % (18.0-39.1); MONOCYTES # (AUTO) 0.6 (0.2-0.8); NEUTROPHILS # (AUTO) 4.1 (2.1-6.9); NEUTROPHILS % 55.8 % (38.7-80.0); PLATELET COUNT 259 x10e3/uL (140-360); RED BLOOD COUNT 4.15 x10e6/uL (3.6-5.1); RED CELL DISTRIBUTION WIDTH 13.5 % (11.7-14.4); WHITE BLOOD COUNT 7.29 x10e3/uL (4.8-10.8)
[~2024-07-01] MED LIST changes: +FENTANYL CITRATE/PF 100MCG/2 ML INJ ONE; +LANTUS 3ML100 UNITS/ SQ; +LIDOCAINE HCL 2% LOCAL INJ 5 ML SDV VIAL INJ ONE; +METFORMIN HCL500 MG PO; +MIDAZOLAM HCL 2 MG/2 ML VIAL ONE; +NEOSTIGMINE 1 MG/ML 10ML VIAL ONE; +NEURONTIN300 MG PO; +PROPOFOL IV EMULSION 10 MG/ML 20 ML VIAL ONE; +VENTOLIN HFA18 GM INH; +augmentin PO
[2024-07-01] MEDS: LACTATED RINGER'S 1,000 ML ONE (06:01)
[2024-07-01 07:32] VITALS: TEMP 97.4
[2024-07-01 08:00] VITALS: BP 135/61; PULSE 76; RESP 16; O2SAT 96
== END | disposition home or self-care (01) ==
LOC: OR 05:52
PROVIDERS: ATTEND Internal Medicine Gastroenterology
DX: Z43.1 Encounter for attention to gastrostomy (principal); K29.70 Gastritis, unspecified, without bleeding; K20.90 Esophagitis, unspecified without bleeding; K44.9 Diaphragmatic hernia without obstruction or gangrene; D64.9 Anemia, unspecified; I11.0 Hypertensive heart disease with heart failure; I50.9 Heart failure, unspecified; E11.9 Type 2 diabetes mellitus without complications; E78.5 Hyperlipidemia, unspecified; I25.810 Atherosclerosis of coronary artery bypass graft(s) without angina pectoris; J44.9 Chronic obstructive pulmonary disease, unspecified; Z99.81 Dependence on supplemental oxygen; K21.9 Gastro-esophageal reflux disease without esophagitis; G89.29 Other chronic pain; M06.9 Rheumatoid arthritis, unspecified; F31.9 Bipolar disorder, unspecified; F20.9 Schizophrenia, unspecified; F17.210 Nicotine dependence, cigarettes, uncomplicated; Z88.8 Allergy status to other drugs, medicaments and biological substances; Z01.810 Encounter for preprocedural cardiovascular examination; Z01.812 Encounter for preprocedural laboratory examination; Z79.899 Other long term (current) drug therapy; Z95.5 Presence of coronary angioplasty implant and graft; Z95.1 Presence of aortocoronary bypass graft
CPT/HCPCS: 36415; 43247; 85025; 93005; J2001; J2250; J2704; J2710; J3010; J7121; 43239; 43246